=== PATIENT | female | born 1950 | race Caucasian/White ===

== ENCOUNTER 2016-08-19 09:39 | Inpatient (IN) | payer MEDICARE, MEDICAID ==
[2016-08-19] MEDS ORDERED: Ciprofloxacin 400MG IVPREMIX(* 400 MG/200 ML BAG IVPB ONE (09:55)
[2016-08-19] MEDS ORDERED: NS 0.9% 1000 ML* 1,000 ML IV ONE ×2 (09:55→16:58)
[2016-08-19] MEDS ORDERED: NS 0.9% 1000 ML* 3,000 ML IV ONE (10:00)
--- NOTE | 2016-08-19 10:50 | RAD ---
Indication: Fever. Single frontal view of the chest performed at 1000 hours was reviewed. Comparison is made with previous exam dated January 29, 2016. No mediastinal shift is noted. Heart is of normal size and configuration. Lung de la torre appear clear. IMPRESSION: NO ACTIVE CARDIOPULMONARY DISEASE IS NOTED.
--- NOTE | 2016-08-19 11:00 | RAD ---
INDICATION: Fever. Altered mental status. COMPARISON: CT brain June 20, 2007 TECHNIQUE: Noncontrast axial source images were acquired from the skull base to the vertex. FINDINGS: Ventricles/sulci: There is diffuse cortical volume loss with compensatory dilatation of the ventricles. The ventricles appear slightly out of proportion to the CSF spaces but appear unchanged. There is a cavum septum pellucidum/vergae representing a normal variant. Brain parenchyma: There is moderate periventricular and subcortical white matter change compatible with chronic ischemia. Intracranial hemorrhage:None. Extra-axial spaces: There are no abnormal extra axial fluid collections or evidence of extra-axial mass. Calvarium: There is no calvarial fracture or other calvarial abnormality. Scalp: There is no evidence of scalp or extracalvarial soft tissue abnormality. Paranasal sinuses/mastoid: The paranasal sinuses and mastoid air cells are clear. Other: None. IMPRESSION: No acute findings. Cortical involutional changes. Chronic microvascular ischemic change
[2016-08-19 12:16] LABS: Hematocrit 31 % (35-47); Mean Corpuscular HGB Conc 32 g/dl (31-36); Mean Corpuscular Hemoglobin 33 pg (27-31); Mean Corpuscular Volume 101 fL (80-97); Mean Platelet Volume 11 um3 (7.4-10.4); Red Blood Count 3.07 10^6/ul (4.0-5.4); Red Cell Distribution Width 13 % (10.5-15); White Blood Count 13.1 10^3/ul (3.5-10.8)
[2016-08-19 12:19] LABS: Add Diff/Slide Review? Slide Review Added; Comments Flag Yes
[2016-08-19 12:30] LABS: Albumin 2.8 g/dL (3.2-5.2); BUN/Creatinine Ratio 23.7 (8-20); Calcium 8.7 mg/dL (8.6-10.3); EGFR African American 38.9 (>60); EGFR Non-African American 30.3 (>60); Globulin 3.4 g/dL (2-4); Potassium 4.6 mmol/L (3.5-5.0); Total Bilirubin 0.9 mg/dL (0.2-1.0); Total Protein 6.2 g/dL (6.4-8.9)
[2016-08-19 12:33] LABS: Troponin I 0.13 ng/mL (<0.04)
[2016-08-19] MEDS ORDERED: Aspirin TAB* 325 MG PO ONE (13:27)
[2016-08-19] MEDS ORDERED: Enoxaparin(*) 150 MG/ML 1 ML SYRINGE SUBCUT ONE (14:00)
[2016-08-19] MEDS ORDERED: Acetaminophen TAB* 325 MG PO ONE (14:15)
[2016-08-19 14:36] LABS: Urine Bacteria 1+ (Absent); Urine Bilirubin Negative (Negative); Urine Glucose 3+(>=500 mg/dL) (Negative); Urine Nitrite Positive (Negative)
[2016-08-19] MEDS ORDERED: Dextrose 50% Syringe 50 ML* 25 GM/50 ML SYRINGE IV PUSH PRN (16:28)
[2016-08-19] MEDS ORDERED: Albuterol 2.5 MG/3 ML NEB.SOL* (0.083%) INH PRN (16:31)
[2016-08-19] MEDS ORDERED: Nystatin CREAM* 15 GM TUBE TOPICAL PRN (16:31)
[2016-08-19] MEDS ORDERED: Albuterol HFA INHALER* 8 gm MDI INH PRN (16:31)
[2016-08-19] MEDS ORDERED: Senna TAB PO PRN (16:31)
[2016-08-19] MEDS ORDERED: Docusate CAP* 100 MG PO PRN (16:47)
--- NOTE | 2016-08-19 16:48 | RAD ---
Indication: LEFT flank pain. Urinary tract infection. Comparison: September 07, 2015 CT. Technique: Renal ultrasound. Report: 10.6 x 6.4 x 5.4 cm RIGHT kidney. Moderate renal cortical atrophy. No focal renal lesions, conspicuous stones, or hydronephrosis. 12.2 x 4.9 x 4.5 cm LEFT kidney is remarkable for moderately severe cortical atrophy. 0.5 x 1.2 cm upper pole and 0.9 x 1.0 cm lower pole stones visualized. Negative for hydronephrosis. Focal renal lesions evident. Negative for perinephric fluid. IMPRESSION: 1. Nonobstructing LEFT renal stones. 2. Bilateral renal cortical atrophy.
[2016-08-19] MEDS ORDERED: HYDROcodone/ACETAMIN 5-325 MG* 1 TAB PO PRN (16:57)
[2016-08-19] MEDS ORDERED: NS 0.9% 1000 ML* 1,000 ML IV SCH (17:00)
[2016-08-19] MEDS: cefTRIAXone VIAL(*) 1,000 MG in NS 0.9% 50 ML* 50 ML IVPB SCH (17:46)
[2016-08-19 20:12] LABS: Troponin I 0.11 ng/mL (<0.04)
[2016-08-19] MEDS ORDERED: Insulin GLARGINE(*) 1 UNITS UNIT SUBCUT SCH (21:00)
[2016-08-19] MEDS: Insulin LISPRO* 1 UNITS UNIT SUBCUT SCH ×2 (21:53→23:37)
[2016-08-19] MEDS: Topiramate TAB(*) 100 MG PO SCH (21:53)
[2016-08-19] MEDS: Montelukast Sodium TAB* 10 MG PO SCH (21:53)
[2016-08-19] MEDS: Atorvastatin* 10 MG TAB PO SCH (21:53)
[2016-08-19] MEDS: Heparin VIAL(*) 5000 UNITS/ML VIAL (FIVE THOUSAND) SUBCUT SCH (21:54)
[2016-08-19] MEDS ORDERED: Ciprofloxacin 400MG IVPREMIX(* 400 MG/200 ML BAG IVPB SCH (22:00)
--- NOTE | 2016-08-19 23:21 | HP ---
ATTENDING PHYSICIAN ADDENDUM NOW INCLUDED ON THIS REPORT HOSPITAL MEDICINE HISTORY AND PHYSICAL: DATE OF ADMISSION: 08/19/16 PRIMARY CARE PROVIDER: Og Arce NP ATTENDING PHYSICIAN: Dr. Roopa Garsia* (dictation provided by Izabella Neal NP) . CHIEF COMPLAINT: Fever and disorientation. HISTORY OF PRESENT ILLNESS: Ms. Frankel is a 65-year-old female with a past medical history of morbid obesity, diabetes, CHF, hyperlipidemia, COPD, who presents today to the hospital with concern for multiple complaints. Ms. Frankel is somewhat confused today and information is also corroborated by her who is at the bedside. Per the report, Ms. Frankel first began to feel unwell on Friday. She has been disoriented, shaky, dizzy, and when asked if she has pain , she states she has pain from her feet all the way up to her chest. She said she had a headache, but it has now resolved. She had low-grade fever at home no higher than 100. Today, the patient finally requested to come to the hospital where she had been found to have a temperature as high as 103.3. Ms. Frankel states that she has been having a poor appetite but drinking well. She has had no nausea, vomiting, abdominal pain. She denies dysuria but does endorse frequency, although her reliability is suspected. In the emergency room, Ms. Frankel had a urinalysis that was positive for infection. Troponin was 0.13. She has a mild leukocytosis of 13.1 and a fever to 103.3 as stated above. PAST MEDICAL HISTORY: 1. Type 2 diabetes, insulin dependent. 2. Anemia. 3. Obesity, morbid. 4. History of acute renal failure, on hemodialysis, now resolved from December 2015. 5. Congestive heart failure, unknown type. 6. Hyperlipidemia. 7. Asthma/COPD. 8. Fibromyalgia. 9. 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 10. History of cholecystectomy. 11. History of appendectomy. 12. History of colostomy, reversed. 13. History of drop foot status critical illness. 14. History of chronic ventral wound after a mesh infection from previous surgery. MEDICATIONS: 1. Voltaren 1% gel one application topically four times a day. 2. Furosemide 40 mg p.o. daily. 3. Hydrocodone/acetaminophen 1 tab p.o. q.4 hours p.r.n. 4. Insulin Lantus 37 units subcutaneously daily. 5. Albuterol via nebulizer p.r.n. 6. Albuterol metered dose inhaler p.r.n. 7. Aspirin 81 mg p.o. daily. 8. Cholecalciferol 2000 units p.o. daily. 9. Cyanocobalamin 1000 mcg p.o. daily. 10. Duloxetine 30 mg p.o. daily. 11. Famotidine 40 mg p.o. daily. 12. Lispro insulin 4 units subcutaneously t.i.d. with meals. 13. Montelukast 10 mg p.o. at bedtime. 14. Nystatin cream one application topically t.i.d. 15. Potassium chloride 20 mEq p.o. daily. 16. Sennoside/docusate 1 tab p.o. at bedtime. 17. Simvastatin 20 mg p.o. at bedtime. 18. Topamax 100 mg p.o. b.i.d. ALLERGIES: To CEFOXITIN with unknown reaction type. FAMILY HISTORY: Mother had heart disease and diabetes but of bowel cancer. Father had heart disease and diabetes. The healthcare proxy is her , David Frankel Junior. SOCIAL HISTORY: The patient is a former smoker but quit in 1995. She drinks alcohol very occasionally. There is no report of drug use. Again, the healthcare proxy is David Junior Jostin. PHYSICAL EXAMINATION GENERAL: Ms. Frankel is sitting in the bed, she is in no acute distress. VITAL SIGNS: Temperature 101.4, pulse rate 93, respiratory rate 17, O2 saturation 95% on room air, blood pressure 142/66. HEENT: Mucous membranes are dry. LUNGS: Clear to auscultation bilaterally with no accessory muscle use and good aeration. HEART: S1, S2. No murmur, rub, or gallop, and regular. ABDOMEN: Soft, nontender. EXTREMITIES: No cyanosis or edema. NEURO: She is alert. She appears somewhat confused when asked questions but she generally participates coherently in conversation, she is forgetful. She moves all extremities equally. There is no facial asymmetry or focal weakness. Extraocular movements are intact. SKIN: The patient does have a chronic ventral wound to the lower mid abdomen with a dressing and no evidence of erythema or drainage. DIAGNOSTIC STUDIES/LAB DATA: WBC 13.1, hemoglobin 10.0, hematocrit 31, platelet count 102. INR 1.01. Sodium 134, potassium 4.6, chloride 104, serum bicarbonate 22, BUN 40, creatinine 1.69, glucose 306. Troponin 0.13. Urine shows 3+ leuk esterase and positive nitrites. Renal ultrasound shows nonobstructing left renal stones and bilateral renal cortical atrophy only. Chest x-ray shows "no active cardiopulmonary disease noted." ASSESSMENT AND PLAN: Ms. Frankel is a 65-year-old female with past medical history of morbid obesity; congestive heart failure; type 2 diabetes, insulin dependent; asthma; chronic obstructive pulmonary disease, who presents today to the hospital with concern for feeling disoriented, fever, and urinary frequency. In the emergency room, she has been found to have a positive urinalysis with no evidence for nephrolithiasis or hydronephrosis. Our plan is as follows: 1. Urinary tract infection without evidence of sepsis. I reviewed previous microbiology and the patient has had multiple urinary tract infections with proteus all resistant to ciprofloxacin. She was given one time dose of Cipro in the emergency room but I have now planned to switch to ceftriaxone. I note that she has allergy to CEFOXITIN but note she has received ceftriaxone in the past with no problem. The patient does seem mildly disoriented today, but she is overall coherent and participates well in conversation. I think, she likely has a mild degree of metabolic encephalopathy with infection. 2. Dehydration. The patient has dry mucous membranes. Her BUN and creatinine are at baseline now. Plan for normal saline x2 L. She has received 1 L thus far in the emergency room and she will normal saline at a rate of 100 an hour. Plan to hold furosemide. 3. Diabetes. Plan for slight decrease in her Lantus dose of 30 units subcutaneously at bedtime. She will continue on 4 units t.i.d. with Lispro with meals as well as a sliding scale. We are going to adjust that as needed based on clinical course. 4. History of congestive heart failure. The patient appears dry at this point. We will proceed with IV fluids as per above. We will monitor closely for signs of pulmonary edema. 5. Asthma and chronic obstructive pulmonary disease. The patient is breathing easily with no evidence of exacerbation. Plan to continue her home medications. 6. Chronic pain. Continue hydrocodone. 7. DVT prophylaxis with heparin subcu. 8. Troponin elevation. The patient's troponin is mildly elevated to 0.13. This is in the setting of ongoing diabetes. At this point, she has no chest pain or concern for acute coronary syndrome and I plan to cycle troponins x3 total. The patient will be monitored on telemetry unit. 9. Code status is full code. This was reviewed with the patient and the at the bedtime. TIME SPENT: Approximately 70 minutes was spent in the admission of this patient , more than half the time spent with her at the bedside reviewing the events leading up to this hospitalization, performing the physical examination, and reviewing the plan of care. IZABELLA NEAL NP ADDENDUM: Mrs. Frankel is a 65-year-old female with history of chronic medical conditions including chronic kidney disease, diabetes, who presents with fever and confusion and was noted to have UTI. She is going to be admitted with a diagnosis of sepsis due to UTI. For further details of the patient's presentation and plan, please see history and physical dictated by Izabella Neal NP on 08/19/16 with which I agree[place] [id number]/[facility] #: [id number] Payal-[id number]/[facility]PS #: [id number] ALFIE
--- NOTE | 2016-08-19 23:47 | HP ---
HISTORY AND PHYSICAL:* ADDENDUM: Mrs. Frankel is a 65-year-old female with history of chronic medical conditions including chronic kidney disease, diabetes, who presents with fever and confusion and was noted to have UTI. She is going to be admitted with a diagnosis of sepsis due to UTI. For further details of the patient's presentation and plan, please see history and physical dictated by Izabella Neal NP on 08/19/16 with which I agree. [id number]/[facility] #: [id number] [facility] CENTERKyree
[2016-08-20] MEDS: Heparin VIAL(*) 5000 UNITS/ML VIAL (FIVE THOUSAND) SUBCUT SCH ×3 (05:19→21:23)
--- NOTE | 2016-08-20 07:58 | ED ---
Maxx Conn Adam, scribed for Sea Riggs MD on 08/19/16 at 0946 . Complex/Multi-Sys Presentation - HPI Summary HPI Summary: Pt is a 65 year old female BIBA with fever, lethargy, and abdominal pain. According to EMS the pt has been in bed complaining of dizziness for the past 3 days and they report a fever with Tmax of 101.4. The pt states that her chief complaint is the abdominal pain. She also c/o PATIÑO and generalized myalgia and she reports having foul-smelling urine which is a dark rita color. The pt presents with slurred speech and decreased responsiveness. EMS reports glucose of 289 and HR of 104 BPM en route to the ED. Pt reportedly had a similar episode of increased lethargy 4-5 months ago. She uses a wheelchair at her residence. - History Of Current Complaint Hx Obtained From: Patient Onset/Duration: Gradual Onset, Lasting Days, Still Present Timing: Constant Severity Currently: Moderate Severity Initially: Moderate Location: Pain At: - Abdomen, head, generalized Associated Signs And Symptoms: Positive: Dizziness, Headache, Abdominal Pain, Fever - Allergies/Home Medications Allergies/Adverse Reactions: Allergies Allergy/AdvReac Type Severity Reaction Status Date / Time Cefoxitin Allergy Unknown Verified 01/29/16 09:10 Reaction Details Home Medications: Home Medications Aspirin EC Low Dose* [Ecotrin EC Low Dose*] 81 mg PO DAILY 08/19/16 [History Confirmed 08/19/16] Furosemide TAB* [Lasix TAB*] 40 mg PO DAILY 08/19/16 [History Confirmed 08/19/16 ] Insulin GLARGINE(*) [Lantus(*)] 37 units SUBCUT DAILY 08/19/16 [History Confirmed 08/19/16] Insulin LISPRO* [HumaLOG*] 4 units SUBCUT TID WITH MEALS 08/19/16 [History Confirmed 08/19/16] Potassium Chlor TAB* [Klor Con ER TAB*] 20 meq PO DAILY 08/19/16 [History Confirmed 08/19/16] Sennosides-Docusate Sodium [Senna-S 8.6-50 mg] 1 tab PO BEDTIME PRN 08/19/16 [ History Confirmed 08/19/16] PMH/Surg Hx/FS Hx/Imm Hx Endocrine/Hematology History: Reports: Hx Bone Marrow Disease - Type 2, Hx Diabetes, Hx Anemia, Other Endocrine/Hematological Disorders - "bone marrow disorder" Cardiovascular History: Reports: Hx Congestive Heart Failure, Hx Hypercholesterolemia Respiratory History: Reports: Hx Asthma, Hx Chronic Obstructive Pulmonary Disease (COPD) GI History: Reports: Hx Gall Bladder Disease - cholecystectomy, Other GI Disorders - appendectomy/Mesentary Musculoskeletal History: Reports: Hx Fibromyalgia Sensory History: Reports: Hx Contacts or Glasses Opthamlomology History: Reports: Hx Contacts or Glasses - Surgical History Surgery Procedure, Year, and Place: Appendectomy, cholecystectomy, ventral hernia repair Infectious Disease History: Reports: Hx of Known/Suspected MRSA - confirmation unknown at this time - Family History Known Family History: Positive: Cardiac Disease - Unknown heart disease (both parents), Diabetes - Both parents, Other - Mother of bowel cancer at age 52 - Social History Occupation: Disabled Lives: Alone Alcohol Use: None Hx Substance Use: No Substance Use Type: Reports: None Hx Tobacco Use: No - Former Smoking Status (MU): Former Smoker Review of Systems Positive: Fever, Fatigue. Negative: Chills Negative: Erythema Negative: Sore Throat Negative: Chest Pain Negative: Shortness Of Breath, Cough Positive: Abdominal Pain. Negative: Vomiting, Nausea Negative: dysuria, hematuria Positive: Myalgia. Negative: Edema Negative: Rash Neurological: Other - Dizziness Positive: Headache, Slurred Speech All Other Systems Reviewed And Are Negative: Yes Physical Exam - Summary Physical Exam Summary: Constitutional: Well-developed, Well-nourished, Alert. (-) Distressed Skin: Warm, Dry HENT: Normocephalic; Atraumatic Eyes: Conjunctiva normal Neck: Musculoskeletal ROM normal neck. (-) JVD, (-) Stridor, (-) Tracheal deviation Cardio: Rhythm regular, rate normal, Heart sounds normal; Intact distal pulses; The pedal pulses are 2+ and symmetric. Radial pulses are 2+ and symmetric. (-) Murmur Pulmonary/Chest wall: Effort normal. (-) Respiratory distress, (-) Wheezes, (-) Rales Abd: Soft, (-) Tenderness, (-) Distension, (-) Guarding, (-) Rebound Musculoskeletal: (-) Edema Lymph: (-) Cervical adenopathy Neuro: Alert, Oriented x3 Psych: Mood and affect Normal Triage Information Reviewed: Yes Vital Signs Reviewed: Yes Diagnostics - Laboratory Result Diagrams: 08/19/16 11:59 08/19/16 11:59 Lab Statement: Any lab studies that have been ordered have been reviewed, and results considered in the medical decision making process. - Radiology CXR Radiology Interpretation Completed By: Radiologist - IMPRESSION: NO ACTIVE CARDIOPULMONARY DISEASE IS NOTED. - CT BRAIN CT Interpretation Completed By: Radiologist - IMPRESSION: No acute findings. Cortical involutional changes. Chronic microvascular ischemic change - Additional Comments Diagnostic Additional Comments: Troponin I - 0.13 Complex Multi-Symp Course/Dx - Diagnoses Provider Diagnoses: UTI (urinary tract infection), Delirium, Elevated troponin Discharge - Discharge Plan Condition: Stable Disposition: ADMITTED TO [facility] The documentation as recorded by the Maxx poole Adam accurately reflects the service I personally performed and the decisions made by , Sea Riggs MD.
[2016-08-20] MEDS ORDERED: Albuterol 2.5 MG/3 ML NEB.SOL* (0.083%) INH PRN (08:15)
--- NOTE | 2016-08-20 08:43 | PN ---
Subjective Date of Service: 08/20/16 Interval History: Pt's ability to communicate accurate information at this time is limited. She is able to say "ow" when I palpate her abdomen, she can tell me her birthday and that she is in the hospital and other than that she does not answer my questions. Objective Active Medications: Albuterol (Ventolin Hfa Inhaler*) 2 puff INH Q4H PRN PRN Reason: WHEEZING Albuterol (Ventolin 2.5 Mg/3 Ml Neb.Shanta*) 2.5 mg INH Q4H PRN PRN Reason: WHEEZING Aspirin (Aspirin Ec Low Dose*) 81 mg PO DAILY [facility] Atorvastatin Calcium (Lipitor*) 10 mg PO BEDTIME [facility] Last Admin: 08/19/16 21:53 Dose: 10 mg Cholecalciferol (Vitamin D Tab*) 2,000 units PO DAILY [facility] Cyanocobalamin (Vitamin B12 Tab*) 1,000 mcg PO DAILY [facility] Dextrose (D50w Syringe 50 Ml*) 12.5 gm IV PUSH .FOR FS < 60 - SS PRN PRN Reason: FS < 60 Docusate Sodium (Colace Cap*) 100 mg PO BEDTIME PRN PRN Reason: CONSTIPATION Duloxetine HCl (Cymbalta Cap*) 30 mg PO DAILY [facility] Famotidine (Pepcid Tab*) 40 mg PO DAILY [facility] Heparin Sodium (Porcine) (Heparin Vial(*)) 5,000 units SUBCUT Q8HR [facility] Last Admin: 08/20/16 05:19 Dose: 5,000 units Ceftriaxone Sodium 1,000 mg/ (Sodium Chloride) 50 mls @ 200 mls/hr IVPB Q24H [facility] Last Admin: 08/19/16 17:46 Dose: 200 mls/hr Sodium Chloride (Ns 0.9% 1000 Ml*) 1,000 mls @ 100 mls/hr IV PER RATE [facility] Last Admin: 08/20/16 00:40 Dose: 100 mls/hr Insulin Glargine (Lantus(*)) 35 units SUBCUT BEDTIME JOSE Insulin Human Lispro (Humalog*) 0 units SUBCUT AC JOSE PRN Reason: Protocol Last Admin: 08/19/16 23:37 Dose: Not Given Insulin Human Lispro (Humalog*) 4 units SUBCUT TID WITH MEALS [facility] Last Admin: 08/19/16 21:53 Dose: 4 units Montelukast Sodium (Singulair Tab*) 10 mg PO BEDTIME [facility] Last Admin: 08/19/16 21:53 Dose: 10 mg Nystatin (Nystatin Cream*) 1 applic TOPICAL TID PRN PRN Reason: RASH Potassium Chloride (Klor Con Er Tab*) 20 meq PO DAILY [facility] Senna (Senokot Tab*) 1 tab PO BEDTIME PRN PRN Reason: CONSTIPATION Topiramate (Topamax(*)) 100 mg PO BID [facility] Last Admin: 08/19/16 21:53 Dose: 100 mg Vital Signs 08/19/16 08/19/16 08/19/16 19:08 19:43 19:59 Temperature 99.8 F 98.5 F Pulse Rate 91 80 Respiratory 20 18 Rate Blood Pressure 95/45 127/55 (mmHg) O2 Sat by Pulse 96 97 Oximetry 08/19/16 08/19/16 08/19/16 20:14 20:38 23:30 Temperature 98.5 F 98.1 F Pulse Rate 80 85 Respiratory 18 20 16 Rate Blood Pressure 127/55 130/51 (mmHg) O2 Sat by Pulse 97 97 Oximetry 08/20/16 08/20/16 08/20/16 00:15 03:15 07:27 Temperature 98.5 F 99.2 F Pulse Rate 85 131 Respiratory 18 16 28 Rate Blood Pressure 135/61 142/95 (mmHg) O2 Sat by Pulse 93 87 Oximetry 08/20/16 07:55 Temperature Pulse Rate Respiratory 24 Rate Blood Pressure (mmHg) O2 Sat by Pulse Oximetry Oxygen Devices in Use Now: None Appearance: Super morbidly obese female sitting up in bed, poorly communicative but in NAD Eyes: No Scleral Icterus Ears/Nose/Mouth/Throat: Mucous Membranes Moist Respiratory: Symmetrical Chest Expansion and Respiratory Effort, Clear to Auscultation Cardiovascular: - - regular but tachycardic, L LE> in diameter than R LE, trace LE edema bilaterally Abdominal: - - BS+ soft, morbidly obese, ND, tender to palpation in both lower quadrants, midline abdominal wound noted-see below for description Extremities: No Clubbing, Cyanosis Skin: No Nodules or Sclerosis, - - Prior ventral hernia scar noted, the dressing that was on had not been changed since the patient presented to the hospital-dried serous fluid on gauze, no foul smell, no erythema, small slit like defect (wound) at the inferior portion of the scar with possible tract Neurological: - - pt appears encephalopathic Result Diagrams: 08/19/16 11:59 08/19/16 11:59 Assess/Plan/Problems-Billing Ms Frankel is a 65 yo F with super morbid obesity, type II DM, asthma/COPD, diastolic CHF, HLD and depression who presented to the ER with c/o fever and altered mental status and was admitted for sepsis secondary to probable UTI. - Patient Problems (1) Sepsis Current Visit: Yes Status: Acute Comment: On admission the patient was septic likely secondary to UTI. Her SOFA score was elevated at 3 with a point each for thrombocytopenia, low MAP and reduced GCS. Her sepsis appears to have resolved though she still remains encephalopathic. (2) UTI (urinary tract infection) Current Visit: Yes Status: Acute Comment: The patient's admission urinalysis appears infected. Continue ceftriaxone for now (pt has listed allergy to cefoxitin though the allergy reaction has not been established). Monitor for signs of allergic rxn. Await urine culture results. (3) Elevated troponin Current Visit: Yes Status: Acute Code(s): R79.89 - OTHER SPECIFIED ABNORMAL FINDINGS OF BLOOD CHEMISTRY SNOMED Code(s): 133901908 Comment: On admission the patient had an elevated troponin of 0.13 then up to 0.14, now down to 0.11. I suspect the elevated troponin was secondary to demand ischemia in the setting of sepsis. Will get echocardiogram to eval LVEF and wall motion though this will likely be a difficult exam given her morbid obesity. (4) Thrombocytopenia Current Visit: Yes Status: Acute Code(s): D69.6 - THROMBOCYTOPENIA, UNSPECIFIED SNOMED Code(s): 991616119 Comment: I am most suspicous her thrombocytopenia is secondary to sepsis. Will get follow up CBC today. Monitor for now. (5) Gram-positive cocci bacteremia Current Visit: Yes Status: Acute Code(s): R78.81 - BACTEREMIA SNOMED Code( s): 565728185472 Comment: Today the patient so far has 1 of 2 bottles positive for gram positive cocci- MRSA neg, S aureus negative. Likely a contaminant. If concerns tomorrow after further culture data is concerning will get ID consult. (6) Stage III chronic kidney disease Current Visit: Yes Status: Acute Code(s): N18.3 - CHRONIC KIDNEY DISEASE, STAGE 3 (MODERATE) SNOMED Code(s): 752717395 Comment: Creatinine is at baseline. Continue to follow. (7) Wound, surgical, nonhealing Current Visit: Yes Status: Acute Code(s): T81.89XA - OTH COMPLICATIONS OF PROCEDURES, NEC, INIT SNOMED Code(s): 240795981 Comment: No clear signs of infection surrounding the slit like wound at the inferior portion of the previous ventral hernia repair scar. Wound consult has been ordered. (8) Diastolic CHF, chronic Current Visit: Yes Status: Acute Code(s): I50.32 - CHRONIC DIASTOLIC ( CONGESTIVE) HEART FAILURE SNOMED Code(s): 047986806 Comment: No signs of significant fluid overload at this time. Lasix is currently on hold. Monitor fluid status. (9) Type II diabetes mellitus Current Visit: Yes Status: Acute Comment: Sugars are currently uncontrolled. Increase lantus to 35 units daily. Continue lispro sliding scale. (10) COPD (chronic obstructive pulmonary disease) Current Visit: Yes Status: Acute Code(s): J44.9 - CHRONIC OBSTRUCTIVE PULMONARY DISEASE, UNSPECIFIED SNOMED Code(s): 10792334 Comment: No signs of exacerbation at this time. Continue prn nebs and singulair. (11) Depression Current Visit: Yes Status: Acute Code(s): F32.9 - MAJOR DEPRESSIVE DISORDER , SINGLE EPISODE, UNSPECIFIED SNOMED Code(s): 23331126 Comment: Continue cymbalta and topamax. (12) Morbid obesity Current Visit: Yes Status: Acute Code(s): E66.01 - MORBID (SEVERE) OBESITY DUE TO EXCESS CALORIES SNOMED Code(s): 907229511 Comment: Diagnosis noted. Once more appropriate for education will discuss diet/exercise. (13) DVT prophylaxis Current Visit: Yes Status: Acute Code(s): XYR8881 - SNOMED Code(s): 314126306 Comment: SQ heparin (14) Full code status Current Visit: Yes Status: Acute Code(s): Z78.9 - OTHER SPECIFIED HEALTH STATUS SNOMED Code(s): 469060011
--- NOTE | 2016-08-20 09:15 | RAD ---
Indication: Left leg edema. Duplex Doppler sonography of the deep venous system of the left lower extremity deep venous system was performed. Bilaterally the common femoral veins appear patent and compressible. Left proximal greater saphenous vein, proximal deep femoral vein, femoral vein, popliteal vein, posterior tibial veins and peroneal veins appear patent and compressible. IMPRESSION: NO EVIDENCE OF DEEP VENOUS THROMBOSIS IS IDENTIFIED.
[2016-08-20 10:05] LABS: Hematocrit 32 % (35-47); Hemoglobin 10.2 g/dl (12.0-16.0); Mean Corpuscular HGB Conc 32 g/dl (31-36); Mean Corpuscular Hemoglobin 32 pg (27-31); Mean Corpuscular Volume 101 fL (80-97); Red Blood Count 3.18 10^6/ul (4.0-5.4); Red Cell Distribution Width 14 % (10.5-15); White Blood Count 12.8 10^3/ul (3.5-10.8)
[2016-08-20 10:14] LABS: Add Diff/Slide Review? Slide Review Added; Comments Flag Yes
[2016-08-20] MEDS: Insulin LISPRO* 1 UNITS UNIT SUBCUT SCH ×6 (10:15→17:47)
[2016-08-20] MEDS: Topiramate TAB(*) 100 MG PO SCH ×2 (10:18→21:23)
[2016-08-20] MEDS: Famotidine TAB* 20 MG PO SCH (10:19)
[2016-08-20] MEDS: Cholecalciferol TAB* 1000 UNITS PO SCH (10:20)
[2016-08-20] MEDS: Aspirin EC Low Dose* 81 MG TAB.EC PO SCH (10:20)
[2016-08-20] MEDS: DULoxetine DR CAP* 30 MG CAP.DR PO SCH (10:20)
[2016-08-20] MEDS: Cyanocobalamin TAB* 500 MCG PO SCH (10:21)
[2016-08-20] MEDS: Potassium Chlor TAB* 20 MEQ TAB.ER PO SCH (10:21)
[2016-08-20 10:22] LABS: BUN/Creatinine Ratio 24.1 (8-20); Calcium 8.6 mg/dL (8.6-10.3); EGFR Non-African American 37.3 (>60); Potassium 3.7 mmol/L (3.5-5.0)
[2016-08-20] MEDS: NS 0.9% 1000 ML* 1,000 ML IV SCH (11:42)
[2016-08-20] MEDS ORDERED: Perflutren Lipid Microsphere* 1.1 MG/ML VIAL IV ONE (12:30)
--- NOTE | 2016-08-20 13:29 | ECHO ---
Patient: CATARINA LAWSON Rec#: [id number] : 1950 Date: 08/20/2016 Age: 65y Height: 152.4 cm / 60.0 in Weight: 134.26 kg / 295.9 lbs Sex: F BSA: 2.2 Room#: 433 Admit Date#: 08/19/2016 Type: Inpatient Referring: Lesli Gimenez DO Reading: Fernando Dacosta MD Coil Maker: Kala Burrows RDCS CC: Og Arce NP Transthoracic Echocardiogram Indication: ACS BP: 142/95 HR: 117 Rhythm: NSR Findings History: Morbid obesity,DM,CHF,HLD,COPD,anemia,acute renal failure,fibromyalgia. Technical Comments: The study is technically difficult. Completed at 1245. The study is technically limited due to patient body habitus. The study was technically limited due to the patient's inability to lay in the left lateral decubitus position. Left Ventricle: The left ventricular chamber size is normal. The left ventricle appears hyperdynamic. The estimated ejection fraction is greater than 65%. The patient was unable to perform a Valsalva maneuver. Left Atrium: The left atrial chamber size is normal. Right Ventricle: The right ventricular cavity size is normal. The right ventricular global systolic function is normal. Right Atrium: The right atrium is not well visualized. Aortic Valve: The aortic valve is trileaflet. There is no evidence of aortic regurgitation. There is no evidence of aortic stenosis. Mitral Valve: The mitral valve leaflets are mildly thickened. There is a trace of mitral regurgitation. There is no evidence of mitral stenosis. Tricuspid Valve: The tricuspid valve leaflets are normal. There is a physiologic tricuspid regurgitation. There is evidence that pulmonary hypertension may be underestimated. There is no tricuspid stenosis. Pulmonic Valve: The pulmonic valve appears normal. There is no evidence of pulmonic regurgitation. There is no pulmonic stenosis. Pericardium: A pericardial fat pad is visualized. Aorta: There is no dilatation of the ascending aorta. There is no dilatation of the aortic arch. There is no dilation of the aortic root. Pulmonary Artery: The main pulmonary artery appears normal. Venous: The inferior vena cava appears normal in size. There is an approximate 50% respiratory change in the inferior vena cava dimension. Conclusions The study was technically limited due to the patient's inability to lay in the left lateral decubitus position. The left ventricle appears hyperdynamic. The estimated ejection fraction is greater than 65%. No significant valvular disease: There is a trace of mitral regurgitation. There is a physiologic tricuspid regurgitation. Comparted to report of study from 12/27/2015 the overall LV systolic function is better (was reported as 55-60 % LVEF). Measurements Name Value Normal Range RVIDd (AP) 2D 2.6 cm (0.9 - 2.6) RVDdMajor (2D) 4.3 cm (2.2 - 4.4) IVSd (2D) 0.7 cm (0.6 - 1) LVPWd (2D) 1 cm (0.6 - 1) LVIDd (2D) 4.7 cm (3.6 - 5.4) LVIDs (2D) 3.4 cm - LV FS (2D) 28 % (25 - 45) Aortic Annulus 2.1 cm (1.4 - 2.6) Ao root diameter (2D) 2.9 cm (2.1 - 3.5) Ascending Ao 3 cm (2.1 - 3.4) Aortic arch 2.4 cm (1.8 - 3.4) Descending Ao 0.8 cm - LA dimension (AP) 2D 3.4 cm (2.3 - 3.8) Name Value Normal Range LA ESV SP 4CH (A/L) 29 ml - LA ESV SP 2CH (A/L) 34 ml - LA ESV BP (A/L) 32 ml - LA ESV BP (A/L) index 14.38 ml/m2 - LA ESV SP 4CH (MOD) 27 ml - LA ESV SP 2CH (MOD) 3 ml - Name Value Normal Range MV E-wave Vmax 0.9 m/sec - MV deceleration time 115 msec - MV A-wave Vmax 1.1 m/sec - MV E:A ratio 0.83 ratio - LV septal e' Vmax 0.08 m/sec - LV lateral e' Vmax 0.09 m/sec - LV E:e' septal ratio 11.25 ratio - LV E:e' lateral ratio 10 ratio - Name Value Normal Range AV Vmax 1.9 m/sec - AV VTI 30.9 cm - AV peak gradient 13.87 mmHg - AV mean gradient 7.89 mmHg - LVOT Vmax 1 m/sec - LVOT VTI 21 cm - LVOT peak gradient 6.62 mmHg - LVOT mean gradient 3.33 mmHg - Name Value Normal Range IVC diameter 2 cm - Name Value Normal Range PV Vmax 1.5 m/sec - PV peak gradient 8.51 mmHg -
[2016-08-20] MEDS: cefTRIAXone VIAL(*) 1,000 MG in NS 0.9% 50 ML* 50 ML IVPB SCH (16:45)
[2016-08-20] MEDS: Acetaminophen TAB* 325 MG PO PRN ×2 (16:48→22:46)
[2016-08-20] MEDS ORDERED: Insulin GLARGINE(*) 1 UNITS UNIT SUBCUT SCH (21:00)
[2016-08-20] MEDS: Atorvastatin* 10 MG TAB PO SCH (21:23)
[2016-08-20] MEDS: Montelukast Sodium TAB* 10 MG PO SCH (21:23)
[2016-08-21] MEDS: NS 0.9% 1000 ML* 1,000 ML IV SCH (04:31)
[2016-08-21] MEDS: Heparin VIAL(*) 5000 UNITS/ML VIAL (FIVE THOUSAND) SUBCUT SCH ×3 (04:32→21:08)
--- NOTE | 2016-08-21 08:06 | PN ---
Subjective Date of Service: 08/21/16 Interval History: Pt is feeling much better today than yesterday. She denies any pain. No SOB. She states she feels puffy. Objective Active Medications: Acetaminophen (Tylenol Tab*) 650 mg PO Q4H PRN PRN Reason: PAIN Last Admin: 08/20/16 22:46 Dose: 650 mg Albuterol (Ventolin Hfa Inhaler*) 2 puff INH Q4H PRN PRN Reason: WHEEZING Albuterol (Ventolin 2.5 Mg/3 Ml Neb.Shanta*) 2.5 mg INH Q4H PRN PRN Reason: WHEEZING Aspirin (Aspirin Ec Low Dose*) 81 mg PO DAILY [facility] Last Admin: 08/20/16 10:20 Dose: 81 mg Atorvastatin Calcium (Lipitor*) 10 mg PO BEDTIME [facility] Last Admin: 08/20/16 21:23 Dose: 10 mg Cholecalciferol (Vitamin D Tab*) 2,000 units PO DAILY [facility] Last Admin: 08/20/16 10:20 Dose: 2,000 units Cyanocobalamin (Vitamin B12 Tab*) 1,000 mcg PO DAILY [facility] Last Admin: 08/20/16 10:21 Dose: 1,000 mcg Dextrose (D50w Syringe 50 Ml*) 12.5 gm IV PUSH .FOR FS < 60 - SS PRN PRN Reason: FS < 60 Docusate Sodium (Colace Cap*) 100 mg PO BEDTIME PRN PRN Reason: CONSTIPATION Duloxetine HCl (Cymbalta Cap*) 30 mg PO DAILY [facility] Last Admin: 08/20/16 10:20 Dose: 30 mg Famotidine (Pepcid Tab*) 40 mg PO DAILY [facility] Last Admin: 08/20/16 10:19 Dose: 40 mg Heparin Sodium (Porcine) (Heparin Vial(*)) 5,000 units SUBCUT Q8HR [facility] Last Admin: 08/21/16 04:32 Dose: 5,000 units Ceftriaxone Sodium 1,000 mg/ (Sodium Chloride) 50 mls @ 200 mls/hr IVPB Q24H [facility] Last Admin: 08/20/16 16:45 Dose: 200 mls/hr Sodium Chloride (Ns 0.9% 1000 Ml*) 1,000 mls @ 75 mls/hr IV PER RATE [facility] Last Admin: 08/21/16 04:31 Dose: 75 mls/hr Insulin Glargine (Lantus(*)) 40 units SUBCUT BEDTIME [facility] Insulin Human Lispro (Humalog*) 0 units SUBCUT AC [facility] PRN Reason: Protocol Last Admin: 08/20/16 17:46 Dose: 6 units Insulin Human Lispro (Humalog*) 4 units SUBCUT TID WITH MEALS [facility] Last Admin: 08/20/16 17:47 Dose: 4 units Montelukast Sodium (Singulair Tab*) 10 mg PO BEDTIME [facility] Last Admin: 08/20/16 21:23 Dose: 10 mg Nystatin (Nystatin Cream*) 1 applic TOPICAL TID PRN PRN Reason: RASH Potassium Chloride (Klor Con Er Tab*) 20 meq PO DAILY [facility] Last Admin: 08/20/16 10:21 Dose: 20 meq Senna (Senokot Tab*) 1 tab PO BEDTIME PRN PRN Reason: CONSTIPATION Topiramate (Topamax(*)) 100 mg PO BID [facility] Last Admin: 08/20/16 21:23 Dose: 100 mg Vital Signs 08/20/16 08/20/16 08/20/16 11:06 15:24 20:00 Temperature 97.3 F 98.6 F Pulse Rate 129 100 Respiratory 20 16 16 Rate Blood Pressure 122/58 110/35 (mmHg) O2 Sat by Pulse 94 98 Oximetry 08/20/16 08/21/16 08/21/16 20:08 00:12 03:39 Temperature 97.8 F 98.6 F 98.4 F Pulse Rate 87 89 96 Respiratory 16 16 16 Rate Blood Pressure 127/44 125/61 138/64 (mmHg) O2 Sat by Pulse 98 95 95 Oximetry 08/21/16 08/21/16 07:22 07:34 Temperature Pulse Rate 85 Respiratory 18 Rate Blood Pressure (mmHg) O2 Sat by Pulse 96 Oximetry Oxygen Devices in Use Now: None Appearance: Middle aged morbidly obese female sitting up in bed, NAD Eyes: No Scleral Icterus Ears/Nose/Mouth/Throat: Mucous Membranes Moist Respiratory: Symmetrical Chest Expansion and Respiratory Effort, Clear to Auscultation - diminished breath sounds throughout but clear Cardiovascular: NL Sounds; No Murmurs; No JVD, RRR, No Edema Abdominal: NL Sounds; No Tenderness; No Distention Extremities: No Clubbing, Cyanosis Skin: No Rash or Ulcers, No Nodules or Sclerosis Neurological: Alert and Oriented x 3 Result Diagrams: 08/20/16 09:55 08/20/16 09:55 Assess/Plan/Problems-Billing Ms Frankel is a 65 yo F with super morbid obesity, type II DM, asthma/COPD, diastolic CHF, HLD and depression who presented to the ER with c/o fever and altered mental status and was admitted for sepsis secondary to probable UTI. - Patient Problems (1) Sepsis Current Visit: Yes Status: Acute Comment: On admission the patient was septic likely secondary to UTI. Her SOFA score was elevated at 3 with a point each for thrombocytopenia, low MAP and reduced GCS. Sepsis has resolved and her encephalopathy has resolved. (2) UTI (urinary tract infection) Current Visit: Yes Status: Acute Comment: The urine culture results have not been reported yet but by verbal report from the micro lab she is growing proteus mirabilis. She grew this in the past and it was sensitive to ceftriaxone. Will continue ceftriaxone for now and await the sensitivities though I suspect based on her clinical improvement she is sensitive. Likely ready for home tomorrow AM. (3) Elevated troponin Current Visit: Yes Status: Acute Code(s): R79.89 - OTHER SPECIFIED ABNORMAL FINDINGS OF BLOOD CHEMISTRY SNOMED Code(s): 155934939 Comment: The patient's echo was limited and there was no comment on any wall motion abnormalities. She denies any chest pain. No further work up this hospitalization though she would likely benefit from a stress test as an outpatient. (4) Thrombocytopenia Current Visit: Yes Status: Acute Code(s): D69.6 - THROMBOCYTOPENIA, UNSPECIFIED SNOMED Code(s): 357007836 Comment: Improving. Follow up level tomorrow. (5) Gram-positive cocci bacteremia Current Visit: Yes Status: Acute Code(s): R78.81 - BACTEREMIA SNOMED Code( s): 994707701969 Comment: 2 of 4 bottles (both bottles of 1 set) with gram positive cocci- likely contaminant. Follow up culture results. (6) Stage III chronic kidney disease Current Visit: Yes Status: Acute Code(s): N18.3 - CHRONIC KIDNEY DISEASE, STAGE 3 (MODERATE) SNOMED Code(s): 937455503 Comment: Creatinine is at baseline. Continue to follow. (7) Wound, surgical, nonhealing Current Visit: Yes Status: Acute Code(s): T81.89XA - OTH COMPLICATIONS OF PROCEDURES, NEC, INIT SNOMED Code(s): 912424837 Comment: No clear signs of infection surrounding the slit like wound at the inferior portion of the previous ventral hernia repair scar. (8) Diastolic CHF, chronic Current Visit: Yes Status: Acute Code(s): I50.32 - CHRONIC DIASTOLIC ( CONGESTIVE) HEART FAILURE SNOMED Code(s): 747540477 Comment: The patient is feeling puffy. Stop IVF-she is eating/drinking. Resume usual diuretic dosing. (9) Type II diabetes mellitus Current Visit: Yes Status: Acute Comment: Sugars remain elevated. Increase lantus to 40 units SQ at bedtime. (10) COPD (chronic obstructive pulmonary disease) Current Visit: Yes Status: Acute Code(s): J44.9 - CHRONIC OBSTRUCTIVE PULMONARY DISEASE, UNSPECIFIED SNOMED Code(s): 45757777 Comment: No signs of exacerbation at this time. Continue prn nebs and singulair. (11) Depression Current Visit: Yes Status: Acute Code(s): F32.9 - MAJOR DEPRESSIVE DISORDER , SINGLE EPISODE, UNSPECIFIED SNOMED Code(s): 20293903 Comment: Continue cymbalta and topamax. (12) Morbid obesity Current Visit: Yes Status: Acute Code(s): E66.01 - MORBID (SEVERE) OBESITY DUE TO EXCESS CALORIES SNOMED Code(s): 932747195 Comment: Diagnosis noted-encourage diet/exercise. (13) DVT prophylaxis Current Visit: Yes Status: Acute Code(s): TRF0729 - SNOMED Code(s): 454517073 Comment: SQ heparin (14) Full code status Current Visit: Yes Status: Acute Code(s): Z78.9 - OTHER SPECIFIED HEALTH STATUS SNOMED Code(s): 667466815
[2016-08-21] MEDS: Insulin LISPRO* 1 UNITS UNIT SUBCUT SCH ×6 (08:43→18:15)
[2016-08-21] MEDS: Potassium Chlor TAB* 20 MEQ TAB.ER PO SCH (08:47)
[2016-08-21] MEDS: Cyanocobalamin TAB* 500 MCG PO SCH (08:49)
[2016-08-21] MEDS: DULoxetine DR CAP* 30 MG CAP.DR PO SCH (08:49)
[2016-08-21] MEDS: Topiramate TAB(*) 100 MG PO SCH ×2 (08:50→21:08)
[2016-08-21] MEDS: Aspirin EC Low Dose* 81 MG TAB.EC PO SCH (08:50)
[2016-08-21] MEDS: Furosemide TAB* 40 MG PO SCH (08:50)
[2016-08-21] MEDS: Famotidine TAB* 20 MG PO SCH (08:51)
[2016-08-21] MEDS: Cholecalciferol TAB* 1000 UNITS PO SCH (08:51)
[2016-08-21] MEDS: Acetaminophen TAB* 325 MG PO PRN ×2 (09:13→21:08)
[2016-08-21] MEDS: HYDROcodone/ACETAMIN 5-325 MG* 1 TAB PO PRN ×2 (14:45→19:16)
[2016-08-21] MEDS: cefTRIAXone VIAL(*) 1,000 MG VIAL IM SCH (17:04)
[2016-08-21] MEDS: Insulin GLARGINE(*) 1 UNITS UNIT SUBCUT SCH (21:07)
[2016-08-21] MEDS: Montelukast Sodium TAB* 10 MG PO SCH (21:08)
[2016-08-21] MEDS: Atorvastatin* 10 MG TAB PO SCH (21:08)
[2016-08-22] MEDS: HYDROcodone/ACETAMIN 5-325 MG* 1 TAB PO PRN ×5 (03:14→21:02)
[2016-08-22] MEDS: Heparin VIAL(*) 5000 UNITS/ML VIAL (FIVE THOUSAND) SUBCUT SCH ×3 (05:45→23:35)
[2016-08-22 06:53] LABS: Hematocrit 33 % (35-47); Hemoglobin 10.5 g/dl (12.0-16.0); Mean Corpuscular HGB Conc 32 g/dl (31-36); Mean Corpuscular Hemoglobin 31 pg (27-31); Mean Corpuscular Volume 99 fL (80-97); Mean Platelet Volume 11 um3 (7.4-10.4); Red Blood Count 3.34 10^6/ul (4.0-5.4); Red Cell Distribution Width 14 % (10.5-15); White Blood Count 11.3 10^3/ul (3.5-10.8)
[2016-08-22 07:13] LABS: BUN/Creatinine Ratio 23.2 (8-20); Calcium 8.6 mg/dL (8.6-10.3); EGFR African American 49.2 (>60); EGFR Non-African American 38.3 (>60); Potassium 3.8 mmol/L (3.5-5.0)
[2016-08-22] MEDS: Cholecalciferol TAB* 1000 UNITS PO SCH (08:29)
[2016-08-22] MEDS: DULoxetine DR CAP* 30 MG CAP.DR PO SCH (08:30)
[2016-08-22] MEDS: Potassium Chlor TAB* 20 MEQ TAB.ER PO SCH (08:30)
[2016-08-22] MEDS: Topiramate TAB(*) 100 MG PO SCH ×2 (08:30→21:02)
[2016-08-22] MEDS: Furosemide TAB* 40 MG PO SCH (08:30)
[2016-08-22] MEDS: Famotidine TAB* 20 MG PO SCH (08:30)
[2016-08-22] MEDS: Cyanocobalamin TAB* 500 MCG PO SCH (08:30)
[2016-08-22] MEDS: Aspirin EC Low Dose* 81 MG TAB.EC PO SCH (08:30)
[2016-08-22] MEDS: Insulin LISPRO* 1 UNITS UNIT SUBCUT SCH ×6 (08:31→17:45)
--- NOTE | 2016-08-22 13:10 | PN ---
Subjective Date of Service: 08/22/16 Interval History: Pt is feeling well. She has not done any walking yet. She is anxious to go home. No SOB. No abdominal pain. Objective Active Medications: Acetaminophen (Tylenol Tab*) 650 mg PO Q4H PRN PRN Reason: PAIN Last Admin: 08/21/16 21:08 Dose: 650 mg Hydrocodone Bitart/Acetaminophen ([place] 5-325 Tab*) 1 tab PO Q4H PRN PRN Reason: PAIN Last Admin: 08/22/16 12:09 Dose: 1 tab Albuterol (Ventolin Hfa Inhaler*) 2 puff INH Q4H PRN PRN Reason: WHEEZING Albuterol (Ventolin 2.5 Mg/3 Ml Neb.Shanta*) 2.5 mg INH Q4H PRN PRN Reason: WHEEZING Aspirin (Aspirin Ec Low Dose*) 81 mg PO DAILY [facility] Last Admin: 08/22/16 08:30 Dose: 81 mg Atorvastatin Calcium (Lipitor*) 10 mg PO BEDTIME [facility] Last Admin: 08/21/16 21:08 Dose: 10 mg Ceftriaxone Sodium (Rocephin Vial(*)) 1,000 mg IM Q24H [facility] Last Admin: 08/21/16 17:04 Dose: 1,000 mg Cholecalciferol (Vitamin D Tab*) 2,000 units PO DAILY [facility] Last Admin: 08/22/16 08:29 Dose: 2,000 units Cyanocobalamin (Vitamin B12 Tab*) 1,000 mcg PO DAILY [facility] Last Admin: 08/22/16 08:30 Dose: 1,000 mcg Dextrose (D50w Syringe 50 Ml*) 12.5 gm IV PUSH .FOR FS < 60 - SS PRN PRN Reason: FS < 60 Docusate Sodium (Colace Cap*) 100 mg PO BEDTIME PRN PRN Reason: CONSTIPATION Last Admin: 08/21/16 08:46 Dose: 100 mg Duloxetine HCl (Cymbalta Cap*) 30 mg PO DAILY [facility] Last Admin: 08/22/16 08:30 Dose: 30 mg Famotidine (Pepcid Tab*) 40 mg PO DAILY [facility] Last Admin: 08/22/16 08:30 Dose: 40 mg Furosemide (Lasix Tab*) 80 mg PO DAILY [facility] Last Admin: 08/22/16 08:30 Dose: 80 mg Heparin Sodium (Porcine) (Heparin Vial(*)) 5,000 units SUBCUT Q8HR [facility] Last Admin: 08/22/16 12:31 Dose: 5,000 units Insulin Glargine (Lantus(*)) 40 units SUBCUT BEDTIME [facility] Last Admin: 08/21/16 21:07 Dose: 40 unit Insulin Human Lispro (Humalog*) 0 units SUBCUT AC [facility] PRN Reason: Protocol Last Admin: 08/22/16 12:30 Dose: 3 units Insulin Human Lispro (Humalog*) 4 units SUBCUT TID WITH MEALS [facility] Last Admin: 08/22/16 12:30 Dose: 4 units Montelukast Sodium (Singulair Tab*) 10 mg PO BEDTIME [facility] Last Admin: 08/21/16 21:08 Dose: 10 mg Nystatin (Nystatin Cream*) 1 applic TOPICAL TID PRN PRN Reason: RASH Potassium Chloride (Klor Con Er Tab*) 20 meq PO DAILY [facility] Last Admin: 08/22/16 08:30 Dose: 20 meq Senna (Senokot Tab*) 1 tab PO BEDTIME PRN PRN Reason: CONSTIPATION Topiramate (Topamax(*)) 100 mg PO BID [facility] Last Admin: 08/22/16 08:30 Dose: 100 mg Vital Signs 08/21/16 08/21/16 08/21/16 14:45 15:44 16:45 Temperature 97.6 F Pulse Rate 66 Respiratory 14 18 16 Rate Blood Pressure 140/64 (mmHg) O2 Sat by Pulse 97 Oximetry 08/21/16 08/21/16 08/21/16 19:16 19:22 19:39 Temperature 98.5 F Pulse Rate 88 Respiratory 16 20 20 Rate Blood Pressure 131/49 (mmHg) O2 Sat by Pulse 97 Oximetry 08/21/16 08/21/16 08/22/16 21:09 23:51 03:14 Temperature 97.3 F Pulse Rate 78 Respiratory 18 16 18 Rate Blood Pressure 143/55 (mmHg) O2 Sat by Pulse 96 Oximetry 08/22/16 08/22/16 08/22/16 03:33 04:52 07:29 Temperature 97.8 F 97.9 F Pulse Rate 89 87 Respiratory 16 18 22 Rate Blood Pressure 125/83 106/51 (mmHg) O2 Sat by Pulse 98 98 Oximetry 08/22/16 08/22/1617 07:30 08:00 09:30 Temperature Pulse Rate Respiratory 18 18 18 Rate Blood Pressure (mmHg) O2 Sat by Pulse Oximetry 08/22/16 08/22/16 11:19 12:09 Temperature 98.0 F Pulse Rate 93 Respiratory 20 18 Rate Blood Pressure 122/55 (mmHg) O2 Sat by Pulse 96 Oximetry Oxygen Devices in Use Now: None Appearance: Morbidly obese female sitting up in bed eating, NAD Eyes: No Scleral Icterus Ears/Nose/Mouth/Throat: Mucous Membranes Moist Respiratory: Symmetrical Chest Expansion and Respiratory Effort, Clear to Auscultation Cardiovascular: NL Sounds; No Murmurs; No JVD, RRR, No Edema Abdominal: NL Sounds; No Tenderness; No Distention Extremities: No Clubbing, Cyanosis Skin: No Nodules or Sclerosis, - - wound not inspected today Neurological: Alert and Oriented x 3 Result Diagrams: 08/22/16 06:09 08/22/16 06:09 Assess/Plan/Problems-Billing Ms Frankel is a 65 yo F with super morbid obesity, type II DM, asthma/COPD, diastolic CHF, HLD and depression who presented to the ER with c/o fever and altered mental status and was admitted for sepsis secondary to probable UTI. - Patient Problems (1) Sepsis Current Visit: Yes Status: Acute Comment: On admission the patient was septic secondary to UTI. Her SOFA score was elevated at 3 with a point each for thrombocytopenia, low MAP and reduced GCS. Sepsis has resolved and her encephalopathy has resolved. (2) UTI (urinary tract infection) Current Visit: Yes Status: Acute Comment: Urine grew proteus mirabilis. Will change from ceftriaxone to vantin to complete a total of 7 days of therapy. Much improved from admission. (3) Elevated troponin Current Visit: Yes Status: Acute Code(s): R79.89 - OTHER SPECIFIED ABNORMAL FINDINGS OF BLOOD CHEMISTRY SNOMED Code(s): 882513075 Comment: The patient's echo was limited and there was no comment on any wall motion abnormalities. She denies any chest pain. No further work up this hospitalization though she would likely benefit from a stress test as an outpatient. (4) Thrombocytopenia Current Visit: Yes Status: Acute Code(s): D69.6 - THROMBOCYTOPENIA, UNSPECIFIED SNOMED Code(s): 044277971 Comment: Resolved-likely thrombocytopenic secondary to sepsis. (5) Gram-positive cocci bacteremia Current Visit: Yes Status: Acute Code(s): R78.81 - BACTEREMIA SNOMED Code( s): 826741427658 Comment: Staph epi-contaminant. (6) Stage III chronic kidney disease Current Visit: Yes Status: Acute Code(s): N18.3 - CHRONIC KIDNEY DISEASE, STAGE 3 (MODERATE) SNOMED Code(s): 035001517 Comment: Creatinine is at baseline. Continue to follow. (7) Wound, surgical, nonhealing Current Visit: Yes Status: Acute Code(s): T81.89XA - OTH COMPLICATIONS OF PROCEDURES, NEC, INIT SNOMED Code(s): 570944812 Comment: No clear signs of infection surrounding the slit like wound at the inferior portion of the previous ventral hernia repair scar. (8) Diastolic CHF, chronic Current Visit: Yes Status: Acute Code(s): I50.32 - CHRONIC DIASTOLIC ( CONGESTIVE) HEART FAILURE SNOMED Code(s): 108481504 Comment: Continue usual home medication regimen. (9) Type II diabetes mellitus Current Visit: Yes Status: Acute Comment: Sugars are better but still slightly elevated. Continue current dose of lantus 40units daily. (10) COPD (chronic obstructive pulmonary disease) Current Visit: Yes Status: Acute Code(s): J44.9 - CHRONIC OBSTRUCTIVE PULMONARY DISEASE, UNSPECIFIED SNOMED Code(s): 64002470 Comment: No signs of exacerbation at this time. Continue prn nebs and singulair. (11) Depression Current Visit: Yes Status: Acute Code(s): F32.9 - MAJOR DEPRESSIVE DISORDER , SINGLE EPISODE, UNSPECIFIED SNOMED Code(s): 31070682 Comment: Continue cymbalta and topamax. (12) Morbid obesity Current Visit: Yes Status: Acute Code(s): E66.01 - MORBID (SEVERE) OBESITY DUE TO EXCESS CALORIES SNOMED Code(s): 255098631 Comment: Diagnosis noted-encourage diet/exercise. (13) DVT prophylaxis Current Visit: Yes Status: Acute Code(s): OOO6952 - SNOMED Code(s): 410311378 Comment: SQ heparin (14) Full code status Current Visit: Yes Status: Acute Code(s): Z78.9 - OTHER SPECIFIED HEALTH STATUS SNOMED Code(s): 545096935 Status and Disposition: d/c home
[2016-08-22] MEDS: Acetaminophen TAB* 325 MG PO PRN (16:50)
[2016-08-22] MEDS: cefTRIAXone VIAL(*) 1,000 MG VIAL IM SCH (18:28)
[2016-08-22] MEDS: Montelukast Sodium TAB* 10 MG PO SCH (21:02)
[2016-08-22] MEDS: Atorvastatin* 10 MG TAB PO SCH (21:02)
[2016-08-22] MEDS: Insulin GLARGINE(*) 1 UNITS UNIT SUBCUT SCH (21:03)
--- NOTE | 2016-08-23 01:29 | DS ---
CC: Og Arce SPORT PSYCHOLOGIST DISCHARGE SUMMARY: DATE OF ADMISSION: 08/19/16 DATE OF DISCHARGE: 08/23/16 PRIMARY CARE PROVIDER: Og Arce NP. PRINCIPAL DIAGNOSIS: Sepsis with encephalopathy secondary to Proteus mirabilis urinary tract infection. SECONDARY DIAGNOSES: 1. Type 2 diabetes. 2. Morbid obesity. 3. Chronic anemia. 4. Diastolic congestive heart failure. 5. Asthma/chronic obstructive pulmonary disease. 6. Chronic pain. 7. Chronic nonhealing abdominal wound. DISCHARGE MEDICATIONS: 1. Lasix 80 mg p.o. daily. 2. Lantus 40 units subcutaneous daily (increased dose). 3. Nystatin apply topically t.i.d. p.r.n. candidal intertrigo. 4. Albuterol 2 puffs inhaled q.4 hours p.r.n. shortness of breath. 5. [place] 7.5/325 one tab p.o. q.4 hours p.r.n. pain. 6. Albuterol neb, 1 neb inhaled q.4-6 hours p.r.n. shortness of breath. 7. Lispro 4 units subcutaneous t.i.d. with meals. 8. Topamax 100 mg p.o. b.i.d. 9. Zocor 20 mg p.o. q.h.s. 10. Vitamin B12 at 1000 mcg p.o. daily. 11. Vitamin D 2000 units p.o. daily. 12. Senna-S 1 tab p.o. q.h.s. p.r.n. constipation. 13. Potassium chloride 20 mEq p.o. daily. 14. Singulair 10 mg p.o. q.h.s. 15. Famotidine 40 mg p.o. daily. 16. Duloxetine DR 30 mg p.o. daily. 17. Diclofenac gel apply topically 4 times a day. 18. Aspirin 81 mg p.o. daily. 19. Vantin 200 mg p.o. q.12 hours x8 doses. HOSPITAL COURSE: Ms. Frankel is a 65-year-old female who presented to the emergency room on 08/19/16 with complaints of fever and disorientation. The patient was also noted to have low-grade fevers at home. In the emergency room , she was found to have fever as high as 103.3. She was noted to be confused. The patient was found to have urinalysis that was markedly abnormal and consistent with urinary tract infection. The patient was admitted for management of sepsis with associated encephalopathy and urinary tract infection. The patient was started on ceftriaxone. Ultimately, her urine grew proteus mirabilis that was sensitive to ceftriaxone. The patient's mental status was quite poor the day after admission; however, by later on the day after admission, her mental status was back to normal. The patient has been mentating quite well over the last 2 days. I believe that her encephalopathy was secondary to her sepsis. The patient on admission was also found to have an elevated troponin of 0.13. It peaked at 0.14 and down to 0.11 on last check. The elevated troponin is likely secondary to sepsis. The patient should be considered for an outpatient stress test once she is fully recovered from her acute illness. The patient was also noted to be thrombocytopenic on admission. This has resolved. I suspect the thrombocytopenia was secondary to sepsis. The patient's stage 3 chronic kidney disease has been at baseline. She will be maintained on her usual medication regimen and follow up with Dr. Davidson as needed. The patient does have a nonhealing surgical wound that has been present for approximately 8 years. There were no signs of infection surrounding this. The patient also carries a history of diastolic CHF. She has had no signs of fluid overload during the course of this hospitalization. She has been maintained on her usual dose of Lasix. The patient's diabetes has now been optimally controlled; however, with increasing her Lantus dosing, her sugars have improved some. I have increased her Lantus to 40 units subcutaneous daily ; however, she will need further adjustments in her Lantus regimen. Additionally, she will be maintained on Humalog 4 units subcutaneous with meals. FOLLOWUP CONCERNS: The patient is being discharge to [facility] [place] today, . She is to follow up with Og Arce NP, in the next 4 to 7 days. ACTIVITY LEVEL: As tolerated. DIET: Low-fat diabetic. CONDITION ON DISCHARGE: Stable. TIME SPENT: 35 minutes were spent discharging this patient. [id number]/[facility] #: [id number] [facility]PITALKyree
[2016-08-23] MEDS: HYDROcodone/ACETAMIN 5-325 MG* 1 TAB PO PRN ×2 (03:48→08:42)
[2016-08-23] MEDS: Heparin VIAL(*) 5000 UNITS/ML VIAL (FIVE THOUSAND) SUBCUT SCH (05:13)
[2016-08-23] MEDS: Cholecalciferol TAB* 1000 UNITS PO SCH (08:40)
[2016-08-23] MEDS: DULoxetine DR CAP* 30 MG CAP.DR PO SCH (08:40)
[2016-08-23] MEDS: Aspirin EC Low Dose* 81 MG TAB.EC PO SCH (08:40)
[2016-08-23] MEDS: Famotidine TAB* 20 MG PO SCH (08:41)
[2016-08-23] MEDS: Furosemide TAB* 40 MG PO SCH (08:41)
[2016-08-23] MEDS: Potassium Chlor TAB* 20 MEQ TAB.ER PO SCH (08:41)
[2016-08-23] MEDS: Cyanocobalamin TAB* 500 MCG PO SCH (08:41)
[2016-08-23] MEDS: Topiramate TAB(*) 100 MG PO SCH (08:42)
[2016-08-23] MEDS: Insulin LISPRO* 1 UNITS UNIT SUBCUT SCH ×4 (08:43→12:29)
[2016-08-23 08:50] VITALS: BP 95/59
--- NOTE | 2016-08-23 09:51 | PN ---
Subjective Date of Service: 08/23/16 Interval History: Pt is feeling well. She has some pain in her back and legs though this is chronic. No SOB. Objective Active Medications: Acetaminophen (Tylenol Tab*) 650 mg PO Q4H PRN PRN Reason: PAIN Last Admin: 08/22/16 16:50 Dose: 650 mg Hydrocodone Bitart/Acetaminophen ([place] 5-325 Tab*) 1 tab PO Q4H PRN PRN Reason: PAIN Last Admin: 08/23/16 08:42 Dose: 1 tab Albuterol (Ventolin Hfa Inhaler*) 2 puff INH Q4H PRN PRN Reason: WHEEZING Albuterol (Ventolin 2.5 Mg/3 Ml Neb.Shanta*) 2.5 mg INH Q4H PRN PRN Reason: WHEEZING Aspirin (Aspirin Ec Low Dose*) 81 mg PO DAILY [facility] Last Admin: 08/23/16 08:40 Dose: 81 mg Atorvastatin Calcium (Lipitor*) 10 mg PO BEDTIME [facility] Last Admin: 08/22/16 21:02 Dose: 10 mg Ceftriaxone Sodium (Rocephin Vial(*)) 1,000 mg IM Q24H [facility] Last Admin: 08/22/16 18:28 Dose: 1,000 mg Cholecalciferol (Vitamin D Tab*) 2,000 units PO DAILY [facility] Last Admin: 08/23/16 08:40 Dose: 2,000 units Cyanocobalamin (Vitamin B12 Tab*) 1,000 mcg PO DAILY [facility] Last Admin: 08/23/16 08:41 Dose: 1,000 mcg Dextrose (D50w Syringe 50 Ml*) 12.5 gm IV PUSH .FOR FS < 60 - SS PRN PRN Reason: FS < 60 Docusate Sodium (Colace Cap*) 100 mg PO BEDTIME PRN PRN Reason: CONSTIPATION Last Admin: 08/21/16 08:46 Dose: 100 mg Duloxetine HCl (Cymbalta Cap*) 30 mg PO DAILY [facility] Last Admin: 08/23/16 08:40 Dose: 30 mg Famotidine (Pepcid Tab*) 40 mg PO DAILY [facility] Last Admin: 08/23/16 08:41 Dose: 40 mg Furosemide (Lasix Tab*) 80 mg PO DAILY [facility] Last Admin: 08/23/16 08:41 Dose: 80 mg Heparin Sodium (Porcine) (Heparin Vial(*)) 5,000 units SUBCUT Q8HR [facility] Last Admin: 08/23/16 05:13 Dose: 5,000 units Insulin Glargine (Lantus(*)) 40 units SUBCUT BEDTIME [facility] Last Admin: 08/22/16 21:03 Dose: 40 unit Insulin Human Lispro (Humalog*) 0 units SUBCUT AC [facility] PRN Reason: Protocol Last Admin: 08/23/16 08:43 Dose: 3 units Insulin Human Lispro (Humalog*) 4 units SUBCUT TID WITH MEALS [facility] Last Admin: 08/23/16 08:44 Dose: 4 units Montelukast Sodium (Singulair Tab*) 10 mg PO BEDTIME [facility] Last Admin: 08/22/16 21:02 Dose: 10 mg Nystatin (Nystatin Cream*) 1 applic TOPICAL TID PRN PRN Reason: RASH Potassium Chloride (Klor Con Er Tab*) 20 meq PO DAILY [facility] Last Admin: 08/23/16 08:41 Dose: 20 meq Senna (Senokot Tab*) 1 tab PO BEDTIME PRN PRN Reason: CONSTIPATION Topiramate (Topamax(*)) 100 mg PO BID [facility] Last Admin: 08/23/16 08:42 Dose: 100 mg Vital Signs 08/22/16 08/22/16 08/22/16 11:19 12:09 14:09 Temperature 98.0 F Pulse Rate 93 Respiratory 20 18 18 Rate Blood Pressure 122/55 (mmHg) O2 Sat by Pulse 96 Oximetry 08/22/16 08/22/16 08/22/16 15:39 16:50 18:50 Temperature 97.8 F Pulse Rate 96 Respiratory 18 18 20 Rate Blood Pressure 106/59 (mmHg) O2 Sat by Pulse 96 Oximetry 08/22/16 08/22/16 08/22/16 20:00 21:02 23:02 Temperature Pulse Rate Respiratory 16 20 18 Rate Blood Pressure (mmHg) O2 Sat by Pulse Oximetry 08/22/16 08/23/16 08/23/16 23:44 03:48 05:48 Temperature 97.6 F Pulse Rate 86 Respiratory 16 18 18 Rate Blood Pressure 115/60 (mmHg) O2 Sat by Pulse 97 Oximetry 08/23/16 08/23/16 08/23/16 07:04 08:00 08:42 Temperature 98.5 F Pulse Rate 96 Respiratory 14 16 18 Rate Blood Pressure 95/59 (mmHg) O2 Sat by Pulse 98 Oximetry Oxygen Devices in Use Now: None Appearance: Morbidly obese female sitting in a chair, NAD Eyes: No Scleral Icterus Ears/Nose/Mouth/Throat: Mucous Membranes Moist Respiratory: Symmetrical Chest Expansion and Respiratory Effort, Clear to Auscultation Cardiovascular: NL Sounds; No Murmurs; No JVD, RRR, No Edema Abdominal: NL Sounds; No Tenderness; No Distention Extremities: No Clubbing, Cyanosis Skin: No Nodules or Sclerosis Neurological: Alert and Oriented x 3 Result Diagrams: 08/22/16 06:09 08/22/16 06:09 Assess/Plan/Problems-Billing Ms Frankel is a 65 yo F with super morbid obesity, type II DM, asthma/COPD, diastolic CHF, HLD and depression who presented to the ER with c/o fever and altered mental status and was admitted for sepsis secondary to probable UTI. - Patient Problems (1) Sepsis Current Visit: Yes Status: Acute Comment: On admission the patient was septic secondary to UTI. Her SOFA score was elevated at 3 with a point each for thrombocytopenia, low MAP and reduced GCS. Sepsis has resolved and her encephalopathy has resolved. (2) UTI (urinary tract infection) Current Visit: Yes Status: Acute Comment: Urine grew proteus mirabilis. Continue course of vantin on discharge. Pt is deconditioned and it was recommended that she go to [facility]. She has a bed offer for [place]. (3) Elevated troponin Current Visit: Yes Status: Acute Code(s): R79.89 - OTHER SPECIFIED ABNORMAL FINDINGS OF BLOOD CHEMISTRY SNOMED Code(s): 004516331 Comment: The patient's echo was limited and there was no comment on any wall motion abnormalities. She denies any chest pain. No further work up this hospitalization though she would likely benefit from a stress test as an outpatient. (4) Thrombocytopenia Current Visit: Yes Status: Acute Code(s): D69.6 - THROMBOCYTOPENIA, UNSPECIFIED SNOMED Code(s): 704991705 Comment: Resolved-likely thrombocytopenic secondary to sepsis. (5) Stage III chronic kidney disease Current Visit: Yes Status: Acute Code(s): N18.3 - CHRONIC KIDNEY DISEASE, STAGE 3 (MODERATE) SNOMED Code(s): 678125915 Comment: Creatinine is at baseline. Continue to follow. (6) Wound, surgical, nonhealing Current Visit: Yes Status: Acute Code(s): T81.89XA - OTH COMPLICATIONS OF PROCEDURES, NEC, INIT SNOMED Code(s): 154534980 Comment: No clear signs of infection surrounding the slit like wound at the inferior portion of the previous ventral hernia repair scar. (7) Diastolic CHF, chronic Current Visit: Yes Status: Acute Code(s): I50.32 - CHRONIC DIASTOLIC ( CONGESTIVE) HEART FAILURE SNOMED Code(s): 625789827 Comment: Continue usual home medication regimen. (8) Type II diabetes mellitus Current Visit: Yes Status: Acute Comment: Sugars are better but still slightly elevated. Continue current dose of lantus 40units daily-she will need further adjustments in her diabetes regimen. (9) COPD (chronic obstructive pulmonary disease) Current Visit: Yes Status: Acute Code(s): J44.9 - CHRONIC OBSTRUCTIVE PULMONARY DISEASE, UNSPECIFIED SNOMED Code(s): 23922099 Comment: No signs of exacerbation at this time. Continue prn nebs and singulair. (10) Depression Current Visit: Yes Status: Acute Code(s): F32.9 - MAJOR DEPRESSIVE DISORDER , SINGLE EPISODE, UNSPECIFIED SNOMED Code(s): 85577039 Comment: Continue cymbalta and topamax. (11) Morbid obesity Current Visit: Yes Status: Acute Code(s): E66.01 - MORBID (SEVERE) OBESITY DUE TO EXCESS CALORIES SNOMED Code(s): 367818354 Comment: Diagnosis noted-encourage diet/exercise. (12) DVT prophylaxis Current Visit: Yes Status: Acute Code(s): ULC5139 - SNOMED Code(s): 825701453 Comment: SQ heparin (13) Full code status Current Visit: Yes Status: Acute Code(s): Z78.9 - OTHER SPECIFIED HEALTH STATUS SNOMED Code(s): 251860020 Status and Disposition: d/c to [facility] for STR
--- NOTE | 2016-08-23 11:11 | PN ---
Progress Note - Progress Note Note: Pt has decided she wants to go home and not to [facility]. She will be discharged home this afternoon.
== END 2016-08-23 13:35 | disposition home or self-care (01) | DRG 871 ==
LOC: ED 09:39 → MEDTELE 16:03
PROVIDERS: ADMIT Internal Medicine; ATTEND Hospitalist
DX: A41.9 Sepsis, unspecified organism (principal); G93.41 Metabolic encephalopathy; I50.32 Chronic diastolic (congestive) heart failure; D69.59 Other secondary thrombocytopenia; E11.22 Type 2 diabetes mellitus with diabetic chronic kidney disease; T81.89XA Other complications of procedures, not elsewhere classified, initial encounter; N18.3 Chronic kidney disease, stage 3 (moderate); Z68.43 Body mass index [BMI] 50.0-59.9, adult; N39.0 Urinary tract infection, site not specified; E66.01 Morbid (severe) obesity due to excess calories; D53.9 Nutritional anemia, unspecified; J44.9 Chronic obstructive pulmonary disease, unspecified; J45.909 Unspecified asthma, uncomplicated; G89.29 Other chronic pain; R65.20 Severe sepsis without septic shock; B96.4 Proteus (mirabilis) (morganii) as the cause of diseases classified elsewhere; E78.5 Hyperlipidemia, unspecified; M79.7 Fibromyalgia; E86.0 Dehydration; F32.9 Major depressive disorder, single episode, unspecified; Y83.8 Other surgical procedures as the cause of abnormal reaction of the patient, or of later complication, without mention of misadventure at the time of the procedure; Z88.1 Allergy status to other antibiotic agents; Z82.49 Family history of ischemic heart disease and other diseases of the circulatory system; Z83.3 Family history of diabetes mellitus; Z80.0 Family history of malignant neoplasm of digestive organs; Z87.891 Personal history of nicotine dependence; Z79.4 Long term (current) use of insulin; Z79.82 Long term (current) use of aspirin
CPT/HCPCS: 36415; 70450; 71010; 76775; 80048; 80053; 81003; 81015; 82947; 83605; 84484; 85025; 85027; 85610; 85730; 87040; 87077; 87086; 87150; 87184; 87186; 87205; 93306; 99285; A9270-GY; J0696; J0744; J1644; J1650

== ENCOUNTER 2018-07-02 23:23 | Inpatient (IN) | payer MEDICARE ==
[2018-07-02] MEDS ORDERED: Acetaminophen TAB* 325 MG PO ONE (23:31)
[2018-07-02] MEDS ORDERED: NS 0.9% 1000 ML*IV.FLUID IV ONE (23:31)
[2018-07-02] MEDS ORDERED: Vancomycin(*) 1,000 MG in NS 0.9% 250 ML* 250 ML IVPB ONE (23:34)
[2018-07-02] MEDS ORDERED: Piperacillin/Tazobac ADVAN(*) 3.375 GM in NS 0.9% 100 ML* 100 ML IVPB ONE (23:34)
[2018-07-02] MEDS ORDERED: Insulin REGULAR(*) 1 UNITS UNIT IV PUSH ONE (23:35)
--- NOTE | 2018-07-02 23:49 | ED ---
Altered Mental Status - HPI Summary HPI Summary: This pt is a 67 y/o female, with hx of DM, presenting to [facility] via EMS for decreased responsiveness at home today. EMS reports the original call was for help getting up after a fall. Upon arrival to scene, EMS stood the pt up and pt was in and out of consciousness for 2 minutes. EMS got the pt to the stretcher and pt couldn't answer questions and she also became cyanotic. Per EMS, blood pressure is 110/68, blood glucose of 443, temperature of 99.9F. EMS administered Narcan as pt takes hydrocodone. reports the pt had no complaints all day today. Per , pt has tremors and upon helping the pt to the bathroom "her legs buckled up" and she fell. Pt uses a walker to ambulate at baseline. A few days ago pt hit her right hand on a door at a restaurant, per . states pt takes her own insulin. Pt lives at home with her . Pt denies alcohol or drug use. - History Of Current Complaint Chief Complaint: EDAltMentalStatus Stated Complaint: FALL/LEG PAIN Hx Obtained From: Patient, Family/Human Resources Benefits Coordinator - , EMS Onset/Duration: Still Present Timing: Lasting Hours Severity Currently: Moderate Character: Responsiveness Aggravating Factor(s): Unknown Alleviating Factor(s): Unknown Associated Signs And Symptoms: Positive: Fever - Allergies/Home Medications Allergies/Adverse Reactions: Allergies Allergy/AdvReac Type Severity Reaction Status Date / Time cefoxitin Allergy Unknown Verified 06/30/18 09:39 Reaction Details PMH/Surg Hx/FS Hx/Imm Hx Endocrine/Hematology History: Reports: Hx Bone Marrow Disease - Type 2, Hx Diabetes, Hx Anemia, Other Endocrine/Hematological Disorders - "bone marrow disorder" Cardiovascular History: Reports: Hx Congestive Heart Failure, Hx Hypercholesterolemia Denies: Hx Hypertension Respiratory History: Reports: Hx Asthma Denies: Hx Chronic Obstructive Pulmonary Disease (COPD) GI History: Reports: Hx Gall Bladder Disease - cholecystectomy, Hx Gastroesophageal Reflux Disease, Other GI Disorders - appendectomy/Mesentary History: Reports: Hx Chronic Renal Failure Denies: Hx Dialysis Musculoskeletal History: Reports: Hx Arthritis, Hx Fibromyalgia, Other Musculoskeletal History - Right Shoulder Pain Denies: Hx Back Problems Sensory History: Reports: Hx Contacts or Glasses Opthamlomology History: Reports: Hx Contacts or Glasses Neurological History: Denies: Hx Dementia, Hx Seizures - Surgical History Surgery Procedure, Year, and Place: Appendectomy, cholecystectomy, ventral hernia repair Infectious Disease History: No Infectious Disease History: Reports: Hx of Known/Suspected MRSA - confirmation unknown at this time Denies: Traveled Outside the [place] in Last 30 Days - Family History Known Family History: Positive: Cardiac Disease - Unknown heart disease (both parents), Diabetes - Both parents, Other - Mother of bowel cancer at age 52 - Social History Alcohol Use: None Hx Substance Use: No Substance Use Type: Reports: None Hx Tobacco Use: No - Former Smoking Status (MU): Former Smoker Review of Systems - ROS Summary Review of Systems Summary: ROS IS LIMITED DUE TO LEVEL 5 CAVEAT - pt with AMS Positive: Fever Skin: Other - POS: cyanotic, per EMS Neurological: Other - POS: altered mental status, tremors All Other Systems Reviewed And Are Negative: No Physical Exam - Summary Physical Exam Summary: VITAL SIGNS: Reviewed. GENERAL: Patient is a well-developed and morbidly obese female. Patient is ill- looking and pale. HEAD AND FACE: No signs of trauma. No ecchymosis, hematomas or skull depressions. No sinus tenderness. EYES: PERRLA, EOMI x 2, No injected conjunctiva, no nystagmus. EARS: Hearing grossly intact. Ear canals and tympanic membranes are within normal limits. MOUTH: Oropharynx within normal limits. NECK: Supple, trachea is midline, no adenopathy, no JVD, no carotid bruit, no c- spine tenderness, neck with full ROM. CHEST: Symmetric, no tenderness at palpation LUNGS: Decreased breath sounds bilaterally. CVS: Tachycardic rate and regular rhythm, S1 and S2 present, no murmurs or gallops appreciated. ABDOMEN: Soft, nontender. Abdomen is obese. No signs of distention. No rebound no guarding, and no masses palpated. Bowel sounds are normal. Chronic wound over the left mid abdomen. EXTREMITIES: FROM in all major joints. Right hand with ecchymosis and old laceration. NEURO: Alert and oriented x 3. No acute neurological deficits. Speech is normal and follows commands. SKIN: Dry and warm. Patient is pale. Triage Information Reviewed: Yes Vital Signs On Initial Exam: Initial Vitals Temp Pulse Resp BP Pulse Ox 99.5 F 112 25 116/64 93 07/02/18 23:29 07/02/18 23:29 07/02/18 23:29 07/02/18 23:29 07/02/18 23:29 Vital Signs Reviewed: Yes Completion Of Physical Exam Limited Due To: Level 5 - AMS Procedures - Procedure Summary Procedure Summary: Central Line Procedure Note: Consent was obtained from the patient. Using ultrasound guidance I tried to place a central line. Central line was unsuccessful. A left EJ line was placed. Diagnostics - Vital Signs Vital Signs Temp Pulse Resp BP Pulse Ox 07/02/18 23:29 99.5 F 112 25 116/64 93 - Laboratory Result Diagrams: 07/03/18 01:30 07/03/18 01:30 Lab Statement: Any lab studies that have been ordered have been reviewed, and results considered in the medical decision making process. - Radiology Chest XR Radiology Interpretation Completed By: ED Physician Summary of Radiographic Findings: No acute process. Pending official radiology report. - EKG 02:06 Cardiac Rate: Tachycardia - at 104 bpm EKG Rhythm: Sinus Tachycardia Summary of EKG Findings: Low voltage. Re-Evaluation - Re-Evaluation First Eval Re-Evaluation Time: 00:30 Comment: Tried to place a central line but was unsuccessful. A left EJ line was placed. Altered Mental Statu Course/Dx - Course Assessment/Plan: Pt is a 67 y/o female, with hx of DM, who presents via EMS for decreased responsiveness at home today. EMS reports the original call was for help getting up after a fall. Upon arrival to scene, EMS stood the pt up and pt was in and out of consciousness for 2 minutes. EMS got the pt to the stretcher and pt couldn't answer questions and she also became cyanotic. Per EMS, blood pressure is 110/68, blood glucose of 443, temperature of 99.9F. Consent was obtained from the patient. Using ultrasound guidance I tried to place a central line. Central line was unsuccessful. A left EJ line was placed. Blood work and UA obtained. WBC of 15.4, H&H of 10.8/34, potassium of 3.4, creatinine of 2.88, glucose of 446, CRP of 18.1. UA consistent with UTI. Sepsis protocol was initiated. In the ED course the pt was given Tylenol, Vancomycin, Zosyn, Insulin, duoneb, albuterol, potassium chloride. Discussed the case with Dr. Higgins, hospitalist, who accepted the pt for admission. Dx: urosepsis, hyperglycemia, restrictive lung disease. - Diagnoses Provider Diagnoses: Sepsis due to urinary tract infection, Hyperglycemia, Restrictive lung disease - Provider Notifications Discussed Care Of Patient With: Sebastian Higgins - hospitalist Time Discussed With Above Provider: 03:25 Instructed by Provider To: Admit As Inpatient Discharge - Sign-Out/Discharge Documenting (check all that apply): Patient Departure - Admit to [facility] - Discharge Plan Condition: Stable Disposition: ADMITTED TO [facility] Referrals: Og Arce, [employer] [Primary Care Provider] - - Attestation Statements Document Initiated by Scribe: Yes Documenting Scribe: Lisette Hu Provider For Whom Scribe is Documenting (Include Credential): Jayde Wynne MD Scribe Attestation: Lisette Conn, scribed for Jayde Wynne MD on 07/03/18 at 0324. Status of Scribe Document: Ready
[2018-07-03] MEDS ORDERED: Lidocaine 2% EPI 1:200000 MPF*10-20 ML VIAL ONE (00:16)
[2018-07-03 01:51] LABS: ABS Basophils 0 10^3/ul (0-0.2); ABS Eosinophils 0 10^3/ul (0-0.6); ABS Lymphocytes 0.6 10^3/ul (1.0-4.8); ABS Monocytes 1.1 10^3/ul (0-0.8); ABS Neutrophils 13.7 10^3/ul (1.5-7.7); ABS Nucleated RBC 0 10^3/ul; Eosinophil % 0 %; Hematocrit 34 % (35-47); Hemoglobin 10.8 g/dl (12.0-16.0); Lymphocyte % 3.8 %; Mean Corpuscular HGB Conc 32 g/dl (31-36); Mean Corpuscular Hemoglobin 34 pg (27-31); Mean Corpuscular Volume 104 fL (80-97); Mean Platelet Volume 9.6 fL (7.4-10.4); Nucleated Red Blood Cells % 0; Platelet Count 146 10^3/ul (150-450); Red Blood Count 3.23 10^6/ul (4.00-5.40); Red Cell Distribution Width 14 % (10.5-15); White Blood Count 15.4 10^3/ul (3.5-10.8)
[2018-07-03 01:58] LABS: Activated Partial Thrombo Time 26.9 seconds (26.0-36.3); INR 0.98 (0.77-1.02)
[2018-07-03 02:07] LABS: Albumin 3.4 g/dL (3.2-5.2); Albumin/Globulin Ratio 1.1 (1-3); BUN/Creatinine Ratio 18.1 (8-20); C Reactive Protein 18.13 mg/L (<8.01); Calcium 8.6 mg/dL (8.6-10.3); EGFR Non-African American 16.3 (>60); Globulin 3.2 g/dL (2-4); Potassium 3.4 mmol/L (3.5-5.0); Total Bilirubin 1.1 mg/dL (0.2-1.0); Total Protein 6.6 g/dL (6.4-8.9)
[2018-07-03] MEDS ORDERED: NS 0.9% 1000 ML* 1,000 ML IV ONE (02:09)
[2018-07-03] MEDS ORDERED: Potassium Chlor TAB* 20 MEQ TAB.ER PO ONE (02:31)
[2018-07-03] MEDS ORDERED: Albuterol 2.5 MG/3 ML NEB.SOL* (0.083%) INH ONE (02:50)
[2018-07-03] MEDS ORDERED: Albuterol/Ipratropium NEB.SOL* Albuterol 2.5 MG/Ipratropium 0.5 MG 3 ML INH ONE (02:50)
[2018-07-03 03:05] LABS: Urine Appearance Turbid; Urine Bacteria Absent (Absent); Urine Bilirubin Negative (Negative); Urine Blood 3+ (Negative); Urine Color Yellow; Urine Glucose 3+(>=500 mg/dL) (Negative); Urine Ketones Negative (Negative); Urine Nitrite Negative (Negative); Urine Protein 2+(100 mg/dL) (Negative); Urine Red Blood Cell 3+(>10/hpf) (Absent); Urine Specific Gravity 1.007 (1.010-1.030); Urine Urobilinogen Negative (Negative); Urine White Blood Cell 3+(>20/hpf) (Absent)
[2018-07-03] MEDS ORDERED: Albuterol HFA INHALER* 8 gm MDI INH PRN (04:45)
[2018-07-03] MEDS ORDERED: HYDROcodone/ACETAMIN 5-325 MG* 1 TAB PO PRN (04:45)
[2018-07-03] MEDS ORDERED: Dextrose 50% Syringe 50 ML* 25 GM/50 ML SYRINGE IV PUSH PRN ×2 (07:52→12:39)
[2018-07-03] MEDS ORDERED: Insulin GLARGINE(*) 1 UNITS UNIT SUBCUT SCH (09:00)
[2018-07-03] MEDS ORDERED: Insulin LISPRO* 1 UNITS UNIT SUBCUT ONE ×2 (09:19→12:39)
[2018-07-03] MEDS: Insulin LISPRO* 1 UNITS UNIT SUBCUT SCH ×4 (09:26→20:04)
[2018-07-03] MEDS: Heparin VIAL(*) 5000 UNITS/ML VIAL (FIVE THOUSAND) SUBCUT SCH ×3 (09:27→20:17)
[2018-07-03] MEDS: DULoxetine DR CAP* 30 MG CAP.DR PO SCH (09:27)
[2018-07-03] MEDS: Potassium Chlor TAB* 10 MEQ TAB.ER PO SCH (09:27)
[2018-07-03] MEDS: Montelukast Sodium TAB* 10 MG PO SCH (09:27)
[2018-07-03] MEDS: Aspirin EC TAB* 81 MG TAB.EC PO SCH (09:27)
[2018-07-03] MEDS: Topiramate TAB(*) 100 MG PO SCH ×2 (09:27→20:23)
[2018-07-03] MEDS: Famotidine TAB* 20 MG PO SCH (09:27)
[2018-07-03] MEDS: Morphine TAB Extended Release (*) 15 MG TAB.ER PO SCH ×2 (09:28→20:14)
[2018-07-03] MEDS: cefTRIAXone(*) 1 GM in NS 0.9% 50 ML* 50 ML IVPB SCH (09:32)
--- NOTE | 2018-07-03 10:00 | HP ---
HISTORY AND PHYSICAL: DATE OF ADMISSION: 07/03/18 ADMITTING PROVIDER: Sebastian Higgins MD PRIMARY CARE PROVIDER: Og Arce NP CHIEF COMPLAINT: Generalized weakness, chills. 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 She was in her normal state of health until 07/02/18 when she was feeling chills and weakness and shaking tremors more than her baseline. She usually uses a walker because of her weakness. Her who was at bedside, David brought her wheelchair and wheeled her near to bed, but she still was too weak to stand up. She slid out of the wheelchair to the ground and EMS was needed to be called to help return her to the wheelchair and then transported her via stretcher to [facility] Emergency Room. She, here, is noted to have concern for sepsis of urinary tract source with leukocytosis of 15.4, tachycardia initially 130, low- grade fever, near fever of 99.5. The urinalysis is significant for 2+ leukocyte esterase and 3+ WBC's. She was given 2 L of IV fluid along with started on vancomycin and Zosyn and referred to the hospitalist service for admission. She denies any headaches. Actually about 2 weeks ago she hit her left la getting out of the car and developed some tenderness and erythema at the area and has had a patchy erythema along with warmth worse today in the left lower anterior la suspicious for a possible cellulitis. attests sugars have been usually 150s in the a.m. and 200s in the p.m. She takes 15 of extended release morphine at 1 p.m., takes a nap and then gets ready to sleep around 11 p.m. He gives her the next morphine around 1 a.m., it helps her sleep again. She reportedly got Narcan in the field. She was noted to be satting 85% on room air in the field and blood sugars have been 446 here. 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 PAST SURGICAL HISTORY: Cholecystectomy, appendectomy, reverse colostomy, mesh infection surgery. MEDICATIONS: Include: 1. Topamax 100 mg p.o. b.i.d. 2. Simvastatin 20 mg p.o. q.h.s. 3. Potassium chloride 10 mEq p.o. daily. 4. Morphine extended release 15 mg p.o. b.i.d. 5. Singulair 10 mg p.o. daily. 6. Aspart usually between 10 and 12 units subcutaneous with meals. 7. Lantus 20 units b.i.d. at 8 a.m., 8 p.m. 8. Cyril 7.5/325 p.o. t.i.d. p.r.n. 9. Lasix 40 mg p.o. at bedtime. 10. Pepcid 40 mg p.o. daily. 11. Cymbalta 30 mg p.o. daily. 12. Cholecalciferol 5000 units p.o. q. week. 13. Aspirin 81 mg daily. 14. Albuterol 2 puffs inhaled q.4 hours p.r.n. ALLERGIES: CEFOXITIN. FAMILY HISTORY: Mother of bowel cancer, had heart disease and diabetes. Father had heart disease and diabetes. SOCIAL HISTORY: The patient is a former smoker, quit in 1995, total 10 to 12 years less than 1 pack per year and a pack per day. Denies drug use or alcohol use. Healthcare proxy is her , David Frankel. She desires to be full code. REVIEW OF SYSTEMS: Complete 14-point review of systems negative except as per HPI. PHYSICAL EXAMINATION GENERAL APPEARANCE: Clinically ill appearing, but no acute distress. VITAL SIGNS: Temperature 99.5; heart rate initially 130, currently 98; respiratory rate initially 25, currently 19 on 2 L nasal cannula; blood pressure initially 116/64, latest 93/67. HEENT: Normocephalic, atraumatic. Pupils equal, round and reactive to light. Extraocular motions intact. No scleral icterus. NECK: Mobile with left EJ, some ecchymosis on the right neck. LUNGS: Anteriorly clear to auscultation, but very limited exam given super morbid obesity. HEART: Regular rate and rhythm. No murmurs, rubs, or gallops. ABDOMEN: Soft, slightly tender, super morbid obese. There is a chronic ventral sinus drainage track that is packed. some ABD with some scant drainage. No surrounding erythema. EXTREMITIES: Warm, well perfused. Trace pitting edema bilaterally. The left anterior lower la has a 4 to 5 cm patch of warmth and erythema. NEUROLOGIC: She is able to wiggle her toes. Electric Motor Fitter strength is 5/5. Cranial nerves II through XII intact. SKIN: As above. DIAGNOSTIC STUDIES/LAB DATA: White count 15.4, hemoglobin 10.8, hematocrit 34 , MCV 104, platelets 146,000. INR 0.98. ABG; pH 7.33, pCO2 of 50, pO2 of 52, bicarb 24.4. Sodium 139, potassium 3.4, chloride 102, carbon dioxide 28, BUN 52 , creatinine 2.88, glucose 446, lactic acid 1.1, total bili is 1.10, calcium 8.6 , AST 6, ALT 10, alk phos 114, troponin 0.01, CRP 18.1, BNP 113, albumin 3.4. Urinalysis: Protein 2+, blood 3+, negative nitrites, 3+ leukocyte esterase, 3+ WBCs, 3+ glucose. IMAGING: Chest x-ray official read pending, but no acute cardiopulmonary process evident per my wet read other than cardiomegaly. EKG: Sinus tachycardia, heart rate 104, Q-waves in lead 3, poor R-wave progression. No ST elevations or depressions. Q-wave in V1 as well. ASSESSMENT AND PLAN: Perla Frankel is a 67-year-old female with chronic comorbidities including super morbid obesity, diastolic heart failure, chronic obstructive pulmonary disease, insulin dependent diabetes mellitus and history of urinary tract infections of Proteus mirabilis and most recently in July 2016 which was sensitive to Zosyn and ceftriaxone, resistant to Bactrim and nitrofurantoin. She has evidence of urosepsis with tachycardia, leukocytosis, tachypnea, and is status post 2 L bolus in the ED 30 cc/kg, but given her weight of 150 kg and history, I think it is reasonable to, given her history of diastolic congestive heart failure, avoid a 30 cc bolus unless necessary, especially given her elevated BNP and some trace lower extremity edema. I do not think she needs quite such strong empiric antibiotic coverage. I am going to continue antibiotics with ceftriaxone, which should also hopefully treat the small patch of cellulitis in her left lower extremity. For her insulin-dependent diabetes mellitus, put her on sliding scale insulin, continue her 20 of Lantus twice a day. She is status post 10 of regular insulin here on the ED for sugars of above 400, but without anion gap. Hold her for diastolic congestive heart failure, hold her Lasix for now in the setting of her sepsis and fluid resuscitation, daily weight, strict I's and O' s. For her super morbid obesity and likely chronic debilitated state, get Physical Therapy to see her. She very well may need a rehabilitative stay at a fdc facility. For her chronic pain, I am going to continue her morphine tab 15 p.o. b.i.d. For her hyperlipidemia, continue her simvastatin. For anxiety and depression, continue duloxetine 20 mg p.o. daily. Continue aspirin, Topamax and albuterol inhalers. She can eat a heart healthy carbohydrate consistent diet. She is a full code. Medical surrogate is her , David Frankel. For DVT prophylaxis, heparin 5000 units t.i.d. She has likely some acute kidney injury with creatinine of 2.88, former baseline 2.0. In the setting of sepsis, we are going to get urine BUN and urine creatinine to calculate FEurea. Although she has had a Gonzalez placed here in the emergency room, notably IV access has been a large challenge to ED providers and attempts were made to place a central line, finally a left EJ was established. [id number]/[facility] #: [id number] ALFIE
--- NOTE | 2018-07-03 12:51 | PN ---
Subjective Date of Service: 07/03/18 Interval History: Pt was confused at admission, now lethargic, but oriented x3. Feels tired, denies dysuria prior to admission Objective Active Medications: Hydrocodone Bitart/Acetaminophen ([place] 5-325 Tab*) 1 tab PO TID PRN PRN Reason: PAIN Albuterol (Ventolin Hfa Inhaler*) 2 puff INH Q4H PRN PRN Reason: SHORTNESS OF BREATH Aspirin (Aspirin Ec Tab*) 81 mg PO DAILY [facility] Last Admin: 07/03/18 09:27 Dose: 81 mg Atorvastatin Calcium (Lipitor*) 10 mg PO BEDTIME [facility] Cholecalciferol (Vitamin D Tab*) 5,000 units PO Tu [facility] Dextrose (D50w Syringe 50 Ml*) 12.5 gm IV PUSH .FOR FS < 60 - SS PRN PRN Reason: FS < 60 Duloxetine HCl (Cymbalta Cap*) 30 mg PO DAILY [facility] Last Admin: 07/03/18 09:27 Dose: 30 mg Famotidine (Pepcid Tab*) 20 mg PO DAILY [facility] Last Admin: 07/03/18 09:27 Dose: 20 mg Heparin Sodium (Porcine) (Heparin Vial(*)) 5,000 units SUBCUT Q8HR [facility] Last Admin: 07/03/18 09:27 Dose: 5,000 units Ceftriaxone Sodium 1 gm/ (Sodium Chloride) 50 mls @ 200 mls/hr IVPB Q24H [facility] Last Admin: 07/03/18 09:32 Dose: 200 mls/hr Sodium Chloride (Ns 0.9% 1000 Ml*) 1,000 mls @ 100 mls/hr IV PER RATE [facility] Insulin Glargine (Lantus(*)) 20 units SUBCUT BID [facility] Insulin Human Lispro (Humalog*) 0 units SUBCUT ACHS [facility]; Protocol Last Admin: 07/03/18 09:26 Dose: 10 units Montelukast Sodium (Singulair Tab*) 10 mg PO DAILY [facility] Last Admin: 07/03/18 09:27 Dose: 10 mg Morphine Sulfate (Ms Contin(*)) 15 mg PO BID [facility] Last Admin: 07/03/18 09:28 Dose: 15 mg Nystatin (Nystatin Top Powder*) 1 applic TOPICAL TID [facility] Potassium Chloride (Klor Con Er Tab*) 10 meq PO DAILY [facility] Last Admin: 07/03/18 09:27 Dose: 10 meq Topiramate (Topamax(*)) 100 mg PO BID [facility] Last Admin: 07/03/18 09:27 Dose: 100 mg Vital Signs - 8 hr 07/03/18 07/03/18 07/03/18 05:00 05:01 05:28 Temperature Pulse Rate 92 92 93 Respiratory 20 14 11 Rate Blood Pressure 86/52 99/57 (mmHg) O2 Sat by Pulse 96 96 97 Oximetry 07/03/18 07/03/18 07/03/18 06:16 06:50 09:28 Temperature 98.7 F 98 F Pulse Rate 90 94 Respiratory 14 22 20 Rate Blood Pressure 99/57 103/42 (mmHg) O2 Sat by Pulse 97 100 Oximetry 07/03/18 07/03/18 07/03/18 10:26 11:35 12:15 Temperature 97.8 F Pulse Rate 78 Respiratory 20 16 16 Rate Blood Pressure 106/51 (mmHg) O2 Sat by Pulse 100 Oximetry Oxygen Devices in Use Now: Nasal Cannula Appearance: 67 yo F in nAD, AAOx3, mild lethargy noted Eyes: No Scleral Icterus, PERRLA Ears/Nose/Mouth/Throat: NL Teeth, Lips, Gums, Mucous Membranes Moist Neck: NL Appearance and Movements; NL JVP, Trachea Midline Respiratory: Symmetrical Chest Expansion and Respiratory Effort, - - fine crackles b/l Cardiovascular: NL Sounds; No Murmurs; No JVD, RRR Abdominal: NL Sounds; No Tenderness; No Distention, - - large mid abdomen scar s /p ventral hernia repari with slit like [id number] not appear infeected Lymphatic: No Cervical Adenopathy Extremities: No Clubbing, Cyanosis, - - trace pedal edema b/l Skin: No Nodules or Sclerosis, - - mid abd -as above Neurological: Alert and Oriented x 3, NL Muscle Strength and Tone Result Diagrams: 07/03/18 01:30 07/03/18 01:30 Microbiology and Other Data: Microbiology 07/03/18 07:30 Influenza Types A,B Antigen - Final Nasal Specimen received for Influenza A/B Molecular testing Assess/Plan/Problems-Billing Assessment: Ms Frankel is a 67 yo F with super morbid obesity, type II DM, asthma/ COPD, diastolic CHF, HLD and depression who presented to the ER with c/o fever and altered mental status and was admitted for sepsis secondary to probable UTI. - Patient Problems (1) UTI (urinary tract infection) Comment: Renal USshows no hydronephrosis Urine grew proteus mirabilis in the past. Continue Ceftriaxone (2) Sepsis Comment: On admission the patient was septic secondary to UTI. Her SOFA score was elevated at 3 with a point each for thrombocytopenia, low MAP and reduced GCS. She is till mildly lethargic and encephalopathic (3) CLOVER (acute kidney injury) Comment: ON CKD stage 3, likley due to sepsis (4) COPD (chronic obstructive pulmonary disease) Comment: No signs of exacerbation at this time. Continue prn nebs (5) Diastolic CHF, chronic Comment: Continue usual home medication regimen. Daily weights (6) Type II diabetes mellitus Comment: cont Lantus and ISS uncontrolled. (7) Wound, surgical, nonhealing Comment: No clear signs of infection surrounding the slit like wound at the inferior portion of the previous ventral hernia repair scar. (8) DVT prophylaxis Comment: SQ heparin Status and Disposition: Inpatient
[2018-07-03 13:57] LABS: CO2 Carbon Dioxide 22 mmol/L (22-32); Calcium 7.7 mg/dL (8.6-10.3); Chloride 106 mmol/L (101-111); Sodium 137 mmol/L (135-145)
[2018-07-03 14:03] LABS: BUN/Creatinine Ratio 17.9 (8-20); Blood Urea Nitrogen 49 mg/dL (6-24); EGFR Non-African American 17.2 (>60); Glucose 285 mg/dL (70-100)
[2018-07-03] MEDS: NS 0.9% 1000 ML* 1,000 ML IV SCH (14:11)
[2018-07-03] MEDS: Nystatin TOP POWDER* 15 GM BTL TOPICAL SCH ×2 (14:22→20:17)
[2018-07-03 14:57] LABS: Anion Gap 9 mmol/L (2-11)
[2018-07-03] MEDS: Atorvastatin* 10 MG TAB PO SCH (20:14)
[2018-07-03] MEDS: Insulin GLARGINE(*) 1 UNITS UNIT SUBCUT SCH (20:15)
[2018-07-04] MEDS: NS 0.9% 1000 ML* 1,000 ML IV SCH ×2 (01:47→12:03)
[2018-07-04] MEDS: Heparin VIAL(*) 5000 UNITS/ML VIAL (FIVE THOUSAND) SUBCUT SCH ×3 (05:15→20:52)
[2018-07-04 08:33] LABS: ABS Basophils 0.1 10^3/ul (0-0.2); ABS Eosinophils 0.3 10^3/ul (0-0.6); ABS Lymphocytes 1.8 10^3/ul (1.0-4.8); ABS Monocytes 1.1 10^3/ul (0-0.8); ABS Neutrophils 6.7 10^3/ul (1.5-7.7); ABS Nucleated RBC 0 10^3/ul; Eosinophil % 2.6 %; Hematocrit 28 % (35-47); Hemoglobin 8.9 g/dl (12.0-16.0); Lymphocyte % 18.3 %; Mean Corpuscular HGB Conc 32 g/dl (31-36); Mean Corpuscular Hemoglobin 34 pg (27-31); Mean Corpuscular Volume 105 fL (80-97); Mean Platelet Volume 10.3 fL (7.4-10.4); Nucleated Red Blood Cells % 0; Platelet Count 105 10^3/ul (150-450); Red Blood Count 2.64 10^6/ul (4.00-5.40); Red Cell Distribution Width 15 % (10.5-15)
[2018-07-04 09:01] LABS: Calcium 7.7 mg/dL (8.6-10.3); Potassium 4.4 mmol/L (3.5-5.0)
[2018-07-04] MEDS: Aspirin EC TAB* 81 MG TAB.EC PO SCH (09:03)
[2018-07-04] MEDS: Potassium Chlor TAB* 10 MEQ TAB.ER PO SCH (09:03)
[2018-07-04] MEDS: Famotidine TAB* 20 MG PO SCH (09:03)
[2018-07-04] MEDS: Topiramate TAB(*) 100 MG PO SCH ×2 (09:03→20:52)
[2018-07-04] MEDS: Morphine TAB Extended Release (*) 15 MG TAB.ER PO SCH ×2 (09:03→20:51)
[2018-07-04] MEDS: Montelukast Sodium TAB* 10 MG PO SCH (09:04)
[2018-07-04] MEDS: Insulin GLARGINE(*) 1 UNITS UNIT SUBCUT SCH ×2 (09:04→20:52)
[2018-07-04] MEDS: Insulin LISPRO* 1 UNITS UNIT SUBCUT SCH ×4 (09:04→20:52)
[2018-07-04] MEDS: DULoxetine DR CAP* 30 MG CAP.DR PO SCH (09:04)
[2018-07-04 09:07] LABS: EGFR Non-African American 16.2 (>60)
[2018-07-04] MEDS: Nystatin TOP POWDER* 15 GM BTL TOPICAL SCH ×3 (09:10→20:55)
[2018-07-04] MEDS: cefTRIAXone(*) 1 GM in NS 0.9% 50 ML* 50 ML IVPB SCH (09:10)
--- NOTE | 2018-07-04 13:28 | PN ---
Subjective Date of Service: 07/04/18 Interval History: Pt feels much better. Lethargy resolved. Gonzalez draining dark urine. Pt denies CP /SOB Objective Active Medications: Hydrocodone Bitart/Acetaminophen ([place] 5-325 Tab*) 1 tab PO TID PRN PRN Reason: PAIN Last Admin: 07/04/18 03:41 Dose: 1 tab Albuterol (Ventolin Hfa Inhaler*) 2 puff INH Q4H PRN PRN Reason: SHORTNESS OF BREATH Aspirin (Aspirin Ec Tab*) 81 mg PO DAILY [facility] Last Admin: 07/04/18 09:03 Dose: 81 mg Atorvastatin Calcium (Lipitor*) 10 mg PO BEDTIME [facility] Last Admin: 07/03/18 20:14 Dose: 10 mg Cholecalciferol (Vitamin D Tab*) 5,000 units PO Tu [facility] Dextrose (D50w Syringe 50 Ml*) 12.5 gm IV PUSH .FOR FS < 60 - SS PRN PRN Reason: FS < 60 Duloxetine HCl (Cymbalta Cap*) 30 mg PO DAILY [facility] Last Admin: 07/04/18 09:04 Dose: 30 mg Famotidine (Pepcid Tab*) 20 mg PO DAILY [facility] Last Admin: 07/04/18 09:03 Dose: 20 mg Heparin Sodium (Porcine) (Heparin Vial(*)) 5,000 units SUBCUT Q8HR [facility] Last Admin: 07/04/18 05:15 Dose: 5,000 units Ceftriaxone Sodium 1 gm/ (Sodium Chloride) 50 mls @ 200 mls/hr IVPB Q24H [facility] Last Admin: 07/04/18 09:10 Dose: 200 mls/hr Sodium Chloride (Ns 0.9% 1000 Ml*) 1,000 mls @ 100 mls/hr IV PER RATE [facility] Last Admin: 07/04/18 12:03 Dose: 100 mls/hr Insulin Glargine (Lantus(*)) 20 units SUBCUT BID [facility] Last Admin: 07/04/18 09:04 Dose: 20 units Insulin Human Lispro (Humalog*) 0 units SUBCUT ACHS [facility]; Protocol Last Admin: 07/04/18 12:04 Dose: 4 units Montelukast Sodium (Singulair Tab*) 10 mg PO DAILY [facility] Last Admin: 07/04/18 09:04 Dose: 10 mg Morphine Sulfate (Ms Contin(*)) 15 mg PO BID [facility] Last Admin: 07/04/18 09:03 Dose: 15 mg Nystatin (Nystatin Top Powder*) 1 applic TOPICAL TID [facility] Last Admin: 07/04/18 09:10 Dose: 1 applic Potassium Chloride (Klor Con Er Tab*) 10 meq PO DAILY [facility] Last Admin: 07/04/18 09:03 Dose: 10 meq Topiramate (Topamax(*)) 100 mg PO BID [facility] Last Admin: 07/04/18 09:03 Dose: 100 mg Vital Signs - 8 hr 07/04/18 07/04/18 07/04/18 05:45 06:04 07:36 Temperature 96.7 F Pulse Rate 68 77 Respiratory 17 16 Rate Blood Pressure 122/41 127/53 (mmHg) O2 Sat by Pulse 99 Oximetry 07/04/18 07/04/18 07/04/18 08:00 09:03 11:55 Temperature Pulse Rate Respiratory 18 18 18 Rate Blood Pressure (mmHg) O2 Sat by Pulse 99 Oximetry Oxygen Devices in Use Now: Nasal Cannula Appearance: 67 yo obese F in nAD, aAOx3 Eyes: No Scleral Icterus, PERRLA Ears/Nose/Mouth/Throat: NL Teeth, Lips, Gums, Mucous Membranes Moist Neck: NL Appearance and Movements; NL JVP, Trachea Midline Respiratory: Symmetrical Chest Expansion and Respiratory Effort, - - faint bibasiliar crackles Cardiovascular: NL Sounds; No Murmurs; No JVD, RRR Abdominal: NL Sounds; No Tenderness; No Distention, - - mid abdomen scar at 10 cm in diam with central slit like chronic appearing wound at 2 cm no infection noted Lymphatic: No Cervical Adenopathy Extremities: No Clubbing, Cyanosis, - - trace pedal edema b/l Skin: No Nodules or Sclerosis Neurological: Alert and Oriented x 3, NL Muscle Strength and Tone Result Diagrams: 07/04/18 08:05 07/04/18 08:05 Microbiology and Other Data: Microbiology 07/03/18 07:30 Influenza Types A,B Antigen - Final Nasal Specimen received for Influenza A/B Molecular testing Assess/Plan/Problems-Billing Assessment: Ms Frankel is a 67 yo F with super morbid obesity, type II DM, asthma/ COPD, diastolic CHF, HLD and depression who presented to the ER with c/o fever and altered mental status and was admitted for sepsis secondary to probable UTI. - Patient Problems (1) UTI (urinary tract infection) Comment: Renal US shows no hydronephrosis Urine grew proteus mirabilis in the past. Continue Ceftriaxone. U cx pending (2) Sepsis Comment: On admission the patient was septic secondary to UTI. Her SOFA score was elevated at 3 with a point each for thrombocytopenia, low MAP and reduced GCS. Encephalopathy resolved (3) CLOVER (acute kidney injury) Comment: On CKD stage 3, likley due to sepsis. Creat still elevated, cont current IVF and monitor. Renal US shows no hydronephrosis (4) COPD (chronic obstructive pulmonary disease) Comment: No signs of exacerbation at this time. Continue prn nebs (5) Diastolic CHF, chronic Comment: Continue usual home medication regimen. Daily weights. Holding home Lasix due to CLOVER (6) Type II diabetes mellitus Comment: cont Lantus and ISS fair control (7) Wound, surgical, nonhealing Comment: No clear signs of infection surrounding the slit like wound at the inferior portion of the previous ventral hernia repair scar. (8) DVT prophylaxis Comment: SQ heparin Status and Disposition: Inpatient
--- NOTE | 2018-07-04 16:18 | PN ---
Progress Note - Progress Note Date of Service: 07/04/18 Note: Pt was noted to be lethargic during routine care by RN. When arrived to eval pt she was sleeping, is easily arousable, but quickly falls asleep. When is awake pt is AAOx3. O2 sats 97% on 2L 02. suspect mild CO2 retention. Plan: spoke with RN to try to keep pt stimulated and awake for the next couple of hours. D/c 02. Place hold parameters for scheduled morphine
[2018-07-04] MEDS: Atorvastatin* 10 MG TAB PO SCH (20:51)
[2018-07-05] MEDS: Heparin VIAL(*) 5000 UNITS/ML VIAL (FIVE THOUSAND) SUBCUT SCH ×3 (06:03→21:43)
[2018-07-05 06:50] LABS: ABS Basophils 0.1 10^3/ul (0-0.2); ABS Eosinophils 0.3 10^3/ul (0-0.6); ABS Lymphocytes 1.9 10^3/ul (1.0-4.8); ABS Neutrophils 4.2 10^3/ul (1.5-7.7); ABS Nucleated RBC 0 10^3/ul; Eosinophil % 3.8 %; Hematocrit 28 % (35-47); Lymphocyte % 25.1 %; Mean Corpuscular HGB Conc 33 g/dl (31-36); Mean Corpuscular Hemoglobin 34 pg (27-31); Mean Corpuscular Volume 104 fL (80-97); Mean Platelet Volume 10.1 fL (7.4-10.4); Nucleated Red Blood Cells % 0; Platelet Count 112 10^3/ul (150-450); Red Blood Count 2.66 10^6/ul (4.00-5.40); Red Cell Distribution Width 14 % (10.5-15); White Blood Count 7.4 10^3/ul (3.5-10.8)
[2018-07-05 08:19] LABS: Calcium 7.9 mg/dL (8.6-10.3); Potassium 4.2 mmol/L (3.5-5.0)
[2018-07-05 08:24] LABS: BUN/Creatinine Ratio 16.1 (8-20); EGFR Non-African American 14.3 (>60)
[2018-07-05] MEDS: Aspirin EC TAB* 81 MG TAB.EC PO SCH (08:27)
[2018-07-05] MEDS: Famotidine TAB* 20 MG PO SCH (08:27)
[2018-07-05] MEDS: Montelukast Sodium TAB* 10 MG PO SCH (08:27)
[2018-07-05] MEDS: Insulin LISPRO* 1 UNITS UNIT SUBCUT SCH ×4 (08:27→21:43)
[2018-07-05] MEDS: DULoxetine DR CAP* 30 MG CAP.DR PO SCH (08:28)
[2018-07-05] MEDS: Morphine TAB Extended Release (*) 15 MG TAB.ER PO SCH (08:28)
[2018-07-05] MEDS: Topiramate TAB(*) 100 MG PO SCH ×2 (08:29→21:42)
[2018-07-05] MEDS: Insulin GLARGINE(*) 1 UNITS UNIT SUBCUT SCH ×2 (08:29→21:43)
[2018-07-05] MEDS: Nystatin TOP POWDER* 15 GM BTL TOPICAL SCH ×3 (08:31→21:43)
[2018-07-05 09:13] LABS: Folate 5.8 ng/mL (>3.99)
[2018-07-05] MEDS: cefTRIAXone(*) 1 GM in NS 0.9% 50 ML* 50 ML IVPB SCH (10:01)
[2018-07-05] MEDS ORDERED: Piperacillin/Tazobac ADVAN(*) 3.375 GM in NS 0.9% 100 ML* 100 ML IVPB ONE (13:30)
[2018-07-05] MEDS ORDERED: Zosyn per Pharmacy* NOTE FOLLOW UP SCH (14:00)
--- NOTE | 2018-07-05 14:06 | PN ---
Subjective Date of Service: 07/05/18 Interval History: Pt is awake and eating, but repeats herself when talking and still appears lethargic. by the bedside thinks that pt is close to her baseline. Also pt and noted new reddened area on left abdomen. Objective Active Medications: Hydrocodone Bitart/Acetaminophen ([place] 5-325 Tab*) 1 tab PO TID PRN PRN Reason: PAIN Last Admin: 07/04/18 03:41 Dose: 1 tab Albuterol (Ventolin Hfa Inhaler*) 2 puff INH Q4H PRN PRN Reason: SHORTNESS OF BREATH Aspirin (Aspirin Ec Tab*) 81 mg PO DAILY [facility] Last Admin: 07/05/18 08:27 Dose: 81 mg Atorvastatin Calcium (Lipitor*) 10 mg PO BEDTIME [facility] Last Admin: 07/04/18 20:51 Dose: 10 mg Cholecalciferol (Vitamin D Tab*) 5,000 units PO Tu [facility] Dextrose (D50w Syringe 50 Ml*) 12.5 gm IV PUSH .FOR FS < 60 - SS PRN PRN Reason: FS < 60 Duloxetine HCl (Cymbalta Cap*) 30 mg PO DAILY [facility] Last Admin: 07/05/18 08:28 Dose: 30 mg Famotidine (Pepcid Tab*) 20 mg PO DAILY [facility] Last Admin: 07/05/18 08:27 Dose: 20 mg Heparin Sodium (Porcine) (Heparin Vial(*)) 5,000 units SUBCUT Q8HR [facility] Last Admin: 07/05/18 13:19 Dose: 5,000 units Insulin Glargine (Lantus(*)) 20 units SUBCUT BID [facility] Last Admin: 07/05/18 08:29 Dose: 20 units Insulin Human Lispro (Humalog*) 0 units SUBCUT ACHS [facility]; Protocol Last Admin: 07/05/18 13:18 Dose: 2 units Montelukast Sodium (Singulair Tab*) 10 mg PO DAILY [facility] Last Admin: 07/05/18 08:27 Dose: 10 mg Nystatin (Nystatin Top Powder*) 1 applic TOPICAL TID [facility] Last Admin: 07/05/18 08:31 Dose: 1 applic Pharmacy Consult (Zosyn Per Pharmacy*) 1 note FOLLOW UP .ZOSYN PER PHARMACY [facility] Topiramate (Topamax(*)) 100 mg PO BID [facility] Last Admin: 07/05/18 08:29 Dose: 100 mg Vital Signs - 8 hr 07/05/18 07/05/18 07/05/18 07:55 08:00 08:28 Temperature 98.5 F Pulse Rate 71 Respiratory 16 16 16 Rate Blood Pressure 121/53 (mmHg) O2 Sat by Pulse 94 94 Oximetry 07/05/18 07/05/18 10:30 11:50 Temperature 98.3 F Pulse Rate 86 Respiratory 16 16 Rate Blood Pressure 107/48 (mmHg) O2 Sat by Pulse 96 Oximetry Oxygen Devices in Use Now: None Appearance: 67 yo F in nAD, apears lethargic, but awake and eating. speech tangential Eyes: No Scleral Icterus, PERRLA Ears/Nose/Mouth/Throat: NL Teeth, Lips, Gums, Mucous Membranes Moist Neck: NL Appearance and Movements; NL JVP, Trachea Midline Respiratory: Symmetrical Chest Expansion and Respiratory Effort, Clear to Auscultation Cardiovascular: NL Sounds; No Murmurs; No JVD, RRR Abdominal: - - large abdomen aith mid abd scar post hernia repair with a slit like opening/chronic wound localized centrally in the scar with scant serous drainage. Left side of abd/flan an area orf erythema and mildly increased warmth -possible cellulitis Lymphatic: No Cervical Adenopathy Extremities: No Clubbing, Cyanosis, - - trace pedal edema b/l Skin: No Nodules or Sclerosis Neurological: NL Muscle Strength and Tone Result Diagrams: 07/05/18 06:16 07/05/18 06:16 Microbiology and Other Data: Microbiology 07/03/18 07:30 Influenza Types A,B Antigen - Final Nasal Specimen received for Influenza A/B Molecular testing Assess/Plan/Problems-Billing Assessment: Ms Frankel is a 67 yo F with super morbid obesity, type II DM, asthma/ COPD, diastolic CHF, HLD and depression who presented to the ER with c/o fever and altered mental status and was admitted for sepsis secondary to probable UTI. - Patient Problems (1) UTI (urinary tract infection) Comment: Renal US shows no hydronephrosis Urine grew proteus mirabilis again. due to possible cellulitis on left pannus will switch Ceftriaxone to Zosyn. (2) Sepsis Comment: On admission the patient was septic secondary to UTI. Her SOFA score was elevated at 3 with a point each for thrombocytopenia, low MAP and reduced GCS. (3) CLOVER (acute kidney injury) Comment: On CKD stage 3, likely due to sepsis. Creat still elevated and was increasing with iVF that was stopped on 07/04/18. will obtain FeNa. Cont to hold home Lasix. Renal US shows no hydronephrosis (4) COPD (chronic obstructive pulmonary disease) Comment: No signs of exacerbation at this time. Continue prn nebs (5) Diastolic CHF, chronic Comment: Continue usual home medication regimen. Daily weights. Holding home Lasix due to CLOVER (6) Type II diabetes mellitus Comment: cont Lantus and ISS fair control (7) Wound, surgical, nonhealing Comment: No clear signs of infection surrounding the slit like wound at the inferior portion of the previous ventral hernia repair scar. (8) Panniculitis Comment: noted on 07/05/18. Started Zosyn. (9) Macrocytic anemia Comment: - Vitamin B12 is borderline low - will replete. trending down over course of stay. Likely volume mediated and in setting of sepsis (10) Thrombocytopenia Comment: chronic at baseline (11) Encephalopathy acute Comment: Encephalopathy appeared to be improving on second day of [facility] stay, but last night pt started to be more lethargic again. I suspect it's related to ongoing infection, but will check ammonia. Pt refused ABG hold chronic MSContin [facility] and place on short acting oxycodone prn (12) DVT prophylaxis Comment: SQ heparin Status and Disposition: Inpatient
[2018-07-05] MEDS ORDERED: oxyCODONE TAB* 5 MG TAB PO PRN (14:14)
[2018-07-05] MEDS: Cyanocobalamin TAB* 500 MCG PO SCH (14:25)
[2018-07-05 15:02] LABS: Urine Creatinine Concentration 58.45 mg/dL
[2018-07-05] MEDS: ZOSYN 3.375 GM Q12H per EXTENDED INFUSION IVPB SCH ×2 (18:12)
[2018-07-05] MEDS ORDERED: Morphine TAB Extended Release (*) 15 MG TAB.ER PO SCH (21:00)
[2018-07-05] MEDS: Atorvastatin* 10 MG TAB PO SCH (21:42)
[2018-07-06] MEDS: Heparin VIAL(*) 5000 UNITS/ML VIAL (FIVE THOUSAND) SUBCUT SCH ×3 (05:25→21:35)
[2018-07-06] MEDS: ZOSYN 3.375 GM Q12H per EXTENDED INFUSION IVPB SCH ×4 (05:27→17:43)
[2018-07-06] MEDS: Insulin LISPRO* 1 UNITS UNIT SUBCUT SCH ×4 (07:55→21:30)
[2018-07-06] MEDS: Montelukast Sodium TAB* 10 MG PO SCH (09:42)
[2018-07-06] MEDS: Cyanocobalamin TAB* 500 MCG PO SCH (09:42)
[2018-07-06] MEDS: Insulin GLARGINE(*) 1 UNITS UNIT SUBCUT SCH ×2 (09:42→21:35)
[2018-07-06] MEDS: DULoxetine DR CAP* 30 MG CAP.DR PO SCH (09:42)
[2018-07-06] MEDS: Topiramate TAB(*) 100 MG PO SCH ×2 (09:42→21:38)
[2018-07-06] MEDS: Aspirin EC TAB* 81 MG TAB.EC PO SCH (09:42)
[2018-07-06] MEDS: Famotidine TAB* 20 MG PO SCH (09:42)
[2018-07-06] MEDS: Nystatin TOP POWDER* 15 GM BTL TOPICAL SCH ×3 (10:30→21:40)
--- NOTE | 2018-07-06 16:18 | PN ---
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 Course c/b CLOVER on CKD. VSS overnight and no acute events, Tmax 99.2, normotensive, sinus in regular rate, satting well on RA. Seen in bed this morning after breakfast with at bedside. Pt reports feeling better and much more like herself and feels quite a bit better. Area of pannus redness resolved wholly per pt though reports it is baseline. Reports making urine and BM. Objective Active Medications: Hydrocodone Bitart/Acetaminophen ([place] 5-325 Tab*) 1 tab PO TID PRN PRN Reason: PAIN Last Admin: 07/04/18 03:41 Dose: 1 tab Albuterol (Ventolin Hfa Inhaler*) 2 puff INH Q4H PRN PRN Reason: SHORTNESS OF BREATH Aspirin (Aspirin Ec Tab*) 81 mg PO DAILY [facility] Last Admin: 07/06/18 09:42 Dose: 81 mg Atorvastatin Calcium (Lipitor*) 10 mg PO BEDTIME [facility] Last Admin: 07/05/18 21:42 Dose: 10 mg Cholecalciferol (Vitamin D Tab*) 5,000 units PO Tu [facility] Cyanocobalamin (Vitamin B12 Tab*) 1,000 mcg PO DAILY [facility] Last Admin: 07/06/18 09:42 Dose: 1,000 mcg Dextrose (D50w Syringe 50 Ml*) 12.5 gm IV PUSH .FOR FS < 60 - SS PRN PRN Reason: FS < 60 Duloxetine HCl (Cymbalta Cap*) 30 mg PO DAILY [facility] Last Admin: 07/06/18 09:42 Dose: 30 mg Famotidine (Pepcid Tab*) 20 mg PO DAILY [facility] Last Admin: 07/06/18 09:42 Dose: 20 mg Heparin Sodium (Porcine) (Heparin Vial(*)) 5,000 units SUBCUT Q8HR [facility] Last Admin: 07/06/18 12:40 Dose: 5,000 units Piperacillin Sod/Tazobactam (Sod 3.375 gm/ Sodium Chloride) 100 mls @ 25 mls/ hr IVPB Q12H [facility] Last Admin: 07/06/18 05:27 Dose: 25 mls/hr Insulin Glargine (Lantus(*)) 20 units SUBCUT BID [facility] Last Admin: 07/06/18 09:42 Dose: 20 units Insulin Human Lispro (Humalog*) 0 units SUBCUT ACHS [facility]; Protocol Last Admin: 07/06/18 12:40 Dose: 2 units Montelukast Sodium (Singulair Tab*) 10 mg PO DAILY [facility] Last Admin: 07/06/18 09:42 Dose: 10 mg Nystatin (Nystatin Top Powder*) 1 applic TOPICAL TID [facility] Last Admin: 07/06/18 12:47 Dose: 1 applic Oxycodone HCl (Roxycodone Tab*) 10 mg PO Q4H PRN PRN Reason: PAIN Pharmacy Consult (Zosyn Per Pharmacy*) 1 note FOLLOW UP .ZOSYN PER PHARMACY [facility] Topiramate (Topamax(*)) 100 mg PO BID [facility] Last Admin: 07/06/18 09:42 Dose: 100 mg Vital Signs - 8 hr 07/06/18 11:14 Temperature 99.2 F Pulse Rate 86 Respiratory 16 Rate Blood Pressure 112/46 (mmHg) O2 Sat by Pulse 93 Oximetry Oxygen Devices in Use Now: None Appearance: Pt well appearing in bed Eyes: No Scleral Icterus, PERRLA Ears/Nose/Mouth/Throat: NL Teeth, Lips, Gums Neck: NL Appearance and Movements; NL JVP Respiratory: Symmetrical Chest Expansion and Respiratory Effort, Clear to Auscultation, - - Distant lung sounds Cardiovascular: NL Sounds; No Murmurs; No JVD, RRR Abdominal: NL Sounds; No Tenderness; No Distention, - - Chronic appearing ventral sinus drainage tract that is packed and covered. 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 Course c/b CLOVER on CKD. - Patient Problems (1) Altered mental status Current Visit: Yes Status: Acute Code(s): R41.82 - ALTERED MENTAL STATUS, UNSPECIFIED SNOMED Code(s): 210947374 Comment: Resolving, likely multifactorial from UTI and pain medication and hypercarbia on admission. (2) UTI (urinary tract infection) Current Visit: No Status: Acute Comment: -Renal US shows no hydronephrosis - Urine grew proteus mirabilis again. due to possible cellulitis on left pannus will switched CTX to Zosyn on 07/05 - Likely will downgrade back to CTX tomorrow if clinical sx continue to improve - Abx Day 09/27 on 07/06 (3) CLOVER (acute kidney injury) Current Visit: No Status: Acute Priority: High Code(s): N17.9 - ACUTE KIDNEY FAILURE, UNSPECIFIED SNOMED Code(s): 47581211 Comment: Basline CKD stage 3, likely due to sepsis. Creat still elevated and was increasing with IVF that was stopped on 07/04/18. will obtain FeNa, urine sodium still pending? Cont to hold home Lasix. Renal US shows no hydronephrosis (4) Type II diabetes mellitus Current Visit: No Status: Acute Comment: -cont Lantus 20 U BID and ISS for meal time coverage fair control (5) Diastolic CHF, chronic Current Visit: No Status: Acute Code(s): I50.32 - CHRONIC DIASTOLIC ( CONGESTIVE) HEART FAILURE SNOMED Code(s): 708982859 Comment: Continue usual home medication regimen. Daily weights. Holding home Lasix due to CLOVER (6) Depression Current Visit: No Status: Acute Code(s): F32.9 - MAJOR DEPRESSIVE DISORDER, SINGLE EPISODE, UNSPECIFIED SNOMED Code(s): 53752879 Comment: Continue cymbalta and topamax. (7) Macrocytic anemia Current Visit: No Status: Acute Code(s): D53.9 - NUTRITIONAL ANEMIA, UNSPECIFIED SNOMED Code(s): 87821715 Comment: - Vitamin B12 is borderline low - will replete. trending down over course of stay. Likely volume mediated and in setting of sepsis (8) Thrombocytopenia Current Visit: No Status: Acute Code(s): D69.6 - THROMBOCYTOPENIA, UNSPECIFIED SNOMED Code(s): 238973686 Comment: chronic at baseline (9) COPD (chronic obstructive pulmonary disease) Current Visit: No Status: Acute Code(s): J44.9 - CHRONIC OBSTRUCTIVE PULMONARY DISEASE, UNSPECIFIED SNOMED Code(s): 68018505 Comment: No signs of exacerbation at this time. Continue prn nebs (10) Chronic pain Current Visit: No Status: Chronic Priority: Medium Code(s): G89.29 - OTHER CHRONIC PAIN SNOMED Code(s): 75822188 Comment: c/w oxycodone (50% increased levels with GFR <60) (11) Wound, surgical, nonhealing Current Visit: No Status: Acute Code(s): T81.89XA - OTH COMPLICATIONS OF PROCEDURES, NEC, INIT SNOMED Code(s): 280886265 Comment: No clear signs of infection surrounding the slit like wound at the inferior portion of the previous ventral hernia repair scar. (12) DVT prophylaxis Current Visit: No Status: Acute Code(s): YYU1387 - SNOMED Code(s): 477632012 Comment: SQ heparin Status and Disposition: Inpatient
[2018-07-06] MEDS: Atorvastatin* 10 MG TAB PO SCH (21:29)
[2018-07-07] MEDS ORDERED: Acetaminophen TAB* 325 MG PO ONE (01:45)
[2018-07-07] MEDS ORDERED: Acetaminophen TAB* 325 MG ONE (01:52)
[2018-07-07] MEDS: Heparin VIAL(*) 5000 UNITS/ML VIAL (FIVE THOUSAND) SUBCUT SCH ×3 (05:46→23:08)
[2018-07-07] MEDS: ZOSYN 3.375 GM Q12H per EXTENDED INFUSION IVPB SCH ×2 (05:46)
[2018-07-07 05:54] LABS: ABS Basophils 0 10^3/ul (0-0.2); ABS Eosinophils 0.3 10^3/ul (0-0.6); ABS Lymphocytes 1.7 10^3/ul (1.0-4.8); ABS Neutrophils 3.7 10^3/ul (1.5-7.7); ABS Nucleated RBC 0 10^3/ul; Hematocrit 28 % (35-47); Hemoglobin 9.3 g/dl (12.0-16.0); Lymphocyte % 24.9 %; Mean Corpuscular HGB Conc 33 g/dl (31-36); Mean Corpuscular Hemoglobin 34 pg (27-31); Mean Corpuscular Volume 102 fL (80-97); Mean Platelet Volume 8.8 fL (7.4-10.4); Nucleated Red Blood Cells % 0; Platelet Count 122 10^3/ul (150-450); Red Blood Count 2.78 10^6/ul (4.00-5.40); Red Cell Distribution Width 13 % (10.5-15); White Blood Count 6.7 10^3/ul (3.5-10.8)
[2018-07-07 06:11] LABS: BUN/Creatinine Ratio 14.3 (8-20); Calcium 8.2 mg/dL (8.6-10.3); EGFR Non-African American 11.9 (>60); Potassium 4.2 mmol/L (3.5-5.0)
[2018-07-07] MEDS: Insulin LISPRO* 1 UNITS UNIT SUBCUT SCH ×4 (07:52→23:05)
[2018-07-07] MEDS: Famotidine TAB* 20 MG PO SCH (08:33)
[2018-07-07] MEDS: Nystatin TOP POWDER* 15 GM BTL TOPICAL SCH ×3 (08:33→23:12)
[2018-07-07] MEDS: Topiramate TAB(*) 100 MG PO SCH ×2 (08:33→23:04)
[2018-07-07] MEDS: Aspirin EC TAB* 81 MG TAB.EC PO SCH (08:33)
[2018-07-07] MEDS: DULoxetine DR CAP* 30 MG CAP.DR PO SCH (08:33)
[2018-07-07] MEDS: Montelukast Sodium TAB* 10 MG PO SCH (08:33)
[2018-07-07] MEDS: Insulin GLARGINE(*) 1 UNITS UNIT SUBCUT SCH ×2 (08:33→23:07)
[2018-07-07] MEDS: Cyanocobalamin TAB* 500 MCG PO SCH (08:33)
[2018-07-07] MEDS ORDERED: Cholecalciferol TAB* 1000 UNITS PO SCH (09:00)
--- NOTE | 2018-07-07 11:15 | PN ---
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 Course c/b CLOVER on CKD. No acute overnight events, pt did seem confused per RN notes overnight, got Tylenol. Did walk with PT this morning. VS; Tmax 98, HR 68-71 RR 18, 97%on RA BP 109-121/50. Is voiding urine x 2, Cr slight bump today, last BM 07/06. This morning seen at bedside with after working with PT, she is feeling "like herself" but as we are talking frequently falling asleep, her reports this is about baseline. She was acutely tired after walking with PT. She otherwise complains she feels she is "blowing up" and does have a bit more edema today. Did tolerate a large breakfast this morning. She is willing to trial PO medications and work to be d/c to home, hopefully tomorrow. Objective Active Medications: Hydrocodone Bitart/Acetaminophen ([place] 5-325 Tab*) 1 tab PO TID PRN PRN Reason: PAIN Last Admin: 07/04/18 03:41 Dose: 1 tab Albuterol (Ventolin Hfa Inhaler*) 2 puff INH Q4H PRN PRN Reason: SHORTNESS OF BREATH Aspirin (Aspirin Ec Tab*) 81 mg PO DAILY [facility] Last Admin: 07/07/18 08:33 Dose: 81 mg Atorvastatin Calcium (Lipitor*) 10 mg PO BEDTIME [facility] Last Admin: 07/06/18 21:29 Dose: 10 mg Cholecalciferol (Vitamin D Tab*) 5,000 units PO Tu [facility] Last Admin: 07/07/18 08:32 Dose: 5,000 units Cyanocobalamin (Vitamin B12 Tab*) 1,000 mcg PO DAILY [facility] Last Admin: 07/07/18 08:33 Dose: 1,000 mcg Dextrose (D50w Syringe 50 Ml*) 12.5 gm IV PUSH .FOR FS < 60 - SS PRN PRN Reason: FS < 60 Duloxetine HCl (Cymbalta Cap*) 30 mg PO DAILY [facility] Last Admin: 07/07/18 08:33 Dose: 30 mg Famotidine (Pepcid Tab*) 20 mg PO DAILY [facility] Last Admin: 07/07/18 08:33 Dose: 20 mg Heparin Sodium (Porcine) (Heparin Vial(*)) 5,000 units SUBCUT Q8HR [facility] Last Admin: 07/07/18 05:46 Dose: 5,000 units Piperacillin Sod/Tazobactam (Sod 3.375 gm/ Sodium Chloride) 100 mls @ 25 mls/ hr IVPB Q12H [facility] Last Admin: 07/07/18 05:46 Dose: 25 mls/hr Insulin Glargine (Lantus(*)) 20 units SUBCUT BID [facility] Last Admin: 07/07/18 08:33 Dose: 20 units Insulin Human Lispro (Humalog*) 0 units SUBCUT ACHS [facility]; Protocol Last Admin: 07/07/18 07:52 Dose: Not Given Montelukast Sodium (Singulair Tab*) 10 mg PO DAILY [facility] Last Admin: 07/07/18 08:33 Dose: 10 mg Nystatin (Nystatin Top Powder*) 1 applic TOPICAL TID [facility] Last Admin: 07/07/18 08:33 Dose: 1 applic Oxycodone HCl (Roxycodone Tab*) 10 mg PO Q4H PRN PRN Reason: PAIN Pharmacy Consult (Zosyn Per Pharmacy*) 1 note FOLLOW UP .ZOSYN PER PHARMACY [facility] Topiramate (Topamax(*)) 100 mg PO BID [facility] Last Admin: 07/07/18 08:33 Dose: 100 mg Vital Signs - 8 hr 07/07/18 07:14 Temperature 98.0 F Pulse Rate 71 Respiratory 18 Rate Blood Pressure 121/50 (mmHg) O2 Sat by Pulse 97 Oximetry Oxygen Devices in Use Now: None, Nasal Cannula - Placd just after walking Appearance: Obese woman in NAD in bed Eyes: No Scleral Icterus, PERRLA Ears/Nose/Mouth/Throat: NL Teeth, Lips, Gums Neck: NL Appearance and Movements; NL JVP Respiratory: Symmetrical Chest Expansion and Respiratory Effort, Clear to Auscultation, - - Distant lung sounds 2/2 to habitus Cardiovascular: NL Sounds; No Murmurs; No JVD, RRR Abdominal: NL Sounds; No Tenderness; No Distention, - - Overlying bandage to chronic ventral fistula with scant drainage Extremities: - - 2+ pitting edema to leg Skin: - - Mild erythema to pannus no e/o exudate or warmth Neurological: Alert and Oriented x 3 Result Diagrams: 07/07/18 05:48 07/07/18 05:48 Microbiology and Other Data: Microbiology 07/03/18 07:30 Influenza Types A,B Antigen - Final Nasal Specimen received for Influenza A/B Molecular testing Assess/Plan/Problems-Billing Assessment: 67 yo F with PMH obesity, HFpEF, COPD, OSH (likely), IDDM, 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 Course c/b CLOVER on CKD. - Patient Problems (1) Altered mental status Current Visit: Yes Status: Acute Code(s): R41.82 - ALTERED MENTAL STATUS, UNSPECIFIED SNOMED Code(s): 653819822 Comment: Resolving, likely multifactorial from UTI and pain medication and hypercarbia on admission. She waxes and wanes, her says she is at baseline. (2) UTI (urinary tract infection) Current Visit: No Status: Acute Comment: -Renal US shows no hydronephrosis - Urine grew proteus mirabilis again. due to possible cellulitis on left pannus will switched CTX to Zosyn on 07/05, though quite unremarkable on subsequent exam - Downgrade to Amox/Clauv today for plan to d/c - Abx Day 5/7 on 07/07 (3) CLOVER (acute kidney injury) Current Visit: No Status: Acute Priority: High Code(s): N17.9 - ACUTE KIDNEY FAILURE, UNSPECIFIED SNOMED Code(s): 26574981 Comment: Basline CKD stage 3, likely due to sepsis. Creat still elevated and was increasing with IVF that was stopped on 07/04/18. -will obtain FeNa, urine sodium still pending? -Edematous today and will restart home lasix, possibly Cr rising 2/2 to cardiorenal -Renal US shows no hydronephrosis (4) Type II diabetes mellitus Current Visit: No Status: Acute Comment: -cont Lantus 20 U BID and ISS for meal time coverage fair control (5) Diastolic CHF, chronic Current Visit: No Status: Acute Code(s): I50.32 - CHRONIC DIASTOLIC ( CONGESTIVE) HEART FAILURE SNOMED Code(s): 462853452 Comment: Continue usual home medication regimen. Daily weights. Resume home Lasix, edematous today (6) Depression Current Visit: No Status: Acute Code(s): F32.9 - MAJOR DEPRESSIVE DISORDER, SINGLE EPISODE, UNSPECIFIED SNOMED Code(s): 26491203 Comment: Continue cymbalta and topamax. (7) Macrocytic anemia Current Visit: No Status: Acute Code(s): D53.9 - NUTRITIONAL ANEMIA, UNSPECIFIED SNOMED Code(s): 19668042 Comment: - Vitamin B12 is borderline low - s/p repletion trending down over course of stay. Likely volume mediated (8) Thrombocytopenia Current Visit: No Status: Acute Code(s): D69.6 - THROMBOCYTOPENIA, UNSPECIFIED SNOMED Code(s): 952426745 Comment: chronic at baseline (9) COPD (chronic obstructive pulmonary disease) Current Visit: No Status: Acute Code(s): J44.9 - CHRONIC OBSTRUCTIVE PULMONARY DISEASE, UNSPECIFIED SNOMED Code(s): 92241236 Comment: No signs of exacerbation at this time. Continue prn nebs (10) Chronic pain Current Visit: No Status: Chronic Priority: Medium Code(s): G89.29 - OTHER CHRONIC PAIN SNOMED Code(s): 42511541 Comment: c/w oxycodone (50% increased levels with GFR <60) -Holding home Morphine ER (11) Wound, surgical, nonhealing Current Visit: No Status: Acute Code(s): T81.89XA - OTH COMPLICATIONS OF PROCEDURES, NEC, INIT SNOMED Code(s): 127064280 Comment: No clear signs of infection surrounding the slit like wound at the inferior portion of the previous ventral hernia repair scar. (12) DVT prophylaxis Current Visit: No Status: Acute Code(s): EEF5144 - SNOMED Code(s): 925863738 Comment: SQ heparin Status and Disposition: Inpatient
[2018-07-07] MEDS ORDERED: Acetaminophen TAB* 325 MG PO PRN (11:19)
[2018-07-07] MEDS: Furosemide TAB* 40 MG PO SCH (17:40)
[2018-07-07] MEDS ORDERED: cefTRIAXone(*) 1 GM in NS 0.9% 50 ML* 50 ML IVPB SCH (18:00)
[2018-07-07] MEDS: Amoxicillin/Clavulanate TAB* 875 MG PO SCH (23:01)
[2018-07-07] MEDS: Atorvastatin* 10 MG TAB PO SCH (23:04)
[2018-07-08] MEDS: Heparin VIAL(*) 5000 UNITS/ML VIAL (FIVE THOUSAND) SUBCUT SCH (06:28)
[2018-07-08 07:41] LABS: ABS Basophils 0.1 10^3/ul (0-0.2); ABS Eosinophils 0.5 10^3/ul (0-0.6); ABS Lymphocytes 2.4 10^3/ul (1.0-4.8); ABS Monocytes 1.4 10^3/ul (0-0.8); ABS Neutrophils 3.9 10^3/ul (1.5-7.7); ABS Nucleated RBC 0 10^3/ul; Eosinophil % 5.5 %; Hematocrit 29 % (35-47); Hemoglobin 9.3 g/dl (12.0-16.0); Mean Corpuscular HGB Conc 32 g/dl (31-36); Mean Corpuscular Hemoglobin 33 pg (27-31); Mean Corpuscular Volume 103 fL (80-97); Nucleated Red Blood Cells % 0.1; Red Blood Count 2.82 10^6/ul (4.00-5.40); Red Cell Distribution Width 14 % (10.5-15); White Blood Count 8.2 10^3/ul (3.5-10.8)
[2018-07-08 08:05] LABS: Platelet Count Platelets clumped. 10^3/ul (150-450)
[2018-07-08 08:16] LABS: CO2 Carbon Dioxide 23 mmol/L (22-32); Calcium 8.1 mg/dL (8.6-10.3); Chloride 108 mmol/L (101-111); Sodium 139 mmol/L (135-145)
[2018-07-08 08:21] LABS: Anion Gap 8 mmol/L (2-11)
[2018-07-08 08:22] LABS: BUN/Creatinine Ratio 13.3 (8-20); Blood Urea Nitrogen 57 mg/dL (6-24); EGFR Non-African American 10.3 (>60); Glucose 85 mg/dL (70-100)
--- NOTE | 2018-07-08 08:24 | PN ---
Subjective Date of Service: 07/08/18 Interval History: HD #6 ON 07/08/18 Overnight no acute events, pt did well. T max 98.1 112/46, HR 68-69, satting 97 % on RA. Did have 1 large BM, restarted lasix for increasing edema to both hands and feet, got PO Lasix 40mg, which is her home dose, reports increased UOP. Tolerating Augmentin. This morning states she wants to go home. Tolerating breakfast, able to ambulate at baseline with PT. Labs showing Cr increasing to 4, BUN 57 and she is AOx4, she has had adequate PO and urine output per nursing. As requested, no urine sodium has been collected, though ordered x 2, seems it is hard to catch her when she is voiding. Looking back through her chart she had a similar event in 2016 where Cr continued to rise without any electrolyte disturbances aside from uremia. We discuss that we would like to work on getting her home but want to discuss case with her outpatient nephrology team. Objective Active Medications: Acetaminophen (Tylenol Tab*) 650 mg PO Q6H PRN PRN Reason: FEVER/PAIN Hydrocodone Bitart/Acetaminophen ([place] 5-325 Tab*) 1 tab PO TID PRN PRN Reason: PAIN Last Admin: 07/04/18 03:41 Dose: 1 tab Albuterol (Ventolin Hfa Inhaler*) 2 puff INH Q4H PRN PRN Reason: SHORTNESS OF BREATH Amoxicillin/Clavulanate Potassium (Augmentin Tab*) 875 mg PO BID [facility] Last Admin: 07/07/18 23:01 Dose: 875 mg Aspirin (Aspirin Ec Tab*) 81 mg PO DAILY [facility] Last Admin: 07/07/18 08:33 Dose: 81 mg Atorvastatin Calcium (Lipitor*) 10 mg PO BEDTIME [facility] Last Admin: 07/07/18 23:04 Dose: 10 mg Cholecalciferol (Vitamin D Tab*) 5,000 units PO Tu [facility] Last Admin: 07/07/18 08:32 Dose: 5,000 units Cyanocobalamin (Vitamin B12 Tab*) 1,000 mcg PO DAILY [facility] Last Admin: 07/07/18 08:33 Dose: 1,000 mcg Dextrose (D50w Syringe 50 Ml*) 12.5 gm IV PUSH .FOR FS < 60 - SS PRN PRN Reason: FS < 60 Duloxetine HCl (Cymbalta Cap*) 30 mg PO DAILY [facility] Last Admin: 07/07/18 08:33 Dose: 30 mg Famotidine (Pepcid Tab*) 20 mg PO DAILY [facility] Last Admin: 07/07/18 08:33 Dose: 20 mg Furosemide (Lasix Tab*) 40 mg PO DAILY [facility] Last Admin: 07/07/18 17:40 Dose: 40 mg Heparin Sodium (Porcine) (Heparin Vial(*)) 5,000 units SUBCUT Q8HR [facility] Last Admin: 07/08/18 06:28 Dose: 5,000 units Insulin Glargine (Lantus(*)) 20 units SUBCUT BID [facility] Last Admin: 07/07/18 23:07 Dose: 20 units Insulin Human Lispro (Humalog*) 0 units SUBCUT ACHS [facility]; Protocol Last Admin: 07/07/18 23:05 Dose: 2 units Montelukast Sodium (Singulair Tab*) 10 mg PO DAILY [facility] Last Admin: 07/07/18 08:33 Dose: 10 mg Nystatin (Nystatin Top Powder*) 1 applic TOPICAL TID [facility] Last Admin: 07/07/18 23:12 Dose: Not Given Topiramate (Topamax(*)) 100 mg PO BID [facility] Last Admin: 07/07/18 23:04 Dose: 100 mg Vital Signs - 8 hr 07/08/18 02:15 Temperature 97.9 F Pulse Rate 69 Respiratory 18 Rate Blood Pressure 129/49 (mmHg) O2 Sat by Pulse 95 Oximetry Oxygen Devices in Use Now: None Appearance: Obese woman in NAD Eyes: No Scleral Icterus, PERRLA Ears/Nose/Mouth/Throat: NL Teeth, Lips, Gums Neck: NL Appearance and Movements; NL JVP Respiratory: Symmetrical Chest Expansion and Respiratory Effort, Clear to Auscultation, - - Limited by habitus Cardiovascular: RRR, - - Distant no rub noted Abdominal: NL Sounds; No Tenderness; No Distention, - - Chronic wound that is dressed with evidence of fistula with scant drainage Lymphatic: No Cervical Adenopathy Extremities: No Edema, - - 1+ pitting edema to blt shins, CVS changes to blt legs Skin: - - Pannus blt reddened in creases without any camryn exudate or warmth, striae noted in abdomen Neurological: Alert and Oriented x 3 Result Diagrams: 07/08/18 06:47 07/08/18 06:47 Microbiology and Other Data: Microbiology 07/03/18 07:30 Influenza Types A,B Antigen - Final Nasal Specimen received for Influenza A/B Molecular testing Urine Bryanna Moorebryant Assess/Plan/Problems-Billing Assessment: 67 yo F with PMH obesity, HFpEF, COPD, OSH (likely), IDDM, 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 Course c/b CLOVER on CKD with rising Cr, not responsive to fluids. - Patient Problems (1) Altered mental status Current Visit: Yes Status: Acute Code(s): R41.82 - ALTERED MENTAL STATUS, UNSPECIFIED SNOMED Code(s): 760675918 Comment: Resolved - multifactorial from UTI and pain medication and hypercarbia on admission. She waxes and wanes, her says she is at baseline. (2) UTI (urinary tract infection) Current Visit: No Status: Acute Comment: - Renal US shows no hydronephrosis , does show nephrolithiasis non obstructing and cortical atrophy - Urine grew proteus mirabilis, early in hospitals course due to possible cellulitis on left pannus switched CTX to Zosyn on 07/05, though quite unremarkable on subsequent exam and thus downgrade to Amox/Clauv 07/07 - Abx Day 6/7 on 07/08 (3) CLOVER (acute kidney injury) Current Visit: No Status: Acute Priority: High Code(s): N17.9 - ACUTE KIDNEY FAILURE, UNSPECIFIED SNOMED Code(s): 03304218 Comment: Basline CKD stage 3. Creat has trended up 2.88 (07/03) to 4.29 (07/08 ) still elevated and was increasing with IVF that was stopped on 07/04/18. No electrolyte emergency, acid base appears stable, she is voiding and is approaching her normal volume status, Ca low at 8.1, Phos added on, CBC showing chronic anemia - Lasix resumed on 07/07 - Renal US shows no hydronephrosis on 07/03 - I will discuss the case with her outpt nephorology team to see if she can be arranged for close follow up or if they think workup is needed in house. We could ensure FeUREA to be collected PTD. (4) Type II diabetes mellitus Current Visit: No Status: Acute Comment: -cont Lantus 20 U BID and ISS for meal time coverage fair control (5) Diastolic CHF, chronic Current Visit: No Status: Acute Code(s): I50.32 - CHRONIC DIASTOLIC ( CONGESTIVE) HEART FAILURE SNOMED Code(s): 982947036 Comment: Continue usual home medication regimen. Daily weights. Home PM Lasix (6) Depression Current Visit: No Status: Acute Code(s): F32.9 - MAJOR DEPRESSIVE DISORDER, SINGLE EPISODE, UNSPECIFIED SNOMED Code(s): 67662592 Comment: Continue cymbalta and topamax. (7) Macrocytic anemia Current Visit: No Status: Acute Code(s): D53.9 - NUTRITIONAL ANEMIA, UNSPECIFIED SNOMED Code(s): 36433738 Comment: - Vitamin B12 is borderline low - s/p repletion trending down over course of stay. Likely volume mediated (8) Thrombocytopenia Current Visit: No Status: Acute Code(s): D69.6 - THROMBOCYTOPENIA, UNSPECIFIED SNOMED Code(s): 819919463 Comment: chronic at baseline (9) COPD (chronic obstructive pulmonary disease) Current Visit: No Status: Acute Code(s): J44.9 - CHRONIC OBSTRUCTIVE PULMONARY DISEASE, UNSPECIFIED SNOMED Code(s): 91587904 Comment: No signs of exacerbation at this time. Continue prn nebs (10) Chronic pain Current Visit: No Status: Chronic Priority: Medium Code(s): G89.29 - OTHER CHRONIC PAIN SNOMED Code(s): 38178170 Comment: c/w oxycodone (50% increased levels with GFR <60) -Holding home Morphine ER, would recommend holding on d/c given decreased CrCl (11) Wound, surgical, nonhealing Current Visit: No Status: Acute Code(s): T81.89XA - OTH COMPLICATIONS OF PROCEDURES, NEC, INIT SNOMED Code(s): 777748972 Comment: No clear signs of infection surrounding the slit like wound at the inferior portion of the previous ventral hernia repair scar. (12) DVT prophylaxis Current Visit: No Status: Acute Code(s): EYZ9772 - SNOMED Code(s): 404722479 Comment: SQ heparin Status and Disposition: Possible d/c but pending renal discussion
[2018-07-08] MEDS: Insulin LISPRO* 1 UNITS UNIT SUBCUT SCH ×4 (08:35→21:37)
[2018-07-08 09:40] LABS: Phosphorus 4.8 mg/dL (2.5-5.0)
[2018-07-08] MEDS: Insulin GLARGINE(*) 1 UNITS UNIT SUBCUT SCH ×2 (09:52→21:37)
[2018-07-08] MEDS: Amoxicillin/Clavulanate TAB* 875 MG PO SCH ×2 (09:52→21:36)
[2018-07-08] MEDS: DULoxetine DR CAP* 30 MG CAP.DR PO SCH (09:52)
[2018-07-08] MEDS: Montelukast Sodium TAB* 10 MG PO SCH (09:53)
[2018-07-08] MEDS: Cyanocobalamin TAB* 500 MCG PO SCH (09:53)
[2018-07-08] MEDS: Aspirin EC TAB* 81 MG TAB.EC PO SCH (09:53)
[2018-07-08] MEDS: Furosemide TAB* 40 MG PO SCH (09:53)
[2018-07-08] MEDS: Famotidine TAB* 20 MG PO SCH (09:53)
[2018-07-08] MEDS: Nystatin TOP POWDER* 15 GM BTL TOPICAL SCH ×3 (09:55→21:43)
[2018-07-08] MEDS: Topiramate TAB(*) 100 MG PO SCH ×2 (09:56→21:40)
[2018-07-08 17:50] LABS: Urine Creatinine Concentration 30.4 mg/dL
[2018-07-08 17:53] LABS: Urine Appearance Cloudy; Urine Bacteria Absent (Absent); Urine Bilirubin Negative (Negative); Urine Blood 3+ (Negative); Urine Color Yellow; Urine Glucose 1+(50 mg/dL) (Negative); Urine Ketones Negative (Negative); Urine Nitrite Negative (Negative); Urine Protein 1+(30 mg/dL) (Negative); Urine Red Blood Cell 3+(>10/hpf) (Absent); Urine Specific Gravity 1.008 (1.010-1.030); Urine Urobilinogen Negative (Negative); Urine White Blood Cell 3+(>20/hpf) (Absent)
[2018-07-08] MEDS: Atorvastatin* 10 MG TAB PO SCH (21:39)
[2018-07-09 06:58] LABS: BUN/Creatinine Ratio 12.6 (8-20); Calcium 8.4 mg/dL (8.6-10.3); EGFR Non-African American 9.9 (>60); Phosphorus 4.7 mg/dL (2.5-5.0)
[2018-07-09] MEDS: Insulin LISPRO* 1 UNITS UNIT SUBCUT SCH ×4 (08:34→21:32)
[2018-07-09] MEDS: Insulin GLARGINE(*) 1 UNITS UNIT SUBCUT SCH ×2 (09:49→21:33)
[2018-07-09] MEDS: Montelukast Sodium TAB* 10 MG PO SCH (09:50)
[2018-07-09] MEDS: Amoxicillin/Clavulanate TAB* 875 MG PO SCH (09:50)
[2018-07-09] MEDS: DULoxetine DR CAP* 30 MG CAP.DR PO SCH (09:50)
[2018-07-09] MEDS: Famotidine TAB* 20 MG PO SCH (09:50)
[2018-07-09] MEDS: Furosemide TAB* 40 MG PO SCH (09:51)
[2018-07-09] MEDS: Topiramate TAB(*) 100 MG PO SCH ×2 (09:51→21:31)
[2018-07-09] MEDS: Cyanocobalamin TAB* 500 MCG PO SCH (09:51)
[2018-07-09] MEDS: Nystatin TOP POWDER* 15 GM BTL TOPICAL SCH ×3 (09:51→21:38)
[2018-07-09] MEDS: Aspirin EC TAB* 81 MG TAB.EC PO SCH (09:51)
--- NOTE | 2018-07-09 16:12 | PN ---
Subjective Date of Service: 07/09/18 Interval History: Patient seen today. doing well. Anxious to go home, However her Creatinine continue to rise at 4.44 up from 4.29. discussed with renal and agreed to observe patient one more day and will give Lasix 40 mg IV bid to assess if it improves which correlate with ATN. No fever or Chills Family History: Unchanged from Admission Social History: Unchanged from Admission Past Medical History: Unchanged from Admission Objective Active Medications: Acetaminophen (Tylenol Tab*) 650 mg PO Q6H PRN PRN Reason: FEVER/PAIN Hydrocodone Bitart/Acetaminophen ([place] 5-325 Tab*) 1 tab PO TID PRN PRN Reason: PAIN Last Admin: 07/04/18 03:41 Dose: 1 tab Albuterol (Ventolin Hfa Inhaler*) 2 puff INH Q4H PRN PRN Reason: SHORTNESS OF BREATH Aspirin (Aspirin Ec Tab*) 81 mg PO DAILY [facility] Last Admin: 07/09/18 09:51 Dose: 81 mg Atorvastatin Calcium (Lipitor*) 10 mg PO BEDTIME [facility] Last Admin: 07/08/18 21:39 Dose: 10 mg Cholecalciferol (Vitamin D Tab*) 5,000 units PO Tu [facility] Last Admin: 07/07/18 08:32 Dose: 5,000 units Cyanocobalamin (Vitamin B12 Tab*) 1,000 mcg PO DAILY [facility] Last Admin: 07/09/18 09:51 Dose: 1,000 mcg Dextrose (D50w Syringe 50 Ml*) 12.5 gm IV PUSH .FOR FS < 60 - SS PRN PRN Reason: FS < 60 Duloxetine HCl (Cymbalta Cap*) 30 mg PO DAILY [facility] Last Admin: 07/09/18 09:50 Dose: 30 mg Famotidine (Pepcid Tab*) 20 mg PO DAILY [facility] Last Admin: 07/09/18 09:50 Dose: 20 mg Furosemide (Lasix Iv*) 40 mg IV BID [facility] Insulin Glargine (Lantus(*)) 20 units SUBCUT BID [facility] Last Admin: 07/09/18 09:49 Dose: 20 units Insulin Human Lispro (Humalog*) 0 units SUBCUT ACHS [facility]; Protocol Last Admin: 07/09/18 14:05 Dose: 2 units Montelukast Sodium (Singulair Tab*) 10 mg PO DAILY [facility] Last Admin: 07/09/18 09:50 Dose: 10 mg Nystatin (Nystatin Top Powder*) 1 applic TOPICAL TID [facility] Last Admin: 07/09/18 14:07 Dose: 1 applic Topiramate (Topamax(*)) 100 mg PO BID [facility] Last Admin: 07/09/18 09:51 Dose: 100 mg Vital Signs - 8 hr 07/09/18 08:09 Temperature 97.6 F Pulse Rate 74 Respiratory 14 Rate Blood Pressure 117/43 (mmHg) O2 Sat by Pulse 94 Oximetry Oxygen Devices in Use Now: None Appearance: Awake, Alert. no distress Eyes: No Scleral Icterus, - Ears/Nose/Mouth/Throat: NL Teeth, Lips, Gums, Mucous Membranes Moist Neck: NL Appearance and Movements; NL JVP, Trachea Midline Respiratory: Symmetrical Chest Expansion and Respiratory Effort, Clear to Auscultation Cardiovascular: NL Sounds; No Murmurs; No JVD, RRR Abdominal: NL Sounds; No Tenderness; No Distention Lymphatic: No Cervical Adenopathy Extremities: No Edema Skin: No Rash or Ulcers Neurological: Alert and Oriented x 3 Result Diagrams: 07/08/18 06:47 07/09/18 06:07 Microbiology and Other Data: Microbiology 07/03/18 07:30 Influenza Types A,B Antigen - Final Nasal Specimen received for Influenza A/B Molecular testing Urine Proteus Mirabalis Assess/Plan/Problems-Billing Assessment: 67 yo F with PMH obesity, HFpEF, COPD, OSH (likely), IDDM, 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 Course c/b CLOVER on CKD with rising Cr, not responsive to fluids. - Patient Problems (1) CLOVER (acute kidney injury) Current Visit: No Status: Acute Priority: High Code(s): N17.9 - ACUTE KIDNEY FAILURE, UNSPECIFIED SNOMED Code(s): 32297308 Comment: Basline CKD stage 3. Creat has trended up 2.88 (07/03) to 4.44 (07/09 ) still elevated and was increasing with IVF that was stopped on 07/04/18. No electrolyte emergency, acid base appears stable, she is voiding and is approaching her normal volume status, Ca low at 8.1, Phos added on, CBC showing chronic anemia - Lasix resumed on 07/07 - Discussed with renal today and recommended to give lasix 40 mg IV bid and repeat chemistry in am - Renal US shows no hydronephrosis on 07/03 - I will discuss the case with her outpt nephorology team to see if she can be arranged for close follow up or if they think workup is needed in house. We could ensure FeUREA to be collected PTD. (2) Altered mental status Current Visit: Yes Status: Resolved Code(s): R41.82 - ALTERED MENTAL STATUS , UNSPECIFIED SNOMED Code(s): 889191741 Comment: Resolved - multifactorial from UTI and pain medication and hypercarbia on admission. She waxes and wanes, her says she is at baseline. (3) Depression Current Visit: No Status: Acute Code(s): F32.9 - MAJOR DEPRESSIVE DISORDER, SINGLE EPISODE, UNSPECIFIED SNOMED Code(s): 03995942 Comment: Continue cymbalta and topamax. (4) Diabetic neuropathy associated with type 2 diabetes mellitus Current Visit: No Status: Acute Priority: Medium Code(s): E11.40 - TYPE 2 DIABETES MELLITUS WITH DIABETIC NEUROPATHY, UNSP SNOMED Code(s): 536951134037303 Comment: - continue Topamax (5) Macrocytic anemia Current Visit: No Status: Acute Code(s): D53.9 - NUTRITIONAL ANEMIA, UNSPECIFIED SNOMED Code(s): 10509556 Comment: - Vitamin B12 is borderline low - s/p repletion trending down over course of stay. Likely volume mediated (6) Thrombocytopenia Current Visit: No Status: Acute Code(s): D69.6 - THROMBOCYTOPENIA, UNSPECIFIED SNOMED Code(s): 694935470 Comment: chronic at baseline (7) Type II diabetes mellitus Current Visit: No Status: Acute Comment: -cont Lantus 20 U BID and ISS for meal time coverage fair control (8) UTI (urinary tract infection) Current Visit: No Status: Acute Comment: - Renal US shows no hydronephrosis , does show nephrolithiasis non obstructing and cortical atrophy - Urine grew proteus mirabilis, early in hospitals course due to possible cellulitis on left pannus switched CTX to Zosyn on 07/05, though quite unremarkable on subsequent exam and thus downgrade to Amox/Clauv 07/07 - Abx Day 12/27 on 07/09. I will d/c augmentin today as she was on BID and it should have left in her system to cover for tomorrow (9) Wound, surgical, nonhealing Current Visit: No Status: Acute Code(s): T81.89XA - OTH COMPLICATIONS OF PROCEDURES, NEC, INIT SNOMED Code(s): 279286391 Comment: No clear signs of infection surrounding the slit like wound at the inferior portion of the previous ventral hernia repair scar. Status and Disposition: Possible d/c but pending renal discussion
[2018-07-09] MEDS: Atorvastatin* 10 MG TAB PO SCH (21:31)
[2018-07-09] MEDS: Furosemide IV* 10 MG/ML VIAL (40 MG) IV SCH (21:32)
--- NOTE | 2018-07-09 22:08 | CONS ---
NEPHROLOGY CONSULTATION: DATE OF CONSULT: 07/09/18 REQUESTING PROVIDER: Dr. Martinez. CHIEF COMPLAINT AND REASON FOR CONSULTATION: Acute kidney [id number] kidney disease. 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 amoxicillin. With respect to her kidney dysfunction, the patient's baseline creatinine earlier this year appears to be 1.8 to 2.0 baseline. Also, noted to be in CKD stage 4 at baseline. At time of admission, creatinine was noted to be 2.8. Creatinine has been steadily rising through hospital course and currently it is 4.4. The patient also was on dialysis for about 2 months in 2014 per discussion with the patient. Per the , it appears that she had rhabdomyolysis at that time and had acute kidney injury secondary to rhabdomyolysis. The patient was only on dialysis for a brief period of time then and was getting dialyzed through catheter. PAST MEDICAL HISTORY: 1. Morbid obesity. 2. Diastolic congestive heart failure. 3. COPD. 4. Obesity hypoventilation syndrome. 5. Hyperlipidemia. 6. Fibromyalgia. 7. CKD stage IV. 8. Anemia. 9. Insulin dependent diabetes type 2. 10. Ventral sinus drainage from infected hernia mesh. 11. Drop foot. PAST SURGICAL HISTORY: 1. Cholecystectomy. 2. Appendectomy. 3. Reverse colostomy. 4. Mesh infection surgery. MEDICATIONS: Medication list prior to admission: 1. Topamax 100 p.o. b.i.d. 2. Simvastatin 20 mg p.o. q.h.s. 3. Potassium chloride 10 mEq p.o. daily. 4. Morphine 15 mg p.o. b.i.d. 5. Singulair 10 mg p.o. daily. 6. Aspart between 10 and 12 subcu with meals. 7. Lantus 20 units b.i.d. 8. [place] 7.5/3.5 p.o. t.i.d. p.r.n. 9. Lasix 40 mg p.o. at bedtime. 10. Pepcid 40 mg p.o. daily. 11. Cymbalta 30 mg p.o. daily. 12. Cholecalciferol 5000 units p.o. q. week. 13. Aspirin 81 mg daily. 14. Albuterol 2 puffs inhalation q.4 hours p.r.n. ALLERGIES: To CEFOXITIN. FAMILY HISTORY: Mother of a bowel cancer, had heart disease and diabetes. Father had heart disease and diabetes. SOCIAL HISTORY: Former smoker, quit in 1995. Total 10 to 12 years, less than 1 pack per day. Denies any alcohol use. REVIEW OF SYSTEMS: Currently denies any nausea, vomiting. Does not have any tremors. Other 14-point review of systems other than noted in the HPI noted to be negative. PHYSICAL EXAM: Vitals: Vitals have have reviewed. Temperature 98.2, pulse 74 , respirations 14, O2 sat 94%, blood pressure 117/73. HEENT: NC/AT. Heart: S1, S2 present. Regular at time of exam. Lungs: Decreased breath sounds bilaterally. No crackles or wheezes. Abdomen: Distended, obese. No rebound, no guarding. Extremities: Noted to have 1+ edema bilaterally. Neuro: Alert, oriented. Gait not tested. No focal deficits. No tremors. LAB DATA: UA noted to have some leukocyte esterase, 3+ WBCs, some RBCs, squamous epithelial cells. Sodium 139, potassium 3.4, chloride 102, CO2 of 28, BUN 52, creatinine 2.8 at time of admission. Labs today: Sodium 141, potassium 4, chloride 108, CO2 of 24, BUN 56, creatinine 4.4. ASSESSMENT AND PLAN: A 67-year-old female with history of longstanding diabetes , obesity hypoventilation syndrome, chronic kidney disease stage IV and multiple other commonalities, here with urinary tract infection, altered mental status, and being evaluated for acute kidney injury on chronic kidney disease. 1. Acute kidney injury on CKD stage IV. The patient's most likely etiology appears to be ATN, which could be ischemic or toxic in the setting of low blood pressure when she initially came, appears to be in the injury phase of ATN with worsening creatinine. The patient had urine tests and blood tests done yesterday as discussed with the hospitalist, and per calculation, the patient's FEUrea, as she was on diuretics, is noted to be 54.4%. The patient's fractional excretion of sodium also noted to be 8.74%. Prerenal etiology appears less likely. The patient only appears to have made 200 cc of urine today per her ins and outs documented. However, the patient reports that she has urinated much more than this and the urine output would be carrington in determining and making further decisions with respect to renal replacement therapy and I recommend strict ins and outs currently. Also AIN from Zosyn that she was on, especially in the combination of Zosyn and vancomycin, is also possible. The patient continues to wbc's in her urine. Interestingly, the patient also noted to have allergy to CEFOXITIN. We will need to discuss with the patient how severe this allergy was, recommending exploring this further. As there is a small percent of cross reactivity with cephalosporins and penicillin, it can also be considered to take the patient off penicillin or cephalosporin-based antibiotics and switch her over to another sensitive antibiotic for her infection. At this time, I recommend the patient to be on Lasix 40 mg IV b.i.d. as it seems less likely that the patient's renal dysfunction is secondary to pre-renal etiology. Based on how her numbers look with this and with changing her antibiotic, can decide on further management tomorrow. 2. Diabetes. Continue the patient's current insulin regimen. 3. If the patient's creatinine does not improve, we will assess everyday if the patient requires renal replacement therapy. Currently, there is no indication for renal replacement therapy, and as long as the patient makes urine , we would be able to avoid renal replacement therapy. If the patient's kidney function does not improve after changing her antibiotic, can possibly consider an empiric trial of steroids for possible AIN if needed. 4. Hypertension. Recommend continuing the patient's current medications. Case discussed with the patient's hospitalist. TIME SPENT: Total time spent on consult is equal to 60 minutes. [id number]/[facility] #: [id number] MTDD
[2018-07-10] MEDS: Insulin LISPRO* 1 UNITS UNIT SUBCUT SCH ×2 (08:16→13:04)
[2018-07-10] MEDS ORDERED: Insulin GLARGINE(*) 1 UNITS UNIT SUBCUT SCH (09:00)
[2018-07-10 09:15] LABS: ABS Basophils 0.1 10^3/ul (0-0.2); ABS Eosinophils 0.4 10^3/ul (0-0.6); ABS Lymphocytes 2.6 10^3/ul (1.0-4.8); ABS Neutrophils 4.7 10^3/ul (1.5-7.7); ABS Nucleated RBC 0 10^3/ul; Eosinophil % 4.5 %; Hematocrit 30 % (35-47); Hemoglobin 9.9 g/dl (12.0-16.0); Lymphocyte % 29.7 %; Mean Corpuscular HGB Conc 33 g/dl (31-36); Mean Corpuscular Hemoglobin 33 pg (27-31); Mean Corpuscular Volume 102 fL (80-97); Mean Platelet Volume 9.4 fL (7.4-10.4); Nucleated Red Blood Cells % 0; Platelet Count 147 10^3/ul (150-450); Red Blood Count 2.99 10^6/ul (4.00-5.40); Red Cell Distribution Width 14 % (10.5-15); White Blood Count 8.9 10^3/ul (3.5-10.8)
[2018-07-10 09:17] LABS: BUN/Creatinine Ratio 12.4 (8-20); EGFR Non-African American 9.7 (>60); Phosphorus 5.1 mg/dL (2.5-5.0)
[2018-07-10 09:33] LABS: Potassium 3.8 mmol/L (3.5-5.0)
[2018-07-10] MEDS: Aspirin EC TAB* 81 MG TAB.EC PO SCH (10:29)
[2018-07-10] MEDS: Famotidine TAB* 20 MG PO SCH (10:29)
[2018-07-10] MEDS: Montelukast Sodium TAB* 10 MG PO SCH (10:29)
[2018-07-10] MEDS: Topiramate TAB(*) 100 MG PO SCH (10:29)
[2018-07-10] MEDS: Furosemide IV* 10 MG/ML VIAL (40 MG) IV SCH (10:29)
[2018-07-10] MEDS: DULoxetine DR CAP* 30 MG CAP.DR PO SCH (10:29)
[2018-07-10] MEDS: Cyanocobalamin TAB* 500 MCG PO SCH (10:29)
[2018-07-10] MEDS: Nystatin TOP POWDER* 15 GM BTL TOPICAL SCH ×2 (10:30→13:47)
[2018-07-10 11:44] VITALS: BP 135/58
--- NOTE | 2018-07-11 01:06 | DS ---
CC: Og Arce NP; Dr. Davidson DISCHARGE SUMMARY: DATE OF ADMISSION: 07/02/18 DATE OF DISCHARGE: 07/09/18 PRIMARY CARE PROVIDER: Og Arce NP FINAL DISCHARGE DIAGNOSES: 1. Urinary tract infection. 2. Acute kidney injury of [id number] kidney disease. 3. Altered mental status, multifactorial from urinary tract infection and pain medication with hyper carbia. 4. Depression. 5. Anemia. 6. History of thrombocytopenia. 7. Diabetes mellitus type 2. HOSPITAL COURSE: The patient presented to [facility] on 07/03/18 to the medicine service for generalized weakness and chills, was found to have white count of 15,000, low-grade fever 99.5, p ositive fluid analysis. She was admitted to the medicine service. She was started on Zosyn and vanc omycin antibiotic empirically, pending cultures. She remained in the hospitalist service. Nephrolog y consult was obtained and it was noted during the hospitalization that she did have an acute kidney injury with a rise of creatinine over the following few days. Nephrology did recommend to discontinu e her antibiotic or avoid any penicillin given her allergy. However, on yesterday, 07/09/18 that we will have completed at least 6 to 7 days of course of antibiotic and given her microbiology were only positive for urinalysis, Proteus mirabilis which was sensitive to Augmentin 875 b.i.d., I did discon tinue it after completion of at least 6 days of total antibiotic. She was kept in the hospital and t kianna her creatinine did level off at 4.5, yesterday was 4.44 which I believe has plateaued. I did di scuss the case with Nephrology, Dr. Barry, and she recommended to avoid antibiotic penicillin giv en her allergy to CEPHALOSPORIN. Resume her home medication Lasix 40 mg daily and follow up with Dr. Davidson in 1 week. Therefore, the patient was deemed stable for discharge today. PHYSICAL EXAMINATION: Her vital signs is 98.9, pulse 83, respiratory rate 16, satting 94%, blood pre ssure 135/58. Generally is awake, alert, oriented. Head and Neck: Normocephalic, atraumatic, obese , no apparent distress. Lungs: Clear to auscultation. Cardiovascular: S1, S2. Regular rate and r hythm. Abdomen: Positive bowel sounds, soft, nontender, nondistended, obese. Extremities: Positive to edema. DISCHARGE MEDICATIONS: Resume all home medications as outlined below: 1. Albuterol q.4 hours 2 puffs as needed. 2. Vitamin D 5000 every 7 days. 3. Vitamin B12 1000 mcg daily. 4. Cymbalta 30 mg p.o. daily. 5. Famotidine 40 mg daily. 6. Lasix 40 mg at bedtime. 7. Hydrocodone 1 tablet p.o. t.i.d. 8. Insulin 20 units b.i.d. 9. Lantus decreased from 20 units to 15 units b.i.d. given her renal insufficiency. 10. Singulair 10 mg daily. 11. Morphine ER 15 mg b.i.d. 12. Potassium 10 mEq daily. 13. Simvastatin 20 at bedtime. 14. Topamax 100 mg b.i.d. DISCHARGE RECOMMENDATION: Follow up with Dr. Davidson in about 1 week. BMP to be evaluated with Dr. Tila aj. The patient to return to emergency room immediately if she developed any shortness of breath, weaknes s, dizziness. [id number]/[facility] #: [id number]
== END 2018-07-10 15:00 | disposition home or self-care (01) | DRG 871 ==
LOC: ED 23:23 → MED 07-03 04:05 → OBSVTOIN 07-03 04:05
PROVIDERS: ADMIT Internal Medicine; ATTEND Internal Medicine
DX: A41.9 Sepsis, unspecified organism (principal); N17.0 Acute kidney failure with tubular necrosis; G93.41 Metabolic encephalopathy; Z68.44 Body mass index [BMI] 60.0-69.9, adult; N39.0 Urinary tract infection, site not specified; I50.32 Chronic diastolic (congestive) heart failure; E66.2 Morbid (severe) obesity with alveolar hypoventilation; T81.83XA Persistent postprocedural fistula, initial encounter; L03.116 Cellulitis of left lower limb; E87.2 Acidosis; N18.4 Chronic kidney disease, stage 4 (severe); E11.22 Type 2 diabetes mellitus with diabetic chronic kidney disease; J44.9 Chronic obstructive pulmonary disease, unspecified; F32.9 Major depressive disorder, single episode, unspecified; E78.5 Hyperlipidemia, unspecified; T81.89XA Other complications of procedures, not elsewhere classified, initial encounter; D53.9 Nutritional anemia, unspecified; D69.6 Thrombocytopenia, unspecified; E11.40 Type 2 diabetes mellitus with diabetic neuropathy, unspecified; M79.7 Fibromyalgia; G89.29 Other chronic pain; F41.8 Other specified anxiety disorders; B96.4 Proteus (mirabilis) (morganii) as the cause of diseases classified elsewhere; M21.379 Foot drop, unspecified foot; Z79.82 Long term (current) use of aspirin; Z79.4 Long term (current) use of insulin; Z79.891 Long term (current) use of opiate analgesic; Z79.51 Long term (current) use of inhaled steroids; Z79.899 Other long term (current) drug therapy; Z88.8 Allergy status to other drugs, medicaments and biological substances; Z80.0 Family history of malignant neoplasm of digestive organs; Z83.3 Family history of diabetes mellitus; Z82.49 Family history of ischemic heart disease and other diseases of the circulatory system; Z87.891 Personal history of nicotine dependence; X58.XXXA Exposure to other specified factors, initial encounter; Y92.9 Unspecified place or not applicable
CPT/HCPCS: 36415; 71045; 76775; 80048; 80053; 81003; 81015; 82550; 82570; 82607; 82746; 82803; 82947; 83605; 83735; 83880; 84100; 84300; 84484; 84540; 85025; 85610; 85730; 86140; 86850; 86870; 86880; 86900; 86901; 87040; 87077; 87086; 87184; 87186; 93005; 96365; 96366; 99285; A9270-GY; G8978-GP-CN; G8979-GP-CI; G8987-GO-CK; G8988-GO-CK; G8989-GO-CK; J0696; J1644; J1940; J2543; J3370

== ENCOUNTER 2019-08-27 11:34 | Emergency (ER) | payer MEDICARE ==
--- OUTSIDE RECORDS SUMMARY | 2019-08-27 11:45 | XMS REPORT | Continuity of Care Document ---
:1950 External Reference #:[id number] Author Name Cedric Burch MD Address [address] [place] [address] Care Team Providers Name Role Phone Bethany Walker MD Care Team Information Index Clerk Unavailable Iseal Nesbitt MD Care Team Information Index Clerk Unavailable Aurora Solano M.D. - Family Care Team Information Index Clerk Medicine [facility] Care Team Information Index Clerk [phone] Gokul Lira MD - Neurology Care Team Information Index Clerk Trista Champagne - Orthopaedic Surgery Care Team Information Index Clerk Problems Active Problems Provider Date Osteoarthritis of knee BETTY Mattson Onset: 01/13/2015 Social History Type Date Description Comments Sex Unknown Tobacco Use Start: Unknown End: Unknown Former Cigarette Smoker ETOH Use Denies alcohol use Tobacco Use Start: Unknown End: Unknown Patient is a former smoker Recreational Drug Use Denies Drug Use Exercise Limitations Muscle Pain Exercise Limitations Shortness Of Breath Allergies, Adverse Reactions, Alerts Active Allergies Reaction Severity Comments Date Mefoxin rash 04/12/2014 Inactive Allergies NKDA 05/23/2004 NKDA 04/12/2014 Medications Active Medications SIG Qnty Indications Ordering Date Provider Triamterene Take 1 capsule by 30caps I50.20 Cedric 08/17/2019 100mg mouth 2 times per MD Marcin Capsules day for edema Clotrimazole apply under toe 56gm B35.1 Og Eric 10/27/2018 Anti-Fungal nails nightly Storm, [facility] 1% Cream Blood Glucose use as directed to 1units E11.65 Isaiaswnti R. 10/01/2018 Monitoring System test blood sugar 3 Storm, [facility] times daily or as W/Device Kit needed dx code e11.65 Onetouch Ultra Blue use for testing 270units Shawnti R. 10/01/2018 blood sugar 3 times Storm, [facility] Strips daily or as needed Dx code E11.65 Onetouch Ultrasoft use for testing 100units Isaiaswnti R. 10/01/2018 Lancets blood sugar 3 times Storm, [facility] Misc daily or as needed Dx code E11.65 Furosemide 1 by mouth every 90tabs Shawnti R. 04/09/2018 40mg morning Storm, [facility] Tablets Potassium Chloride 1 by mouth every 90tabs Isaiaswnti R. 04/09/2018 ER day Storm, [facility] 10Meq Tablets ER Bariatric Pull-Ups use as directed 100units R53.1 Isaiaswnti R. 03/18/2018 measurements hips- Storm, [facility] 59" waist-62" 310lb R53.83 Novolog Flexpen inject three times 15ml E11.65 Og Arce, 2017 daily before meals, [facility] 100Unit/ML Solution dose per sliding Pen-Inject scale, mdd 50 units Basaglar Kwikpen inject 50 units 45ml E11.65 Og Arce, 07/24/2017 daily [facility] 100Unit/ML Solution Pen-Inject Valtrex take one pill by 14tabs Og Arce, 05/19/2017 1gm Tablets mouth two times [facility] daily for 7 days Nystatin-Triamcinolo apply sparingly to 30gm L20.9 Og Arce, 01/17 ne affected area twice [facility] a day until resolved 420711-4.1Unit/GM-% Cream Ankle Lace-Up Brace Right ankle- drop 1units Og Arce, 12/19/2016 foot dx code m21.371 [facility] Misc Nystatin apply a thin layer 60gm Og Arce, 07/18/2016 topically to [facility] [id number]/GM Cream affected area three times daily Adult Diapers size 3x adult 50units Og Arce, 03/29/2016 diapers -change as [facility] needed or 8 times daily dx: r32 Vitamin B-12 1 by mouth every day 90tabs Og Arce, 03/28/2016 2500mcg for deficiency [facility] Tablets Sub Montelukast Sodium take one tablet by 90tabs Og Arce, 07/17/2015 mouth at bedtime [facility] 10mg Tablets Simvastatin take one tablet by 90tabs Og Arce, 02/14/2015 20mg mouth everyday at [facility] Tablets bedtime for cholesterol Novofine use daily with 1month E11.65 Og Arce, 07/08/2014 30G X 8 mm lantus [facility] Misc Famotidine Take 1 Tablet By 90tabs Og Arce, 06/11/2013 40mg Mouth Once Daily For [facility] Tablets Stomach Acid Ventolin HFA inhale two puffs by 18units J45.998 Og Arce, 2012 mouth every 4 hours [facility] 108(90Base) mcg/Act as needed for Aerosol wheezing or before exercise Insulin use twice daily to 100units Og Arce, 06/06/2011 Syringe/0.5ML/30G X administer insulin [facility] 1/2" 30G X 1/2" 0.5 ML Misc Duloxetine HCL take one capsule by 90caps Og Arce, 10/04/2010 30mg mouth once daily as [facility] Caps DR Swenson directed Vitamin D 2 po daily for 180caps Og Arce, 04/09/2010 1000Unit suppliment/deficienc [facility] Capsules y Aspirin 1 PO qd Aurora Deluca 05/23/2004 81mg Ec Dayron Solano M.D. Lancets use as directed- 100units Og Arce, 10/28/2002 give same lancets as [facility] usual Morphine Sulfate ER once daily Unknown 15mg Tablets ER Ferrous Sulfate 1 by mouth every day Unknown 325mg Tablets Medications Administered in Office Medication SIG Qnty Indications Ordering Provider Date Vitamin B-12 Injection-To Shawnti R. Storm, [facility] 03/30/2019 1000mcg Injection Vitamin B-12 Injection-To [facility] 04/09/2018 1000mcg Injection Vitamin B-12 Injection-To Shawnti R. Storm, [facility] 02/17/2018 1000mcg Injection Vitamin B-12 Injection-To Shawnti R. Storm, [facility] 12/29/2017 1000mcg Injection Vitamin B-12 Injection-To Shawnti R. Storm, [facility] 11/06/2017 1000mcg Injection Vitamin B-12 Injection-To Shawnti R. Storm, [facility] 09/11/2017 1000mcg Injection Vitamin B-12 Injection-To Shawnti R. Storm, [facility] 05/22/2017 1000mcg Injection Vitamin B-12 Injection-To Shawnti R. Storm, [facility] 01/17/2017 1000mcg Injection Vitamin B-12 Injection-To Shawnti R. Storm, [facility] 07/05/2016 1000mcg Injection Vitamin B-12 Injection-To Shawnti R. Storm, [facility] 03/28/2016 1000mcg Injection Vitamin B-12 Injection-To Shawnti R. Storm, [facility] 09/19/2015 1000mcg Injection Vitamin B-12 Injection-To Shawnti R. Storm, [facility] 08/22/2015 1000mcg Injection Vitamin B-12 Injection-To Shawnti R. Storm, [facility] 03/06/2015 1000mcg Injection Vitamin B-12 Injection-To Shawnti R. Storm, [facility] 04/12/2014 1000mcg Injection Vitamin B-12 Injection-To Shawnti R. Storm, [facility] 03/11/2014 1000mcg Injection Vitamin B-12 Injection-To Shawnti R. Storm, [facility] 10/14/2013 1000mcg Injection Vitamin B-12 Injection-To [facility] 03/10/2013 1000mcg Injection Vitamin B-12 Injection-To Shawnti R. Storm, [facility] 12/29/2012 1000mcg Injection Vitamin B-12 Injection-To [facility] 12/02/2012 1000mcg Injection Vitamin B-12 Injection-To [facility] 09/21/2012 1000mcg Injection Vitamin B-12 Injection-To [facility] 08/14/2012 1000mcg Injection Vitamin B-12 Injection-To Og Arce, [facility] 01/24/2012 1000mcg Injection Vitamin B-12 Injection-To Og Arce, [facility] 12/10/2011 1000mcg Injection Vitamin B-12 Injection-To Og Arce, [facility] 11/04/2011 1000mcg Injection Vitamin B-12 Injection-To Og Arce, [facility] 06/06/2011 1000mcg Injection Vitamin B-12 Injection-To Og Arce, [facility] 04/26/2011 1000mcg Injection Vitamin B-12 Injection-To [facility] 03/05/2011 1000mcg Injection Vitamin B-12 Injection-To Og Eric Claude, [facility] 01/24/2011 1000mcg Injection Vitamin B-12 Injection-To Og Arce, [facility] 09/27/2010 1000mcg Injection Vitamin B-12 Injection-To Og Arce, [facility] 07/17/2010 1000mcg Injection Vitamin B-12 Injection-To Og Arce, [facility] 06/08/2010 1000mcg Injection Vitamin B-12 Injection-To Og Arce, [facility] 04/09/2010 1000mcg Injection Vitamin B-12 Injection-To [facility] 03/20/2010 1000mcg Injection Vitamin B-12 Injection-To [facility] 02/28/2010 1000mcg Injection Vitamin B-12 Injection-To [facility] 02/05/2010 1000mcg Injection Vitamin B-12 Injection-To Aurora Solano M.D. 01/11/2010 1000mcg Injection Vitamin B-12 Injection-To [facility] 01/11/2010 1000mcg Injection Vitamin B-12 Injection-To Aurora Solano M.D. 12/06/2009 1000mcg Injection Vitamin B-12 Injection-To [facility] 11/01/2009 1000mcg Injection Vitamin B-12 Injection-To Og Arce [facility] 10/02/2009 1000mcg Injection Vitamin B-12 Injection-To Aurora Solano M.D. 09/06/2009 1000mcg Injection Vitamin B-12 Injection-To Og Arce [facility] 07/26/2009 1000mcg Injection Vitamin B-12 Injection-To Og Arce [facility] 06/09/2009 1000mcg Injection Vitamin B-12 Injection-To [facility] 04/25/2009 1000mcg Injection Vitamin B-12 Injection-To Og Arce [facility] 03/13/2009 1000mcg Injection Vitamin B-12 Injection-To Aurora Solano M.D. 01/26/2009 1000mcg Injection Vitamin B-12 Injection-To Og Arce [facility] 01/03/2009 1000mcg Injection Vitamin B-12 Injection-To Aurora Solano M.D. 11/02/2008 1000mcg Injection Vitamin B-12 Injection-To Aurora Solano M.D. 07/28/2008 1000mcg Injection Vitamin B-12 Injection-To Aurora Solano M.D. 05/26/2008 1000mcg Injection Vitamin B-12 Injection-To Aurora Solano M.D. 02/26/2008 1000mcg Injection Vitamin B-12 Injection-To Aurora Solano M.D. 01/07/2008 1000mcg Injection Vitamin B-12 Injection-To Aurora Solano M.D. 12/09/2007 1000mcg Injection Vitamin B-12 Injection-To Aurora Solano M.D. 11/10/2007 1000mcg Injection Vitamin B-12 Injection-To Aurora Solano M.D. 04/16/2007 1000mcg Injection Vitamin B-12 Injection-To Aurora Solano M.D. 11/27/2006 1000mcg Injection Vitamin B-12 Injection-To Aurora Solano M.D. 08/27/2006 1000mcg Injection Vitamin B-12 Injection-To Aurora Solano M.D. 08/04/2006 1000mcg Injection Vitamin B-12 Injection-To Aurora Solano M.D. 05/26/2006 1000mcg Injection Vitamin B-12 Injection-To Aurora Solano M.D. 04/23/2006 1000mcg Injection Vitamin B-12 Injection-To Aurora Solano M.D. 03/03/2006 1000mcg Injection Vitamin B-12 Injection-To Aurora Solano M.D. 12/27/2005 1000mcg Injection Vitamin B-12 Injection-To Auroar Solano M.D. 10/22/2005 1000mcg Injection Vitamin B-12 Injection-To Ashanti Gutierrez, 10/11/2005 1000mcg [facility] Injection Vitamin B-12 Injection-To Aurora Solano M.D. 08/29/2005 1000mcg Injection Vitamin B-12 Injection-To Aurora Solano M.D. 07/19/2005 1000mcg Injection Vitamin B-12 Injection-To Aurora Solano M.D. 07/05/2005 1000mcg Injection Vitamin B-12 Injection-To Aurora Solano M.D. 06/05/2005 1000mcg Injection Vitamin B-12 Injection-To Aurora Solano M.D. 05/01/2005 1000mcg Injection Vitamin B-12 Injection-To Aurora Solano M.D. 02/20/2005 1000mcg Injection Therapeutic Injection Aurora Solano M.D. 02/20/2005 (Specify Material Injected) Injection Vitamin B-12 Injection-To Aurora Solano M.D. 02/05/2005 1000mcg Injection Therapeutic Injection Aurora Solano M.D. 02/05/2005 (Specify Material Injected) Injection Vitamin B-12 Injection-To Aurora Solano M.D. 12/25/2004 1000mcg Injection Therapeutic Injection Aurora Solano M.D. 12/25/2004 (Specify Material Injected) Injection Vitamin B-12 Injection-To Aurora Solano M.D. 12/11/2004 1000mcg Injection Therapeutic Injection Aurora Solano M.D. 12/11/2004 (Specify Material Injected) Injection Vitamin B-12 Injection-To Aurora Solano M.D. 10/15/2004 1000mcg Injection Therapeutic Injection Aurora Solaon M.D. 10/15/2004 (Specify Material Injected) Injection Vitamin B-12 Injection-To Aurora Solano M.D. 09/17/2004 1000mcg Injection Vitamin B-12 Injection-To Carter Medina M.D. 08/16/2004 1000mcg Injection Vitamin B-12 Injection-To Aurora Solano M.D. 07/27/2004 1000mcg Injection Therapeutic Injection Aurora Solano M.D. 07/27/2004 (Specify Material Injected) Injection Vitamin B-12 Injection-To Aurora Solano M.D. 05/09/2004 1000mcg Injection Vitamin B-12 Injection-To Carter Medina M.D. 04/04/2004 1000mcg Injection Vitamin B-12 Injection-To Aurora Solano M.D. 03/07/2004 1000mcg Injection Vitamin B-12 Injection-To Aurora Solano M.D. 12/29/2003 1000mcg Injection Vitamin B-12 Injection-To Carter Medina M.D. 11/03/2003 1000mcg Injection Vitamin B-12 Injection-To Caretr Medina M.D. 10/05/2003 1000mcg Injection Vitamin B-12 Injection-To Aurora Solano M.D. 10/05/2003 1000mcg Injection Vitamin B-12 Injection-To Amalia Zacarias, 09/03/2003 1000mcg Iris Injection Vitamin B-12 Injection-To Aurora Solano M.D. 09/03/2003 1000mcg Injection Vitamin B-12 Injection-To Kala Johnson M.D. 08/06/2003 1000mcg Injection Vitamin B-12 Injection-To Carter Medina M.D. 05/31/2003 1000mcg Injection Vitamin B-12 Injection-To Aurora Solano M.D. 05/31/2003 1000mcg Injection Therapeutic Injection Carter Medina M.D. 05/31/2003 (Specify Material Injected) Injection Vitamin B-12 Injection-To Carter Medina M.D. 04/26/2003 1000mcg Injection Vitamin B-12 Injection-To Aurora Solano M.D. 04/26/2003 1000mcg Injection Therapeutic Injection Carter Medina M.D. 04/26/2003 (Specify Material Injected) Injection Vitamin B-12 Injection-To Carter Medina M.D. 03/31/2003 1000mcg Injection Vitamin B-12 Injection-To Aurora Solano M.D. 03/31/2003 1000mcg Injection Vitamin B-12 Injection-To Aurora Solano M.D. 02/15/2003 1000mcg Injection Vitamin B-12 In[facility]-To [facility] 12/31/2002 1000mcg Injection Therapeutic Injection [facility] 12/31/2002 (Specify Material Injected) Injection Vitamin B-12 Injection-To Aurora Solano M.D. 12/01/2002 1000mcg Injection Vitamin B-12 Injection-To [facility] 2002 1000mcg Injection Vitamin B-12 Injection-To Aurora Solano M.D. 08/30/2002 1000mcg Injection Vitamin B-12 Injection-To [facility] 08/02/2002 1000mcg Injection Vitamin B-12 Injection-To [facility] 07/22/2002 1000mcg Injection Vitamin B-12 Injection-To [facility] 07/15/2002 1000mcg Injection Vitamin B-12 Injection-To [facility] 07/08/2002 1000mcg Injection Vitamin B-12 Injection-To Aurora Solano M.D. 06/30/2002 1000mcg Injection Immunizations CPT Code Status Date Vaccine Lot # [id number] Given 07/27/2019 Influenza Vaccine High Dose PF [id number] 18210 Given 02/17/2018 Pneumovax 23 (PPSV23) 65+ years or high risk 2 to [id number] 63 year old 97427 Given 02/17/2018 Influenza Vaccine High Dose PF [id number] 85413 Given 05/22/2017 Influenza Vaccine High Dose PF [id number] 30918 Given 07/05/2016 Prevnar-13 Pneumococcal Conjugate Vaccine [id number] 22358 Given 03/28/2016 Influenza Vaccine High Dose PF [id number] 59169 Given 03/06/2015 Influenza Virus Vaccine, Quadrivalent, 3 Yr > [id number] Quad, Preserv Free 40688 Given 04/12/2014 Influenza Virus Vaccine, Quadrivalent, 3 Yr > [id number] Quad, Preserv Free 88014 Given 03/10/2013 Influenza Vaccine-Preservative Free 3 Yrs And [id number] Above 13272 Given 03/23/2012 Influenza Vaccine-Preservative Free 3 Yrs And Above 82452 Given 01/24/2012 Pneumovax 23 (PPSV23) 65+ years or high risk 2 to [id number] 63 year old 38774 Given 03/05/2011 Influenza Vaccine-Preservative Free 3 Yrs And [id number] Above 09408 Given 04/02/2010 Influenza Vaccine-Preservative Free 3 Yrs And Above 84180 Given 04/02/2010 Influenza Vaccine-Preservative Free 3 Yrs And Above 57650 Given 06/09/2009 H1N1 Influenza Vaccine [id number] 23152 Given 06/09/2009 H1N1 Immunization Administration, Including Counseling 81202 Given 05/10/2009 Influenza Virus Vaccine, 3 Yrs And Above 21117 Given 05/26/2008 Influenza Virus Vaccine, 3 Yrs And Above [id number] 88137 Given 04/16/2007 Tdap (Adacel) [id number] 77298 Given 04/16/2007 Influenza Virus Vaccine, 3 Yrs And Above [id number] 14972 Given 04/23/2006 Influenza Virus Vaccine, 3 Yrs And Above [id number] 75184 Given 05/10/2005 Influenza Virus Vaccine, 3 Yrs And Above [id number] 31098 Given 05/30/2004 Influenza Virus Vaccine, 3 Yrs And Above 68558 Given 03/31/2003 Influenza Virus Vaccine, 3 Yrs And Above 03622 Given 03/31/2003 Influenza Virus Vaccine, 3 Yrs And Above 45332 Given 03/24/2001 Influenza Virus Vaccine, 3 Yrs And Above 27466 Given 02/20/1999 Pneumovax 23 (PPSV23) 65+ years or high risk 2 to 64 year old Vital Signs Date Vital Result Comment 08/17/2019 9:10am Weight 370.00 lb Weight 167.832 kg BP Systolic 148 mmHg BP Diastolic 86 mmHg Heart Rate 120 /min Body Temperature 98.5 F Respiratory Rate 24 /min O2 % BldC Oximetry 95 % 03/30/2019 10:32am Weight 318.00 lb Weight 144.245 kg BP Systolic 140 mmHg BP Diastolic 80 mmHg Body Temperature 97.9 F Results Test Acquired Date Facility Test Result H/L Range Note Urinalysis Profile 04/12/2019 [facility] Urine Color Monica [phone] Urine Appearance Turbid Urine Specific [place] 1.012 Normal 1.010-1.030 Urine pH 6.0 Normal 5-9 Urine Urobilinogen Negative Negative Urine Ketones Negative Negative Urine Protein 2+(100 mg/dL) Abnormal Negative Urine Leukocytes 3+ Abnormal Negative Urine Blood 3+ Abnormal Negative Urine Nitrite Negative Negative Urine Bilirubin Negative Negative Urine Glucose Negative Negative Urine White Blood Cell 3+(>20/hpf) Abnormal Absent Urine Red Blood Cell 3+(>10/hpf) Abnormal Absent Urine Bacteria Absent Absent Urine Squamous Epithelial Cell Present Abnormal Absent Urine Microalbumin 04/12/2019 [facility] Ur Microalbumin 327.5 mg/L Random [phone] (mg/L) Urine Creatinine 108.49 mg/dL Urine Microalbumin/Creatinine 301.8 High <31 Laboratory test 04/12/2019 [facility] Creatinine Random 108.49 mg/dL finding [phone] Urine Total Protein Random Urine 112 mg/dL Basic Metabolic 04/12/2019 [facility] Sodium 139 mmol /L Normal 135-145 Panel [phone] Potassium 3.9 mmol/L Normal 3.5-5.0 Chloride 99 mmol/L Low 101-111 Co2 Carbon Dioxide 33 mmol/L High 22-32 Anion Gap 7 mmol/L Normal 2-11 Glucose 134 mg/dL High 70-100 Blood Urea Nitrogen 40 mg/dL High 6-24 Creatinine 2.58 mg/dL High 0.51-0.95 BUN/Creatinine Ratio 15.5 Normal 8-20 Calcium 8.8 mg/dL Normal 8.6-10.3 Egfr Non- 18.4 >60 Egfr 22.3 >60 1 Laboratory test 04/12/2019 [facility] Phosphorus 4.2 mg/dL Normal 2.5-5.0 finding [phone] Pthi 04/12/2019 [facility] Calcium (PTH 8.8 mg/dL Normal 8.6-10.3 [phone] Intact) PTH Intact 136.6 pg/mL High 12-88 CBC Auto 04/12/2019 [facility] Red Blood 3.40 10^6/ uL Low 3.70-4.87 Diff [phone] Count Hemoglobin 11.5 g/dL Low 12.0-16.0 Hematocrit 35 % Normal 35-47 Mean Corpuscular Volume 103 fL High 80-97 Mean Corpuscular Hemoglobin 34 pg High 27-31 Mean Corpuscular HGB Conc 33 g/dL Normal 31-36 Red Cell Distribution Width 14 % Normal 10-15 White Blood Count 8.1 10^3/uL Normal 3.5-10.8 2 Platelet Count 162 10^3/uL Normal 150-450 3 Manual Differential 04/12/2019 [facility] Neutrophil % 70.0 % [phone] Lymphocytes % 20.0 % Monocytes % 8.0 % Eosinophils % 2.0 % RBC Morphology Normal Normal Abs Neutrophils 5.7 10^3/uL Normal 1.5-7.7 Abs Lymphocytes 1.6 10^3/uL Normal 1.0-4.8 Abs Monocytes 0.6 10^3/uL Normal 0-0.8 Abs Eosinophils 0.2 10^3/uL Normal 0-0.6 Urine Culture And 04/12/2019 [facility] Urine Culture SEE RESULT 4 Sensitivities [phone] BELOW 1 Because ethnic data is not always readily available, this report includes an eGFR for both -Americans and non- Americans. The National Kidney Disease Education Program (NKDEP) does not endorse the use of the MDRD equation for patients that are not between the ages of 18 and 70, are , have extremes of body size, muscle mass, or nutritional status, or are non- or non-. According to the National Kidney Foundation, irrespective of diagnosis, the stage of the disease is based on the level of kidney function: Stage Description GFR(mL/min/1.73 m(2)) 1 Kidney damage with normal or decreased GFR 90 2 Kidney damage with mild decrease in GFR 60-89 3 Moderate decrease in GFR 30-59 4 Severe decrease in GFR 15-29 5 Kidney failure <15 (or dialysis) 2 White count confirmed by estimate 3 Platelet count confirmed by estimate 4 SEE RESULT BELOW Name: PERLA FRANKEL : [address]: Margaret Barry MD Acct: [id number] Unit: [id number] AGE: 68 Location: LAB Re04/12/19 SEX: F Status: REG REF SPEC: [id number] RAN: 04/12/[address] [facility] [address]: Margaret Barry MD REQ: [id number] RECD: 04/12/19 STATUS: RES [facility] DR: Og Arce PRESSURE WELDER _ SOURCE: URINE SPDESC: ORDERED: Urine Culture Procedure Result Reported Site Urine Culture Preliminary 04/14/19- 08 ML Organism 1 PROTEUS MIRABILIS [place] Count >100,000 (Many) CFU/ML * - Main Lab . END OF REPORT DEPARTMENT OF PATHOLOGY, [address] [place] [address] Gregg Harmon M.D. Director [facility] # [id number] Procedures Date Code Description Status 03/30/2019 60276 Therapeutic,Prophylactic,Or Diagnostic Inj,SC/Im Specify Completed Drug Medical Devices Description No Information Available Encounters Type Date Location Provider Dx Diagnosis Office Visit 03/30/2019 Main Office Og Arce E11.65 Type 2 diabetes 10:30a [facility] mellitus with hyperglycemia E53.8 Deficiency of other specified B group vitamins Assessments Date Code Description Provider 08/17/2019 N18.9 Chronic kidney disease, unspecified Cedric Burch MD 08/17/2019 I50.20 Unspecified systolic (congestive) heart Cedric Burch MD failure 07/27/2019 Z23 Encounter for immunization BETTY Mattson 03/30/2019 E11.65 Type 2 diabetes mellitus with hyperglycemia BETTY Mattson 03/30/2019 E53.8 Deficiency of other specified B group FRANCISCO Mattson vitamins Plan of Treatment Future Appointment(s):2019 8:45 am - BETTY Mattson at Main [facility]0008/17/2019 - Cedric Burch MDN18.9 Chronic kidney disease, cdujkmgqrzuZ22.20 Unspecified systolic (congestive) heart failureNew Medication: Triamterene 100 mg - Take 1 capsule by mouth 2 times per day for edemaComments: She has put on approximately 50 pounds over the last 4 months, presumably most of which is water weight.It is certainly possible that she has either progressed to end-stage renal disease or developed asignificant rapidly progressive heart failure.We will get some labs today.I added some triamterene to balance out the increasingly high doses of Lasix that we are using.She wonders if she should go straight to the hospital. She does not seem to be in any respiratory distress, and if we use the fingers of the right hand her oxygen level is 96%. We discussed that she could likely be admitted to the hospital at this point, and they would get her fluid status under control quickly with close monitoring. On the other hand, if we gradually increase her diuretics while monitoring a little bit less closely with blood work, we could manage this at home. I left the decision up to her. Functional Status Description No Information Available Mental Status Description No Information Available Referrals Description No Information Available
[2019-08-27 13:55] LABS: Troponin I 0.01 ng/mL (<0.03)
[2019-08-27 13:59] LABS: ABS Eosinophils 0.2 10^3/ul (0-0.6); ABS Lymphocytes 1.7 10^3/ul (1.0-4.8); ABS Monocytes 0.9 10^3/ul (0-0.8); ABS Neutrophils 4.7 10^3/ul (1.5-7.7); Eosinophil % 2.9 %; Hematocrit 36 % (35-47); Hemoglobin 11.3 g/dL (12.0-16.0); Lymphocyte % 22.3 %; Mean Corpuscular HGB Conc 31 g/dL (31-36); Mean Corpuscular Hemoglobin 30 pg (27-31); Mean Corpuscular Volume 96 fL (80-97); Mean Platelet Volume 9.4 fL (7.4-10.4); Platelet Count 173 10^3/uL (150-450); Red Blood Count 3.77 10^6 /uL (3.70-4.87); Red Cell Distribution Width 17 % (10-15); White Blood Count 7.6 10^3/uL (3.5-10.8)
[2019-08-27 14:04] LABS: Albumin 3.8 g/dL (3.2-5.2)
[2019-08-27 14:07] LABS: Calcium 8.6 mg/dL (8.6-10.3); Potassium 4.2 mmol/L (3.5-5.0); Total Bilirubin 1.8 mg/dL (0.2-1.0)
[2019-08-27 14:10] LABS: Albumin/Globulin Ratio 1.1 (1-3); Globulin 3.6 g/dL (2-4); Total Protein 7.4 g/dL (6.4-8.9)
[2019-08-27 14:14] LABS: BUN/Creatinine Ratio 16.7 (8-20); EGFR African American 21.1 (>60); EGFR Non-African American 17.5 (>60)
--- NOTE | 2019-08-27 14:47 | ED ---
Respiratory - HPI Summary HPI Summary: 68 year old F presenting to [facility] accompanied by male neighborhood aide complains of shortness of breath and sore throat since 3 days ago. Patient denies fever, cough, chest pain, and runny nose. Patient has a history of congestive heart failure and states that she gained 50 lbs of fluid in a month. She is currently taking a diuretic and lasix. The patient rates the pain 0/10 in severity. Symptoms aggravated by nothing. Symptoms alleviated by nothing. Medications reviewed. Allergies noted. Home Medications Medication Instructions Recorded Confirmed Type Albuterol HFA INHALER* [Ventolin 2 puff INH Q4H PRN 01/15/18 07/13/19 History HFA Inhaler*] Aspirin [Adult Aspirin] 81 mg PO DAILY 01/15/18 07/13/19 History Cholecalciferol (Vitamin D3) 5,000 unit PO Q7D 01/15/18 07/13/19 History [Vitamin D3] DULoxetine DR CAP* [Cymbalta CAP*] 30 mg PO DAILY 01/15/18 07/13/19 History Famotidine TAB* [Pepcid 20 MG TAB*] 40 mg PO DAILY 01/15/18 07/13/19 History Furosemide TAB* [Lasix TAB*] 40 mg PO BEDTIME 01/15/18 07/13/19 History Insulin Aspart [Novolog Flexpen] 20 unit SQ BID 01/15/18 07/13/19 History Montelukast Sodium TAB* [Singulair 10 mg PO DAILY 01/15/18 07/13/19 History 10 MG TAB*] Potassium Chlor TAB* [Klor Con ER 10 meq PO DAILY 01/15/18 07/13/19 History TAB 10 MEQ*] Simvastatin TAB(NF) [Zocor 20 MG 20 mg PO BEDTIME 01/15/18 07/13/19 History (NF)] Acetaminophen TAB* [Tylenol TAB*] 650 mg PO Q6H PRN tab 07/10/18 07/13/19 Rx Cyanocobalamin TAB* [Vitamin B12 1,000 mcg PO DAILY tab 07/10/18 07/13/19 Rx TAB*] Insulin Glargine,Hum.rec.anlog 15 units SUBCUT BID #0 07/10/18 07/13/19 Rx [Basaglar Kwikpen 100 inuts/ml 3 ml x 5 Pens] Ferrous Sulfate TAB* 325 mg PO DAILY #30 tab 07/20/18 07/13/19 Rx Morphine TAB Extended Rel(*) [Ms 15 mg PO DAILY tab.er 07/20/18 07/13/19 Rx Contin(*)] Pregabalin 50 mg CAP (*) [Lyrica 50 mg PO BID 07/13/19 07/13/19 History 50 mg CAP (*)] - History of Current Complaint Chief Complaint: EDUpperRespComplaint Stated Complaint: SOB PER PT Time Seen by Provider: 08/27/19 14:39 Hx Obtained From: Patient Onset/Duration: Lasting Days, Still Present Pain Intensity: 8 Aggravating Factor(s): Nothing Alleviating Factor(s): Nothing Associated Signs and Symptoms: Negative - negative - fever, cough, chest pain, runny nose, SOB - Allergy/Home Medications Allergies/Adverse Reactions: Allergies Allergy/AdvReac Type Severity Reaction Status Date / Time cefoxitin Allergy Unknown Verified 08/27/19 11:39 Reaction Details Home Medications: Home Medications Albuterol HFA INHALER* [Ventolin HFA Inhaler*] 2 puff INH Q4H PRN 01/15/18 [ History Confirmed 08/27/19] Aspirin [Adult Aspirin] 81 mg PO DAILY 01/15/18 [History Confirmed 08/27/19] Cholecalciferol (Vitamin D3) [Vitamin D3] 5,000 unit PO Q7D 01/15/18 [History Confirmed 08/27/19] DULoxetine DR CAP* [Cymbalta CAP*] 30 mg PO DAILY 01/15/18 [History Confirmed ] Famotidine TAB* [Pepcid 20 MG TAB*] 40 mg PO DAILY 01/15/18 [History Confirmed 08/27/19] Furosemide TAB* [Lasix TAB*] 40 mg PO BEDTIME 01/15/18 [History Confirmed ] Insulin Aspart [Novolog Flexpen] 20 unit SQ BID 01/15/18 [History Confirmed 12/10] Montelukast Sodium TAB* [Singulair 10 MG TAB*] 10 mg PO DAILY 01/15/18 [History Confirmed 08/27/19] Potassium Chlor TAB* [Klor Con ER TAB 10 MEQ*] 10 meq PO DAILY 01/15/18 [ History Confirmed 08/27/19] Simvastatin TAB(NF) [Zocor 20 MG (NF)] 20 mg PO BEDTIME 01/15/18 [History Confirmed 08/27/19] Acetaminophen TAB* [Tylenol TAB*] 650 mg PO Q6H PRN tab 07/10/18 [Rx Confirmed 08/27/19] Cyanocobalamin TAB* [Vitamin B12 TAB*] 1,000 mcg PO DAILY tab 07/10/18 [Rx Confirmed 08/27/19] Insulin Glargine,Hum.rec.anlog [Basaglar Kwikpen 100 inuts/ml 3 ml x 5 Pens] 15 units SUBCUT BID #0 07/10/18 [Rx Confirmed 08/27/19] Ferrous Sulfate TAB* 325 mg PO DAILY #30 tab 07/20/18 [Rx Confirmed 08/27/19] Pregabalin 50 mg CAP (*) [Lyrica 50 mg CAP (*)] 50 mg PO 1400,2200 07/13/19 [ History Confirmed 08/27/19] Furosemide TAB* [Lasix TAB*] 80 mg PO DAILY 08/27/19 [History Confirmed 08/27/19 ] Morphine TAB Extended Rel(*) [Ms Contin(*)] 15 mg PO BID MDD 30 mg 08/27/19 [ History Confirmed 08/27/19] Spironolactone TAB* [Aldactone TAB*] 25 mg PO DAILY 08/27/19 [History Confirmed 08/27/19] PMH/Surg Hx/FS Hx/Imm Hx Endocrine/Hematology History: Reports: Hx Bone Marrow Disease - Type 2, Hx Diabetes, Hx Anemia, Other Endocrine/Hematological Disorders - "bone marrow disorder" Cardiovascular History: Reports: Hx Congestive Heart Failure, Hx Hypercholesterolemia Denies: Hx Hypertension, Hx Pacemaker/ICD Respiratory History: Reports: Hx Asthma, Hx Chronic Obstructive Pulmonary Disease (COPD) GI History: Reports: Hx Gall Bladder Disease - cholecystectomy, Hx Gastroesophageal Reflux Disease, Other GI Disorders - appendectomy/Mesentary History: Reports: Hx Chronic Renal Failure Denies: Hx Dialysis Musculoskeletal History: Reports: Hx Arthritis, Hx Fibromyalgia, Other Musculoskeletal History - Right Shoulder Pain Denies: Hx Back Problems Sensory History: Reports: Hx Contacts or Glasses Denies: Hx Hearing Aid Opthamlomology History: Reports: Hx Contacts or Glasses Neurological History: Denies: Hx Dementia, Hx Seizures Psychiatric History: Denies: Hx Panic Disorder - Surgical History Surgery Procedure, Year, and Place: Appendectomy, cholecystectomy, ventral hernia repair,RT SHOULDER ARTHROSCOPY,LENS REPLACEMENTS BILATERALLY Infectious Disease History: No Infectious Disease History: Reports: Hx of Known/Suspected MRSA - confirmation unknown at this time Denies: Traveled Outside the [place] in Last 30 Days - Family History Known Family History: Positive: Cardiac Disease - Unknown heart disease (both parents), Diabetes - Both parents, Other - Mother of bowel cancer at age 52 - Social History Alcohol Use: None Hx Substance Use: No Substance Use Type: Reports: None Hx Tobacco Use: No - Former Smoking Status (MU): Former Smoker Review of Systems Negative: Fever Positive: Sore Throat. Negative: Nasal Discharge Negative: Chest Pain Positive: Shortness Of Breath. Negative: Cough All Other Systems Reviewed And Are Negative: Yes Physical Exam - Summary Physical Exam Summary: VITAL SIGNS: Reviewed. GENERAL: Patient is an obese female. Patient is not in any acute respiratory distress. HEAD AND FACE: No signs of trauma. No ecchymosis, hematomas or skull depressions. No sinus tenderness. EYES: PERRLA, EOMI x 2, No injected conjunctiva, no nystagmus. EARS: Hearing grossly intact. Ear canals and tympanic membranes are within normal limits. MOUTH: Oropharynx within normal limits. NECK: Supple, trachea is midline, no adenopathy, no JVD, no carotid bruit, no c- spine tenderness, neck with full ROM. CHEST: Symmetric, no tenderness at palpation. LUNGS: Clear to auscultation bilaterally. No wheezing or crackles. Lungs clear bilaterally. RESPIRATORY: chronic nasal oxygen cannula. CVS: Regular rate and rhythm, S1 and S2 present, no murmurs or gallops appreciated. ABDOMEN: Soft, non-tender. No signs of distention. No rebound, no guarding, and no masses palpated. Bowel sounds are normal. EXTREMITIES: Lower extremity edema. NEURO: Alert and oriented x 3. No acute neurological deficits. Speech is normal and follows commands. SKIN: Dry and warm. Triage Information Reviewed: Yes Vital Signs On Initial Exam: Initial Vitals Temp Pulse Resp BP Pulse Ox 98.4 F 104 18 147/88 91 08/27/19 11:35 08/27/19 11:35 08/27/19 11:35 08/27/19 11:35 08/27/19 11:35 Vital Signs Reviewed: Yes Procedures - Sedation Patient Received Moderate/Deep Sedation with Procedure: No Diagnostics - Vital Signs Vital Signs Temp Pulse Resp BP Pulse Ox 08/27/19 14:13 98.9 F 82 10 130/59 91 08/27/19 11:35 98.4 F 104 18 147/88 91 - Laboratory Lab Results: Lab Results 08/27/19 08/27/19 08/27/19 Range/Units 13:11 13:11 13:11 WBC 7.6 (3.5-10.8) 10^3/uL RBC 3.77 (3.70-4.87) 10^6 /uL Hgb 11.3 L (12.0-16.0) g/dL Hct 36 (35-47) % MCV 96 (80-97) fL MCH 30 (27-31) pg MCHC 31 (31-36) g/dL RDW 17 H (10-15) % Plt Count 173 (150-450) 10^3/uL MPV 9.4 (7.4-10.4) fL Neut % (Auto) 62.1 % Lymph % (Auto) 22.3 % Traverse % (Auto) 12.2 % Eos % (Auto) 2.9 % Baso % (Auto) 0.5 % Absolute Neuts (auto) 4.7 (1.5-7.7) 10^3/ul Absolute Lymphs (auto) 1.7 (1.0-4.8) 10^3/ul Absolute Monos (auto) 0.9 H (0-0.8) 10^3/ul Absolute Eos (auto) 0.2 (0-0.6) 10^3/ul Absolute Basos (auto) 0.0 (0-0.2) 10^3/ul Absolute Nucleated RBC 0.0 10^3/ul Nucleated RBC % 0.0 Sodium 137 (135-145) mmol/L Potassium 4.2 (3.5-5.0) mmol/L Chloride 97 L (101-111) mmol/L Carbon Dioxide 26 (22-32) mmol/L Anion Gap 14 H (2-11) mmol/L BUN 45 H (6-24) mg/dL Creatinine 2.70 H (0.51-0.95) mg/dL Est GFR ( Amer) 21.1 (>60) Est GFR (Non-Af Amer) 17.5 (>60) BUN/Creatinine Ratio 16.7 (8-20) Glucose 139 H (70-100) mg/dL Lactic Acid 0.8 (0.5-2.0) mmol/L Calcium 8.6 (8.6-10.3) mg/dL Total Bilirubin 1.80 H (0.2-1.0) mg/dL AST 10 L (13-39) U/L ALT 6 L (7-52) U/L Alkaline Phosphatase 109 H (34-104) U/L Troponin I 0.01 (<0.03) ng/mL B-Natriuretic Peptide (<=100) pg/mL Total Protein 7.4 (6.4-8.9) g/dL Albumin 3.8 (3.2-5.2) g/dL Globulin 3.6 (2-4) g/dL Albumin/Globulin Ratio 1.1 (1-3) /12/10 Range/Units 13:11 WBC (3.5-10.8) 10^3/uL RBC (3.70-4.87) 10^6 /uL Hgb (12.0-16.0) g/dL Hct (35-47) % MCV (80-97) fL MCH (27-31) pg MCHC (31-36) g/dL RDW (10-15) % Plt Count (150-450) 10^3/uL MPV (7.4-10.4) fL Neut % (Auto) % Lymph % (Auto) % Traverse % (Auto) % Eos % (Auto) % Baso % (Auto) % Absolute Neuts (auto) (1.5-7.7) 10^3/ul Absolute Lymphs (auto) (1.0-4.8) 10^3/ul Absolute Monos (auto) (0-0.8) 10^3/ul Absolute Eos (auto) (0-0.6) 10^3/ul Absolute Basos (auto) (0-0.2) 10^3/ul Absolute Nucleated RBC 10^3/ul Nucleated RBC % Sodium (135-145) mmol/L Potassium (3.5-5.0) mmol/L Chloride (101-111) mmol/L Carbon Dioxide (22-32) mmol/L Anion Gap (2-11) mmol/L BUN (6-24) mg/dL Creatinine (0.51-0.95) mg/dL Est GFR ( Amer) (>60) Est GFR (Non-Af Amer) (>60) BUN/Creatinine Ratio (8-20) Glucose (70-100) mg/dL Lactic Acid (0.5-2.0) mmol/L Calcium (8.6-10.3) mg/dL Total Bilirubin (0.2-1.0) mg/dL AST (13-39) U/L ALT (7-52) U/L Alkaline Phosphatase (34-104) U/L Troponin I (<0.03) ng/mL B-Natriuretic Peptide 186 H (<=100) pg/mL Total Protein (6.4-8.9) g/dL Albumin (3.2-5.2) g/dL Globulin (2-4) g/dL Albumin/Globulin Ratio (1-3) Result Diagrams: 08/27/19 13:11 08/27/19 13:11 Lab Statement: Any lab studies that have been ordered have been reviewed, and results considered in the medical decision making process. - Radiology CXR Radiology Interpretation Completed By: Radiologist Summary of Radiographic Findings: IMPRESSION: NO ACTIVE CARDIOPULMONARY DISEASE. has reviewed this report. - EKG 1245 Cardiac Rate: NL EKG Rhythm: Sinus Tachycardia Summary of EKG Findings: An EKG at 1245 reveals sinus tachycardia at a rate of [address] elevation and a low voltage EKG. This EKG was reviewed and interpreted by . Disposition - Course Assessment/Plan: 68 year old F presenting to [facility] accompanied by male neighborhood aide complains of shortness of breath and sore throat since 3 days ago. Patient denies fever, cough, chest pain, and runny nose. Patient has a history of congestive heart failure and states that she gained 50 lbs of fluid in a month. She is currently taking a diuretic and lasix. The patient rates the pain 0/10 in severity. Symptoms aggravated by nothing. Symptoms alleviated by nothing. Medications reviewed. Allergies noted. In the ED course the patient was placed in a cardiac tech, IV access was obtained. Past medical records reviewed. Blood test w/o a significant abnormality except for hemoglobin of 11.3, chloride 97, anion gap is 14, BUN is 45, creatinine 2.7, glucose 139, alkaline phosphatase 108, BNP 186, RDW 17, absolute monos 0.9,, total bilirubin 1.8, AST 10, ALT 6. Urinalysis is contaminated. We will send urine for cultures. Influenza A and B is negative. EKG at 1245 reveals sinus tachycardia at a rate of [address] elevation and a low voltage EKG. Chest x-ray impression: No active cardiopulmonary disease. ABG: The patient declined. At this point the patient is feeling better she has no other complaints. I compare her weight on January 15, 2019 which was 215 pounds and today is 320 pounds. Therefore, it is very different. I discussed all the findings and test results with the patient. Patient was instructed to return to the emergency room immediately if any of the symptoms return or worsen . Plan of care was discussed with the patient and understands and agrees. All questions were answered at patient satisfaction. There were no further complaints or concerns. Lung exam before discharge: CTA B/L. Good air exchange. No wheezing or crackles heard. CVS: S1 and S2 present. No murmurs appreciated. Patient is alert and oriented x 3. Patient is hemodynamically stable. Patient will be discharged home with follow up PCP in the next 2-3 days. - Diagnoses Provider Diagnoses: Shortness of breath on exertion, Dehydration, Chronic renal failure Discharge ED - Sign-Out/Discharge Documenting (check all that apply): Patient Departure - discharge - Discharge Plan Condition: Stable Disposition: HOME Patient Education Materials: Chronic Kidney Disease (ED), Shortness of Breath ( ED) Referrals: Og Arce, [employer] [Primary Care Provider] - 3 Days Additional Instructions: Please return to emergency department for any new or worsening symptoms. Please follow up with your primary care physician within 1-3 days. - Billing Disposition and Condition Condition: STABLE Disposition: Home - Attestation Statements Document Initiated by Scribe: Yes Documenting Scribe: Camilo Malave Provider For Whom Bibibe is Documenting (Include Credential): Dr.Walter Peña MD Scribe Attestation: I, Camilo Malave, scribed for Dr.Walter Peña MD on 08/28/19 at 0726. Scribe Documentation Reviewed: Yes Provider Attestation: The documentation as recorded by the scribe, Camilo Malave accurately reflects the service I personally performed and the decisions made by me, Dr.Walter Peña MD Status of [place] Document: Viewed
[2019-08-27 17:31] LABS: Urine Appearance Cloudy; Urine Bilirubin Negative (Negative); Urine Blood 3+ (Negative); Urine Color Yellow; Urine Glucose Negative (Negative); Urine Ketones Negative (Negative); Urine Nitrite Negative (Negative); Urine Protein 1+(30 mg/dL) (Negative); Urine Urobilinogen Positive (Negative)
[2019-08-27 17:41] LABS: Influenza A Molecular Negative (Negative); Influenza B Molecular Negative (Negative)
[2019-08-27 17:42] LABS: Urine Bacteria 2+ (Absent); Urine Red Blood Cell 3+(>10/hpf) (Absent); Urine Squamous Epithelial Cell Present (Absent); Urine White Blood Cell 3+(>20/hpf) (Absent)
[2019-08-27 18:32] VITALS: BP 142/60
--- NOTE | 2019-08-31 11:02 | ED ---
Imaging and Labs Follow Up Follow Up Type: Labs/Cultures Labs/Culture Result: Urine culture clinical Bryanna Guzman's Patient was asymptomatic in the ED, however UA shows 3+ leuks 3+ WBC's and 2+ bacteria Patient Communication/Plan: Called patient at 11am - no answer Sent keflex to pharmacy will also send letter Patient Communication/Plan: Will treat based on severity of UA Provider Diagnoses: Shortness of breath on exertion, Dehydration, Chronic renal failure
== END 2019-08-27 18:33 | disposition home or self-care (01) ==
LOC: ED 11:34
DX: R06.02 Shortness of breath (principal); E86.0 Dehydration; E11.22 Type 2 diabetes mellitus with diabetic chronic kidney disease; N18.9 Chronic kidney disease, unspecified; Z79.4 Long term (current) use of insulin; R00.0 Tachycardia, unspecified; I50.9 Heart failure, unspecified; E78.00 Pure hypercholesterolemia, unspecified; J44.9 Chronic obstructive pulmonary disease, unspecified; K21.9 Gastro-esophageal reflux disease without esophagitis; Z79.51 Long term (current) use of inhaled steroids; Z79.82 Long term (current) use of aspirin; Z88.1 Allergy status to other antibiotic agents; Z87.891 Personal history of nicotine dependence
CPT/HCPCS: 36415; 71046; 80053; 81003; 81015; 83605; 83880; 84484; 85025; 87077; 87086; 87186; 93005; 99283

== ENCOUNTER 2019-09-29 15:01 | Inpatient (IN) | payer MEDICARE ==
--- NOTE | 2019-09-29 15:24 | ED ---
Complex/Multi-Sys Presentation - HPI Summary HPI Summary: Patient is a 68 y/o F presenting [place] [facility] [place] for complaints of generalized weakness, difficulty with ambulation. Patient states that she ambulates with a walker at baseline but today has been having increased difficulty ambulating, stating that she will "fall to my knees" when attempting to take a step. Patient states that she was supposed to come [place] [facility] [place] evaluation of similar Sx. No recent falls noted. She denies fever, abdominal pain, vomiting, decreased PO intake. Home medications and allergies are reviewed. - History Of Current Complaint Time Seen by Provider: 09/29/19 15:05 Hx Obtained From: Patient Onset/Duration: Still Present Timing: Constant Severity Currently: None - no pain reported Associated Signs And Symptoms: Positive: Other - positive - difficulty ambulating, generalized weakness. Negative: Vomiting, Abdominal Pain, Decreased Oral Intake, Fever - Allergies/Home Medications Allergies/Adverse Reactions: Allergies Allergy/AdvReac Type Severity Reaction Status Date / Time cefoxitin Allergy Unknown Verified 08/27/19 11:39 Reaction Details Home Medications: Home Medications Albuterol HFA INHALER* [Ventolin HFA Inhaler*] 2 puff INH Q4H PRN 01/15/18 [ History Confirmed 09/29/19] Aspirin [Adult Aspirin] 81 mg PO DAILY 01/15/18 [History Confirmed 09/29/19] Cholecalciferol (Vitamin D3) [Vitamin D3] 5,000 unit PO Q7D 01/15/18 [History Confirmed 09/29/19] DULoxetine DR CAP* [Cymbalta CAP*] 30 mg PO DAILY 01/15/18 [History Confirmed ] Famotidine TAB* [Pepcid 20 MG TAB*] 40 mg PO DAILY 01/15/18 [History Confirmed 09/29/19] Furosemide TAB* [Lasix TAB*] 40 mg PO BEDTIME 01/15/18 [History Confirmed ] Insulin Aspart [Novolog Flexpen] 0 - 50 unit SUBCUT TID AC MDD 50 units [History Confirmed 09/29/19] Montelukast Sodium TAB* [Singulair 10 MG TAB*] 10 mg PO DAILY 01/15/18 [History Confirmed 09/29/19] Potassium Chlor TAB* [Klor Con ER TAB 10 MEQ*] 10 meq PO DAILY 01/15/18 [ History Confirmed 09/29/19] Simvastatin TAB(NF) [Zocor 20 MG (NF)] 20 mg PO BEDTIME 01/15/18 [History Confirmed 09/29/19] Acetaminophen TAB* [Tylenol TAB*] 650 mg PO Q6H PRN tab 07/10/18 [Rx Confirmed 09/29/19] Cyanocobalamin TAB* [Vitamin B12 TAB*] 1,000 mcg PO DAILY tab 07/10/18 [Rx Confirmed 09/29/19] Insulin Glargine,Hum.rec.anlog [Basaglar Kwikpen 100 inuts/ml 3 ml x 5 Pens] 15 units SUBCUT BID #0 07/10/18 [Rx Confirmed 09/29/19] Ferrous Sulfate TAB* 325 mg PO DAILY #30 tab 07/20/18 [Rx Confirmed 09/29/19] Pregabalin 50 mg CAP (*) [Lyrica 50 mg CAP (*)] 50 mg PO 1400,2200 07/13/19 [ History Confirmed 09/29/19] Furosemide TAB* [Lasix TAB*] 80 mg PO DAILY 08/27/19 [History Confirmed 09/29/19 ] Morphine TAB Extended Rel(*) [Ms Contin(*)] 15 mg PO BID MDD 30 mg 08/27/19 [ History Confirmed 09/29/19] Spironolactone TAB* [Aldactone TAB*] 25 mg PO DAILY 08/27/19 [History Confirmed 09/29/19] PMH/Surg Hx/FS Hx/Imm Hx Endocrine/Hematology History: Reports: Hx Bone Marrow Disease - Type 2, Hx Diabetes, Hx Anemia, Other Endocrine/Hematological Disorders - "bone marrow disorder" Cardiovascular History: Reports: Hx Congestive Heart Failure, Hx Hypercholesterolemia Denies: Hx Hypertension, Hx Pacemaker/ICD Respiratory History: Reports: Hx Asthma, Hx Chronic Obstructive Pulmonary Disease (COPD) GI History: Reports: Hx Gall Bladder Disease - cholecystectomy, Hx Gastroesophageal Reflux Disease, Other GI Disorders - appendectomy/Mesentary History: Reports: Hx Chronic Renal Failure Denies: Hx Dialysis Musculoskeletal History: Reports: Hx Arthritis, Hx Fibromyalgia, Other Musculoskeletal History - Right Shoulder Pain Denies: Hx Back Problems Sensory History: Reports: Hx Contacts or Glasses Denies: Hx Hearing Aid Opthamlomology History: Reports: Hx Contacts or Glasses Neurological History: Denies: Hx Dementia, Hx Seizures Psychiatric History: Denies: Hx Panic Disorder - Surgical History Surgery Procedure, Year, and Place: Appendectomy, cholecystectomy, ventral hernia repair,RT SHOULDER ARTHROSCOPY,LENS REPLACEMENTS BILATERALLY Infectious Disease History: Reports: Hx of Known/Suspected MRSA - confirmation unknown at this time - Family History Known Family History: Positive: Cardiac Disease - Unknown heart disease (both parents), Diabetes - Both parents, Other - Mother of bowel cancer at age 52 - Social History Alcohol Use: None Hx Substance Use: No Substance Use Type: Reports: None Hx Tobacco Use: No - Former Smoking Status (MU): Former Smoker Review of Systems Positive: Other - positive - generalized weakness, difficulty with ambulation . Negative: Fever Gastrointestinal: Other - negative - decreased PO intake Negative: Abdominal Pain, Vomiting All Other Systems Reviewed And Are Negative: Yes Physical Exam - Summary Physical Exam Summary: Constitutional: Well-developed, Morbidly Obese, Alert. (-) Distressed Skin: Warm, Dry; Chronic venous stasis changes of the legs bilaterally. HENT: Normocephalic; Atraumatic Eyes: Conjunctiva normal Neck: Musculoskeletal ROM normal neck. (-) JVD, (-) Stridor, (-) Nuchal rigidity Cardio: Rhythm regular, rate normal, Heart sounds normal; Intact distal pulses; Radial pulses are 2+ and symmetric. (-) Murmur Pulmonary/Chest wall: Effort normal. (-) Respiratory distress, (-) Wheezes, (-) Rales Abd: Soft, (-) tenderness, (-) Distension, (-) Guarding, (-) Rebound Musculoskeletal: (-) Edema Lymph: (-) Cervical adenopathy Neuro: Alert, Oriented x3; 4/5 strength of left leg, 3/5 strength of right leg, both of which are characterized as chronic. Psych: Mood and affect Normal Triage Information Reviewed: Yes Vital Signs Reviewed: Yes Procedures - Sedation Patient Received Moderate/Deep Sedation with Procedure: No Diagnostics - Laboratory Result Diagrams: 09/29/19 17:00 09/29/19 17:00 Lab Statement: Any lab studies that have been ordered have been reviewed, and results considered in the medical decision making process. - Radiology CXR Radiology Interpretation Completed By: Radiologist Summary of Radiographic Findings: IMPRESSION: #. The constellation of findings favors mild pulmonary vascular congestion and. interstitial edema. THIS REPORT WAS REVIEWED BY ED PHYSICIAN. Re-Evaluation - Re-Evaluation First Eval Re-Evaluation Time: 15:28 Comment: PT was contacted about the patient, states that they are unable to assess the patient. Complex Multi-Symp Course/Dx Course Of Treatment: 68 y/o F w hx morbid obesity, CKD p/w fatigue. - VS: hypoxic to 78% on RA, placed on 2L. CXR w pulm edema, BNP ordered. Unable to get CTA 2/2 CKD. D dimer elevated. - regarding weakness, no recent trauma, strength in LE at baseline per patient just too fatigued to walk. Uses walker at baseline. Suspect deconditioning and obesity contributing. - admit to medicine for hypoxia, failure to thrive. - Diagnoses Provider Diagnoses: Weakness, CKD (chronic kidney disease), Hypoxia - Physician Notifications Discussed Care Of Patient With: Roopa Garsia Time Discussed With Above Provider: 17:51 Instructed by Provider To: Other - Patient's case was discussed with Dr. Garsia, Dr. Garsia accepts for admission. Discharge ED - Sign-Out/Discharge Documenting (check all that apply): Patient Departure - admit - Discharge Plan Condition: Stable Disposition: ADMITTED TO [facility] Referrals: Og Arce, [employer] [Primary Care Provider] - - Billing Disposition and Condition Condition: STABLE Disposition: Admitted to [facility] - Attestation Statements Document Initiated by Albert: Yes Documenting Scribe: SEAN PHILLIPS Provider For Whom Albert is Documenting (Include Credential): HEVER GONZALES MD Scribe Attestation: I, SEAN PHILLIPS, scribed for HEVER GONZALES MD on 09/29/19 at 1848. Scribe Documentation Reviewed: Yes Provider Attestation: The documentation as recorded by the SEAN poole accurately reflects the service I personally performed and the decisions made by me, HEVER GONZALES MD Status of Scribe Document: Viewed
--- OUTSIDE RECORDS SUMMARY | 2019-09-29 16:31 | XMS REPORT | Continuity of Care Document ---
:1950 External Reference #:[id number] Author Name BETTY Mattson Address [address] [place] [address] Care Team Providers Name Role Phone Bethany Walker MD Care Team Information Repairer Controller Tester Unavailable Isael Nesbitt MD Care Team Information Repairer Controller Tester Unavailable Aurora Solano M.D. - Family Care Team Information Repairer Controller Tester Medicine [facility] Care Team Information Repairer Controller Tester [phone] Gokul Lira MD - Neurology Care Team Information Repairer Controller Tester Trista Champagne - Orthopaedic Surgery Care Team Information Repairer Controller Tester [phone] Problems Active Problems Provider Date Osteoarthritis of [...] Medications SIG Qnty Indications Ordering Date Provider Aspercreme apply thin layer to 1units gO Eric 09/23/2019 W/Lidocaine both feet three BETTY Arce 4% Cream times daily if needed Furosemide take one tablet by 90tabs Cedric 08/20/2019 80mg Tablets mouth daily. MD Marcin Spironolactone Take 1 tablet by 90tabs I50.20 Cedric 08/17/2019 25mg mouth daily for MD Marcin Tablets heart failure Clotrimazole apply under toe 56gm B35.1 Og R. 10/27/2018 Anti-Fungal nails nightly Storm, [employer] 1% Cream Blood Glucose use as directed to 1units E11.65 Richnti R. 10/01/2018 Monitoring System test blood sugar 3 Storm, [employer]EC[employer] DRIVER-C times daily or as W/Device Kit needed dx code e11.65 Onetouch Ultra Blue use for testing 270units Shawnti R. 10/01/2018 blood sugar 3 times Storm, [employer] DRIVER-C Strips daily or as needed Dx code E11.65 Onetouch Ultrasoft use for testing 100units Shawnti R. 10/01/2018 Lancets blood sugar 3 times Storm, [employer] DRIVER-C Misc daily or as needed Dx code E11.65 Potassium Chloride ER 1 by mouth every 90tabs Og ROsiel 04/09/2018 day Storm, [employer]IVER[employer]C 10Meq Tablets ER Bariatric Pull-Ups use as directed 100units R53.1 Isaiaswnti R. 03/18/2018 measurements hips- Storm, [employer]IVER-C 59" waist-62" 310lb R53.83 Novolog Flexpen inject three times 15ml E11.65 Og Arce, 2017 daily before meals, [employer]IVER-C 100Unit/ML Solution dose per sliding Pen-Inject scale, mdd 50 units Basaglar Kwikpen inject 50 units 45ml E11.65 Og Arce, 07/24/2017 daily [employer]EC[employer]IVER-C 100Unit/ML Solution Pen-Inject Valtrex take one pill by 14tabs Og Arce, 05/19/2017 1gm Tablets mouth two times [employer]EC[employer]C daily for 7 days Nystatin-Triamcinolo apply sparingly to 30gm L20.9 Og Arce, 01/17 ne affected area twice [employer]IVER-C a day until resolved 365919-6.1Unit/GM-% Cream Ankle Lace-Up Brace Right ankle- drop 1units Og Arce, 12/19/2016 foot dx code m21.371 [employer] Misc Nystatin apply a thin layer 60gm Og Arce, 07/18/2016 topically to [employer]EC[employer]IVER-C 969069Eoss/GM Cream affected area three times daily Adult Diapers size 3x adult 50units Og Arce, 03/29/2016 diapers -change as [employer]IVER[employer] needed or 8 times daily dx: r32 Vitamin B-12 1 by mouth every day 90tabs Og Arce, 03/28/2016 2500mcg for deficiency [employer] Tablets Sub Montelukast Sodium take one tablet by 90tabs Og Arce, 07/17/2015 mouth at bedtime [employer] 10mg Tablets Simvastatin take one tablet by 90tabs Og Arce, 02/14/2015 20mg mouth everyday at [employer]IVER[employer] Tablets bedtime for cholesterol Novofine use daily with 1month E11.65 Og Arce, 07/08/2014 30G X 8 mm lantus [employer] Misc Famotidine Take 1 Tablet By 90tabs Og Arce, 06/11/2013 40mg Mouth Once Daily For [employer]IVER-C Tablets Stomach Acid Ventolin HFA inhale two puffs by 18units J45.998 Og Arce, 2012 mouth every 4 hours [employer]EC[employer]IVER-C 108(90Base) mcg/Act as needed for Aerosol wheezing or before exercise Insulin use twice daily to 100units Og Arce, 06/06/2011 Syringe/0.5ML/30G X administer insulin [employer]IVER[employer]C 1/2" 30G X 1/2" 0.5 ML Misc Duloxetine HCL take one capsule by 90caps Og Arce, 10/04/2010 30mg mouth once daily as [employer]EC[employer] Caps DR Swenson directed Vitamin D 2 po daily for 180caps Og Arce, 04/09/2010 1000Unit suppliment/deficienc [employer]IVER-C Capsules y Aspirin 1 PO qd Aurora Deluca 05/23/2004 81mg Ec Dayron Solano M.D. Lancets use as directed- 100units Og Arce, 10/28/2002 give same lancets as [employer]IVER[employer] usual Morphine Sulfate ER once daily Unknown 15mg Tablets ER Ferrous Sulfate 1 by mouth every day Unknown 325mg Tablets History Medications Triamterene Take 1 capsule 30caps I50.20 Cedric Burch, 08/17/2019 - 100mg by mouth 2 08/17/2019 Capsules times per day for edema Medications Administered in Office Medication SIG Qnty Indications Ordering Provider Date Vitamin B-12 Injection-To Shawnti R. Claude, [employer] DRIVER-C 03/30/2019 1000mcg Injection Vitamin B-12 Injection-To [facility] 04/09/2018 1000mcg Injection Vitamin B-12 Injection-To Shawnti R. Claude, [employer]EC[employer] DRIVER-C 02/17/2018 1000mcg Injection Vitamin B-12 Injection-To Shawnti R. Storm, [employer]ACECAR DRIVER-C 12/29/2017 1000mcg Injection Vitamin B-12 Injection-To Shawnti R. Claude, [employer]IVER-C 11/06/2017 1000mcg Injection Vitamin B-12 Injection-To Shawnti R. Storm, [employer] DRIVER-C 09/11/2017 1000mcg Injection Vitamin B-12 Injection-To Shawnti R. Storm, [employer] DRIVER-C 05/22/2017 1000mcg Injection Vitamin B-12 Injection-To Shawnti R. Storm, [employer] DRIVER-C 01/17/2017 1000mcg Injection Vitamin B-12 Injection-To Shawnti R. Storm, [employer]IVER-C 07/05/2016 1000mcg Injection Vitamin B-12 Injection-To Shawnti R. Storm, [employer] DRIVER-C 03/28/2016 1000mcg Injection Vitamin B-12 Injection-To Shawnti R. Storm, [employer] DRIVER-C 09/19/2015 1000mcg Injection Vitamin B-12 Injection-To Shawnti R. Storm, [employer] DRIVER-C 08/22/2015 1000mcg Injection Vitamin B-12 Injection-To Shawnti R. Storm, [employer] DRIVER-C 03/06/2015 1000mcg Injection Vitamin B-12 Injection-To Shawnti R. Storm, [employer] DRIVER-C 04/12/2014 1000mcg Injection Vitamin B-12 Injection-To Shawnti R. Storm, [employer] DRIVER-C 03/11/2014 1000mcg Injection Vitamin B-12 Injection-To Og Arce, [employer]IVER-C 10/14/2013 1000mcg Injection Vitamin B-12 Injection-To [facility] 03/10/2013 1000mcg Injection Vitamin B-12 Injection-To Og Arce, [employer]IVER[employer]C 12/29/2012 1000mcg Injection Vitamin B-12 Injection-To [facility] 12/02/2012 1000mcg Injection Vitamin B-12 Injection-To [facility] 09/21/2012 1000mcg Injection Vitamin B-12 Injection-To [facility] 08/14/2012 1000mcg Injection Vitamin B-12 Injection-To Og Arce, [employer]IVER[employer]C 01/24/2012 1000mcg Injection Vitamin B-12 Injection-To Og Arce, [employer]IVER-C 12/10/2011 1000mcg Injection Vitamin B-12 Injection-To Og Eric Claude, [employer]IVER-C 11/04/2011 1000mcg Injection Vitamin B-12 Injection-To Og Arce, [employer]IVER[employer]C 06/06/2011 1000mcg Injection Vitamin B-12 Injection-To Og Arec, [employer]IVER[employer]C 04/26/2011 1000mcg Injection Vitamin B-12 Injection-To [facility] 03/05/2011 1000mcg Injection Vitamin B-12 Injection-To Og Arce, [employer] DRIVER-C 01/24/2011 1000mcg Injection Vitamin B-12 Injection-To Og Eric Claude, [employer]IVER-C 09/27/2010 1000mcg Injection Vitamin B-12 Injection-To Og Arce, [employer]IVER-C 07/17/2010 1000mcg Injection Vitamin B-12 Injection-To Og Eric Claude, [employer]IVER-C 06/08/2010 1000mcg Injection Vitamin B-12 Injection-To Og Arce, [employer] DRIVER-C 04/09/2010 1000mcg Injection Vitamin B-12 Injection-To Lab [...] Services 11/01/2009 1000mcg Injection Vitamin B-12 Injection-To RICARDO MattsonP-C 10/02/2009 1000mcg Injection Vitamin B-12 Injection-To Aurora Solano M.D. 09/06/2009 1000mcg Injection Vitamin B-12 Injection-To Og Arce [employer] 07/26/2009 1000mcg Injection Vitamin B-12 Injection-To Og Arce [facility] 06/09/2009 1000mcg Injection Vitamin B-12 Injection-To [facility] 04/25/2009 1000mcg Injection Vitamin B-12 Injection-To Og Arce [facility] 03/13/2009 1000mcg Injection Vitamin B-12 Injection-To Aurora Solano M.D. 01/26/2009 1000mcg Injection Vitamin B-12 Injection-To Og Arce [facility] 01/03/2009 1000mcg Injection Vitamin B-12 [...] M.D. 12/27/2005 1000mcg Injection Vitamin B-12 Injection-To Aurora Solano M.D. 10/22/2005 1000mcg Injection Vitamin B-12 [...] M.D. 10/15/2004 1000mcg Injection Therapeutic Injection Aurora Solano M.D. 10/15/2004 (Specify Material Injected) Injection Vitamin [...] M.D. 11/03/2003 1000mcg Injection Vitamin B-12 Injection-To Carter Medina M.D. 10/05/2003 1000mcg Injection Vitamin B-12 Injection-To Aurora Solano M.D. 10/05/2003 1000mcg Injection Vitamin B-12 Injection-To Amalia Zacarias, 09/03/2003 1000mcg MOsielDOsiel Injection Vitamin B-12 Injection-To Aurora Solnao M.D. 09/03/2003 1000mcg Injection Vitamin B-12 Injection-To [...] CPT Code Status Date Vaccine Lot # [id number] Given 07/27/2019 Influenza Vaccine High Dose PF [id number] 94781 Given 02/17/2018 Pneumovax 23 (PPSV23) 65+ years or high risk 2 to [id number] 63 year old 07850 Given 02/17/2018 Influenza Vaccine High Dose PF [id number] 36074 Given 05/22/2017 Influenza Vaccine High Dose PF [id number] 25356 Given 07/05/2016 Prevnar-13 Pneumococcal Conjugate Vaccine [id number] 27834 Given 03/28/2016 Influenza Vaccine High Dose PF [id number] 48980 Given 03/06/2015 Influenza Virus Vaccine, Quadrivalent, 3 Yr > [id number] Quad, Preserv Free 04692 Given 04/12/2014 Influenza Virus Vaccine, Quadrivalent, 3 Yr > [id number] Quad, Preserv Free 18659 Given 03/10/2013 Influenza Vaccine-Preservative Free 3 Yrs And [id number] Above 00146 Given 03/23/2012 Influenza Vaccine-Preservative Free 3 Yrs And Above 15328 Given 01/24/2012 Pneumovax 23 (PPSV23) 65+ years or high risk 2 to [id number] 63 year old 84039 Given 03/05/2011 Influenza Vaccine-Preservative Free 3 Yrs And [id number] Above 02925 Given 04/02/2010 Influenza Vaccine-Preservative Free 3 Yrs And Above 31682 Given 04/02/2010 Influenza Vaccine-Preservative Free 3 Yrs And Above 01243 Given 06/09/2009 H1N1 Influenza Vaccine [id number] 28898 Given 06/09/2009 H1N1 Immunization Administration, Including Counseling 79538 Given 05/10/2009 Influenza Virus Vaccine, 3 Yrs And Above 88716 Given 05/26/2008 Influenza Virus Vaccine, 3 Yrs And Above [id number] 32170 Given 04/16/2007 Tdap (Adacel) [id number] 18540 Given 04/16/2007 Influenza Virus Vaccine, 3 Yrs And Above [id number] 88797 Given 04/23/2006 Influenza Virus Vaccine, 3 Yrs And Above 48065 67098 Given 05/10/2005 Influenza Virus Vaccine, 3 Yrs And Above [id number] 80650 Given 05/30/2004 Influenza Virus Vaccine, 3 Yrs And Above 01794 Given 03/31/2003 Influenza Virus Vaccine, 3 Yrs And Above 15004 Given 03/31/2003 Influenza Virus Vaccine, 3 Yrs And Above 99677 Given 03/24/2001 Influenza Virus Vaccine, 3 Yrs And Above 47890 Given 02/20/1999 Pneumovax 23 (PPSV23) 65+ years [...] Date Facility Test Result H/L Range Note CBC Auto 09/17/2019 [facility] White Blood 7.6 10^3/ uL Normal 3.5-10.8 Diff [phone] Count Red Blood Count 3.60 10^6/uL Low 3.70-4.87 Hemoglobin 10.3 g/dL Low 12.0-16.0 Hematocrit 33 % Low 35-47 Mean Corpuscular Volume 93 fL Normal 80-97 Mean Corpuscular Hemoglobin 29 pg Normal 27-31 Mean Corpuscular HGB Conc 31 g/dL Normal 31-36 Red Cell Distribution Width 19 % High 10-15 Platelet Count 183 10^3/uL Normal 150-450 Mean Platelet Volume 9.4 fL Normal 7.4-10.4 Abs Neutrophils 4.4 10^3/uL Normal 1.5-7.7 Abs Lymphocytes 2.1 10^3/uL Normal 1.0-4.8 Abs Monocytes 0.9 10^3/uL High 0-0.8 Abs Eosinophils 0.1 10^3/uL Normal 0-0.6 Abs Basophils 0.1 10^3/uL Normal 0-0.2 Abs Nucleated RBC 0.0 10^3/uL Granulocyte % 58.1 % Lymphocyte % 27.5 % Monocyte % 12.1 % Eosinophil % 1.6 % Basophil % 0.7 % Nucleated Red Blood Cells % 0.0 Laboratory test 09/17/2019 [facility] B-Type 161 pg/ mL High <=100 finding [phone] Natriuretic Peptide BNP Basic Metabolic 09/17/2019 [facility] Sodium 140 Normal 135-145 Panel [phone] mmol/L Potassium 4.2 mmol/L Normal 3.5-5.0 Chloride 98 mmol/L Low 101-111 Co2 Carbon Dioxide 34 mmol/L High 22-32 Anion Gap 8 mmol/L Normal 2-11 Glucose 99 mg/dL Normal 70-100 Blood Urea Nitrogen 49 mg/dL High 6-24 Creatinine 2.78 mg/dL High 0.51-0.95 BUN/Creatinine Ratio 17.6 Normal 8-20 Calcium 8.6 mg/dL Normal 8.6-10.3 Egfr Non- 16.9 >60 Egfr 20.4 >60 1 Laboratory test 09/17/2019 [facility] Hemoglobin A1c 6.7 % High 4.0-5.6 2 finding [phone] Laboratory test 08/27/2019 [facility] B-Type 186 High <=100 finding [phone] Natriuretic pg/mL Peptide BNP Laboratory test 08/27/2019 [facility] Lactic Acid 0.8 Normal 0.5-2.0 3 finding [phone] mmol/L CBC Auto Diff 08/27/2019 [facility] White Blood 7.6 Normal 3.5-10.8 [phone] Count 10^3/uL Red Blood Count 3.77 10^6/uL Normal 3.70-4.87 Hemoglobin 11.3 g/dL Low 12.0-16.0 Hematocrit 36 % Normal 35-47 Mean Corpuscular Volume 96 fL Normal 80-97 Mean Corpuscular Hemoglobin 30 pg Normal 27-31 Mean Corpuscular HGB Conc 31 g/dL Normal 31-36 Red Cell Distribution Width 17 % High 10-15 Platelet Count 173 10^3/uL Normal 150-450 Mean Platelet Volume 9.4 fL Normal 7.4-10.4 Abs Neutrophils 4.7 10^3/uL Normal 1.5-7.7 Abs Lymphocytes 1.7 10^3/uL Normal 1.0-4.8 Abs Monocytes 0.9 10^3/uL High 0-0.8 Abs Eosinophils 0.2 10^3/uL Normal 0-0.6 Abs Basophils 0.0 10^3/uL Normal 0-0.2 Abs Nucleated RBC 0.0 10^3/uL Granulocyte % 62.1 % Lymphocyte % 22.3 % Monocyte % 12.2 % Eosinophil % 2.9 % Basophil % 0.5 % Nucleated Red Blood Cells % 0.0 Influenza A & B 08/27/2019 [facility] Flu AB Disclaimer (SEE NOTE) 4 Request [phone] Influenza A Molecular Negative Negative Influenza B Molecular Negative Negative 5 Urinalysis Profile 08/27/2019 [facility] Urine Color Yellow [phone] Urine Appearance Cloudy Urine Specific Desmet 1.010 Normal 1.010-1.030 Urine pH 7.0 Normal 5-9 Urine Urobilinogen Positive Abnormal Negative Urine Ketones Negative Negative Urine Protein 1+(30 mg/dL) Abnormal Negative Urine Leukocytes 3+ Abnormal Negative Urine Blood 3+ Abnormal Negative Urine Nitrite Negative Negative Urine Bilirubin Negative Negative Urine Glucose Negative Negative Urine White Blood Cell 3+(>20/hpf) Abnormal Absent Urine Red Blood Cell 3+(>10/hpf) Abnormal Absent Urine Bacteria 2+ Abnormal Absent Urine Squamous Epithelial Cell Present Abnormal Absent Urine Culture And 08/27/2019 [facility] Urine SEE RESULT 6 Sensitivities [phone] Culture BELOW Laboratory test 08/27/2019 [facility] Troponin-I 0.01 ng/mL <0.03 7 finding [phone] (TnI) Comp Metabolic 08/27/2019 [facility] Albumin 3.8 g/ dL Normal 3.2-5 Panel [phone] Sodium 137 mmol/L Normal 135-145 Potassium 4.2 mmol/L Normal 3.5-5.0 Chloride 97 mmol/L Low 101-111 Co2 Carbon Dioxide 26 mmol/L Normal 22-32 Anion Gap 14 mmol/L High 2-11 Calcium 8.6 mg/dL Normal 8.6-10.3 Total Bilirubin 1.80 mg/dL High 0.2-1.0 Total Protein 7.4 g/dL Normal 6.4-8.9 Globulin 3.6 g/dL Normal 2-4 Albumin/Globulin Ratio 1.1 Normal 1-3 Glucose 139 mg/dL High 70-100 Blood Urea Nitrogen 45 mg/dL High 6-24 Creatinine 2.70 mg/dL High 0.51-0.95 BUN/Creatinine Ratio 16.7 Normal 8-20 Alkaline Phosphatase 109 U/L High 34-104 Alt 6 U/L Low 7-52 Ast 10 U/L Low 13-39 Egfr Non- 17.5 >60 Egfr 21.1 >60 8 Basic Metabolic 08/17/2019 [facility] Sodium 140 mmol /L Normal 135-145 Panel [phone] Potassium 4.4 mmol/L Normal 3.5-5.0 Chloride 98 mmol/L Low 101-111 Co2 Carbon Dioxide 31 mmol/L Normal 22-32 Anion Gap 11 mmol/L Normal 2-11 Glucose 132 mg/dL High 70-100 Blood Urea Nitrogen 49 mg/dL High 6-24 Creatinine 2.61 mg/dL High 0.51-0.95 BUN/Creatinine Ratio 18.8 Normal 8-20 Calcium 8.5 mg/dL Low 8.6-10.3 Egfr Non- 18.2 >60 Egfr 22.0 >60 9 Laboratory 08/17/2019 [facility] B-Type 221 pg/mL High <=100 test finding [phone] Natriuretic Peptide BNP CBC Auto Diff 08/17/2019 [facility] White Blood 8.3 Normal 3.5-10.8 [phone] Count 10^3/uL Red Blood Count 3.51 10^6/uL Low 3.70-4.87 Hemoglobin 11.0 g/dL Low 12.0-16.0 Hematocrit 34 % Low 35-47 Mean Corpuscular Volume 97 fL Normal 80-97 Mean Corpuscular Hemoglobin 32 pg High 27-31 Mean Corpuscular HGB Conc 33 g/dL Normal 31-36 Red Cell Distribution Width 17 % High 10-15 Platelet Count 168 10^3/uL Normal 150-450 10 Mean Platelet Volume 10.0 fL Normal 7.4-10.4 Abs Neutrophils 5.6 10^3/uL Normal 1.5-7.7 Abs Lymphocytes 1.5 10^3/uL Normal 1.0-4.8 Abs Monocytes 0.9 10^3/uL High 0-0.8 Abs Eosinophils 0.2 10^3/uL Normal 0-0.6 Abs Basophils 0.1 10^3/uL Normal 0-0.2 Abs Nucleated RBC 0.0 10^3/uL Granulocyte % 67.7 % Lymphocyte % 18.4 % Monocyte % 11.3 % Eosinophil % 1.9 % Basophil % 0.7 % Nucleated Red Blood Cells % 0.0 Liver Function 08/17/2019 [facility] Total Protein 6.9 g/dL Normal 6.4-8.9 Panel [phone] Albumin 3.6 g/dL Normal 3.2-5.2 Globulin 3.3 g/dL Normal 2-4 Albumin/Globulin Ratio 1.1 Normal 1-3 Total Bilirubin 1.60 mg/dL High 0.2-1.0 Direct Bilirubin 0.60 mg/dL High 0.03-0.18 Indirect Bilirubin 1.0 mg/dL Normal 0.3-1.0 Alkaline Phosphatase 112 U/L High 34-104 Alt 9 U/L Normal 7-52 Ast 9 U/L Low 13-39 Urinalysis Profile 04/12/2019 [facility] Urine Color Monica [phone] Urine Appearance Turbid Urine Specific Desmet 1.012 Normal 1.010-1.030 Urine pH 6.0 Normal [...] Cell Present Abnormal Absent Urine Microalbumin 04/12/2019 [facility] Ur Microalbumin 327.5 mg/L Random [phone] (mg/L) Urine Creatinine 108.49 mg/dL Urine Microalbumin/Creatinine 301.8 High <31 Laboratory test 04/12/2019 [facility] Creatinine Random 108.49 mg/dL finding [phone] Urine Total Protein Random Urine 112 mg/dL Basic Metabolic 04/12/2019 [facility] Sodium 139 mmol /L Normal 135-145 Panel [phone] Potassium 3.9 mmol/L Normal 3.5-5.0 Chloride 99 mmol/L Low 101-111 Co2 Carbon Dioxide 33 mmol/L High 22-32 Anion Gap 7 mmol/L Normal 2-11 Glucose 134 mg/dL High 70-100 Blood Urea Nitrogen 40 mg/dL High 6-24 Creatinine 2.58 mg/dL High 0.51-0.95 BUN/Creatinine Ratio 15.5 Normal 8-20 Calcium 8.8 mg/dL Normal 8.6-10.3 Egfr Non- 18.4 >60 Egfr 22.3 >60 11 Laboratory test 04/12/2019 [facility] Phosphorus 4.2 mg/dL Normal 2.5-5.0 finding [phone] Pthi 04/12/2019 [facility] Calcium (PTH 8.8 mg/dL Normal 8.6-10.3 [phone] Intact) PTH Intact 136.6 pg/mL High 12-88 CBC Auto 04/12/2019 [facility] Red Blood 3.40 10^6/ uL Low 3.70-4.87 Diff [phone] Count Hemoglobin 11.5 g/dL Low 12.0-16.0 Hematocrit 35 % Normal 35-47 Mean Corpuscular Volume 103 fL High 80-97 Mean Corpuscular Hemoglobin 34 pg High 27-31 Mean Corpuscular HGB Conc 33 g/dL Normal 31-36 Red Cell Distribution Width 14 % Normal 10-15 White Blood Count 8.1 10^3/uL Normal 3.5-10.8 12 Platelet Count 162 10^3/uL Normal 150-450 13 Manual Differential 04/12/2019 [facility] Neutrophil % 70.0 % [phone] Lymphocytes % 20.0 % Monocytes % 8.0 % Eosinophils % 2.0 % RBC Morphology Normal Normal Abs Neutrophils 5.7 10^3/uL Normal 1.5-7.7 Abs Lymphocytes 1.6 10^3/uL Normal 1.0-4.8 Abs Monocytes 0.6 10^3/uL Normal 0-0.8 Abs Eosinophils 0.2 10^3/uL Normal 0-0.6 Urine Culture And 04/12/2019 [facility] Urine Culture SEE RESULT 14 Sensitivities [phone] BELOW 1 Because ethnic data is not [...] 5 Kidney failure <15 (or dialysis) 2 Therapeutic target for the treatment of diabetes mellitus patients is <7% HBA1C, and in selective patients <6.0%. Please refer to [place] [employer] diabetic care guidelines for further information. 3 [facility] Severe Sepsis and Septic Shock Management Bundle Measure requires all lactic acids initially measuring >2.0 mmol/L be repeated. 4 Suboptimal collection technique may reduce sensitivity of test. Refer to the [facility] Test Catalog for collection information: [email or web address] As with all diagnostic procedures, the laboratory results obtained should be used in conjunction with other clinical information available to the physician, including confirmation by another method, as applicable. 5 [place] Supervisor: [id number] 6 SEE RESULT BELOW Name: PERLA FRANKEL : [address]: Anoop Pompa MD Acct: [id number] Unit: [id number] AGE: 68 Location: ED Re08/27/19 SEX: F Status: DEP ER SPEC: [id number] RAN: 08/27/[address]: Anoop Pompa MD REQ: [id number] RECD: 08/27/19 STATUS: COMP [facility] : Og Arce THERMAL CUTTING MACHINE OPERATOR _ SOURCE: URINE SPDESC: ORDERED: Urine Culture Procedure Result Reported Site Urine Culture Final 08/30/19- 1012 ML Organism 1 PROTEUS MIRABILIS [place] Count 50-75,000 (Many) CFU/ML Organism 2 NORMAL ANJEL [place] Count 25-50,000 (Moderate) CFU/ML 1. PROTEUS MIRABILIS M.I.C. RX --------- ------ Ampicillin R Cefazolin S Cefepime S Ceftriaxone S Ciprofloxacin 2 I Gentamicin <=1 S Levofloxacin 2 S Meropenem 0.5 S Nitrofurantoin 256 R Tetracycline >=16 R Pipercillin/Tazobactam <=4 S Trimethoprim/Sulfamethoxazole >=320 R Amoxicillin/Clavulanic Acid <=2 S Aztreonam S Contact the Microbiology Department for any additional antibiotic reporting. * [facility] - Main Lab . END OF REPORT DEPARTMENT OF PATHOLOGY, [address] [place] [address] Gregg Harmon M.D. Director [facility] # [id number] 7 Troponin-I testing on Plasma Separator Tubes (PST) has a known false positive rate of 0.20-0.40%. All positive troponins reflex immediately to secondary confirmatory testing. Using the [employer] DxI 800 Access Immunoassay systems, the 99th percentile upper reference limit was demonstrated to be < 0.03 ng/mL. 8 Because ethnic data is not always readily [...] 15-29 5 Kidney failure <15 (or dialysis) 9 Because ethnic data is not always readily [...] 15-29 5 Kidney failure <15 (or dialysis) 10 Platelet count confirmed by estimate 11 Because ethnic data is not always readily [...] 15-29 5 Kidney failure <15 (or dialysis) 12 White count confirmed by estimate 13 Platelet count confirmed by estimate 14 SEE RESULT BELOW Name: PERLA FRANKEL : [address]: Margaret Barry MD Acct: [id number] Unit: [id number] AGE: 68 Location: LAB Re04/12/19 SEX: F Status: REG REF SPEC: [id number] RAN: 04/12/[address] [facility] [address]: Margaret Barry MD REQ: [id number] RECD: 04/12/19 STATUS: RES [facility] DR: Og Arce THERMAL CUTTING MACHINE OPERATOR _ SOURCE: URINE SPDESC: ORDERED: Urine Culture Procedure Result Reported Site Urine Culture Preliminary 04/14/19- 0835 ML Organism 1 PROTEUS MIRABILIS [place] Count >100,000 (Many) CFU/ML * [facility] - Main Lab . END OF REPORT DEPARTMENT OF PATHOLOGY, [address] [place] [address] Gregg Harmon M.D. Director [facility] # [id number] Procedures Description No Information Available Medical Devices Description No Information Available Encounters Type Date Location Provider Dx Diagnosis Office Visit 08/17/2019 Main Office Sona Mcmahan Chronic kidney 9:15a disease, unspecified I50.20 Unspecified systolic (congestive) heart failure Assessments Date Code Description Provider 09/29/2019 I50.20 Unspecified systolic (congestive) heart BETTY Mattson failure 09/16/2019 N18.9 Chronic kidney disease, unspecified BETTY Mattson 09/16/2019 I50.20 Unspecified systolic (congestive) heart BETTY Mattson failure 09/16/2019 E11.65 Type 2 diabetes mellitus with hyperglycemia BETTY Mattson 08/17/2019 N18.9 Chronic kidney disease, unspecified Cedric Burch MD 08/17/2019 I50.20 Unspecified systolic (congestive) heart Cedric Burch MD failure 07/27/2019 Z23 Encounter for immunization BETTY Mattson Plan of Treatment Future Appointment(s):10/21/2019 11:30 am - BETTY Mattson at Main Chvnzg3101/25/2020 1:30 pm - BETTY Mattson at Main Meujdl5409/29/2019 - FRANCISCO Mattson-CI50.20 Unspecified systolic (congestive) heart failureComments:increased weakness, fatigue, SOB, edema, reports falling. Discussed going to the ER for evaluation, she is agreeable to this. Functional Status Description No Information Available Mental Status Description No Information Available Referrals Description No Information Available
--- OUTSIDE RECORDS SUMMARY | 2019-09-29 16:31 | XMS REPORT | Continuity of Care Document ---
:1950 External Reference #:[id number] Author Name BETTY Mattson Address [address] [place] [address] Care Team Providers Name Role Phone Bethany Walker MD Care Team Information Orthodontic Technician Assistant Unavailable Isael Nesbitt MD Care Team Information Orthodontic Technician Assistant Unavailable Aurora Solano M.D. - Family Care Team Information Orthodontic Technician Assistant [phone] Medicine [facility] Care Team Information Orthodontic Technician Assistant [phone] Gokul Lira MD - Neurology Care Team Information Orthodontic Technician Assistant Trista Champagne - Orthopaedic Surgery Care Team Information Orthodontic Technician Assistant Problems Active Problems Provider Date Osteoarthritis of [...] Medications SIG Qnty Indications Ordering Date Provider Furosemide take one tablet by 90tabs Cedric 08/20/2019 80mg Tablets mouth daily. MD Marcin Spironolactone Take 1 tablet by 90tabs I50.20 Cedric 08/17/2019 25mg mouth daily for MD Marcin Tablets heart failure Clotrimazole apply under toe 56gm B35.1 Shawnti R. 10/27/2018 Anti-Fungal nails nightly Storm, [employer]CH[employer]IST-C 1% Cream Blood Glucose use as directed to 1units E11.65 Isaiaswnti R. 10/01/2018 Monitoring System test blood sugar 3 Storm, [employer] PSYCHOLOGIST-C times daily or as W/Device Kit needed dx code e11.65 Onetouch Ultra Blue use for testing 270units Shawnti R. 10/01/2018 blood sugar 3 times Storm, [employer] PSYCHOLOGIST-C Strips daily or as needed Dx code E11.65 Onetouch Ultrasoft use for testing 100units Shawnti R. 10/01/2018 Lancets blood sugar 3 times Storm, [employer] PSYCHOLOGIST-C Misc daily or as needed Dx code E11.65 Potassium Chloride ER 1 by mouth every 90tabs Og R. 04/09/2018 day Storm, [employer] PSYCHOLOGIST-C 10Meq Tablets ER Bariatric Pull-Ups use as directed 100units R53.1 Isaiaswnti R. 03/18/2018 measurements hips- Storm, [employer] PSYCHOLOGIST-C 59" waist-62" 310lb R53.83 Novolog Flexpen inject three times 15ml E11.65 Og Arce, 2017 daily before meals, [employer]CHOLOGIST-C 100Unit/ML Solution dose per sliding Pen-Inject scale, mdd 50 units Basaglar Kwikpen inject 50 units 45ml E11.65 Og Arce, 07/24/2017 daily [employer] PS[employer]CHOLOGIST-C 100Unit/ML Solution Pen-Inject Valtrex take one pill by 14tabs Og Arce, 05/19/2017 1gm Tablets mouth two times [employer]IST-C daily for 7 days Nystatin-Triamcinolo apply sparingly to 30gm L20.9 Og Arce, 01/17 ne affected area twice [employer]CHOLOGIST-C a day until resolved 110406-7.1Unit/GM-% Cream Ankle Lace-Up Brace Right ankle- drop 1units Og Arce, 12/19/2016 foot dx code m21.371 [employer]CH[employer]IST-C Misc Nystatin apply a thin layer 60gm Og Arce, 07/18/2016 topically to [employer]CHOLOGIST-C 787583Tgeg/GM Cream affected area three times daily Adult Diapers size 3x adult 50units Og Arce, 03/29/2016 diapers -change as [employer] PSYCHOLOGIST-C needed or 8 times daily dx: r32 Vitamin B-12 1 by mouth every day 90tabs Og Arce, 03/28/2016 2500mcg for deficiency [employer]CHOLOGIST-C Tablets Sub Montelukast Sodium take one tablet by 90tabs Og Arce, 07/17/2015 mouth at bedtime [employer] PSYCH[employer]IST-C 10mg Tablets Simvastatin take one tablet by 90tabs Og Arce, 02/14/2015 20mg mouth everyday at [employer] PS[employer]CHOLOGIST-C Tablets bedtime for cholesterol Novofine use daily with 1month E11.65 Og Arce, 07/08/2014 30G X 8 mm lantus [employer]CHOLOGIST-C Misc Famotidine Take 1 Tablet By 90tabs Og Arce, 06/11/2013 40mg Mouth Once Daily For [employer] PSYCHOLOGIST-C Tablets Stomach Acid Ventolin HFA inhale two puffs by 18units J45.998 Og Arce, 2012 mouth every 4 hours [employer]YCHOLOGIST-C 108(90Base) mcg/Act as needed for Aerosol wheezing or before exercise Insulin use twice daily to 100units Og Arce, 06/06/2011 Syringe/0.5ML/30G X administer insulin [employer] PSYCHOLOGIST-C 1/2" 30G X 1/2" 0.5 ML Misc Duloxetine HCL take one capsule by 90caps Og Arce, 10/04/2010 30mg mouth once daily as [employer] PS[employer]CHOLOGIST-C Caps DR Swenson directed Vitamin D 2 po daily for 180caps Og Arce, 04/09/2010 1000Unit suppliment/deficienc [employer]CH[employer]IST-C Capsules y Aspirin 1 PO qd Aurora Deluca 05/23/2004 81mg Ec Dayron Solano M.D. Lancets use as directed- 100units Og Arce, 10/28/2002 give same lancets as [employer] PS[employer]CHOLOGIST-C usual Morphine Sulfate ER once daily Unknown 15mg Tablets ER Ferrous Sulfate 1 by mouth every day Unknown 325mg Tablets History Medications Triamterene Take 1 capsule 30caps I50.20 Cedric Burch, 08/17/2019 - 100mg by mouth 2 MD 08/17/2019 Capsules times per day for edema Medications Administered in Office Medication SIG Qnty Indications Ordering Provider Date Vitamin B-12 Injection-To Shawnti R. Claude, [employer] PS[employer]CHOLOGIST-C 03/30/2019 1000mcg Injection Vitamin B-12 Injection-To [facility] 04/09/2018 1000mcg Injection Vitamin B-12 Injection-To Shawnti R. Storm, [employer] PSYCHOLOGIST-C 02/17/2018 1000mcg Injection Vitamin B-12 Injection-To Shawnti R. Storm, [employer] PSYCHOLOGIST-C 12/29/2017 1000mcg Injection Vitamin B-12 Injection-To Shawnti R. Storm, [employer] PSYCHOLOGIST-C 11/06/2017 1000mcg Injection Vitamin B-12 Injection-To Shawnti R. Storm, [employer] PSYCHOLOGIST-C 09/11/2017 1000mcg Injection Vitamin B-12 Injection-To Shawnti R. Storm, [employer] PSYCHOLOGIST-C 05/22/2017 1000mcg Injection Vitamin B-12 Injection-To Shawnti R. Storm, [employer] PSYCHOLOGIST-C 01/17/2017 1000mcg Injection Vitamin B-12 Injection-To Shawnti R. Storm, [employer] PSYCHOLOGIST-C 07/05/2016 1000mcg Injection Vitamin B-12 Injection-To Shawnti R. Storm, [employer] PSYCHOLOGIST-C 03/28/2016 1000mcg Injection Vitamin B-12 Injection-To Shawnti R. Storm, [employer] PSYCHOLOGIST-C 09/19/2015 1000mcg Injection Vitamin B-12 Injection-To Shawnti R. Storm, [employer] PSYCHOLOGIST-C 08/22/2015 1000mcg Injection Vitamin B-12 Injection-To Shawnti R. Storm, [employer] PSYCHOLOGIST-C 03/06/2015 1000mcg Injection Vitamin B-12 Injection-To Shawnti R. Storm, [employer] PSYCHOLOGIST-C 04/12/2014 1000mcg Injection Vitamin B-12 Injection-To Shawnti R. Storm, [employer] PSYCHOLOGIST-C 03/11/2014 1000mcg Injection Vitamin B-12 Injection-To Shawnti R. Storm, [employer] PSYCHOLOGIST-C 10/14/2013 1000mcg Injection Vitamin B-12 Injection-To [facility] 03/10/2013 1000mcg Injection Vitamin B-12 Injection-To Og Arce, [employer] PSYCHOLOGIST-C 12/29/2012 1000mcg Injection Vitamin B-12 Injection-To [facility] 12/02/2012 1000mcg Injection Vitamin B-12 Injection-To [facility] 09/21/2012 1000mcg Injection Vitamin B-12 Injection-To [facility] 08/14/2012 1000mcg Injection Vitamin B-12 Injection-To Og Eric Claude, [employer] PSYCHOLOGIST-C 01/24/2012 1000mcg Injection Vitamin B-12 Injection-To Og Eric Claude, [employer] PSYCHOLOGIST-C 12/10/2011 1000mcg Injection Vitamin B-12 Injection-To Og Eric Claude, [employer] PSYCHOLOGIST-C 11/04/2011 1000mcg Injection Vitamin B-12 Injection-To Og Eric Claude, [employer] PSYCHOLOGIST-C 06/06/2011 1000mcg Injection Vitamin B-12 Injection-To Og Eric Claude, [employer] PSYCHOLOGIST-C 04/26/2011 1000mcg Injection Vitamin B-12 Injection-To [facility] 03/05/2011 1000mcg Injection Vitamin B-12 Injection-To Og Eric Claude, [employer] PSYCHOLOGIST-C 01/24/2011 1000mcg Injection Vitamin B-12 Injection-To Og Eric Claude, [employer] PSYCHOLOGIST-C 09/27/2010 1000mcg Injection Vitamin B-12 Injection-To Og Eric Claude, [employer] PSYCHOLOGIST-C 07/17/2010 1000mcg Injection Vitamin B-12 Injection-To Og Eric Claude, [employer] PSYCHOLOGIST-C 06/08/2010 1000mcg Injection Vitamin B-12 Injection-To Og Eric Claude, [employer] PSYCHOLOGIST-C 04/09/2010 1000mcg Injection Vitamin B-12 Injection-To Lab [...] 1000mcg Injection Vitamin B-12 Injection-To Og Arce [employer] PSYCHOLOGIST-C 10/02/2009 1000mcg Injection Vitamin B-12 Injection-To Aurora Solano M.D. 09/06/2009 1000mcg Injection Vitamin B-12 Injection-To Og Arce [employer] PSYCHOLOGIST-C 07/26/2009 1000mcg Injection Vitamin B-12 Injection-To Og Arce [employer] PSYCHOLOGIST-C 06/09/2009 1000mcg Injection Vitamin B-12 Injection-To [facility] 04/25/2009 1000mcg Injection Vitamin B-12 Injection-To Og Arce, [employer] PSYCHOLOGIST-C 03/13/2009 1000mcg Injection Vitamin B-12 Injection-To Aurora Solano M.D. 01/26/2009 1000mcg Injection Vitamin B-12 Injection-To Og Arce, [employer] PSYCHOLOGIST-C 01/03/2009 1000mcg Injection Vitamin B-12 Injection-To Aurora [...] 1000mcg MOsielDOsiel Injection Vitamin B-12 Injection-To Aurora Solano M.D. 09/03/2003 1000mcg Injection Vitamin B-12 Injection-To Kala Johnson M.D. 08/06/2003 1000mcg Injection Vitamin B-12 Injection-To Carter Medina M.D. 05/31/2003 1000mcg Injection Vitamin B-12 Injection-To Aurora Solano M.D. 05/31/2003 1000mcg Injection Therapeutic Injection Carter Medina M.D. 05/31/2003 (Specify Material Injected) Injection Vitamin B-12 Injection-To Carter eMdina M.D. 04/26/2003 1000mcg Injection Vitamin B-12 Injection-To [...] CPT Code Status Date Vaccine Lot # [id number] Given 07/27/2019 Influenza Vaccine High Dose PF [id number] 59640 Given 02/17/2018 Pneumovax 23 (PPSV23) 65+ years or high risk 2 to [id number] 63 year old 59848 Given 02/17/2018 Influenza Vaccine High Dose PF [id number] 00251 Given 05/22/2017 Influenza Vaccine High Dose PF [id number] 05556 Given 07/05/2016 Prevnar-13 Pneumococcal Conjugate Vaccine [id number] 24567 Given 03/28/2016 Influenza Vaccine High Dose PF [id number] 51397 Given 03/06/2015 Influenza Virus Vaccine, Quadrivalent, 3 Yr > [id number] Quad, Preserv Free 72413 Given 04/12/2014 Influenza Virus Vaccine, Quadrivalent, 3 Yr > [id number] Quad, Preserv Free 47602 Given 03/10/2013 Influenza Vaccine-Preservative Free 3 Yrs And [id number] Above 41309 Given 03/23/2012 Influenza Vaccine-Preservative Free 3 Yrs And Above 22580 Given 01/24/2012 Pneumovax 23 (PPSV23) 65+ years or high risk 2 to [id number] 63 year old 14015 Given 03/05/2011 Influenza Vaccine-Preservative Free 3 Yrs And [id number] Above 37994 Given 04/02/2010 Influenza Vaccine-Preservative Free 3 Yrs And Above 88265 Given 04/02/2010 Influenza Vaccine-Preservative Free 3 Yrs And Above 69245 Given 06/09/2009 H1N1 Influenza Vaccine [id number] 00502 Given 06/09/2009 H1N1 Immunization Administration, Including Counseling 94490 Given 05/10/2009 Influenza Virus Vaccine, 3 Yrs And Above 57289 Given 05/26/2008 Influenza Virus Vaccine, 3 Yrs And Above [id number] 05060 Given 04/16/2007 Tdap (Adacel) [id number] 46351 Given 04/16/2007 Influenza Virus Vaccine, 3 Yrs And Above [id number] 41196 Given 04/23/2006 Influenza Virus Vaccine, 3 Yrs And Above [id number] 78249 Given 05/10/2005 Influenza Virus Vaccine, 3 Yrs And Above [id number] 21702 Given 05/30/2004 Influenza Virus Vaccine, 3 Yrs And Above 46168 Given 03/31/2003 Influenza Virus Vaccine, 3 Yrs And Above 74222 Given 03/31/2003 Influenza Virus Vaccine, 3 Yrs And Above 76734 Given 03/24/2001 Influenza Virus Vaccine, 3 Yrs And Above 88857 Given 02/20/1999 Pneumovax 23 (PPSV23) 65+ years [...] Body Temperature 97.9 F Results Test Acquired Facility Test Result H/L Range Note Date Laboratory 08/27/2019 [facility] B-Type 186 pg/mL High <=100 test finding [phone] Natriuretic Peptide BNP Laboratory 08/27/2019 [facility] Lactic Acid 0.8 mmol /L Normal 0.5-2.0 1 test finding [phone] CBC Auto Diff 08/27/2019 [facility] White Blood 7.6 Normal 3.5-10.8 [phone] Count 10^3/uL Red Blood Count 3.77 10^6/uL [...] % 0.0 Influenza A & B 08/27/2019 [facility] Flu AB Disclaimer (SEE NOTE) 2 Request [phone] Influenza A Molecular Negative Negative Influenza B Molecular Negative Negative 3 Urinalysis Profile 08/27/2019 [facility] Urine Color Yellow [phone] Urine Appearance Cloudy Urine Specific [place] 1.010 Normal 1.010-1.030 Urine pH 7.0 Normal [...] Present Abnormal Absent Urine Culture And 08/27/2019 [facility] Urine SEE RESULT 4 Sensitivities [phone] Culture BELOW Laboratory test 08/27/2019 [facility] Troponin-I 0.01 ng/mL <0.03 5 finding [phone] (TnI) Comp Metabolic 08/27/2019 [facility] Albumin 3.8 g/ dL Normal 3.2-5 Panel [phone] Sodium 137 mmol/L Normal 135-145 Potassium [...] Egfr Non- 17.5 >60 Egfr 21.1 >60 6 Basic Metabolic 08/17/2019 [facility] Sodium 140 mmol /L Normal 135-145 Panel [phone] Potassium 4.4 mmol/L Normal 3.5-5.0 Chloride 98 mmol/L Low 101-111 Co2 Carbon Dioxide 31 mmol/L Normal 22-32 Anion Gap 11 mmol/L Normal 2-11 Glucose 132 mg/dL High 70-100 Blood Urea Nitrogen 49 mg/dL High 6-24 Creatinine 2.61 mg/dL High 0.51-0.95 BUN/Creatinine Ratio 18.8 Normal 8-20 Calcium 8.5 mg/dL Low 8.6-10.3 Egfr Non- 18.2 >60 Egfr 22.0 >60 7 Laboratory 08/17/2019 [facility] B-Type 221 pg/mL High <=100 test finding [phone] Natriuretic Peptide BNP CBC Auto Diff 08/17/2019 [facility] White Blood 8.3 Normal 3.5-10.8 [phone] Count 10^3/uL Red Blood Count 3.51 10^6/uL Low 3.70-4.87 Hemoglobin 11.0 g/dL Low 12.0-16.0 Hematocrit 34 % Low 35-47 Mean Corpuscular Volume 97 fL Normal 80-97 Mean Corpuscular Hemoglobin 32 pg High 27-31 Mean Corpuscular HGB Conc 33 g/dL Normal 31-36 Red Cell Distribution Width 17 % High 10-15 Platelet Count 168 10^3/uL Normal 150-450 8 Mean Platelet Volume 10.0 fL Normal 7.4-10.4 [...] Blood Cells % 0.0 Liver Function 08/17/2019 [facility] Total Protein 6.9 g/dL Normal 6.4-8.9 Panel [phone] Albumin 3.6 g/dL Normal 3.2-5.2 Globulin 3.3 g/dL Normal 2-4 Albumin/Globulin Ratio 1.1 Normal 1-3 Total Bilirubin 1.60 mg/dL High 0.2-1.0 Direct Bilirubin 0.60 mg/dL High 0.03-0.18 Indirect Bilirubin 1.0 mg/dL Normal 0.3-1.0 Alkaline Phosphatase 112 U/L High 34-104 Alt 9 U/L Normal 7-52 Ast 9 U/L Low 13-39 Urinalysis Profile 04/12/2019 [facility] Urine Color Monica [phone] Urine Appearance Turbid Urine Specific [place] 1.012 Normal 1.010-1.030 Urine pH 6.0 Normal [...] Cell Present Abnormal Absent Urine Microalbumin 04/12/2019 [facility] Ur Microalbumin 327.5 mg/L Random [phone] (mg/L) Urine Creatinine 108.49 mg/dL Urine Microalbumin/Creatinine 301.8 High <31 Laboratory test 04/12/2019 [facility] Creatinine Random 108.49 mg/dL finding [phone] Urine Total Protein Random Urine 112 mg/dL Basic Metabolic 04/12/2019 [facility] Sodium 139 mmol /L Normal 135-145 Panel [phone] Potassium 3.9 mmol/L Normal 3.5-5.0 Chloride 99 mmol/L Low 101-111 Co2 Carbon Dioxide 33 mmol/L High 22-32 Anion Gap 7 mmol/L Normal 2-11 Glucose 134 mg/dL High 70-100 Blood Urea Nitrogen 40 mg/dL High 6-24 Creatinine 2.58 mg/dL High 0.51-0.95 BUN/Creatinine Ratio 15.5 Normal 8-20 Calcium 8.8 mg/dL Normal 8.6-10.3 Egfr Non- 18.4 >60 Egfr 22.3 >60 9 Laboratory test 04/12/2019 [facility] Phosphorus 4.2 mg/dL Normal 2.5-5.0 finding [phone] Pthi 04/12/2019 [facility] Calcium (PTH 8.8 mg/dL Normal 8.6-10.3 [phone] Intact) PTH Intact 136.6 pg/mL High 12-88 CBC Auto 04/12/2019 [facility] Red Blood 3.40 10^6/ uL Low 3.70-4.87 Diff [phone] Count Hemoglobin 11.5 g/dL Low 12.0-16.0 Hematocrit 35 % Normal 35-47 Mean Corpuscular Volume 103 fL High 80-97 Mean Corpuscular Hemoglobin 34 pg High 27-31 Mean Corpuscular HGB Conc 33 g/dL Normal 31-36 Red Cell Distribution Width 14 % Normal 10-15 White Blood Count 8.1 10^3/uL Normal 3.5-10.8 10 Platelet Count 162 10^3/uL Normal 150-450 11 Manual Differential 04/12/2019 [facility] Neutrophil % 70.0 % [phone] Lymphocytes % 20.0 % Monocytes % 8.0 % Eosinophils % 2.0 % RBC Morphology Normal Normal Abs Neutrophils 5.7 10^3/uL Normal 1.5-7.7 Abs Lymphocytes 1.6 10^3/uL Normal 1.0-4.8 Abs Monocytes 0.6 10^3/uL Normal 0-0.8 Abs Eosinophils 0.2 10^3/uL Normal 0-0.6 Urine Culture And 04/12/2019 [facility] Urine Culture SEE RESULT 12 Sensitivities [phone] BELOW 1 [facility] Severe Sepsis and Septic Shock Management Bundle Measure requires all lactic acids initially measuring >2.0 mmol/L be repeated. 2 Suboptimal collection technique may reduce sensitivity of test. Refer to the [facility] Test Catalog for collection information: [email or web address] As with all diagnostic procedures, the laboratory results obtained should be used in conjunction with other clinical information available to the physician, including confirmation by another method, as applicable. 3 Spectrographic Analyst: [id number] 4 SEE RESULT BELOW Name: PERLA FRANKEL : [address]: Anoop Pompa MD Acct: [id number] Unit: [id number] AGE: 68 Location: ED Re08/27/19 SEX: F Status: DEP ER SPEC: [id number] RAN: 08/27/[address]: Anoop Pompa MD REQ: [id number] RECD: 08/27/19 STATUS: ROMEO JENNINGS DR: Og Arce [employer]PLE P[employer]ING SUPERVISOR _ SOURCE: URINE SPDESC: ORDERED: Urine Culture Procedure Result Reported Site Urine Culture Final 08/30/19- 1012 ML Organism 1 PROTEUS MIRABILIS Eure Count 50-75,000 (Many) CFU/ML Organism 2 NORMAL ANJEL Eure Count 25-50,000 (Moderate) CFU/ML 1. PROTEUS MIRABILIS [...] . END OF REPORT DEPARTMENT OF PATHOLOGY, [address] [place] [address] Gregg Harmon M.D. Director [facility] # [id number] 5 Troponin-I testing on Plasma Separator Tubes (PST) has a known false positive rate of 0.20-0.40%. All positive troponins reflex immediately to secondary confirmatory testing. Using the [employer] DxI 800 Access Immunoassay systems, the 99th percentile upper reference limit was demonstrated to be < 0.03 ng/mL. 6 Because ethnic data is not always readily [...] 15-29 5 Kidney failure <15 (or dialysis) 7 Because ethnic data is not always readily [...] 15-29 5 Kidney failure <15 (or dialysis) 8 Platelet count confirmed by estimate 9 Because ethnic data is not always [...] 5 Kidney failure <15 (or dialysis) 10 White count confirmed by estimate 11 Platelet count confirmed by estimate 12 SEE RESULT BELOW Name: PERLA FRANKEL : [address]: Margaret Barry MD Acct: [id number] Unit: [id number] AGE: 68 Location: LAB Re04/12/19 SEX: F Status: REG REF SPEC: [id number] RAN: 04/12/[address] [facility] [address]: Margaret Barry MD REQ: [id number] RECD: 04/12/19 STATUS: RES [facility] DR: Og Arce APPLE PICKING SUPERVISOR _ SOURCE: URINE SPDESC: ORDERED: Urine Culture Procedure Result Reported Site Urine Culture Preliminary 04/14/19834 ML Organism 1 PROTEUS MIRABILIS Eure Count >100,000 (Many) CFU/ML * ML - Main Lab . END OF REPORT DEPARTMENT OF PATHOLOGY, [address] [place] [address] Gregg Harmon M.D. Director [facility] # [id number] Procedures Date Code Description Status 03/30/2019 51052 Therapeutic,Prophylactic,Or Diagnostic Inj,SC/Im Specify Completed Drug Medical Devices Description No Information Available Encounters Type Date Location Provider Dx Diagnosis Office Visit 08/17/2019 Main Office Cedric Burch, N18.9 Chronic kidney 9:15a MD disease, unspecified I50.20 Unspecified systolic (congestive) heart failure Office Visit 03/30/2019 10:30a Main Office Og Eric E11.65 Type 2 diabetes FRANCISCO Arce-Jessica mellitus with hyperglycemia E53.8 Deficiency of other specified B group vitamins Assessments Date Code Description Provider 09/16/2019 N18.9 Chronic kidney disease, unspecified Og Arce [employer]CH[employer]IST-C 09/16/2019 I50.20 Unspecified systolic (congestive) heart RICARDO MattsonP-C failure 09/16/2019 E11.65 Type 2 diabetes mellitus with hyperglycemia RICARDO MattsonP-C 08/17/2019 N18.9 Chronic kidney disease, unspecified Cedric Burch MD 08/17/2019 I50.20 Unspecified systolic (congestive) heart Cedric Burch MD failure 07/27/2019 Z23 Encounter for immunization RICARDO MattsonP-C 03/30/2019 E11.65 Type 2 diabetes mellitus with hyperglycemia RICARDO MattsonP-C 03/30/2019 E53.8 Deficiency of other specified B group Og Arce [employer] PSYCHOLOGIST -C vitamins Plan of Treatment Future Appointment(s):01/25/2020 1:30 pm - FRANCISCO Mattson-C at Main Pqxqna0909/16/2019 - FRANCISCO Mattson-CN18.9 Chronic kidney disease, unspecifiedNew Labs:CBC Auto Diff, Ordered: 09/16/19Basic Metabolic Panel, Ordered: 09/16/19Comments:discussed getting a scale to weigh herself daily, let me know if SOB develops or if she feels like her fluid retention has become worseFollow up:1 ujjytV39.20 Unspecified systolic (congestive) heart failureNew Labs:B-Type Natriuretic Peptide BNP, Ordered: 09/16/19Comments:continue current medications ... BMP and BNP via home draw, will adjust medications pending these odjvqrtS50.65 Type 2 diabetes mellitus with hyperglycemiaNew Labs: Hemoglobin A1c (Glyco HGB), Ordered: 09/16/19Comments:will have home lab draw for HgbA1c. continue current dose medications .... HgbA1c with home blood draw Functional Status Description No Information Available Mental Status Description No Information Available Referrals Description No Information Available
--- OUTSIDE RECORDS SUMMARY | 2019-09-29 16:31 | XMS REPORT | Continuity of Care Document ---
:1950 External Reference #:[id number] Author Name BETTY Mattson (transmitted by agent of provider Shawnee Akhtar) Address [address] [place] [address] Care Team Providers Name Role Phone Bethany Walker MD Care Team Information Airline Pilot Flight Instructor Unavailable Isael Nesbitt MD Care Team Information Airline Pilot Flight Instructor Unavailable Aurora Solano M.D. 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 10/27/2018 Anti-Fungal nails nightly Storm, INTERNAL CONTROLS ANALYST-C 1% Cream Blood Glucose use as directed to 1units E11.65 Richnti R. 10/01/2018 Monitoring System test blood sugar 3 Storm, INTERNAL CONTROLS ANALYST-C times daily or as W/Device Kit needed dx code e11.65 Onetouch Ultra Blue use for testing 270units Shawnti R. 10/01/2018 blood sugar 3 times Storm, INTERNAL CONTROLS ANALYST-C Strips daily or as needed Dx code E11.65 Onetouch Ultrasoft use for testing 100units Shawnti R. 10/01/2018 Lancets blood sugar 3 times Storm, INTERNAL CONTROLS ANALYST-C Misc daily or as needed Dx code E11.65 Potassium Chloride ER 1 by mouth every 90tabs Og ROsiel 04/09/2018 day Storm, INTERNAL CONTROLS ANALYST-C 10Meq Tablets ER Bariatric Pull-Ups use as directed 100units R53.1 Isaiaswnti R. 03/18/2018 measurements hips- Storm, INTERNAL CONTROLS ANALYST-C 59" waist-62" 310lb R53.83 Novolog Flexpen inject three times 15ml E11.65 Og Arce, 2017 daily before meals, INTERNAL CONTROLS ANALYST-C 100Unit/ML Solution dose per sliding Pen-Inject scale, mdd 50 units Basaglar Kwikpen inject 50 units 45ml E11.65 Og Arce, 07/24/2017 daily INTERNAL CONTROLS ANALYST-C 100Unit/ML Solution Pen-Inject Valtrex take one pill by 14tabs Og Arce, 05/19/2017 1gm Tablets mouth two times INTERNAL CONTROLS ANALYST-C daily for 7 days Nystatin-Triamcinolo apply sparingly to 30gm L20.9 Og Arce, 01/17 ne affected area twice INTERNAL CONTROLS ANALYST-C a day until resolved 360458-0.1Unit/GM-% Cream Ankle Lace-Up Brace Right ankle- drop 1units Og Arce, 12/19/2016 foot dx code m21.371 INTERNAL CONTROLS ANALYST-C Misc Nystatin apply a thin layer 60gm Og Arce, 07/18/2016 topically to INTERNAL CONTROLS ANALYST-C 807715Rlkj/GM Cream affected area three times daily Adult Diapers size 3x adult 50units Og Arce, 03/29/2016 diapers -change as INTERNAL CONTROLS ANALYST-C needed or 8 times daily dx: r32 Vitamin B-12 1 by mouth every day 90tabs Og Arce, 03/28/2016 2500mcg for deficiency INTERNAL CONTROLS ANALYST-C Tablets Sub Montelukast Sodium take one tablet by 90tabs Og Arce, 07/17/2015 mouth at bedtime INTERNAL CONTROLS ANALYST-C 10mg Tablets Simvastatin take one tablet by 90tabs Og Arce, 02/14/2015 20mg mouth everyday at INTERNAL CONTROLS ANALYST-C Tablets bedtime for cholesterol Novofine use daily with 1month E11.65 Og Arce, 07/08/2014 30G X 8 mm lantus INTERNAL CONTROLS ANALYST-C Misc Famotidine Take 1 Tablet By 90tabs Og Arce, 06/11/2013 40mg Mouth Once Daily For INTERNAL CONTROLS ANALYST-C Tablets Stomach Acid Ventolin HFA inhale two puffs by 18units J45.998 Og Arce, 2012 mouth every 4 hours INTERNAL CONTROLS ANALYST-C 108(90Base) mcg/Act as needed for Aerosol wheezing or before exercise Insulin use twice daily to 100units Og Arce, 06/06/2011 Syringe/0.5ML/30G X administer insulin INTERNAL CONTROLS ANALYST-C 1/2" 30G X 1/2" 0.5 ML Misc Duloxetine HCL take one capsule by 90caps Og Arce, 10/04/2010 30mg mouth once daily as INTERNAL CONTROLS ANALYST-C Caps DR Swenson directed Vitamin D 2 po daily for 180caps Og Arce, 04/09/2010 1000Unit suppliment/deficienc INTERNAL CONTROLS ANALYST-C Capsules y Aspirin 1 PO qd Aurora Deluca 05/23/2004 81mg Ec Dayron Solano M.D. Lancets use as directed- 100units Og Arce, 10/28/2002 give same lancets as INTERNAL CONTROLS ANALYST-C usual Morphine Sulfate ER once daily Unknown 15mg Tablets ER Ferrous Sulfate 1 by mouth every day Unknown 325mg Tablets History Medications Triamterene Take 1 capsule 30caps I50.20 Cedric Burch, 08/17/2019 - 100mg by mouth 2 08/17/2019 Capsules times per day for edema Medications Administered in Office Medication SIG Qnty Indications Ordering Provider Date Vitamin B-12 Injection-To Shawnti R. Claude, INTERNAL CONTROLS ANALYST-C 03/30/2019 1000mcg Injection Vitamin B-12 Injection-To [facility] 04/09/2018 1000mcg Injection Vitamin B-12 Injection-To Shawnti R. Storm, INTERNAL CONTROLS ANALYST-C 02/17/2018 1000mcg Injection Vitamin B-12 Injection-To Shawnti R. Storm, INTERNAL CONTROLS ANALYST-C 12/29/2017 1000mcg Injection Vitamin B-12 Injection-To Shawnti R. Storm, INTERNAL CONTROLS ANALYST-C 11/06/2017 1000mcg Injection Vitamin B-12 Injection-To Shawnti R. Storm, INTERNAL CONTROLS ANALYST-C 09/11/2017 1000mcg Injection Vitamin B-12 Injection-To Shawnti R. Storm, INTERNAL CONTROLS ANALYST-C 05/22/2017 1000mcg Injection Vitamin B-12 Injection-To Shawnti R. Storm, INTERNAL CONTROLS ANALYST-C 01/17/2017 1000mcg Injection Vitamin B-12 Injection-To Shawnti R. Storm, INTERNAL CONTROLS ANALYST-C 07/05/2016 1000mcg Injection Vitamin B-12 Injection-To Shawnti R. Storm, INTERNAL CONTROLS ANALYST-C 03/28/2016 1000mcg Injection Vitamin B-12 Injection-To Shawnti R. Storm, INTERNAL CONTROLS ANALYST-C 09/19/2015 1000mcg Injection Vitamin B-12 Injection-To Shawnti R. Storm, INTERNAL CONTROLS ANALYST-C 08/22/2015 1000mcg Injection Vitamin B-12 Injection-To Shawnti R. Storm, INTERNAL CONTROLS ANALYST-C 03/06/2015 1000mcg Injection Vitamin B-12 Injection-To Shawnti R. Storm, INTERNAL CONTROLS ANALYST-C 04/12/2014 1000mcg Injection Vitamin B-12 Injection-To Shawnti R. Storm, INTERNAL CONTROLS ANALYST-C 03/11/2014 1000mcg Injection Vitamin B-12 Injection-To Shawnti R. Storm, INTERNAL CONTROLS ANALYST-C 10/14/2013 1000mcg Injection Vitamin B-12 Injection-To [facility] 03/10/2013 1000mcg Injection Vitamin B-12 Injection-To Og Arce, INTERNAL CONTROLS ANALYST-C 12/29/2012 1000mcg Injection Vitamin B-12 Injection-To [facility] 12/02/2012 1000mcg Injection Vitamin B-12 Injection-To [facility] 09/21/2012 1000mcg Injection Vitamin B-12 Injection-To [facility] 08/14/2012 1000mcg Injection Vitamin B-12 Injection-To Og Arce, INTERNAL CONTROLS ANALYST-C 01/24/2012 1000mcg Injection Vitamin B-12 Injection-To Og Eric Claude, INTERNAL CONTROLS ANALYST-C 12/10/2011 1000mcg Injection Vitamin B-12 Injection-To Og Arce, INTERNAL CONTROLS ANALYST-C 11/04/2011 1000mcg Injection Vitamin B-12 Injection-To Og Eric Claude, INTERNAL CONTROLS ANALYST-C 06/06/2011 1000mcg Injection Vitamin B-12 Injection-To Og Arce, INTERNAL CONTROLS ANALYST-C 04/26/2011 1000mcg Injection Vitamin B-12 Injection-To [facility] 03/05/2011 1000mcg Injection Vitamin B-12 Injection-To Og Eric Claude, INTERNAL CONTROLS ANALYST-C 01/24/2011 1000mcg Injection Vitamin B-12 Injection-To Og Eric Claude, INTERNAL CONTROLS ANALYST-C 09/27/2010 1000mcg Injection Vitamin B-12 Injection-To Og Eric Claude, INTERNAL CONTROLS ANALYST-C 07/17/2010 1000mcg Injection Vitamin B-12 Injection-To Og Eric Claude, INTERNAL CONTROLS ANALYST-C 06/08/2010 1000mcg Injection Vitamin B-12 Injection-To Og Arce, INTERNAL CONTROLS ANALYST-C 04/09/2010 1000mcg Injection Vitamin B-12 Injection-To Lab [...] 1000mcg Injection Vitamin B-12 Injection-To Og Arce INTERNAL CONTROLS ANALYST-C 07/26/2009 1000mcg Injection Vitamin B-12 Injection-To Og Arce [facility] 06/09/2009 1000mcg Injection Vitamin B-12 Injection-To [facility] 04/25/2009 1000mcg Injection Vitamin B-12 Injection-To Og Arce INTERNAL CONTROLS ANALYST-C 03/13/2009 1000mcg Injection Vitamin B-12 Injection-To Aurora Solano M.D. 01/26/2009 1000mcg Injection Vitamin B-12 Injection-To Og Arce [facility] 01/03/2009 1000mcg Injection Vitamin B-12 Injection-To [...] Vitamin B-12 Injection-To Amalia Zacarias, 09/03/2003 1000mcg MNathanael Injection Vitamin B-12 Injection-To Aurora Solano M.D. [...] CPT Code Status Date Vaccine Lot # 38825 Given 07/27/2019 Influenza Vaccine High Dose PF [id number] 51406 Given 02/17/2018 Pneumovax 23 (PPSV23) 65+ years or high risk 2 to [id number] 63 year old 89031 Given 02/17/2018 Influenza Vaccine High Dose PF [id number] 15166 Given 05/22/2017 Influenza Vaccine High Dose PF [id number] 34531 Given 07/05/2016 Prevnar-13 Pneumococcal Conjugate Vaccine [id number] 67622 Given 03/28/2016 Influenza Vaccine High Dose PF [id number] 05628 Given 03/06/2015 Influenza Virus Vaccine, Quadrivalent, 3 Yr > [id number] Quad, Preserv Free 96342 Given 04/12/2014 Influenza Virus Vaccine, Quadrivalent, 3 Yr > [id number] Quad, Preserv Free 37766 Given 03/10/2013 Influenza Vaccine-Preservative Free 3 Yrs And [id number] Above 74402 Given 03/23/2012 Influenza Vaccine-Preservative Free 3 Yrs And Above 41347 Given 01/24/2012 Pneumovax 23 (PPSV23) 65+ years or high risk 2 to [id number] 63 year old 77293 Given 03/05/2011 Influenza Vaccine-Preservative Free 3 Yrs And [id number] Above 37484 Given 04/02/2010 Influenza Vaccine-Preservative Free 3 Yrs And Above 84837 Given 04/02/2010 Influenza Vaccine-Preservative Free 3 Yrs And Above 22613 Given 06/09/2009 H1N1 Influenza Vaccine [id number] 49038 Given 06/09/2009 H1N1 Immunization Administration, Including Counseling 43842 Given 05/10/2009 Influenza Virus Vaccine, 3 Yrs And Above 67867 Given 05/26/2008 Influenza Virus Vaccine, 3 Yrs And Above [id number] 43064 Given 04/16/2007 Tdap (Adacel) [id number] 32109 Given 04/16/2007 Influenza Virus Vaccine, 3 Yrs And Above [id number] 59907 Given 04/23/2006 Influenza Virus Vaccine, 3 Yrs And Above [id number] 76864 Given 05/10/2005 Influenza Virus Vaccine, 3 Yrs And Above [id number] 99369 Given 05/30/2004 Influenza Virus Vaccine, 3 Yrs And Above 89857 Given 03/31/2003 Influenza Virus Vaccine, 3 Yrs And Above 30627 Given 03/31/2003 Influenza Virus Vaccine, 3 Yrs And Above 78395 Given 03/24/2001 Influenza Virus Vaccine, 3 Yrs And Above 60125 Given 02/20/1999 Pneumovax 23 (PPSV23) 65+ years [...] Result H/L Range Note Date Laboratory 08/27/2019 [facility] B-Type 186 pg/mL High <=100 test finding [phone] Natriuretic Peptide BNP Laboratory 08/27/2019 [facility] Lactic Acid 0.8 mmol /L Normal 0.5-2.0 1 test finding [phone] CBC Auto Diff 08/27/2019 [facility] White Blood 7.6 Normal 3.5-10.8 [phone] Count 10^3/uL Red Blood Count 3.77 10^6/uL [...] % 0.0 Influenza A & B 08/27/2019 [facility] Flu AB Disclaimer (SEE NOTE) 2 Request [phone] Influenza A Molecular Negative Negative Influenza B Molecular Negative Negative 3 Urinalysis Profile 08/27/2019 [facility] Urine Color [phone] Urine Appearance Cloudy Urine Specific [place] 1.010 Normal 1.010-1.030 Urine pH 7.0 Normal [...] Present Abnormal Absent Urine Culture And 08/27/2019 [facility] Urine SEE RESULT 4 Sensitivities [phone] Culture BELOW Laboratory test 08/27/2019 [facility] Troponin-I 0.01 ng/mL <0.03 5 finding [phone] (TnI) Comp Metabolic 08/27/2019 [facility] Albumin 3.8 g/ dL Normal 3.2-5 Panel [phone] .2 Sodium 137 mmol/L Normal 135-145 Potassium [...] Egfr 21.1 >60 6 Basic Metabolic 08/17/2019 [facility] Sodium 140 mmol /L Normal 135-145 Panel [phone] Potassium 4.4 mmol/L Normal 3.5-5.0 Chloride 98 mmol/L Low 101-111 Co2 Carbon Dioxide 31 mmol/L Normal 22-32 Anion Gap 11 mmol/L Normal 2-11 Glucose 132 mg/dL High 70-100 Blood Urea Nitrogen 49 mg/dL High 6-24 Creatinine 2.61 mg/dL High 0.51-0.95 BUN/Creatinine Ratio 18.8 Normal 8-20 Calcium 8.5 mg/dL Low 8.6-10.3 Egfr Non- 18.2 >60 Egfr 22.0 >60 7 Laboratory 08/17/2019 [facility] B-Type 221 pg/mL High <=100 test finding [phone] Natriuretic Peptide BNP CBC Auto Diff 08/17/2019 [facility] White Blood 8.3 Normal 3.5-10.8 [phone] Count 10^3/uL Red Blood Count 3.51 10^6/uL [...] Blood Cells % 0.0 Liver Function 08/17/2019 [facility] Total Protein 6.9 g/dL Normal 6.4-8.9 Panel [phone] Albumin 3.6 g/dL Normal 3.2-5.2 Globulin 3.3 g/dL Normal 2-4 Albumin/Globulin Ratio 1.1 Normal 1-3 Total Bilirubin 1.60 mg/dL High 0.2-1.0 Direct Bilirubin 0.60 mg/dL High 0.03-0.18 Indirect Bilirubin 1.0 mg/dL Normal 0.3-1.0 Alkaline Phosphatase 112 U/L High 34-104 Alt 9 U/L Normal 7-52 Ast 9 U/L Low 13-39 Urinalysis Profile 04/12/2019 [facility] Urine Color Monica [phone] Urine Appearance Turbid Urine Specific [place] 1.012 Normal 1.010-1.030 Urine pH 6.0 Normal [...] Cell Present Abnormal Absent Urine Microalbumin 04/12/2019 [facility] Ur Microalbumin 327.5 mg/L Random [phone] (mg/L) Urine Creatinine 108.49 mg/dL Urine Microalbumin/Creatinine 301.8 High <31 Laboratory test 04/12/2019 [facility] Creatinine Random 108.49 mg/dL finding [phone] Urine Total Protein Random Urine 112 mg/dL Basic Metabolic 04/12/2019 [facility] Sodium 139 mmol /L Normal 135-145 Panel [phone] Potassium 3.9 mmol/L Normal 3.5-5.0 Chloride 99 mmol/L Low 101-111 Co2 Carbon Dioxide 33 mmol/L High 22-32 Anion Gap 7 mmol/L Normal 2-11 Glucose 134 mg/dL High 70-100 Blood Urea Nitrogen 40 mg/dL High 6-24 Creatinine 2.58 mg/dL High 0.51-0.95 BUN/Creatinine Ratio 15.5 Normal 8-20 Calcium 8.8 mg/dL Normal 8.6-10.3 Egfr Non- 18.4 >60 Egfr 22.3 >60 9 Laboratory test 04/12/2019 [facility] Phosphorus 4.2 mg/dL Normal 2.5-5.0 finding [phone] Pthi 04/12/2019 [facility] Calcium (PTH 8.8 mg/dL Normal 8.6-10.3 [phone] Intact) PTH Intact 136.6 pg/mL High 12-88 CBC Auto 04/12/2019 [facility] Red Blood 3.40 10^6/ uL Low 3.70-4.87 Diff [phone] Count Hemoglobin 11.5 g/dL Low 12.0-16.0 Hematocrit 35 % Normal 35-47 Mean Corpuscular Volume 103 fL High 80-97 Mean Corpuscular Hemoglobin 34 pg High 27-31 Mean Corpuscular HGB Conc 33 g/dL Normal 31-36 Red Cell Distribution Width 14 % Normal 10-15 White Blood Count 8.1 10^3/uL Normal 3.5-10.8 10 Platelet Count 162 10^3/uL Normal 150-450 11 Manual Differential 04/12/2019 [facility] Neutrophil % 70.0 % [phone] Lymphocytes % 20.0 % Monocytes % 8.0 % Eosinophils % 2.0 % RBC Morphology Normal Normal Abs Neutrophils 5.7 10^3/uL Normal 1.5-7.7 Abs Lymphocytes 1.6 10^3/uL Normal 1.0-4.8 Abs Monocytes 0.6 10^3/uL Normal 0-0.8 Abs Eosinophils 0.2 10^3/uL Normal 0-0.6 Urine Culture And 04/12/2019 [facility] Urine Culture SEE RESULT 12 Sensitivities [phone] BELOW 1 [place] Severe Sepsis and Septic Shock Management Bundle Measure requires all lactic acids initially measuring >2.0 mmol/L be repeated. 2 Suboptimal collection technique may reduce sensitivity of test. Refer to the [facility] Test Catalog for collection information: [email or web address] As with all diagnostic procedures, the laboratory results obtained should be used in conjunction with other clinical information available to the physician, including confirmation by another method, as applicable. 3 Respiratory Care Faculty: [id number] 4 SEE RESULT BELOW Name: PERLA FRANKEL : [address]: Anoop Pompa MD Acct: [id number] Unit: [id number] AGE: 68 Location: ED Re08/27/19 SEX: F Status: DEP ER SPEC: [id number] RAN: 08/27/[address]: Anoop Pompa MD REQ: [id number] RECD: 08/27/19 STATUS: ROMEO JENNINGS DR: Og Arce FUNCTIONAL CONSULTANT _ SOURCE: URINE SPDESC: ORDERED: Urine Culture Procedure Result Reported Site Urine Culture Final 08/30/19- 1012 ML Organism 1 PROTEUS MIRABILIS [place] Count 50-75,000 (Many) CFU/ML Organism 2 NORMAL ANJEL [place] Count 25-50,000 (Moderate) CFU/ML 1. PROTEUS MIRABILIS [...] . END OF REPORT DEPARTMENT OF PATHOLOGY, [address] [place] [address] Gregg Harmon M.D. Director [facility] # [id number] 5 Troponin-I testing on Plasma Separator Tubes (PST) has a known false positive rate of 0.20-0.40%. All positive troponins reflex immediately to secondary confirmatory testing. Using the [employer] DxI 800 Access Immunoassay systems, the 99th [...] [address]: Margaret Barry MD Acct: [id number] Unit: [id number] AGE: 68 Location: LAB Re04/12/19 SEX: F Status: REG REF SPEC: [id number] RAN: 04/12/[address] [facility] [address]: Margaret Barry MD REQ: [id number] RECD: 04/12/19 STATUS: RES OTHR DR: Og Arce FUNCTIONAL CONSULTANT _ SOURCE: URINE SPDESC: ORDERED: Urine Culture Procedure Result Reported Site Urine Culture Preliminary 04/14/19834 ML Organism 1 PROTEUS MIRABILIS [place] Count >100,000 (Many) CFU/ML * ML - Main Lab . END OF REPORT DEPARTMENT OF PATHOLOGY, [address] [place] [address] Gregg Harmon M.D. Director [facility] # [id number] Procedures Date Code Description Status 03/30/2019 38936 Therapeutic,Prophylactic,Or Diagnostic Inj,SC/Im Specify Completed Drug Medical Devices Description No Information Available Encounters Type Date Location Provider Dx Diagnosis Office Visit 08/17/2019 Main Office Cedric Burch, N18.9 Chronic kidney 9:15a MD disease, unspecified I50.20 Unspecified systolic (congestive) heart failure Office Visit 03/30/2019 10:30a Main Office Og Eric E11.65 Type 2 diabetes BETTY Arce mellitus with hyperglycemia E53.8 Deficiency of other specified B group vitamins Assessments Date Code Description Provider 09/16/2019 N18.9 Chronic kidney disease, unspecified RICARDO MattsonP-C 09/16/2019 I50.20 Unspecified systolic (congestive) heart FRANCISCO Mattson-Jessica failure 09/16/2019 E11.65 Type 2 diabetes mellitus with hyperglycemia FRANCISCO Mattson-C 08/17/2019 N18.9 Chronic kidney disease, unspecified Cedric Burch MD 08/17/2019 I50.20 Unspecified systolic (congestive) heart Cedric Burch MD failure 07/27/2019 Z23 Encounter for immunization FRANCISCO Mattson-C 03/30/2019 E11.65 Type 2 diabetes mellitus with hyperglycemia FRANCISCO Mattson-C 03/30/2019 E53.8 Deficiency of other specified B group RICARDO MattsonP -C vitamins Plan of Treatment Future Appointment(s):01/25/2020 1:30 pm - FRANCISCO Mattson-C at Main Xqngae5809/16/2019 - FRANCISCO Mattson-CN18.9 Chronic kidney disease, unspecifiedNew Labs:CBC Auto Diff, Scheduled: 09/22/19Basic Metabolic Panel, Scheduled: 09/22/19Comments:discussed getting a scale to weigh herself daily, let me know if SOB develops or if she feels like her fluid retention has become worseFollow up:1 izoapU41.20 Unspecified systolic (congestive) heart failureNew Labs:B-Type Natriuretic Peptide BNP, Scheduled: 09/22/19Comments:continue current medications ... BMP and BNP via home draw, will adjust medications pending these xwkrdipQ94.65 Type 2 diabetes mellitus with hyperglycemiaNew Labs: Hemoglobin A1c (Glyco HGB), Scheduled: 09/22/19Comments:will have home lab draw for HgbA1c. continue current dose medications .... HgbA1c with home blood draw Functional Status Description No Information Available Mental Status Description No Information Available Referrals Description No Information Available
[2019-09-29 17:26] LABS: ABS Eosinophils 0.1 10^3/ul (0-0.6); ABS Lymphocytes 1.2 10^3/ul (1.0-4.8); ABS Monocytes 0.9 10^3/ul (0-0.8); ABS Neutrophils 4.1 10^3/ul (1.5-7.7); Eosinophil % 1.3 %; Hematocrit 31 % (35-47); Hemoglobin 9.9 g/dL (12.0-16.0); Lymphocyte % 18.8 %; Mean Corpuscular HGB Conc 32 g/dL (31-36); Mean Corpuscular Hemoglobin 29 pg (27-31); Mean Corpuscular Volume 91 fL (80-97); Mean Platelet Volume 9.3 fL (7.4-10.4); Platelet Count 161 10^3/uL (150-450); Red Blood Count 3.42 10^6 /uL (3.70-4.87); Red Cell Distribution Width 20 % (10-15); White Blood Count 6.3 10^3/uL (3.5-10.8)
[2019-09-29 17:36] LABS: INR 1.1 (0.82-1.09)
[2019-09-29 17:43] LABS: ALT 8 U/L (7-52); AST 7 U/L (13-39); Albumin 3.3 g/dL (3.2-5.2); Albumin/Globulin Ratio 0.9 (1-3); Alkaline Phosphatase 106 U/L (34-104); Anion Gap 6 mmol/L (2-11); BUN/Creatinine Ratio 15.4 (8-20); Blood Urea Nitrogen 38 mg/dL (6-24); CO2 Carbon Dioxide 36 mmol/L (22-32); Calcium 8.8 mg/dL (8.6-10.3); Chloride 98 mmol/L (101-111); EGFR African American 23.5 (>60); EGFR Non-African American 19.5 (>60); Globulin 3.5 g/dL (2-4); Glucose 173 mg/dL (70-100); Sodium 140 mmol/L (135-145); Total Protein 6.8 g/dL (6.4-8.9)
[2019-09-29 17:45] LABS: Troponin I 0.04 ng/mL (<0.03)
[2019-09-29] MEDS ORDERED: Ondansetron INJ* 2 MG/ML VIAL IV PRN (18:24)
[2019-09-29] MEDS ORDERED: Albuterol HFA INHALER* 8 gm MDI INH PRN (18:27)
[2019-09-29] MEDS ORDERED: Dextrose 50% Syringe 50 ML* 25 GM/50 ML SYRINGE IV PUSH PRN (18:30)
[2019-09-29] MEDS ORDERED: Albuterol/Ipratropium NEB.SOL* Albuterol 2.5 MG/Ipratropium 0.5 MG 3 ML INH PRN (18:44)
[2019-09-29 19:14] LABS: % Iron Saturation 7 % (15-55); Iron 28 ug/dL (50-212); Total Iron Binding Capacity 402 mcg/dL (250-450); Transferrin 287 mg/dL (203-362)
[2019-09-29 19:36] LABS: Ferritin 21.8 ng/mL (11-307)
[2019-09-29 19:40] LABS: Folate 18.39 ng/mL (>3.99)
[2019-09-29] MEDS ORDERED: Enoxaparin(*) 40 MG/0.4 ML SYR SUBCUT SCH (20:00)
--- NOTE | 2019-09-29 20:49 | HP ---
CC: Og Arce NP; Dr. Roopa Garsia* ADMISSION HISTORY AND PHYSICAL: DATE OF ADMISSION: 09/29/19 PRIMARY CARE PROVIDER: Og Arce NP MY ATTENDING WHILE IN THE HOSPITAL: Dr. Roopa Garsia* (dictated by JASON Gomez). CHIEF COMPLAINT: Shortness of breath x1 week. HISTORY OF PRESENT ILLNESS: Ms. Frankel is a 68-year-old female with past medical history significant for severe morbid obesity with concern for obesity hypoventilation syndrome, heart failure with preserved ejection fraction, COPD, diabetes, and chronic kidney disease, stage 4, who presents to the emergency department after a series of events that started approximately 2 months ago with her being prescribed Lyrica through the pain clinic. She feels like her edema significantly worsened abruptly. After that, she only took 1 day's worth of doses of that, called the pain clinic, they told her to continue the medication, but she did not continue the medication. However, she did not feel like her swelling improved greatly despite an increase in her Lasix dose. The patient for approximately 1 month before her admission noticed increased pain in her legs, particularly her right leg, with redness and pain and worsening in numbness, burning, and tingling that she has not had before. The patient felt for approximately 2 weeks that she has been unable to walk due to the swelling and pain in her legs. The patient is concerned because she says that approximately 1 month ago at her primary care doctor's office, she had a weight which was 370 pounds, which was up from 310 pounds soon before that. The patient has not had any other recent changes in her medications except for the increase in her Lasix and the start of her Lyrica. The patient has not had any fevers or chills. The patient has had no dietary indiscretions that she can think of. The patient has not missed any doses of her medication. The patient came into the hospital today due to weakness and no longer being able to ambulate at home. The patient was found to be hypoxic by the EMS and started on oxygen which quickly resolved her hypoxia. The patient in the emergency department was found to have an elevated troponin, an elevated D-dimer, creatinine at her baseline, and anemia worse than her baseline. Due to concern for hypoxia and inability to ambulate and concern for CHF exacerbation, we were asked to evaluate the patient for admission to the hospital. 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 PAST SURGICAL HISTORY: Cholecystectomy, appendectomy, colectomy, mesh surgery. MEDICATIONS: The patient did not have list of her medications. Medications per med rec: 1. Insulin sliding scale subcutaneous with meals. 2. Montelukast 10 mg p.o. daily. 3. Famotidine 40 mg p.o. daily. 4. Simvastatin 20 mg p.o. at bedtime. 5. Vitamin D3 5000 units p.o. q.7 days. 6. Aspirin 81 mg p.o. daily. 7. Duloxetine 30 mg p.o. daily. 8. Furosemide 40 mg p.o. at bedtime. 9. Furosemide 80 mg p.o. daily. 10. Potassium chloride 10 mEq p.o. daily. 11. Ventolin 2 puffs inhalation q.4 hours as needed. 12. Tylenol 650 mg p.o. q.6 hours as needed. 13. Cyanocobalamin 1000 mcg p.o. daily. 14. Insulin glargine 15 units subcutaneous b.i.d. 15. Ferrous sulfate 325 mg p.o. daily. 16. Pregabalin 50 mg p.o. b.i.d. The patient states she does not take this anymore. 17. Spironolactone 25 mg p.o. daily. 18. Morphine sulfate extended release 15 mg p.o. b.i.d. ALLERGIES: CEFOXITIN, LYRICA. FAMILY HISTORY: The patient's father of coronary artery disease and diabetes complications. The patient's mother of bowel cancer and had diabetes and coronary artery disease. The patient has 3 sisters, one of whom suffers from schizophrenia and the other 2 who suffer from COPD. SOCIAL HISTORY: The patient smoked for 8 to 9 years and quit in 1995. The patient does not drink alcohol or use illicit drugs. The patient is disabled, but used to work in secretarial duties at [employer]. The patient is and has 1 daughter and 3 grandchildren. REVIEW OF SYSTEMS: A 12-point review of systems was reviewed and is negative except as above in the HPI. PHYSICAL EXAMINATION GENERAL: The patient is a 68-year-old female, who appears stated age and sitting in bed, in no acute distress. VITAL SIGNS: At the time of evaluation, temperature 97.7, pulse rate 84, respiratory rate 19, oxygen saturation 100% on 2 L, blood pressure 126/64. HEENT: Head: Normocephalic, atraumatic. Sclerae anicteric. No conjunctival injection. Nasal mucosa moist. Oral mucosa moist. No pharyngeal erythema, discharge, or exudate. NECK: Supple, nontender. No lymphadenopathy. No carotid bruit auscultated. No JVD. RESPIRATORY: Limited due to the patient's body habitus. No adventitious lung sounds heard. CARDIAC: Regular rate and rhythm. No clicks, murmurs, gallops, or rubs. Pulses 2+ in the dorsalis pedis, posterior tibialis, and radial areas. 3+ bilateral lower extremity edema noted. Slight worse swelling in the right lower extremity with associated erythema and tenderness. ABDOMEN: Soft, nontender, nondistended. Bowel sounds present. Normoactive in all 4 quadrants. No hepatosplenomegaly. No abdominal bruits auscultated. No hepatojugular reflux. Chronic mesh wound around the umbilicus. GENITOURINARY: No suprapubic or CVA tenderness. NEUROLOGIC: Cranial nerves II through XII intact. Distal neuropathy noted. PSYCHIATRIC: Pleasant and cooperative. SKIN: Clean, dry, and intact. No rash except for above mentioned wound. DIAGNOSTIC STUDIES/LAB DATA: Laboratory data: White blood cell count 6.3, hemoglobin 9.9, platelet count 161. INR 1.0. D-dimer 371. Sodium 140, potassium 4.0, chloride 98, carbon dioxide 36, anion gap 6, BUN 38, creatinine 2.46, glucose 173, calcium 8.8. Bilirubin 2.1, AST 7, ALT 8, alkaline phosphatase 106. Troponin I 0.04. Protein 6.8, albumin 3.3, globulin 3.5. Studies: Chest x-ray read as mild interstitial pulmonary edema, limited by body habitus. ASSESSMENT AND PLAN: Impression: Ms. Frankel is a 68-year-old female with past medical history significant for morbid obesity, obesity hypoventilation syndrome , heart failure with preserved ejection fraction, chronic obstructive pulmonary disease, diabetes and chronic kidney disease, who presents to the emergency department with shortness of breath for a week and hypoxia, found to be consistent with heart failure exacerbation, admitted to the hospital for aggressive diuresis and further diagnostic workup. 1. Acute hypoxic respiratory failure likely related to heart failure, previously known preserved ejection fraction, concern for pulmonary embolism. The patient has gained significant amount of weight over the last several months. This all started after the patient took Lyrica which is a known possible precipitant of congestive heart failure. The patient states that she has gained 60 pounds in the last month, the veracity of this is not clear. The patient, however, is up at least 20 pounds per her report from last year in June. The patient will have strict I's and O's and daily weights. The patient will have Lasix b.i.d. IV 60 mg in addition to her spironolactone. Given the patient's asymmetric leg swelling, there is some concern for pulmonary embolism. Given the patient cannot have a CTA based on her GFR, the patient will have lower extremity Doppler and a transthoracic echocardiogram to help assess for secondary signs of pulmonary embolism. A V/Q scan will be considered if indicated as additional workup. The patient does have an elevated troponin, though she does not have tachycardia nor hypertension. The patient has an elevated D-dimer even through age-adjusted cutoff, though given her comorbidities, the clinical significance is not clear. 2. Chronic obstructive pulmonary disease, obesity hypoventilation syndrome. These are likely contributing to the patient's presentation. The patient should aim for an oxygen saturation in the high 80s to low 90s to help avoid CO2 narcosis. The patient's carbon dioxide on her BMP is already significantly elevated over all of her previous measurements. Monitor daily. The patient does not appear to be in chronic obstructive pulmonary disease exacerbation. The patient will have DuoNebs while in the hospital. 3. Chronic kidney disease. The patient's kidney disease is advanced. Her creatinine is at baseline. 4. Diabetes mellitus, type 2. The patient's blood glucose is only 170 at this time. The patient will be continued on her home dose of glargine with a sliding scale insulin lispro. 5. Chronic pain. Continue the patient's duloxetine and morphine. 6. Anemia. The patient's anemia is of unclear cause. We will check vitamin B12 level and iron panel. The patient does have an elevated RDW. The patient is on iron supplementation at home, but if the patient is found to be iron deficient, IV iron should be considered. 7. FEN: The patient will have heart-healthy diet without caffeine. Fluids restricted if needed. No fluids are indicated at this time. 8. DVT prophylaxis: The patient will be on Lovenox, renally dosed. No indication for full anticoagulation at this time. 9. Disposition: The patient will be admitted to the hospital inpatient with expected length of stay greater than 2 midnights. TIME SPENT: Approximately 60 minutes was spent on this admission of this patient, 30 of which was spent [id number] with the patient obtaining history and physical and discussing treatment plan. This plan was discussed with my attending, Dr. Roopa Garsia, and she is in agreement. JASON GOMEZ [id number]/CPS #: [id number] ALFIE
[2019-09-29 21:36] LABS: Troponin I 0.03 ng/mL (<0.03)
[2019-09-29] MEDS: Insulin LISPRO* 1 UNITS UNIT SUBCUT SCH (22:22)
[2019-09-29] MEDS: Atorvastatin* 10 MG TAB PO SCH (23:28)
[2019-09-29] MEDS: Morphine TAB Extended Release (*) 15 MG TAB.ER PO SCH (23:28)
[2019-09-30] MEDS ORDERED: Perflutren Lipid Microsphere* 3 ML VIAL ONE ×2 (08:14→10:28)
[2019-09-30] MEDS ORDERED: Ferrous Sulfate TAB* 325 MG PO SCH (09:00)
[2019-09-30] MEDS: Montelukast Sodium TAB* 10 MG PO SCH (09:27)
[2019-09-30] MEDS: DULoxetine DR CAP* 30 MG CAP.DR PO SCH (09:27)
[2019-09-30] MEDS: Potassium Chlor TAB* 10 MEQ TAB.ER PO SCH (09:27)
[2019-09-30] MEDS: Aspirin EC TAB* 81 MG TAB.EC PO SCH (09:27)
[2019-09-30] MEDS: Spironolactone TAB* 25 MG PO SCH (09:27)
[2019-09-30] MEDS: Famotidine TAB* 20 MG PO SCH (09:27)
[2019-09-30] MEDS: Cyanocobalamin TAB* 500 MCG PO SCH (09:27)
[2019-09-30] MEDS: Insulin LISPRO* 1 UNITS UNIT SUBCUT SCH ×4 (09:28→21:04)
[2019-09-30] MEDS: Insulin GLARGINE(*) 1 UNITS UNIT SUBCUT SCH (09:28)
[2019-09-30] MEDS: Furosemide IV* 10 MG/ML VIAL (40 MG) IV SLOW PU SCH ×2 (09:32→17:47)
[2019-09-30] MEDS: Morphine TAB Extended Release (*) 15 MG TAB.ER PO SCH ×3 (12:30→23:14)
[2019-09-30] MEDS: Iron Sucrose* 200 MG in NS 0.9% 100 ML* 100 ML IVPB SCH (12:33)
--- NOTE | 2019-09-30 12:45 | ECHO ---
*[facility]* [place] [address] Fax #: [phone] Transthoracic Echocardiogram Patient: Perla Frankel : 1950 Study Date: 09/30/2019 Age: 68 Gender: F HR: 81 bpm Height: 62 in /157.5 cm BSA: 2.42 m^2 Weight: 349.3 lb /158.8 kg BMI: 64 kg/m^2 *Appliance Assembler: * Nadege Orourke [facility] *Referring Physician: * Mc Gutierrez *Reading Physician: * Eric Bailey MD Indications: Congestive Heart Failure. History: Chronic obstructive pulmonary disease. Functional status: Renal failure. Risk factors: Hypertension. Diabetes mellitus. Morbidly obese. Dyslipidemia. Conclusions Summary: - Left ventricle: The cavity size is normal. Wall thickness is mildly increased. Systolic function is normal. The estimated ejection fraction is 60-65%. Although no diagnostic regional wall motion abnormality is identified, this possibility cannot be completely excluded on the basis of this study. - Right ventricle: The cavity size is mildly dilated. Systolic function is mildly reduced. Systolic pressure is within the normal range. - Left atrium: The atrium is mildly dilated. - No functionally significant valvular abnormalities noted. Recommendations: Compared to 07/2016, LVEF was previously hyperdynamic. Study data: Transthoracic echocardiogram. Procedure: Transthoracic echocardiography was performed. Image quality was suboptimal. Intravenous Definity , 4 mlswas administered. 2 mL Definity was attempted. No Definity was detected in 2D imaging. An IV was replaced by Vascular access steamfitter Joshua CORCORAN. 2 mL Definity was attempted. Again, no Definity was detected in 2D imaging. Complete 2D, spectral Doppler, and color flow Doppler. Location: Bedside. Patient status: Inpatient. Patient room number: 443-01. Findings Left ventricle: The cavity size is normal. Wall thickness is mildly increased. Systolic function is normal. The estimated ejection fraction is 60-65%. Although no diagnostic regional wall motion abnormality is identified, this possibility cannot be completely excluded on the basis of this study. Left ventricular diastolic function parameters are indeterminate. Right ventricle: The cavity size is mildly dilated. Systolic function is mildly reduced. Systolic pressure is within the normal range. Left atrium: The atrium is mildly dilated. Right atrium: The atrium is normal in size. Mitral valve: The leaflets are mildly thickened. There is no evidence of stenosis. There is trace to mild regurgitation. Aortic valve: The annulus is mildly calcified. The valve is trileaflet. The leaflets are mildly thickened. There is no evidence of stenosis. There is no significant regurgitation. Tricuspid valve: The leaflets are normal thickness. There is no evidence of stenosis. There is trace to mild regurgitation. Pulmonic valve: Not well visualized. There is no evidence of stenosis. There is trace regurgitation. Aorta: Aortic root: The aortic root is appears normal. Ascending aorta: The ascending aorta is appears normal. Aortic arch: The aortic arch is appears normal. Pericardium: A prominent pericardial fat pad is present. There is no significant pericardial effusion. Pulmonary arteries: Not well visualized. Systemic veins: Inferior vena cava: The vessel is dilated. There is (>= 50%) respiratory change in the IVC dimension. Measurements Left ventricle Value Ref Aortic valve Value Ref VEENA, LAX 4.3 cm 3.8 - 5.2 Nevin diam, ED 2.1 cm ----- ESD, LAX 2.9 cm 2.2 - 3.5 Peak v, S 1.55 m/sec ----- FS, LAX 33 % 27 - 45 VTI, S 31.8 cm ----- PW, ED, LAX (H) 1.2 cm 0.6 - 0.9 Mean grad, S 4.0 mm Hg ----- FS 32 % 27 - 45 Peak grad, S 10.0 mm Hg ----- Mid-wall FS 12 % LVOT/AV, VTI ratio 0.65 ----- PW, ED (H) 1.2 cm 0.6 - 0.9 LOBO, VTI 2.04 cm^2 ----- E', lat nevin, TDI (L) 8.5 cm/sec >=10.0 LOBO, Vmax 1.98 cm^2 --- -- E/e', lat nevin, 15 TDI Mitral valve Value Ref E', med nevin, TDI 7.4 cm/sec >=7.0 Peak E 1.26 m/sec --- -- E/e', med nevin, 17 Peak A 0.93 m/sec ----- TDI Decel time 190 ms ----- E', avg, TDI 8.0 cm/sec Peak grad, D 6.4 mm Hg ----- E/e', avg, TDI (H) 16 <=14 Peak E/A ratio 1.4 --- -- LVOT Value Ref Pulmonic valve Value Ref Diam, S 2.00 cm Peak v, S 1.14 m/sec ----- Area 3.1 cm^2 Peak grad, S 5.0 mm Hg ----- Peak leni, S 0.98 m/sec VTI, S 20.7 cm Tricuspid valve Value Ref Mean grad, S 2 mm Hg TR peak v 2.59 m/sec <=2.8 SV 65 ml Peak RV-RA grad, S 27 mm Hg ----- SV/bsa 27 ml/m^2 Aortic root Value Ref Ventricular septum Value Ref Root diam 2.7 cm <4.5 IVS, ED (H) 1.3 cm 0.6 - 0.9 Ascending aorta Value Ref Right ventricle Value Ref AAo AP diam, S 3.1 cm ----- VEENA, LAX 3.0 cm VEENA minor ax, A4C (H) 4.6 cm 1.9 - 3.5 Aortic arch Value Ref mid Arch diam 2.6 cm ----- Pressure, S 35 mm Hg Decending aorta Value Ref Left atrium Value Ref Kaylee peak leni 0.96 m/sec ----- AP dim, ES 3.80 cm 2.70 - 3.80 Pulmonary artery Value Ref ML dim, A4C 4.9 cm Pressure, S 30.0 mm Hg ----- SI dim, A4C 5.3 cm Vol/bsa, ES, 1-p 33 ml/m^2 11 - 40 Inferior vena cava Value Ref A4C Diam 2.3 cm ----- Vol/bsa, ES, A/L 34 ml/m^2 16 - 34 Right atrium Value Ref SI dim, ES 4.6 cm 3.4 - 5.3 ML dim, ES, A4C 4.0 cm 2.6 - 4.4 Estimated RAP 8 mm Hg Legend: (L) and (H) mary values outside specified reference range. Prepared and electronically signed by Eric Bailey MD 09/30/2019 12:44
--- NOTE | 2019-09-30 13:11 | PN ---
Subjective Date of Service: 09/30/19 Interval History: Patient is feeling better today. Patient denies SOB. Patient has been urinating a lot. Patient denies F/C, N/V, abdominal pain, diarrhea, CP, Palpitations, dizziness, or other pain. Family History: Unchanged from Admission Social History: Unchanged from Admission Past Medical History: Unchanged from Admission Objective Active Medications: Acetaminophen (Tylenol Tab*) 650 mg PO Q6H PRN PRN Reason: MILD PAIN or TEMP > 100.4 Albuterol/Ipratropium (Duoneb (Albuterol 2.5 Mg/Ipratropium 0.5 Mg)) 1 neb INH Q6H PRN PRN Reason: SOB/WHEEZING Aspirin (Aspirin Ec Tab*) 81 mg PO DAILY [facility] Last Admin: 09/30/19 09:27 Dose: 81 mg Atorvastatin Calcium (Lipitor*) 10 mg PO BEDTIME [facility] Last Admin: 09/29/19 23:28 Dose: 10 mg Cyanocobalamin (Vitamin B12 Tab*) 1,000 mcg PO DAILY [facility] Last Admin: 09/30/19 09:27 Dose: 1,000 mcg Dextrose (D50w Syringe 50 Ml*) 12.5 gm IV PUSH .FOR FS < 60 - SS PRN PRN Reason: FS < 60 Duloxetine HCl (Cymbalta Cap*) 30 mg PO DAILY [facility] Last Admin: 09/30/19 09:27 Dose: 30 mg Enoxaparin Sodium (Lovenox(*)) 40 mg SUBCUT Q24H [facility] Last Admin: 09/29/19 23:30 Dose: 40 mg Famotidine (Pepcid Tab*) 40 mg PO DAILY [facility] Last Admin: 09/30/19 09:27 Dose: 40 mg Furosemide (Lasix Iv*) 60 mg IV SLOW PU 0800,1700 [facility] Last Admin: 09/30/19 09:32 Dose: 60 mg Iron Sucrose 200 mg/ Sodium (Chloride) 110 mls @ 440 mls/hr IVPB DAILY [facility] Stop: 10/04/19 09:14 Last Admin: 09/30/19 12:33 Dose: 440 mls/hr Insulin Glargine (Lantus(*)) 24 units SUBCUT DAILY [facility] Last Admin: 09/30/19 09:28 Dose: 24 units Insulin Human Lispro (Humalog*) 0 units SUBCUT ACHS [facility]; Protocol Last Admin: 09/30/19 12:31 Dose: 3 units Montelukast Sodium (Singulair Tab*) 10 mg PO DAILY [facility] Last Admin: 09/30/19 09:27 Dose: 10 mg Morphine Sulfate (Ms Contin(*)) 15 mg PO 1100,2300 [facility] Last Admin: 09/30/19 12:30 Dose: 15 mg Ondansetron HCl (Zofran Inj*) 4 mg IV Q6H PRN PRN Reason: NAUSEA Potassium Chloride (Klor Con Er Tab*) 10 meq PO DAILY [facility] Last Admin: 09/30/19 09:27 Dose: 10 meq Spironolactone (Aldactone Tab*) 25 mg PO DAILY [facility] Last Admin: 09/30/19 09:27 Dose: 25 mg Vital Signs - 8 hr 09/30/19 09/30/19 09/30/19 07:15 08:00 11:15 Temperature 97.8 F 97 F Pulse Rate 84 83 Respiratory 20 18 16 Rate Blood Pressure 126/63 125/53 (mmHg) O2 Sat by Pulse 98 96 Oximetry 09/30/19 12:30 Temperature Pulse Rate Respiratory 18 Rate Blood Pressure (mmHg) O2 Sat by Pulse Oximetry Oxygen Devices in Use Now: Nasal Cannula Appearance: Patient is a 68yo female who appears stated age and is sitting in the bed in [facility]. Eyes: No Scleral Icterus, PERRLA Ears/Nose/Mouth/Throat: NL Teeth, Lips, Gums, Clear Oropharnyx, Mucous Membranes Moist Neck: NL Appearance and Movements; NL JVP, Trachea Midline Respiratory: Symmetrical Chest Expansion and Respiratory Effort, Clear to Auscultation Cardiovascular: NL Sounds; No Murmurs; No JVD, RRR, - - 3+ B/L LE edema, Right greater than left with erythma on the right and chronic venous statis changes. Abdominal: NL Sounds; No Tenderness; No Distention, No Hepatosplenomegaly, - - Rotund, ventral hernia. Lymphatic: No Cervical Adenopathy Extremities: No Clubbing, Cyanosis Skin: No Nodules or Sclerosis Neurological: Alert and Oriented x 3, NL Sensation, NL Muscle Strength and Tone , - - CN II-XII intact. Result Diagrams: 09/29/19 17:00 09/29/19 17:00 Assess/Plan/Problems-Billing Assessment: Patient is a 68yo female with super morbid obesity, HFpEF, COPD, OHS, here with shortness of breath, weight gain, and difficulty ambulating, found of be in CHF exacerbation and improving on diuretics. - Patient Problems (1) Acute hypoxemic respiratory failure Current Visit: Yes Status: Acute Code(s): J96.01 - ACUTE RESPIRATORY FAILURE WITH HYPOXIA SNOMED Code(s): 647065800 Comment: - Sat 75% when yacht builder got patient per report - Due to CHF, though there is some residual concern for PE - If increased Right sided strain on Echo, consider V/Q scan - Wean O2 as tolerated and aim for O2 st in low 90s due to risk for CO2 Retention. (2) Diastolic CHF, chronic Current Visit: No Status: Acute Code(s): I50.32 - CHRONIC DIASTOLIC ( CONGESTIVE) HEART FAILURE SNOMED Code(s): 592006250 Comment: - Acute on Chronic, possibly precipitated by Lyrica use - Lasix IV BID, feels better with diuresis - Daily weight and strict I/O, patient refuses fay cath - Continue Spironolactone - IV Iron to correct deficiency and help with HF outcomes. - Elevate LE - Repeat echo to assess EF and right side fo heart. (3) CKD (chronic kidney disease) Current Visit: No Status: Acute Code(s): N18.9 - CHRONIC KIDNEY DISEASE, UNSPECIFIED SNOMED Code(s): 316664188 Comment: - At baseline, monitor with diuresis (4) COPD (chronic obstructive pulmonary disease) Current Visit: No Status: Acute Code(s): J44.9 - CHRONIC OBSTRUCTIVE PULMONARY DISEASE, UNSPECIFIED SNOMED Code(s): 26368815 Comment: - No signs of exacerbation, no indication for steroids - PRN nebulizers. (5) Diabetic neuropathy associated with type 2 diabetes mellitus Current Visit: No Status: Acute Priority: Medium Code(s): E11.40 - TYPE 2 DIABETES MELLITUS WITH DIABETIC NEUROPATHY, UNSP SNOMED Code(s): 814398339776570 Comment: - Continue Duloxetine and morphine (6) Morbid obesity Current Visit: No Status: Acute Code(s): E66.01 - MORBID (SEVERE) OBESITY DUE TO EXCESS CALORIES SNOMED Code(s): 261724528 Comment: - Recommend weight loss, may benefit from different diabetic treatments to help with this (7) Physical deconditioning Current Visit: No Status: Acute Code(s): R53.81 - OTHER MALAISE SNOMED Code(s): 95424522918185 Comment: - Continue PT/OT as tolerated. - Family currently resistant to JOVANY. (8) Type II diabetes mellitus Current Visit: No Status: Acute Comment: - 24u Glargine and SSI - Very good control with A1c of 6.7% earlier this year, may be a candidate for Oral medications like SGLT-2 inhibitors and GLP-1 agonists given super morbid obesity, heart disease and chronic kidney disease. (9) Wound, surgical, nonhealing Current Visit: No Status: Acute Code(s): T81.89XA - OTH COMPLICATIONS OF PROCEDURES, NEC, INIT SNOMED Code(s): 717635172 Comment: - Stable, chronic wound around ventral hernia repair (10) Chronic pain Current Visit: No Status: Chronic Priority: Medium Code(s): G89.29 - OTHER CHRONIC PAIN SNOMED Code(s): 88003952 Comment: - Continue Morphine ER, was intolerant to Lyrica (11) DVT prophylaxis Current Visit: No Status: Acute Code(s): DZE8236 - SNOMED Code(s): 390032895 Comment: - Lovenox (12) Full code status Current Visit: No Status: Acute Code(s): Z78.9 - OTHER SPECIFIED HEALTH STATUS SNOMED Code(s): 768140882
[2019-09-30 16:46] LABS: ABS Eosinophils 0.1 10^3/ul (0-0.6); ABS Monocytes 0.8 10^3/ul (0-0.8); ABS Neutrophils 3.2 10^3/ul (1.5-7.7); Eosinophil % 1.6 %; Hematocrit 27 % (35-47); Hemoglobin 8.4 g/dL (12.0-16.0); Lymphocyte % 19.1 %; Mean Corpuscular HGB Conc 32 g/dL (31-36); Mean Corpuscular Hemoglobin 29 pg (27-31); Mean Corpuscular Volume 92 fL (80-97); Mean Platelet Volume 9.1 fL (7.4-10.4); Nucleated Red Blood Cells % 0.1; Platelet Count 139 10^3/uL (150-450); Red Blood Count 2.91 10^6 /uL (3.70-4.87); Red Cell Distribution Width 19 % (10-15); White Blood Count 5.1 10^3/uL (3.5-10.8)
[2019-09-30 16:59] LABS: Anion Gap 4 mmol/L (2-11); BUN/Creatinine Ratio 14.9 (8-20); Blood Urea Nitrogen 36 mg/dL (6-24); CO2 Carbon Dioxide 37 mmol/L (22-32); Calcium 8.2 mg/dL (8.6-10.3); Chloride 100 mmol/L (101-111); EGFR Non-African American 19.8 (>60); Glucose 162 mg/dL (70-100); Potassium 4.3 mmol/L (3.5-5.0); Sodium 141 mmol/L (135-145)
[2019-09-30 17:05] LABS: Troponin I 0.03 ng/mL (<0.03)
--- NOTE | 2019-09-30 18:21 | PN ---
Hospitalist Progress Note Date of Service: 09/30/19 Patient's labs finally able to be obtained in afternoon, found to have significant drop in hemoglobin. Lovenox stopped and stool occult blood ordered. Recheck in AM.
[2019-09-30] MEDS: Atorvastatin* 10 MG TAB PO SCH (21:04)
[2019-10-01 07:06] LABS: ABS Eosinophils 0.1 10^3/ul (0-0.6); ABS Lymphocytes 1.3 10^3/ul (1.0-4.8); ABS Monocytes 0.9 10^3/ul (0-0.8); ABS Neutrophils 3.6 10^3/ul (1.5-7.7); Eosinophil % 1.6 %; Hematocrit 31 % (35-47); Hemoglobin 9.6 g/dL (12.0-16.0); Lymphocyte % 22.4 %; Mean Corpuscular HGB Conc 31 g/dL (31-36); Mean Corpuscular Hemoglobin 29 pg (27-31); Mean Corpuscular Volume 93 fL (80-97); Mean Platelet Volume 8.9 fL (7.4-10.4); Platelet Count 170 10^3/uL (150-450); Red Blood Count 3.34 10^6 /uL (3.70-4.87); Red Cell Distribution Width 19 % (10-15); White Blood Count 5.9 10^3/uL (3.5-10.8)
[2019-10-01 07:16] LABS: BUN/Creatinine Ratio 16.1 (8-20); Calcium 8.6 mg/dL (8.6-10.3); EGFR African American 23.9 (>60); EGFR Non-African American 19.8 (>60); Potassium 4.4 mmol/L (3.5-5.0)
[2019-10-01] MEDS: Insulin GLARGINE(*) 1 UNITS UNIT SUBCUT SCH (09:18)
[2019-10-01] MEDS: Insulin LISPRO* 1 UNITS UNIT SUBCUT SCH ×4 (09:18→21:02)
[2019-10-01] MEDS: Montelukast Sodium TAB* 10 MG PO SCH (09:20)
[2019-10-01] MEDS: Aspirin EC TAB* 81 MG TAB.EC PO SCH (09:20)
[2019-10-01] MEDS: DULoxetine DR CAP* 30 MG CAP.DR PO SCH (09:21)
[2019-10-01] MEDS: Famotidine TAB* 20 MG PO SCH (09:21)
[2019-10-01] MEDS: Spironolactone TAB* 25 MG PO SCH (09:22)
[2019-10-01] MEDS: Potassium Chlor TAB* 10 MEQ TAB.ER PO SCH (09:22)
[2019-10-01] MEDS: Cyanocobalamin TAB* 500 MCG PO SCH (09:22)
[2019-10-01] MEDS: Furosemide IV* 10 MG/ML VIAL (40 MG) IV SLOW PU SCH ×2 (09:23→17:44)
--- NOTE | 2019-10-01 10:12 | PN ---
Subjective Date of Service: 10/01/19 Interval History: Patient reports that he breathing is much improved today, denies shortness of breath. Denies fever or chills , denies abd pain n/v/d. OOB sitting in the chair. PT notes reviewed- patient requiring 2 assist for transferring- recommended JOVANY at discharge Family History: Unchanged from Admission Social History: Unchanged from Admission Past Medical History: Unchanged from Admission Objective Active Medications: Acetaminophen (Tylenol Tab*) 650 mg PO Q6H PRN PRN Reason: MILD PAIN or TEMP > 100.4 Albuterol/Ipratropium (Duoneb (Albuterol 2.5 Mg/Ipratropium 0.5 Mg)) 1 neb INH Q6H PRN PRN Reason: SOB/WHEEZING Aspirin (Aspirin Ec Tab*) 81 mg PO DAILY [facility] Last Admin: 10/01/19 09:20 Dose: 81 mg Atorvastatin Calcium (Lipitor*) 10 mg PO BEDTIME [facility] Last Admin: 09/30/19 21:04 Dose: 10 mg Cyanocobalamin (Vitamin B12 Tab*) 1,000 mcg PO DAILY [facility] Last Admin: 10/01/19 09:22 Dose: 1,000 mcg Dextrose (D50w Syringe 50 Ml*) 12.5 gm IV PUSH .FOR FS < 60 - SS PRN PRN Reason: FS < 60 Duloxetine HCl (Cymbalta Cap*) 30 mg PO DAILY [facility] Last Admin: 10/01/19 09:21 Dose: 30 mg Famotidine (Pepcid Tab*) 40 mg PO DAILY [facility] Last Admin: 10/01/19 09:21 Dose: 40 mg Furosemide (Lasix Iv*) 60 mg IV SLOW PU 0800,1700 [facility] Last Admin: 10/01/19 09:23 Dose: 60 mg Heparin Sodium (Porcine) (Heparin Flush Picc/Ml/Cvc(*)) 0 ml FLUSH 0600,1800 [facility] Last Admin: 10/01/19 05:48 Dose: 1 ml Iron Sucrose 200 mg/ Sodium (Chloride) 110 mls @ 440 mls/hr IVPB DAILY [facility] Stop: 10/04/19 09:14 Last Admin: 09/30/19 12:33 Dose: 440 mls/hr Insulin Glargine (Lantus(*)) 24 units SUBCUT DAILY [facility] Last Admin: 10/01/19 09:18 Dose: 24 units Insulin Human Lispro (Humalog*) 0 units SUBCUT ACHS [facility]; Protocol Last Admin: 10/01/19 09:18 Dose: 3 units Montelukast Sodium (Singulair Tab*) 10 mg PO DAILY [facility] Last Admin: 10/01/19 09:20 Dose: 10 mg Morphine Sulfate (Ms Contin(*)) 15 mg PO 1100,2300 [facility] Last Admin: 09/30/19 23:14 Dose: 15 mg Ondansetron HCl (Zofran Inj*) 4 mg IV Q6H PRN PRN Reason: NAUSEA Potassium Chloride (Klor Con Er Tab*) 10 meq PO DAILY [facility] Last Admin: 10/01/19 09:22 Dose: 10 meq Spironolactone (Aldactone Tab*) 25 mg PO DAILY [facility] Last Admin: 10/01/19 09:22 Dose: 25 mg Vital Signs - 8 hr 10/01/19 10/01/19 03:17 07:15 Temperature 97.7 F Pulse Rate 83 90 Respiratory 16 20 Rate Blood Pressure 131/61 (mmHg) O2 Sat by Pulse 99 92 Oximetry Oxygen Devices in Use Now: Nasal Cannula Appearance: alert , sitting in the chair, no acute distress Eyes: No Scleral Icterus Ears/Nose/Mouth/Throat: Mucous Membranes Moist Neck: Trachea Midline Respiratory: - - diminished in the bases bilat Cardiovascular: NL Sounds; No Murmurs; No JVD Abdominal: NL Sounds; No Tenderness; No Distention, - - obese Extremities: No Clubbing, Cyanosis, - - lower ext with moderate edema bilat Neurological: Alert and Oriented x 3 Result Diagrams: 10/02/19 06:35 10/02/19 06:35 Assess/Plan/Problems-Billing Assessment: Patient is a 68yo female with super morbid obesity, HFpEF, COPD, OHS, here with shortness of breath, weight gain, and difficulty ambulating, found of be in CHF exacerbation and improving on diuretics. - Patient Problems (1) Acute hypoxemic respiratory failure Current Visit: Yes Status: Acute Code(s): J96.01 - ACUTE RESPIRATORY FAILURE WITH HYPOXIA SNOMED Code(s): 664412469 Comment: - Sat 75% when naprapath got patient per report - Likely due to CHF, - NO Right sided strain on Echo- less likely PE - Wean O2 as tolerated and aim for O2 st in low 90s due to risk for CO2 Retention. (2) Diastolic CHF, chronic Current Visit: No Status: Acute Code(s): I50.32 - CHRONIC DIASTOLIC ( CONGESTIVE) HEART FAILURE SNOMED Code(s): 744304170 Comment: - Acute on Chronic, possibly precipitated by Lyrica use - Lasix IV BID, feels better with diuresis- negative balance daily on i/o's - Daily weight and strict I/O, patient refuses fay cath - Continue Spironolactone - IV Iron to correct deficiency and help with HF outcomes. - Elevate LE - Repeat echo to assess EF and right side fo heart. (3) CKD (chronic kidney disease) Current Visit: No Status: Acute Code(s): N18.9 - CHRONIC KIDNEY DISEASE, UNSPECIFIED SNOMED Code(s): 288814085 Comment: - At baseline, monitor with diuresis (4) COPD (chronic obstructive pulmonary disease) Current Visit: No Status: Acute Code(s): J44.9 - CHRONIC OBSTRUCTIVE PULMONARY DISEASE, UNSPECIFIED SNOMED Code(s): 74618151 Comment: - No signs of exacerbation, no indication for steroids - PRN nebulizers. (5) Diabetic neuropathy associated with type 2 diabetes mellitus Current Visit: No Status: Acute Priority: Medium Code(s): E11.40 - TYPE 2 DIABETES MELLITUS WITH DIABETIC NEUROPATHY, UNSP SNOMED Code(s): 263219349614166 Comment: - Continue Duloxetine and morphine (6) Type II diabetes mellitus Current Visit: No Status: Acute Comment: - 24u Glargine and SSI - Very good control with A1c of 6.7% earlier this year, may be a candidate for Oral medications like SGLT-2 inhibitors and GLP-1 agonists given super morbid obesity, heart disease and chronic kidney disease. (7) Wound, surgical, nonhealing Current Visit: No Status: Acute Code(s): T81.89XA - OTH COMPLICATIONS OF PROCEDURES, NEC, INIT SNOMED Code(s): 855992760 Comment: - Stable, chronic wound around ventral hernia repair (8) Chronic pain Current Visit: No Status: Chronic Priority: Medium Code(s): G89.29 - OTHER CHRONIC PAIN SNOMED Code(s): 12008809 Comment: - Continue Morphine ER, was intolerant to Lyrica (9) Morbid obesity Current Visit: No Status: Acute Code(s): E66.01 - MORBID (SEVERE) OBESITY DUE TO EXCESS CALORIES SNOMED Code(s): 411646770 Comment: - Recommend weight loss, may benefit from different diabetic treatments to help with this (10) DVT prophylaxis Current Visit: No Status: Acute Code(s): UHE0932 - SNOMED Code(s): 162210622 Comment: - Janex (11) Full code status Current Visit: No Status: Acute Code(s): Z78.9 - OTHER SPECIFIED HEALTH STATUS SNOMED Code(s): 548805635 Status and Disposition: inpatient - d/c when medically stable - will likely need rehab at discharge
[2019-10-01] MEDS: Morphine TAB Extended Release (*) 15 MG TAB.ER PO SCH ×2 (11:10→23:44)
[2019-10-01] MEDS: Iron Sucrose* 200 MG in NS 0.9% 100 ML* 100 ML IVPB SCH (11:11)
[2019-10-01] MEDS: Atorvastatin* 10 MG TAB PO SCH (21:02)
[2019-10-02 06:56] LABS: Hematocrit 31 % (35-47); Hemoglobin 9.6 g/dL (12.0-16.0); Mean Corpuscular HGB Conc 31 g/dL (31-36); Mean Corpuscular Hemoglobin 29 pg (27-31); Mean Corpuscular Volume 92 fL (80-97); Platelet Count 159 10^3/uL (150-450); Red Blood Count 3.31 10^6 /uL (3.70-4.87); Red Cell Distribution Width 19 % (10-15); White Blood Count 5.2 10^3/uL (3.5-10.8)
[2019-10-02 07:54] LABS: BUN/Creatinine Ratio 17.3 (8-20); Calcium 8.5 mg/dL (8.6-10.3); EGFR African American 25.2 (>60); EGFR Non-African American 20.9 (>60); Potassium 4.2 mmol/L (3.5-5.0)
[2019-10-02] MEDS: Insulin GLARGINE(*) 1 UNITS UNIT SUBCUT SCH (09:25)
[2019-10-02] MEDS: Insulin LISPRO* 1 UNITS UNIT SUBCUT SCH ×4 (09:26→20:34)
[2019-10-02] MEDS: Potassium Chlor TAB* 10 MEQ TAB.ER PO SCH (09:28)
[2019-10-02] MEDS: Cyanocobalamin TAB* 500 MCG PO SCH (09:29)
[2019-10-02] MEDS: Montelukast Sodium TAB* 10 MG PO SCH (09:29)
[2019-10-02] MEDS: Aspirin EC TAB* 81 MG TAB.EC PO SCH (09:29)
[2019-10-02] MEDS: Spironolactone TAB* 25 MG PO SCH (09:29)
[2019-10-02] MEDS: Furosemide IV* 10 MG/ML VIAL (40 MG) IV SLOW PU SCH ×3 (09:32→18:29)
[2019-10-02] MEDS: DULoxetine DR CAP* 30 MG CAP.DR PO SCH (09:32)
[2019-10-02] MEDS: Famotidine TAB* 20 MG PO SCH (09:32)
[2019-10-02] MEDS: Iron Sucrose* 200 MG in NS 0.9% 100 ML* 100 ML IVPB SCH (10:45)
[2019-10-02] MEDS: Morphine TAB Extended Release (*) 15 MG TAB.ER PO SCH ×2 (11:50→23:02)
--- NOTE | 2019-10-02 14:30 | PN ---
Subjective Date of Service: 10/02/19 Interval History: patient oob to chair with assist. Denies chest pain or shortness of breath. Denies abd pain n/v/d. Denies fever or chills. Reports that breathing is improved today, appears short of breath with exertion. Nursing reports abd wound, Patient reports that she has had this abd wound for 12 years. reports that she does daily dressing changes and the wound has never healed. Open wound noted to mid abd, small amount of brown/ purulent drainage noted, center of the wound with white tissue, granulation tissue noted around the edges of the wound, no surrounding erythema. Family History: Unchanged from Admission Social History: Unchanged from Admission Past Medical History: Unchanged from Admission Objective Active Medications: Acetaminophen (Tylenol Tab*) 650 mg PO Q6H PRN PRN Reason: MILD PAIN or TEMP > 100.4 Albuterol/Ipratropium (Duoneb (Albuterol 2.5 Mg/Ipratropium 0.5 Mg)) 1 neb INH Q6H PRN PRN Reason: SOB/WHEEZING Aspirin (Aspirin Ec Tab*) 81 mg PO DAILY [facility] Last Admin: 10/02/19 09:29 Dose: 81 mg Atorvastatin Calcium (Lipitor*) 10 mg PO BEDTIME [facility] Last Admin: 10/01/19 21:02 Dose: 10 mg Cyanocobalamin (Vitamin B12 Tab*) 1,000 mcg PO DAILY [facility] Last Admin: 10/02/19 09:29 Dose: 1,000 mcg Dextrose (D50w Syringe 50 Ml*) 12.5 gm IV PUSH .FOR FS < 60 - SS PRN PRN Reason: FS < 60 Duloxetine HCl (Cymbalta Cap*) 30 mg PO DAILY [facility] Last Admin: 10/02/19 09:32 Dose: 30 mg Famotidine (Pepcid Tab*) 40 mg PO DAILY [facility] Last Admin: 10/02/19 09:32 Dose: 40 mg Furosemide (Lasix Iv*) 60 mg IV SLOW PU 0800,1700 [facility] Last Admin: 10/02/19 09:32 Dose: 60 mg Heparin Sodium (Porcine) (Heparin Flush Picc/Ml/Cvc(*)) 0 ml FLUSH 0600,1800 [facility] Last Admin: 10/02/19 05:47 Dose: 1 ml Iron Sucrose 200 mg/ Sodium (Chloride) 110 mls @ 440 mls/hr IVPB DAILY [facility] Stop: 10/04/19 09:14 Last Admin: 10/02/19 10:45 Dose: 440 mls/hr Insulin Glargine (Lantus(*)) 24 units SUBCUT DAILY [facility] Last Admin: 10/02/19 09:25 Dose: 24 units Insulin Human Lispro (Humalog*) 0 units SUBCUT ACHS [facility]; Protocol Last Admin: 10/02/19 11:49 Dose: 6 units Montelukast Sodium (Singulair Tab*) 10 mg PO DAILY [facility] Last Admin: 10/02/19 09:29 Dose: 10 mg Morphine Sulfate (Ms Contin(*)) 15 mg PO 1100,2300 [facility] Last Admin: 10/02/19 11:50 Dose: 15 mg Nystatin (Nystatin Top Powder*) 1 applic TOPICAL BID [facility] Ondansetron HCl (Zofran Inj*) 4 mg IV Q6H PRN PRN Reason: NAUSEA Potassium Chloride (Klor Con Er Tab*) 10 meq PO DAILY [facility] Last Admin: 10/02/19 09:28 Dose: 10 meq Spironolactone (Aldactone Tab*) 25 mg PO DAILY [facility] Last Admin: 10/02/19 09:29 Dose: 25 mg Vital Signs - 8 hr 10/02/19 10/02/19 10/02/19 07:15 08:00 11:50 Temperature 98.3 F Pulse Rate 81 Respiratory 16 18 18 Rate Blood Pressure 115/48 (mmHg) O2 Sat by Pulse 96 Oximetry 10/02/19 13:43 Temperature Pulse Rate Respiratory 16 Rate Blood Pressure (mmHg) O2 Sat by Pulse Oximetry Oxygen Devices in Use Now: Nasal Cannula Appearance: alert oriented x 3 , no acute distress Eyes: No Scleral Icterus Ears/Nose/Mouth/Throat: Clear Oropharnyx, Mucous Membranes Moist Neck: NL Appearance and Movements; NL JVP Respiratory: Symmetrical Chest Expansion and Respiratory Effort, - - diminished bilat Cardiovascular: NL Sounds; No Murmurs; No JVD Abdominal: NL Sounds; No Tenderness; No Distention Extremities: No Edema, No Clubbing, Cyanosis, - - + 3 pitting edema, improving slowly Result Diagrams: 10/02/19 06:35 10/02/19 06:35 Microbiology and Other Data: Microbiology 09/30/19 11:39 Stool Occult Blood ([place]) - Final Stool Assess/Plan/Problems-Billing Assessment: Patient is a 68yo female with super morbid obesity, HFpEF, COPD, OHS, here with shortness of breath, weight gain, and difficulty ambulating, found of be in CHF exacerbation and improving on diuretics. - Patient Problems (1) Acute hypoxemic respiratory failure Current Visit: Yes Status: Acute Code(s): J96.01 - ACUTE RESPIRATORY FAILURE WITH HYPOXIA SNOMED Code(s): 946103501 Comment: - Sat 75% when deicer kit assembler got patient per report - Likely due to CHF, - NO Right sided strain on Echo- less likely PE - O2 weaned- maintaining o2 sats of 95% on RA. (2) Diastolic CHF, chronic Current Visit: No Status: Acute Code(s): I50.32 - CHRONIC DIASTOLIC ( CONGESTIVE) HEART FAILURE SNOMED Code(s): 738252746 Comment: - Acute on Chronic, possibly precipitated by Lyrica use - Lasix IV BID, feels better with diuresis- negative balance daily on i/o's - Daily weight and strict I/O, patient refuses fay cath - Continue Spironolactone - IV Iron to correct deficiency and help with HF outcomes. - Elevate LE - Repeat echo to assess EF and right side fo heart. (3) CKD (chronic kidney disease) Current Visit: No Status: Acute Code(s): N18.9 - CHRONIC KIDNEY DISEASE, UNSPECIFIED SNOMED Code(s): 976519966 Comment: - At baseline, monitor with diuresis (4) COPD (chronic obstructive pulmonary disease) Current Visit: No Status: Acute Code(s): J44.9 - CHRONIC OBSTRUCTIVE PULMONARY DISEASE, UNSPECIFIED SNOMED Code(s): 41620101 Comment: - No signs of exacerbation, no indication for steroids - PRN nebulizers. (5) Chronic abdominal wound infection Current Visit: Yes Status: Acute Code(s): S31.109A - UNSP OPN WND ABD WALL, UNSP Q W/O PENET PERIT CAV, INIT; L08.9 - LOCAL INFECTION OF THE SKIN AND SUBCUTANEOUS TISSUE, UNSP SNOMED Code(s): 27132780 Comment: -reports wound for 12 years - does not follow with wound care - does daily dresssing changes at home - will get wound consult - will do BID dressing changes , wash wound with soap and water- observe for signs of infection - site with small amount of purulent drainage, no surrounding erythema, wound bed tissue white with ,edges noted tohave pink granulation tissue (6) Diabetic neuropathy associated with type 2 diabetes mellitus Current Visit: No Status: Acute Priority: Medium Code(s): E11.40 - TYPE 2 DIABETES MELLITUS WITH DIABETIC NEUROPATHY, UNSP SNOMED Code(s): 393048353790470 Comment: - Continue Duloxetine and morphine (7) Type II diabetes mellitus Current Visit: No Status: Acute Comment: - 24u Glargine and SSI - Very good control with A1c of 6.7% earlier this year, may be a candidate for Oral medications like SGLT-2 inhibitors and GLP-1 agonists given super morbid obesity, heart disease and chronic kidney disease. (8) Wound, surgical, nonhealing Current Visit: No Status: Acute Code(s): T81.89XA - OTH COMPLICATIONS OF PROCEDURES, NEC, INIT SNOMED Code(s): 712549117 Comment: - Stable, chronic wound around ventral hernia repair (9) Chronic pain Current Visit: No Status: Chronic Priority: Medium Code(s): G89.29 - OTHER CHRONIC PAIN SNOMED Code(s): 49035530 Comment: - Continue Morphine ER, was intolerant to Lyrica (10) Morbid obesity Current Visit: No Status: Acute Code(s): E66.01 - MORBID (SEVERE) OBESITY DUE TO EXCESS CALORIES SNOMED Code(s): 023255257 Comment: - Recommend weight loss, may benefit from different diabetic treatments to help with this (11) DVT prophylaxis Current Visit: No Status: Acute Code(s): NDQ5745 - SNOMED Code(s): 776753757 Comment: - Heparin (12) Full code status Current Visit: No Status: Acute Code(s): Z78.9 - OTHER SPECIFIED HEALTH STATUS SNOMED Code(s): 823796729 Status and Disposition: inpatient - d/c when medically stable - will likely need rehab at discharge
[2019-10-02] MEDS: Nystatin TOP POWDER* 15 GM BTL TOPICAL SCH (20:35)
[2019-10-02] MEDS: Heparin VIAL(*) 5000 UNITS/ML VIAL (FIVE THOUSAND) SUBCUT SCH (20:35)
[2019-10-02] MEDS: Atorvastatin* 10 MG TAB PO SCH (20:36)
--- NOTE | 2019-10-02 21:08 | PN ---
Hospitalist Progress Note Date of Service: 10/02/19 Called by nursing staff for swelling and pain to right arm. Patient with midline in the right arm and had blood pressure taken in the Right arm this afternoon, developed pain after blood pressure was taken. Evaluated patient , right arm noted to have hematoma below the midline IV cath, area around the midline cath site is soft, no surrounding erythema. Will get ultrasound of the right upper arm to r/o DVT. order has been place not to use midline and JEWELL Garcia is aware.
[2019-10-02] MEDS: Acetaminophen TAB* 325 MG PO PRN (21:30)
[2019-10-03] MEDS: Heparin VIAL(*) 5000 UNITS/ML VIAL (FIVE THOUSAND) SUBCUT SCH ×3 (06:11→21:11)
[2019-10-03] MEDS: Acetaminophen TAB* 325 MG PO PRN (06:15)
[2019-10-03] MEDS: Insulin LISPRO* 1 UNITS UNIT SUBCUT SCH ×4 (08:16→20:21)
[2019-10-03] MEDS: DULoxetine DR CAP* 30 MG CAP.DR PO SCH (09:48)
[2019-10-03] MEDS: Aspirin EC TAB* 81 MG TAB.EC PO SCH (09:48)
[2019-10-03] MEDS: Furosemide IV* 10 MG/ML VIAL (40 MG) IV SLOW PU SCH ×2 (09:48→16:48)
[2019-10-03] MEDS: Spironolactone TAB* 25 MG PO SCH (09:49)
[2019-10-03] MEDS: Famotidine TAB* 20 MG PO SCH (09:49)
[2019-10-03] MEDS: Cyanocobalamin TAB* 500 MCG PO SCH (09:49)
[2019-10-03] MEDS: Nystatin TOP POWDER* 15 GM BTL TOPICAL SCH ×2 (09:49→21:11)
[2019-10-03] MEDS: Montelukast Sodium TAB* 10 MG PO SCH (09:49)
[2019-10-03] MEDS: Iron Sucrose* 200 MG in NS 0.9% 100 ML* 100 ML IVPB SCH (09:49)
[2019-10-03] MEDS: Insulin GLARGINE(*) 1 UNITS UNIT SUBCUT SCH (09:49)
[2019-10-03] MEDS: Potassium Chlor TAB* 10 MEQ TAB.ER PO SCH (09:49)
--- NOTE | 2019-10-03 10:25 | PN ---
Subjective Date of Service: 10/03/19 Interval History: Patient states tat she is feeling fine. She feels motivated to walk, wants to get out of bed and more more than she has. Is not understanding of her O2 requirements, stating that she feels fine when she takes it off, despite her numbers dropping. Is no longer having right arm discomfort. Denies lightheadedness, dizziness, chest pain, palpitations, shortness of breath, abdominal pain, nausea, vomiting, issues moving her bowel or bladder. Family History: Unchanged from Admission Social History: Unchanged from Admission Past Medical History: Unchanged from Admission Objective Active Medications: Acetaminophen (Tylenol Tab*) 650 mg PO Q6H PRN PRN Reason: MILD PAIN or TEMP > 100.4 Last Admin: 10/03/19 06:15 Dose: 650 mg Albuterol/Ipratropium (Duoneb (Albuterol 2.5 Mg/Ipratropium 0.5 Mg)) 1 neb INH Q6H PRN PRN Reason: SOB/WHEEZING Aspirin (Aspirin Ec Tab*) 81 mg PO DAILY [facility] Last Admin: 10/03/19 09:48 Dose: 81 mg Atorvastatin Calcium (Lipitor*) 10 mg PO BEDTIME [facility] Last Admin: 10/02/19 20:36 Dose: 10 mg Cyanocobalamin (Vitamin B12 Tab*) 1,000 mcg PO DAILY [facility] Last Admin: 10/03/19 09:49 Dose: 1,000 mcg Dextrose (D50w Syringe 50 Ml*) 12.5 gm IV PUSH .FOR FS < 60 - SS PRN PRN Reason: FS < 60 Duloxetine HCl (Cymbalta Cap*) 30 mg PO DAILY [facility] Last Admin: 10/03/19 09:48 Dose: 30 mg Famotidine (Pepcid Tab*) 40 mg PO DAILY [facility] Last Admin: 10/03/19 09:49 Dose: 40 mg Furosemide (Lasix Iv*) 60 mg IV SLOW PU 0800,1700 [facility] Last Admin: 10/03/19 09:48 Dose: 60 mg Heparin Sodium (Porcine) (Heparin Flush Picc/Ml/Cvc(*)) 0 ml FLUSH 0600,1800 [facility] Last Admin: 10/03/19 06:07 Dose: Not Given Heparin Sodium (Porcine) (Heparin Vial(*)) 5,000 units SUBCUT Q8HR [facility] Last Admin: 10/03/19 06:11 Dose: 5,000 units Iron Sucrose 200 mg/ Sodium (Chloride) 110 mls @ 440 mls/hr IVPB DAILY [facility] Stop: 10/04/19 09:14 Last Admin: 10/03/19 09:49 Dose: 440 mls/hr Insulin Glargine (Lantus(*)) 24 units SUBCUT DAILY [facility] Last Admin: 10/03/19 09:49 Dose: 24 units Insulin Human Lispro (Humalog*) 0 units SUBCUT ACHS [facility]; Protocol Last Admin: 10/03/19 08:16 Dose: Not Given Montelukast Sodium (Singulair Tab*) 10 mg PO DAILY [facility] Last Admin: 10/03/19 09:49 Dose: 10 mg Morphine Sulfate (Ms Contin(*)) 15 mg PO 1100,2300 [facility] Last Admin: 10/02/19 23:02 Dose: 15 mg Nystatin (Nystatin Top Powder*) 1 applic TOPICAL BID [facility] Last Admin: 10/03/19 09:49 Dose: 1 applic Ondansetron HCl (Zofran Inj*) 4 mg IV Q6H PRN PRN Reason: NAUSEA Potassium Chloride (Klor Con Er Tab*) 10 meq PO DAILY [facility] Last Admin: 10/03/19 09:49 Dose: 10 meq Spironolactone (Aldactone Tab*) 25 mg PO DAILY [facility] Last Admin: 10/03/19 09:49 Dose: 25 mg Vital Signs - 8 hr 10/03/19 10/03/19 10/03/19 03:15 05:23 07:15 Temperature 97.0 F 98.5 F Pulse Rate 77 74 82 Respiratory 20 16 20 Rate Blood Pressure 95/66 106/43 (mmHg) O2 Sat by Pulse 100 94 93 Oximetry 10/03/19 08:00 Temperature Pulse Rate Respiratory 20 Rate Blood Pressure (mmHg) O2 Sat by Pulse Oximetry Oxygen Devices in Use Now: Nasal Cannula Appearance: This is a well dveloped, obese woman seen sitting up in bed, in no acute distress. Eyes: No Scleral Icterus, PERRLA - Pinguecula noted in both eyes. Ears/Nose/Mouth/Throat: NL Teeth, Lips, Gums, Clear Oropharnyx, Mucous Membranes Moist Neck: NL Appearance and Movements; NL JVP, Trachea Midline Respiratory: Symmetrical Chest Expansion and Respiratory Effort, - - Significantly diminished throughout, difficult to auscultate due to body habitus. Cardiovascular: NL Sounds; No Murmurs; No JVD, RRR Abdominal: NL Sounds; No Tenderness; No Distention Lymphatic: No Cervical Adenopathy Extremities: No Clubbing, Cyanosis, - - Bilateral lower extremities pink and scaly. +2 pitting edema. Skin: No Nodules or Sclerosis, - - Midline abdominal wound draining foul smelling brown drainage. Neurological: Alert and Oriented x 3 Lines/Tubes/Other Access: Clean, Dry and Intact Peripheral IV, Clean, Dry and Intact PICC Line - Midline to right upper extremity. Result Diagrams: 10/02/19 06:35 10/02/19 06:35 Microbiology and Other Data: Microbiology 09/30/19 11:39 Stool Occult Blood ([place]) - Final Stool Assess/Plan/Problems-Billing Assessment: Patient is a 68yo female with super morbid obesity, HFpEF, COPD, OHS, here with shortness of breath, weight gain, and difficulty ambulating, found of be in CHF exacerbation and improving on diuretics. - Patient Problems (1) Acute hypoxemic respiratory failure Current Visit: Yes Status: Acute Code(s): J96.01 - ACUTE RESPIRATORY FAILURE WITH HYPOXIA SNOMED Code(s): 912442068 Comment: - Sat 75% when retort condenser attendant got patient per report - Likely due to CHF - NO Right sided strain on Echo- less likely PE - Currently requiring 2L oxygen via nasal cannula. Has fluctuating O2 demands, like secondary to fluid overload. (2) Chronic abdominal wound infection Current Visit: Yes Status: Acute Code(s): S31.109A - UNSP OPN WND ABD WALL, UNSP Q W/O PENET PERIT CAV, INIT; L08.9 - LOCAL INFECTION OF THE SKIN AND SUBCUTANEOUS TISSUE, UNSP SNOMED Code(s): 20945103 Comment: - reports wound for 12 years - does not follow with wound care - does daily dresssing changes at home - will get wound consult - will do BID dressing changes , wash wound with soap and water- observe for signs of infection - draining moderate amount of foul smelling brown drainage. (3) CKD (chronic kidney disease) Current Visit: No Status: Acute Code(s): N18.9 - CHRONIC KIDNEY DISEASE, UNSPECIFIED SNOMED Code(s): 652592711 Comment: - At baseline, monitor with diuresis (4) COPD (chronic obstructive pulmonary disease) Current Visit: No Status: Acute Code(s): J44.9 - CHRONIC OBSTRUCTIVE PULMONARY DISEASE, UNSPECIFIED SNOMED Code(s): 10294193 Comment: - No signs of exacerbation, no indication for steroids - Only has albuterol inhaler as home medication. - Continue PRN nebulizers. (5) Depression Current Visit: No Status: Acute Code(s): F32.9 - MAJOR DEPRESSIVE DISORDER, SINGLE EPISODE, UNSPECIFIED SNOMED Code(s): 14110717 Comment: Continue cymbalta and topamax. (6) Diabetic neuropathy associated with type 2 diabetes mellitus Current Visit: No Status: Acute Priority: Medium Code(s): E11.40 - TYPE 2 DIABETES MELLITUS WITH DIABETIC NEUROPATHY, UNSP SNOMED Code(s): 082250256733388 Comment: - Continue Duloxetine and morphine (7) Diastolic CHF, chronic Current Visit: No Status: Acute Code(s): I50.32 - CHRONIC DIASTOLIC ( CONGESTIVE) HEART FAILURE SNOMED Code(s): 858159506 Comment: - Acute on Chronic, possibly precipitated by Lyrica use - Lasix IV BID, however patient has been positive on fluid balance for two days and has gained 5.5lbs this morning. Added zaroxolyn to daily regimen and ordered a dose prior to 1700 dose tonight. - Daily weight and strict I/O, patient refuses fay cath - Continue Spironolactone - IV Iron to correct deficiency and help with HF outcomes. - Jayden wrap bilateral LE. - Repeat echo to assess EF and right side fo heart. (8) Morbid obesity Current Visit: No Status: Acute Code(s): E66.01 - MORBID (SEVERE) OBESITY DUE TO EXCESS CALORIES SNOMED Code(s): 401726538 Comment: - Recommend weight loss, may benefit from different diabetic treatments to help with this - Would benefit from a referral to [facility] upon discharge. (9) Type II diabetes mellitus Current Visit: No Status: Acute Comment: - Increased glargine from 24 to 29units due to blood sugars consistently in the 200's. Continue SSI with lispro. - Very good control with A1c of 6.7% earlier this year, may be a candidate for Oral medications like SGLT-2 inhibitors and GLP-1 agonists given super morbid obesity, heart disease and chronic kidney disease. (10) Chronic pain Current Visit: No Status: Chronic Priority: Medium Code(s): G89.29 - OTHER CHRONIC PAIN SNOMED Code(s): 60369426 Comment: - Continue Morphine ER, was intolerant to Lyrica (11) DVT prophylaxis Current Visit: No Status: Acute Code(s): XDZ0485 - SNOMED Code(s): 791067302 Comment: - Heparin (12) Full code status Current Visit: No Status: Acute Code(s): Z78.9 - OTHER SPECIFIED HEALTH STATUS SNOMED Code(s): 539445558 Status and Disposition: inpatient - d/c when medically stable - will likely need rehab at discharge
[2019-10-03 12:22] LABS: BUN/Creatinine Ratio 19.6 (8-20); Calcium 8.6 mg/dL (8.6-10.3); EGFR African American 24.7 (>60); EGFR Non-African American 20.4 (>60); Magnesium 1.9 mg/dL (1.9-2.7); Potassium 4.1 mmol/L (3.5-5.0)
[2019-10-03] MEDS: Morphine TAB Extended Release (*) 15 MG TAB.ER PO SCH ×2 (12:30→23:37)
[2019-10-03] MEDS ORDERED: Metolazone TAB* 5 MG PO ONE (16:30)
[2019-10-03] MEDS: Atorvastatin* 10 MG TAB PO SCH (21:11)
[2019-10-04] MEDS: Heparin VIAL(*) 5000 UNITS/ML VIAL (FIVE THOUSAND) SUBCUT SCH ×3 (06:00→21:31)
[2019-10-04] MEDS ORDERED: Metolazone TAB* 5 MG PO SCH (07:30)
[2019-10-04] MEDS ORDERED: NS 0.9% 100 ML* 100 ML ONE (08:45)
[2019-10-04] MEDS: Potassium Chlor TAB* 10 MEQ TAB.ER PO SCH (08:52)
[2019-10-04] MEDS: DULoxetine DR CAP* 30 MG CAP.DR PO SCH (08:52)
[2019-10-04] MEDS: Aspirin EC TAB* 81 MG TAB.EC PO SCH (08:53)
[2019-10-04] MEDS: Spironolactone TAB* 25 MG PO SCH (08:53)
[2019-10-04] MEDS: Famotidine TAB* 20 MG PO SCH (08:53)
[2019-10-04] MEDS: Montelukast Sodium TAB* 10 MG PO SCH (08:53)
[2019-10-04] MEDS: Cyanocobalamin TAB* 500 MCG PO SCH (08:53)
[2019-10-04] MEDS: Furosemide IV* 10 MG/ML VIAL (40 MG) IV SLOW PU SCH ×2 (08:54→16:17)
[2019-10-04] MEDS: Insulin LISPRO* 1 UNITS UNIT SUBCUT SCH ×4 (08:54→21:46)
[2019-10-04] MEDS: Insulin GLARGINE(*) 1 UNITS UNIT SUBCUT SCH (08:54)
[2019-10-04] MEDS: Nystatin TOP POWDER* 15 GM BTL TOPICAL SCH ×2 (11:02→21:33)
[2019-10-04] MEDS: Iron Sucrose* 200 MG in NS 0.9% 100 ML* 100 ML IVPB SCH (11:02)
[2019-10-04 11:06] LABS: Calcium 8.9 mg/dL (8.6-10.3); Magnesium 1.9 mg/dL (1.9-2.7); Potassium 4.2 mmol/L (3.5-5.0)
[2019-10-04 11:11] LABS: BUN/Creatinine Ratio 19.8 (8-20); EGFR African American 26.4 (>60); EGFR Non-African American 21.8 (>60)
[2019-10-04] MEDS: Morphine TAB Extended Release (*) 15 MG TAB.ER PO SCH ×2 (11:27→22:32)
--- NOTE | 2019-10-04 14:44 | PN ---
Subjective Date of Service: 10/04/19 Interval History: Patient had just transferred from bed with wheelchair with 2 assist including PT. Had gone without oxygen for around three minutes and became lightheaded and short of breath which resolved with rest and oxygen supplementation. Denied chest pain, shortness of breath, abdominal pain, nausea, vomiting. Continues to decline fay catheter, citing concerns for UTI. Family History: Unchanged from Admission Social History: Unchanged from Admission Past Medical History: Unchanged from Admission Objective Active Medications: Acetaminophen (Tylenol Tab*) 650 mg PO Q6H PRN PRN Reason: MILD PAIN or TEMP > 100.4 Last Admin: 10/03/19 06:15 Dose: 650 mg Albuterol/Ipratropium (Duoneb (Albuterol 2.5 Mg/Ipratropium 0.5 Mg)) 1 neb INH Q6H PRN PRN Reason: SOB/WHEEZING Aspirin (Aspirin Ec Tab*) 81 mg PO DAILY [facility] Last Admin: 10/04/19 08:53 Dose: 81 mg Atorvastatin Calcium (Lipitor*) 10 mg PO BEDTIME [facility] Last Admin: 10/03/19 21:11 Dose: 10 mg Cyanocobalamin (Vitamin B12 Tab*) 1,000 mcg PO DAILY [facility] Last Admin: 10/04/19 08:53 Dose: 1,000 mcg Dextrose (D50w Syringe 50 Ml*) 12.5 gm IV PUSH .FOR FS < 60 - SS PRN PRN Reason: FS < 60 Duloxetine HCl (Cymbalta Cap*) 30 mg PO DAILY [facility] Last Admin: 10/04/19 08:52 Dose: 30 mg Famotidine (Pepcid Tab*) 40 mg PO DAILY [facility] Last Admin: 10/04/19 08:53 Dose: 40 mg Furosemide (Lasix Iv*) 60 mg IV SLOW PU 0800,1700 [facility] Last Admin: 10/04/19 08:54 Dose: 60 mg Heparin Sodium (Porcine) (Heparin Flush Picc/Ml/Cvc(*)) 0 ml FLUSH 0600,1800 [facility] Last Admin: 10/04/19 06:01 Dose: 1 ml Heparin Sodium (Porcine) (Heparin Vial(*)) 5,000 units SUBCUT Q8HR [facility] Last Admin: 10/04/19 14:10 Dose: 5,000 units Insulin Glargine (Lantus(*)) 29 units SUBCUT DAILY [facility] Last Admin: 10/04/19 08:54 Dose: 29 units Insulin Human Lispro (Humalog*) 0 units SUBCUT ACHS [facility]; Protocol Last Admin: 10/04/19 12:01 Dose: 3 units Metolazone (Zaroxolyn Tab*) 5 mg PO DAILY@0830 [facility] Metolazone (Zaroxolyn Tab*) 5 mg PO ONCE ONE Stop: 10/04/19 16:31 Montelukast Sodium (Singulair Tab*) 10 mg PO DAILY [facility] Last Admin: 10/04/19 08:53 Dose: 10 mg Morphine Sulfate (Ms Contin(*)) 15 mg PO 1100,2300 [facility] Last Admin: 10/04/19 11:27 Dose: 15 mg Nystatin (Nystatin Top Powder*) 1 applic TOPICAL BID [facility] Last Admin: 10/04/19 11:02 Dose: 1 applic Ondansetron HCl (Zofran Inj*) 4 mg IV Q6H PRN PRN Reason: NAUSEA Potassium Chloride (Klor Con Er Tab*) 10 meq PO DAILY [facility] Last Admin: 10/04/19 08:52 Dose: 10 meq Spironolactone (Aldactone Tab*) 25 mg PO DAILY [facility] Last Admin: 10/04/19 08:53 Dose: 25 mg Vital Signs - 8 hr 10/04/19 10/04/19 10/04/19 08:00 08:50 11:27 Temperature 97.6 F Pulse Rate 77 Respiratory 18 16 18 Rate Blood Pressure 126/44 (mmHg) O2 Sat by Pulse 100 Oximetry 10/04/19 10/04/19 12:23 13:43 Temperature 97.9 F Pulse Rate 87 Respiratory 20 16 Rate Blood Pressure 127/35 (mmHg) O2 Sat by Pulse 99 Oximetry Oxygen Devices in Use Now: Nasal Cannula Appearance: This is a well developed, mobidly obese woman seen sitting up in a wheelchair in mild distress. Eyes: No Scleral Icterus, PERRLA Ears/Nose/Mouth/Throat: NL Teeth, Lips, Gums, Mucous Membranes Moist Neck: NL Appearance and Movements; NL JVP, Trachea Midline Respiratory: Symmetrical Chest Expansion and Respiratory Effort, Clear to Auscultation Cardiovascular: NL Sounds; No Murmurs; No JVD, - - +2-3 bilateral LE edema, R>L Abdominal: NL Sounds; No Tenderness; No Distention Lymphatic: No Cervical Adenopathy Extremities: No Clubbing, Cyanosis, - - Discoloration to bilateral LE. Skin: No Rash or Ulcers, No Nodules or Sclerosis, - - Abdominal wound draining scant amount of brown, foul smelling drainage. Neurological: Alert and Oriented x 3 Lines/Tubes/Other Access: Clean, Dry and Intact Peripheral IV Result Diagrams: 10/02/19 06:35 10/04/19 10:45 Microbiology and Other Data: Microbiology 09/30/19 11:39 Stool Occult Blood ([place]) - Final Stool Assess/Plan/Problems-Billing Assessment: Patient is a 68yo female with super morbid obesity, HFpEF, COPD, OHS, here with shortness of breath, weight gain, and difficulty ambulating, found of be in CHF exacerbation and improving on diuretics. - Patient Problems (1) Diastolic CHF, chronic Current Visit: No Status: Acute Code(s): I50.32 - CHRONIC DIASTOLIC ( CONGESTIVE) HEART FAILURE SNOMED Code(s): 435345450 Comment: - Acute on Chronic, possibly precipitated by Lyrica use - Continue BID IV furosemide, however her dose response has been suboptimal. Added zaroxolyn to daily regimen and ordered a dose prior to 1700 dose tonight. - Daily weight and strict I/O, patient refuses fay cath - Continue Spironolactone - IV Iron to correct deficiency and help with HF outcomes. - Jayden wrap bilateral LE. (2) Acute hypoxemic respiratory failure Current Visit: Yes Status: Acute Code(s): J96.01 - ACUTE RESPIRATORY FAILURE WITH HYPOXIA SNOMED Code(s): 790280458 Comment: - Sat 75% when door liner got patient per report - Likely due to CHF - NO Right sided strain on Echo- less likely PE - Currently requiring 2L oxygen via nasal cannula. I am anticipating the strong possibility that she may need to be discharged with oxygen. (3) Chronic abdominal wound infection Current Visit: Yes Status: Acute Code(s): S31.109A - UNSP OPN WND ABD WALL, UNSP Q W/O PENET PERIT CAV, INIT; L08.9 - LOCAL INFECTION OF THE SKIN AND SUBCUTANEOUS TISSUE, UNSP SNOMED Code(s): 25979200 Comment: - reports wound for 12 years - does not follow with wound care - does daily dresssing changes at home - will get wound consult - will do BID dressing changes , wash wound with soap and water- observe for signs of infection - draining moderate amount of foul smelling brown drainage. Feel that she may have developed a fistula. She clearly stated she would not undergo surgery in this hospital. (4) CKD (chronic kidney disease) Current Visit: No Status: Acute Code(s): N18.9 - CHRONIC KIDNEY DISEASE, UNSPECIFIED SNOMED Code(s): 291594271 Comment: - Creatinine continues to improve after diuresis. (5) COPD (chronic obstructive pulmonary disease) Current Visit: No Status: Acute Code(s): J44.9 - CHRONIC OBSTRUCTIVE PULMONARY DISEASE, UNSPECIFIED SNOMED Code(s): 24791073 Comment: - No signs of exacerbation, no indication for steroids - Only has albuterol inhaler as home medication. - Continue PRN nebulizers. (6) Depression Current Visit: No Status: Acute Code(s): F32.9 - MAJOR DEPRESSIVE DISORDER, SINGLE EPISODE, UNSPECIFIED SNOMED Code(s): 66703952 Comment: - Continue duloxetine and topiramate. (7) Diabetic neuropathy associated with type 2 diabetes mellitus Current Visit: No Status: Acute Priority: Medium Code(s): E11.40 - TYPE 2 DIABETES MELLITUS WITH DIABETIC NEUROPATHY, UNSP SNOMED Code(s): 361099577722806 Comment: - Continue Duloxetine and morphine (8) Morbid obesity Current Visit: No Status: Acute Code(s): E66.01 - MORBID (SEVERE) OBESITY DUE TO EXCESS CALORIES SNOMED Code(s): 815188429 Comment: - Recommend weight loss, may benefit from different diabetic treatments to help with this - Would benefit from a referral to [facility] upon discharge. (9) Type II diabetes mellitus Current Visit: No Status: Acute Comment: - Continue glargine at 29. Continue SSI with lispro. - Very good control with A1c of 6.7% earlier this year, may be a candidate for Oral medications like SGLT-2 inhibitors and GLP-1 agonists given super morbid obesity, heart disease and chronic kidney disease. (10) Chronic pain Current Visit: No Status: Chronic Priority: Medium Code(s): G89.29 - OTHER CHRONIC PAIN SNOMED Code(s): 16995615 Comment: - Continue Morphine ER, was intolerant to Lyrica (11) DVT prophylaxis Current Visit: No Status: Acute Code(s): MVD6323 - SNOMED Code(s): 932613244 Comment: - Heparin (12) Full code status Current Visit: No Status: Acute Code(s): Z78.9 - OTHER SPECIFIED HEALTH STATUS SNOMED Code(s): 222674605 Status and Disposition: inpatient - d/c when medically stable - will likely need rehab at discharge Attending: Isael Levy
[2019-10-04] MEDS ORDERED: Metolazone TAB* 5 MG PO ONE (16:30)
[2019-10-04] MEDS: Atorvastatin* 10 MG TAB PO SCH (21:31)
[2019-10-05] MEDS: Heparin VIAL(*) 5000 UNITS/ML VIAL (FIVE THOUSAND) SUBCUT SCH ×3 (05:49→22:30)
[2019-10-05] MEDS: Potassium Chlor TAB* 10 MEQ TAB.ER PO SCH (08:46)
[2019-10-05] MEDS: Famotidine TAB* 20 MG PO SCH (08:47)
[2019-10-05] MEDS: Cyanocobalamin TAB* 500 MCG PO SCH (08:47)
[2019-10-05] MEDS: Furosemide IV* 10 MG/ML VIAL (40 MG) IV SLOW PU SCH ×2 (08:47→17:22)
[2019-10-05] MEDS: Metolazone TAB* 5 MG PO SCH (08:47)
[2019-10-05] MEDS: Montelukast Sodium TAB* 10 MG PO SCH (08:47)
[2019-10-05] MEDS: DULoxetine DR CAP* 30 MG CAP.DR PO SCH (08:47)
[2019-10-05] MEDS: Spironolactone TAB* 25 MG PO SCH (08:47)
[2019-10-05] MEDS: Insulin LISPRO* 1 UNITS UNIT SUBCUT SCH ×4 (08:47→22:28)
[2019-10-05] MEDS: Aspirin EC TAB* 81 MG TAB.EC PO SCH (08:47)
[2019-10-05] MEDS: Nystatin TOP POWDER* 15 GM BTL TOPICAL SCH ×2 (08:48→22:27)
[2019-10-05] MEDS: Insulin GLARGINE(*) 1 UNITS UNIT SUBCUT SCH (08:48)
[2019-10-05] MEDS: Morphine TAB Extended Release (*) 15 MG TAB.ER PO SCH ×2 (12:04→22:25)
--- NOTE | 2019-10-05 16:30 | PN ---
Subjective Date of Service: 10/05/19 Interval History: pt reports that she feels she is improving. Chronic wound on abdomen has been followed by physician in [place] and he will continue to follow. Pt is unable to recall physicians name. Pt reports that she feels that her the fluid collection in lower extremities is lessening. Pt denies any chest pain, SOB, or other complaints, pt requests that I leave room as she is bothered by another assessment. Family History: Unchanged from Admission Social History: Unchanged from Admission Past Medical History: Unchanged from Admission Objective Active Medications: Acetaminophen (Tylenol Tab*) 650 mg PO Q6H PRN PRN Reason: MILD PAIN or TEMP > 100.4 Last Admin: 10/03/19 06:15 Dose: 650 mg Albuterol/Ipratropium (Duoneb (Albuterol 2.5 Mg/Ipratropium 0.5 Mg)) 1 neb INH Q6H PRN PRN Reason: SOB/WHEEZING Aspirin (Aspirin Ec Tab*) 81 mg PO DAILY [facility] Last Admin: 10/05/19 08:47 Dose: 81 mg Atorvastatin Calcium (Lipitor*) 10 mg PO BEDTIME [facility] Last Admin: 10/04/19 21:31 Dose: 10 mg Cyanocobalamin (Vitamin B12 Tab*) 1,000 mcg PO DAILY [facility] Last Admin: 10/05/19 08:47 Dose: 1,000 mcg Dextrose (D50w Syringe 50 Ml*) 12.5 gm IV PUSH .FOR FS < 60 - SS PRN PRN Reason: FS < 60 Duloxetine HCl (Cymbalta Cap*) 30 mg PO DAILY [facility] Last Admin: 10/05/19 08:47 Dose: 30 mg Famotidine (Pepcid Tab*) 40 mg PO DAILY [facility] Last Admin: 10/05/19 08:47 Dose: 40 mg Furosemide (Lasix Iv*) 60 mg IV SLOW PU 0800,1700 [facility] Last Admin: 10/05/19 08:47 Dose: 60 mg Heparin Sodium (Porcine) (Heparin Flush Picc/Ml/Cvc(*)) 0 ml FLUSH 0600,1800 [facility] Last Admin: 10/05/19 05:52 Dose: 1 ml Heparin Sodium (Porcine) (Heparin Vial(*)) 5,000 units SUBCUT Q8HR [facility] Last Admin: 10/05/19 13:51 Dose: 5,000 units Insulin Glargine (Lantus(*)) 29 units SUBCUT DAILY [facility] Last Admin: 10/05/19 08:48 Dose: 29 units Insulin Human Lispro (Humalog*) 0 units SUBCUT ACHS [facility]; Protocol Last Admin: 10/05/19 12:04 Dose: 6 units Metolazone (Zaroxolyn Tab*) 5 mg PO DAILY@0830 [facility] Last Admin: 10/05/19 08:47 Dose: 5 mg Montelukast Sodium (Singulair Tab*) 10 mg PO DAILY [facility] Last Admin: 10/05/19 08:47 Dose: 10 mg Morphine Sulfate (Ms Contin(*)) 15 mg PO 1100,2300 [facility] Last Admin: 10/05/19 12:04 Dose: 15 mg Nystatin (Nystatin Top Powder*) 1 applic TOPICAL BID [facility] Last Admin: 10/05/19 08:48 Dose: 1 applic Ondansetron HCl (Zofran Inj*) 4 mg IV Q6H PRN PRN Reason: NAUSEA Potassium Chloride (Klor Con Er Tab*) 10 meq PO DAILY [facility] Last Admin: 10/05/19 08:46 Dose: 10 meq Spironolactone (Aldactone Tab*) 25 mg PO DAILY [facility] Last Admin: 10/05/19 08:47 Dose: 25 mg Vital Signs - 8 hr 10/05/19 10/05/19 10/05/19 11:15 12:04 14:06 Temperature 98.2 F Pulse Rate 87 Respiratory 16 18 16 Rate Blood Pressure 141/41 (mmHg) O2 Sat by Pulse 97 Oximetry Oxygen Devices in Use Now: Nasal Cannula Appearance: Obese elderly woman laying in bed, does not appear to be in any distress. Ears/Nose/Mouth/Throat: NL Teeth, Lips, Gums, Clear Oropharnyx, Mucous Membranes Moist Neck: NL Appearance and Movements; NL JVP, Trachea Midline, No Thyroid Enlargement, Masses Respiratory: Symmetrical Chest Expansion and Respiratory Effort, Clear to Auscultation Cardiovascular: NL Sounds; No Murmurs; No JVD, RRR, - - Bilateral lower extremity edema +3 pitting edema, bilateral lower extremities wrapped in jayden bandage CDI. Abdominal: NL Sounds; No Tenderness; No Distention, No Hepatosplenomegaly Lymphatic: No Cervical Adenopathy Skin: No Rash or Ulcers, No Nodules or Sclerosis Neurological: Alert and Oriented x 3, NL Sensation, NL Muscle Strength and Tone Nutrition: Taking PO's Result Diagrams: 10/06/19 06:15 10/06/19 06:15 Microbiology and Other Data: Microbiology 09/30/19 11:39 Stool Occult Blood ([place]) - Final Stool Assess/Plan/Problems-Billing Assessment: Patient is a 68yo female with super morbid obesity, HFpEF, COPD, OHS, here with shortness of breath, weight gain, and difficulty ambulating, found of be in CHF exacerbation and improving on diuretics. - Patient Problems (1) Acute hypoxemic respiratory failure Current Visit: Yes Comment: - Sat 75% when civil engineering drafter got patient per report - Likely due to CHF - NO Right sided strain on Echo- less likely PE - Currently requiring 2L oxygen via nasal cannula. I am anticipating the strong possibility that she may need to be discharged with oxygen. (2) Chronic abdominal wound infection Current Visit: Yes Comment: - reports wound for 12 years - does not follow with wound care - does daily dresssing changes at home - will do BID dressing changes , wash wound with soap and water- observe for signs of infection - draining moderate amount of foul smelling brown drainage. Feel that she may have developed a fistula. She clearly stated she would not undergo surgery in this hospital. -Wound consult 10/04- Wound drainage unchanged. Reports that she is followed by a physician in [place] regarding wound. (3) CKD (chronic kidney disease) Current Visit: No Comment: - Will recheck creatinine level in AM. - Continues to receive IV lasix, clear yellow urine in suction container on wall. Pure wick remians intact. (4) COPD (chronic obstructive pulmonary disease) Current Visit: No Comment: - No signs of exacerbation, no indication for steroids - Only has albuterol inhaler as home medication. - Continue PRN nebulizers and singulair (5) Depression Current Visit: No Comment: - Continue duloxetine and topiramate. (6) Diabetic neuropathy associated with type 2 diabetes mellitus Current Visit: No Comment: - Continue Duloxetine and morphine (7) Diastolic CHF, chronic Current Visit: No Status: Acute Code(s): I50.32 - CHRONIC DIASTOLIC ( CONGESTIVE) HEART FAILURE SNOMED Code(s): 366183062 Comment: - Acute on Chronic, possibly precipitated by Lyrica use - Continue BID IV furosemide, however her dose response has been suboptimal. Added zaroxolyn to daily regimen and ordered a dose prior to 1700 dose tonight. - Daily weight and strict I/O, patient refuses fay cath - Continue Spironolactone - IV Iron to correct deficiency and help with HF outcomes. - Jayden wrap bilateral LE. (8) Morbid obesity Current Visit: Yes Comment: - Recommend weight loss, may benefit from different diabetic treatments to help with this - Would benefit from a referral to [facility] upon discharge. (9) Insulin dependent diabetes mellitus with complications Current Visit: Yes Priority: Medium Comment: -Continue Lantus and Lispro (10) DVT prophylaxis Current Visit: No Comment: - Heparin (11) Full code status Current Visit: Yes Status and Disposition: inpatient - d/c when medically stable - will likely need rehab at discharge
[2019-10-05] MEDS: Acetaminophen TAB* 325 MG PO PRN (22:25)
[2019-10-05] MEDS: Atorvastatin* 10 MG TAB PO SCH (22:25)
[2019-10-06] MEDS: Heparin VIAL(*) 5000 UNITS/ML VIAL (FIVE THOUSAND) SUBCUT SCH ×3 (06:09→22:08)
[2019-10-06 06:27] LABS: ABS Eosinophils 0.1 10^3/ul (0-0.6); ABS Lymphocytes 1.3 10^3/ul (1.0-4.8); ABS Monocytes 0.8 10^3/ul (0-0.8); ABS Neutrophils 2.7 10^3/ul (1.5-7.7); Eosinophil % 2.1 %; Hematocrit 28 % (35-47); Hemoglobin 8.9 g/dL (12.0-16.0); Mean Corpuscular HGB Conc 32 g/dL (31-36); Mean Corpuscular Hemoglobin 29 pg (27-31); Mean Corpuscular Volume 90 fL (80-97); Mean Platelet Volume 8.6 fL (7.4-10.4); Platelet Count 141 10^3/uL (150-450); Red Blood Count 3.07 10^6 /uL (3.70-4.87); Red Cell Distribution Width 20 % (10-15)
[2019-10-06 06:46] LABS: Calcium 9.1 mg/dL (8.6-10.3); EGFR Non-African American 22.3 (>60); Potassium 4.1 mmol/L (3.5-5.0)
[2019-10-06] MEDS ORDERED: Albuterol/Ipratropium NEB.SOL* (2.5/0.5 MG) 3 ML NEB.SOLN INH PRN (08:03)
[2019-10-06] MEDS: Insulin GLARGINE(*) 1 UNITS UNIT SUBCUT SCH (08:32)
[2019-10-06] MEDS: Insulin LISPRO* 1 UNITS UNIT SUBCUT SCH ×4 (08:33→22:08)
[2019-10-06] MEDS: Potassium Chlor TAB* 10 MEQ TAB.ER PO SCH (08:34)
[2019-10-06] MEDS: Spironolactone TAB* 25 MG PO SCH (08:34)
[2019-10-06] MEDS: Famotidine TAB* 20 MG PO SCH (08:34)
[2019-10-06] MEDS: Metolazone TAB* 5 MG PO SCH (08:34)
[2019-10-06] MEDS: Aspirin EC TAB* 81 MG TAB.EC PO SCH (08:34)
[2019-10-06] MEDS: Montelukast Sodium TAB* 10 MG PO SCH (08:34)
[2019-10-06] MEDS: DULoxetine DR CAP* 30 MG CAP.DR PO SCH (08:34)
[2019-10-06] MEDS: Nystatin TOP POWDER* 15 GM BTL TOPICAL SCH ×2 (08:35→22:10)
[2019-10-06] MEDS: Cyanocobalamin TAB* 500 MCG PO SCH (08:35)
[2019-10-06] MEDS: Furosemide IV* 10 MG/ML VIAL (40 MG) IV SLOW PU SCH ×2 (08:52→10:59)
--- NOTE | 2019-10-06 09:03 | PN ---
Subjective Date of Service: 10/06/19 Interval History: Pt reports that she is feeling fine still and has felt fine since admission other than the first day or two. Pt denies any chest pain, SOB, Dizziness, or abdominal pain. Pt states that she does not want her abdominal dressing touched today. Denies any discomfort. Family History: Unchanged from Admission Social History: Unchanged from Admission Past Medical History: Unchanged from Admission Objective Active Medications: Acetaminophen (Tylenol Tab*) 650 mg PO Q6H PRN PRN Reason: MILD PAIN or TEMP > 100.4 Last Admin: 10/05/19 22:25 Dose: 650 mg Albuterol/Ipratropium (Duoneb (Albuterol 2.5 Mg/Ipratropium 0.5 Mg)) 3 ml INH Q6H PRN PRN Reason: SOB/WHEEZING Aspirin (Aspirin Ec Tab*) 81 mg PO DAILY [facility] Last Admin: 10/05/19 08:47 Dose: 81 mg Atorvastatin Calcium (Lipitor*) 10 mg PO BEDTIME [facility] Last Admin: 10/05/19 22:25 Dose: 10 mg Cyanocobalamin (Vitamin B12 Tab*) 1,000 mcg PO DAILY [facility] Last Admin: 10/05/19 08:47 Dose: 1,000 mcg Dextrose (D50w Syringe 50 Ml*) 12.5 gm IV PUSH .FOR FS < 60 - SS PRN PRN Reason: FS < 60 Duloxetine HCl (Cymbalta Cap*) 30 mg PO DAILY [facility] Last Admin: 10/05/19 08:47 Dose: 30 mg Famotidine (Pepcid Tab*) 40 mg PO DAILY [facility] Last Admin: 10/05/19 08:47 Dose: 40 mg Furosemide (Lasix Iv*) 60 mg IV SLOW PU 0800,1700 [facility] Last Admin: 10/05/19 17:22 Dose: 60 mg Heparin Sodium (Porcine) (Heparin Flush Picc/Ml/Cvc(*)) 0 ml FLUSH 0600,1800 [facility] Last Admin: 10/06/19 06:09 Dose: 1 ml Heparin Sodium (Porcine) (Heparin Vial(*)) 5,000 units SUBCUT Q8HR [facility] Last Admin: 10/06/19 06:09 Dose: 5,000 units Insulin Glargine (Lantus(*)) 29 units SUBCUT DAILY [facility] Last Admin: 10/05/19 08:48 Dose: 29 units Insulin Human Lispro (Humalog*) 0 units SUBCUT ACHS [facility]; Protocol Last Admin: 10/05/19 22:28 Dose: 3 units Metolazone (Zaroxolyn Tab*) 5 mg PO DAILY@0830 [facility] Last Admin: 10/05/19 08:47 Dose: 5 mg Montelukast Sodium (Singulair Tab*) 10 mg PO DAILY [facility] Last Admin: 10/05/19 08:47 Dose: 10 mg Morphine Sulfate (Ms Contin(*)) 15 mg PO 1100,2300 [facility] Last Admin: 10/05/19 22:25 Dose: 15 mg Nystatin (Nystatin Top Powder*) 1 applic TOPICAL BID [facility] Last Admin: 10/05/19 22:27 Dose: 1 applic Ondansetron HCl (Zofran Inj*) 4 mg IV Q6H PRN PRN Reason: NAUSEA Potassium Chloride (Klor Con Er Tab*) 10 meq PO DAILY [facility] Last Admin: 10/05/19 08:46 Dose: 10 meq Spironolactone (Aldactone Tab*) 25 mg PO DAILY [facility] Last Admin: 10/05/19 08:47 Dose: 25 mg Vital Signs - 8 hr 10/06/19 10/06/19 10/06/19 01:03 02:53 03:15 Temperature 98.3 F Pulse Rate 80 82 Respiratory 12 16 18 Rate Blood Pressure 121/56 (mmHg) O2 Sat by Pulse 98 92 Oximetry Oxygen Devices in Use Now: Nasal Cannula Appearance: Obese elderly woman appears stated age sitting up in bed eating breakfast and watching TV. Does not appear to be in any distress. Ears/Nose/Mouth/Throat: NL Teeth, Lips, Gums, Clear Oropharnyx, Mucous Membranes Moist Neck: NL Appearance and Movements; NL JVP, Trachea Midline, No Thyroid Enlargement, Masses Respiratory: Symmetrical Chest Expansion and Respiratory Effort, - - Limited ausculatation ability due to body habitus and limited mobility while in bed. Upper lung sounds clear bilaterally lower lung sounds unable to auscultate with confidence. Abdominal: NL Sounds; No Tenderness; No Distention, No Hepatosplenomegaly Lymphatic: No Cervical Adenopathy Extremities: No Clubbing, Cyanosis Skin: No Rash or Ulcers, No Nodules or Sclerosis, - - Abdominal dressing CDI Pt refused to allow dressing to be removed. Neurological: Alert and Oriented x 3, NL Sensation, NL Muscle Strength and Tone Lines/Tubes/Other Access: Clean, Dry and Intact Other Access - PureWick intact draining dark yellow urine. Nutrition: Taking PO's Result Diagrams: 10/06/19 06:15 10/06/19 06:15 Microbiology and Other Data: Microbiology 09/30/19 11:39 Stool Occult Blood ([place]) - Final Stool Assess/Plan/Problems-Billing Assessment: Patient is a 68yo female with super morbid obesity, HFpEF, COPD, OHS, here with shortness of breath, weight gain, and difficulty ambulating, found of be in CHF exacerbation and improving on diuretics. - Patient Problems (1) Acute hypoxemic respiratory failure Current Visit: Yes Comment: - Sat 75% when building analyst/supervisor got patient per report - Likely due to CHF - NO Right sided strain on Echo- less likely PE - Currently requiring 2L oxygen via nasal cannula. I am anticipating the strong possibility that she may need to be discharged with oxygen. - Will obtain RA oximetry today (2) Chronic abdominal wound infection Current Visit: Yes Comment: - reports wound for 12 years - does not follow with wound care - does daily dresssing changes at home - will do BID dressing changes , wash wound with soap and water- observe for signs of infection - draining moderate amount of foul smelling brown drainage. Feel that she may have developed a fistula. She clearly stated she would not undergo surgery in this hospital. -Wound consult 10/04- Wound drainage unchanged. Reports that she is followed by a physician in [place] regarding wound. -Pt very resistant to having wound dressing removed to evaluate wound appearance. Dressing is CDI. (3) CKD (chronic kidney disease) Current Visit: No Comment: - Cr 2.18 today slowly improving however, BUN is elevated today at 48 and CO2 is 44. I am concerned that patient is being over diuresed with 60mg IV Lasix BID. Pt does maintain negative fluid balance however I will be cutting lasix dose to 60mg IV daily. I am hopeful that Cr, BUN, and CO2 levels will improve on lower dose of lasix. To account for decreasing lasix dose I am restricting fluid to 2L daily. Will recheck BMP in AM. -Continue spironolactone dosing (4) COPD (chronic obstructive pulmonary disease) Current Visit: No Comment: - No signs of exacerbation, no indication for steroids - Only has albuterol inhaler as home medication. - Continue PRN nebulizers and singulair - Room air oximetry ordered for today (5) Depression Current Visit: No Comment: - Continue duloxetine and topiramate. (6) Diabetic neuropathy associated with type 2 diabetes mellitus Current Visit: No Comment: - Continue Duloxetine and morphine (7) Diastolic CHF, chronic Current Visit: No Status: Acute Code(s): I50.32 - CHRONIC DIASTOLIC ( CONGESTIVE) HEART FAILURE SNOMED Code(s): 725257623 Comment: - Acute on Chronic, possibly precipitated by Lyrica use - Started once daily IV furosemide today. Continue zaroxolyn and spironolactone. - Daily weight and strict I/O, patient refuses fay cath, fluid restriction to 2L Daily - Jayden wrap bilateral LE. - Edema in lower extremities improving LLE +3 RLE+1 (8) Morbid obesity Current Visit: Yes Comment: - Recommend weight loss, may benefit from different diabetic treatments to help with this - Would benefit from a referral to [facility] upon discharge. (9) Insulin dependent diabetes mellitus with complications Current Visit: Yes Priority: Medium Comment: -Continue Lantus and Lispro (10) DVT prophylaxis Current Visit: No Comment: - Heparin (11) Full code status Current Visit: Yes Status and Disposition: inpatient - d/c when medically stable - will likely need rehab at discharge
[2019-10-06] MEDS: Morphine TAB Extended Release (*) 15 MG TAB.ER PO SCH ×2 (10:59→22:09)
[2019-10-06 19:50] LABS: Albumin 3.1 g/dL (3.2-5.2); Albumin/Globulin Ratio 0.9 (1-3); BUN/Creatinine Ratio 22.8 (8-20); Calcium 8.9 mg/dL (8.6-10.3); EGFR African American 26.8 (>60); EGFR Non-African American 22.2 (>60); Globulin 3.4 g/dL (2-4); Potassium 4.1 mmol/L (3.5-5.0); Total Bilirubin 1.9 mg/dL (0.2-1.0); Total Protein 6.5 g/dL (6.4-8.9)
[2019-10-06 21:16] LABS: Urine Appearance Cloudy; Urine Bilirubin Negative (Negative); Urine Blood 3+ (Negative); Urine Color Yellow; Urine Glucose Negative (Negative); Urine Ketones Negative (Negative); Urine Nitrite Negative (Negative); Urine Protein Negative (Negative); Urine Specific Gravity 1.008 (1.010-1.030); Urine Urobilinogen Negative (Negative)
[2019-10-06 21:23] LABS: Urine Bacteria 3+ (Absent); Urine Red Blood Cell 2+(6-10/hpf) (Absent); Urine Squamous Epithelial Cell Present (Absent); Urine White Blood Cell 3+(>20/hpf) (Absent)
[2019-10-06 21:27] LABS: UR Microalbumin (mg/L) 57.4 mg/L; Urine Creatinine 24.86 mg/dL; Urine Creatinine Concentration 24.86 mg/dL; Urine Microalbumin/Creatinine 230.8 (<31); Urine Potassium Concentration 25.2 mmol/L
[2019-10-06] MEDS: Atorvastatin* 10 MG TAB PO SCH (22:10)
[2019-10-07] MEDS: Heparin VIAL(*) 5000 UNITS/ML VIAL (FIVE THOUSAND) SUBCUT SCH ×3 (05:02→21:14)
[2019-10-07] MEDS: Insulin LISPRO* 1 UNITS UNIT SUBCUT SCH ×4 (07:31→21:33)
[2019-10-07] MEDS: Cyanocobalamin TAB* 500 MCG PO SCH (09:06)
[2019-10-07] MEDS: Montelukast Sodium TAB* 10 MG PO SCH (09:07)
[2019-10-07] MEDS: Potassium Chlor TAB* 10 MEQ TAB.ER PO SCH (09:07)
[2019-10-07] MEDS: Famotidine TAB* 20 MG PO SCH (09:07)
[2019-10-07] MEDS: Aspirin EC TAB* 81 MG TAB.EC PO SCH (09:07)
[2019-10-07] MEDS: DULoxetine DR CAP* 30 MG CAP.DR PO SCH (09:08)
[2019-10-07] MEDS: Insulin GLARGINE(*) 1 UNITS UNIT SUBCUT SCH (09:08)
[2019-10-07] MEDS: Spironolactone TAB* 25 MG PO SCH (09:08)
[2019-10-07] MEDS: Metolazone TAB* 5 MG PO SCH (09:08)
[2019-10-07] MEDS: Furosemide IV* 10 MG/ML VIAL (40 MG) IV SLOW PU SCH (09:09)
[2019-10-07] MEDS: Nystatin TOP POWDER* 15 GM BTL TOPICAL SCH ×2 (09:25→21:32)
--- NOTE | 2019-10-07 16:18 | PN ---
Subjective Date of Service: 10/07/19 Interval History: Pt is alert and oriented x 3. Pt is currently without any physical complaints. pt denies any headaches, dizzness, LOC, chest pain, SOB, abdominal pain. Pt reports that she ambulated to the restroom today with walker without difficulty. Pt denied any dizziness while walking. Pt reports that she would like to go to [facility] as long as they don't have any COVID 19 detected. Pt reports that if they do she will refuse to go there. Pt reports that she has a walker and wheelchair at home and someone could just as easily come to her home to help her. Family History: Unchanged from Admission Social History: Unchanged from Admission Past Medical History: Unchanged from Admission Objective Active Medications: Acetaminophen (Tylenol Tab*) 650 mg PO Q6H PRN PRN Reason: MILD PAIN or TEMP > 100.4 Last Admin: 10/05/19 22:25 Dose: 650 mg Albuterol/Ipratropium (Duoneb (Albuterol 2.5 Mg/Ipratropium 0.5 Mg)) 3 ml INH Q6H PRN PRN Reason: SOB/WHEEZING Aspirin (Aspirin Ec Tab*) 81 mg PO DAILY COUNTS INCLUDE 234 BEDS AT THE [facility] Last Admin: 10/07/19 09:07 Dose: 81 mg Atorvastatin Calcium (Lipitor*) 10 mg PO BEDTIME COUNTS INCLUDE 234 BEDS AT THE [facility] Last Admin: 10/06/19 22:10 Dose: 10 mg Cyanocobalamin (Vitamin B12 Tab*) 1,000 mcg PO DAILY COUNTS INCLUDE 234 BEDS AT THE [facility] Last Admin: 10/07/19 09:06 Dose: 1,000 mcg Dextrose (D50w Syringe 50 Ml*) 12.5 gm IV PUSH .FOR FS < 60 - SS PRN PRN Reason: FS < 60 Duloxetine HCl (Cymbalta Cap*) 30 mg PO DAILY COUNTS INCLUDE 234 BEDS AT THE [facility] Last Admin: 10/07/19 09:08 Dose: 30 mg Famotidine (Pepcid Tab*) 40 mg PO DAILY COUNTS INCLUDE 234 BEDS AT THE [facility] Last Admin: 10/07/19 09:07 Dose: 40 mg Furosemide (Lasix Iv*) 60 mg IV SLOW PU DAILY COUNTS INCLUDE 234 BEDS AT THE [facility] Last Admin: 10/07/19 09:09 Dose: 60 mg Heparin Sodium (Porcine) (Heparin Flush Picc/Ml/Cvc(*)) 0 ml FLUSH 0600,1800 COUNTS INCLUDE 234 BEDS AT THE [facility] Last Admin: 10/07/19 05:03 Dose: 1 ml Heparin Sodium (Porcine) (Heparin Vial(*)) 5,000 units SUBCUT Q8HR COUNTS INCLUDE 234 BEDS AT THE [facility] Last Admin: 10/07/19 13:46 Dose: 5,000 units Insulin Glargine (Lantus(*)) 29 units SUBCUT DAILY COUNTS INCLUDE 234 BEDS AT THE [facility] Last Admin: 10/07/19 09:08 Dose: 29 units Insulin Human Lispro (Humalog*) 0 units SUBCUT ACHS COUNTS INCLUDE 234 BEDS AT THE [facility]; Protocol Last Admin: 10/07/19 11:58 Dose: 3 units Metolazone (Zaroxolyn Tab*) 5 mg PO DAILY@0830 COUNTS INCLUDE 234 BEDS AT THE [facility] Last Admin: 10/07/19 09:08 Dose: 5 mg Montelukast Sodium (Singulair Tab*) 10 mg PO DAILY COUNTS INCLUDE 234 BEDS AT THE [facility] Last Admin: 10/07/19 09:07 Dose: 10 mg Nystatin (Nystatin Top Powder*) 1 applic TOPICAL BID COUNTS INCLUDE 234 BEDS AT THE [facility] Last Admin: 10/07/19 09:25 Dose: 1 applic Ondansetron HCl (Zofran Inj*) 4 mg IV Q6H PRN PRN Reason: NAUSEA Potassium Chloride (Klor Con Er Tab*) 10 meq PO DAILY COUNTS INCLUDE 234 BEDS AT THE [facility] Last Admin: 10/07/19 09:07 Dose: 10 meq Spironolactone (Aldactone Tab*) 25 mg PO DAILY COUNTS INCLUDE 234 BEDS AT THE [facility] Last Admin: 10/07/19 09:08 Dose: 25 mg Vital Signs - 8 hr 10/07/19 10/07/19 08:14 11:51 Temperature 98.2 F 98.4 F Pulse Rate 90 81 Respiratory 16 16 Rate Blood Pressure 125/47 136/40 (mmHg) O2 Sat by Pulse 97 99 Oximetry Oxygen Devices in Use Now: Nasal Cannula Appearance: Obese elderly woman appearing stated age. Pt laying in bed watching TV. No distress noted. Eyes: No Scleral Icterus, PERRLA Ears/Nose/Mouth/Throat: NL Teeth, Lips, Gums, Clear Oropharnyx, Mucous Membranes Moist Neck: NL Appearance and Movements; NL JVP, Trachea Midline, No Thyroid Enlargement, Masses Respiratory: Symmetrical Chest Expansion and Respiratory Effort, Clear to Auscultation Cardiovascular: NL Sounds; No Murmurs; No JVD, RRR, - - Bilateral +2 pedal edema. +2 pedal pulses bilaterally Abdominal: NL Sounds; No Tenderness; No Distention, No Hepatosplenomegaly Skin: No Rash or Ulcers, No Nodules or Sclerosis, - - JAYDEN bandages removed from bilateral lower extremities, replaced after skin assessed, no breakdown noted. No areas of skin breakdown however pt does have diffuse ecchymosis on bilateral arms. No areas of concern Neurological: Alert and Oriented x 3, NL Sensation, NL Muscle Strength and Tone Result Diagrams: 10/06/19 06:15 10/07/19 17:20 Microbiology and Other Data: Microbiology 09/30/19 11:39 Stool Occult Blood ([place]) - Final Stool Assess/Plan/Problems-Billing Assessment: Patient is a 68yo female with super morbid obesity, HFpEF, COPD, OHS, here with shortness of breath, weight gain, and difficulty ambulating, found of be in CHF exacerbation and improving on diuretics. - Patient Problems (1) Acute hypoxemic respiratory failure Current Visit: Yes Comment: - Sat 75% when airline stewardess got patient per report - Likely due to CHF - NO Right sided strain on Echo- less likely PE - Currently requiring 2L oxygen via nasal cannula. - Pt does drop to 90% while on room air. RT consult for home O2 ordered -CO2 is 47 today, likely pt has been overdiuresed. Pt may be chronic CO2 retainer, due to ineffective respirations related to body habitus. Will order ABG for AM (2) Chronic abdominal wound infection Current Visit: Yes Comment: - reports wound for 12 years - does not follow with wound care - does daily dresssing changes at home - will do BID dressing changes , wash wound with soap and water- observe for signs of infection - draining moderate amount of foul smelling brown drainage. Feel that she may have developed a fistula. She clearly stated she would not undergo surgery in this hospital. -Wound consult 10/04- Wound drainage unchanged. Reports that she is followed by a physician in [place] regarding wound. -Pt reports that she will care for wound. Remains very resistant to having wound dressing removed to evaluate wound appearance. Dressing is CDI. (3) CKD (chronic kidney disease) Current Visit: No Comment: -Pt does have stage III CKD with chronic elevated CR and BUN. Pt is currently at her baseline. - Cr 2.12 today slowly improving however, BUN is elevated today at 53 and CO2 is 47. I am concerned that patient is being over diuresed with elevated CO2. Pt does maintain negative fluid balance however I will be cutting lasix dose to 60mg IV daily from 60mg BID. To account for decreasing lasix dose I am restricting fluid to 2L daily. -Continue spironolactone dosing -24Hr Urine Cr has come back at normal level there is no concern nephrotic syndrome. (4) COPD (chronic obstructive pulmonary disease) Current Visit: No Comment: - No signs of exacerbation, no indication for steroids - Only has albuterol inhaler as home medication. - Continue PRN nebulizers and singulair - Room air oximetry pt desaturates to 90% off oxygen. Will have further evaluation with RT. Pt likely needs supplemental home O2. -ABG ordered for AM 09/06 (5) Depression Current Visit: No Comment: - Continue duloxetine and topiramate. (6) Diabetic neuropathy associated with type 2 diabetes mellitus Current Visit: No Comment: - Continue Duloxetine and morphine (7) Diastolic CHF, chronic Current Visit: No Status: Acute Code(s): I50.32 - CHRONIC DIASTOLIC ( CONGESTIVE) HEART FAILURE SNOMED Code(s): 964998977 Comment: - Acute on Chronic, possibly precipitated by Lyrica use - Started once daily IV furosemide today. Continue zaroxolyn and spironolactone. - Daily weight and strict I/O, patient refuses fay cath, fluid restriction to 2L Daily - Jayden wrap bilateral LE. - Edema in lower extremities improving LLE +1 RLE+1 Pedal pulses +2 Bilaterally (8) Morbid obesity Current Visit: Yes Comment: - Recommend weight loss, may benefit from different diabetic treatments to help with this - Would benefit from a referral to [facility] upon discharge. (9) Insulin dependent diabetes mellitus with complications Current Visit: Yes Priority: Medium Comment: -Continue Lantus and Lispro (10) DVT prophylaxis Current Visit: No Comment: - Heparin (11) Full code status Current Visit: Yes Status and Disposition: inpatient - d/c when medically stable - will likely need rehab at discharge
[2019-10-07 17:56] LABS: Blood Urea Nitrogen 53 mg/dL (6-24); Chloride 90 mmol/L (101-111); EGFR African American 27.9 (>60); Glucose 153 mg/dL (70-100); Sodium 140 mmol/L (135-145)
[2019-10-07 18:29] LABS: Urine Creatinine Concentration 24.16 mg/dL
[2019-10-07 18:44] LABS: CO2 Carbon Dioxide 47 mmol/L (22-32)
[2019-10-07] MEDS: Atorvastatin* 10 MG TAB PO SCH (21:13)
[2019-10-08] MEDS: Heparin VIAL(*) 5000 UNITS/ML VIAL (FIVE THOUSAND) SUBCUT SCH ×3 (06:27→23:11)
[2019-10-08] MEDS: Insulin LISPRO* 1 UNITS UNIT SUBCUT SCH ×4 (08:09→23:11)
[2019-10-08] MEDS: Montelukast Sodium TAB* 10 MG PO SCH (08:17)
[2019-10-08] MEDS: Famotidine TAB* 20 MG PO SCH (08:17)
[2019-10-08] MEDS: DULoxetine DR CAP* 30 MG CAP.DR PO SCH (08:17)
[2019-10-08] MEDS: Potassium Chlor TAB* 10 MEQ TAB.ER PO SCH (08:18)
[2019-10-08] MEDS: Cyanocobalamin TAB* 500 MCG PO SCH (08:18)
[2019-10-08] MEDS: Metolazone TAB* 5 MG PO SCH (08:18)
[2019-10-08] MEDS: Spironolactone TAB* 25 MG PO SCH (08:19)
[2019-10-08] MEDS: Aspirin EC TAB* 81 MG TAB.EC PO SCH (08:19)
[2019-10-08] MEDS: Furosemide IV* 10 MG/ML VIAL (40 MG) IV SLOW PU SCH (08:20)
[2019-10-08] MEDS ORDERED: Piperacillin/Tazobac ADVAN(*) 3.375 GM in NS 0.9% 100 ML* 100 ML IVPB ONE (09:26)
[2019-10-08] MEDS: Insulin GLARGINE(*) 1 UNITS UNIT SUBCUT SCH (09:32)
[2019-10-08] MEDS ORDERED: Zosyn per Pharmacy* NOTE FOLLOW UP SCH (10:00)
[2019-10-08] MEDS: Nystatin TOP POWDER* 15 GM BTL TOPICAL SCH ×2 (10:10→23:00)
[2019-10-08 12:45] LABS: BUN/Creatinine Ratio 25.5 (8-20); Blood Urea Nitrogen 55 mg/dL (6-24); Calcium 9.7 mg/dL (8.6-10.3); Chloride 87 mmol/L (101-111); EGFR African American 27.3 (>60); EGFR Non-African American 22.5 (>60); Glucose 170 mg/dL (70-100); Potassium 4.1 mmol/L (3.5-5.0); Sodium 139 mmol/L (135-145)
[2019-10-08 13:04] LABS: CO2 Carbon Dioxide 46 mmol/L (22-32)
[2019-10-08] MEDS: ZOSYN 3.375 GM Q12H per EXTENDED INFUSION IVPB SCH ×2 (15:59)
--- NOTE | 2019-10-08 19:33 | PN ---
Subjective Date of Service: 10/08/19 Interval History: Pt denies CP, difficulty breathing, abdominal discomfort, unusual numbness/ tingling. Continued talking about how mad she was becoming about staying in the hospital. Spoke to her about the need for O2 and ABGs that appear compensated and that it would reasonable to watch her for another night. She continued to express being upset and stated "I will not be here past Friday, You can't keep me here". I did have a very calm conversation with her letting her know that although I do not believe she is ready for discharge at this time we will reassess tomorrow and that she is correct about being able to make her own decisions about whether she stays per medical advice or leaves against medical advice. Family History: Unchanged from Admission Social History: Unchanged from Admission Past Medical History: Unchanged from Admission Objective Active Medications: Acetaminophen (Tylenol Tab*) 650 mg PO Q6H PRN PRN Reason: MILD PAIN or TEMP > 100.4 Last Admin: 10/05/19 22:25 Dose: 650 mg Albuterol/Ipratropium (Duoneb (Albuterol 2.5 Mg/Ipratropium 0.5 Mg)) 3 ml INH Q6H PRN PRN Reason: SOB/WHEEZING Aspirin (Aspirin Ec Tab*) 81 mg PO DAILY [facility] Last Admin: 10/08/19 08:19 Dose: 81 mg Atorvastatin Calcium (Lipitor*) 10 mg PO BEDTIME [facility] Last Admin: 10/07/19 21:13 Dose: 10 mg Cyanocobalamin (Vitamin B12 Tab*) 1,000 mcg PO DAILY [facility] Last Admin: 10/08/19 08:18 Dose: 1,000 mcg Dextrose (D50w Syringe 50 Ml*) 12.5 gm IV PUSH .FOR FS < 60 - SS PRN PRN Reason: FS < 60 Duloxetine HCl (Cymbalta Cap*) 30 mg PO DAILY [facility] Last Admin: 10/08/19 08:17 Dose: 30 mg Famotidine (Pepcid Tab*) 40 mg PO DAILY [facility] Last Admin: 10/08/19 08:17 Dose: 40 mg Furosemide (Lasix Iv*) 60 mg IV SLOW PU DAILY [facility] Last Admin: 10/08/19 08:20 Dose: 60 mg Heparin Sodium (Porcine) (Heparin Flush Picc/Ml/Cvc(*)) 0 ml FLUSH 0600,1800 [facility] Last Admin: 10/08/19 17:34 Dose: Not Given Heparin Sodium (Porcine) (Heparin Vial(*)) 5,000 units SUBCUT Q8HR [facility] Last Admin: 10/08/19 13:24 Dose: 5,000 units Piperacillin Sod/Tazobactam (Sod 3.375 gm/ Sodium Chloride) 100 mls @ 25 mls/ hr IVPB Q12H [facility] Last Admin: 10/08/19 15:59 Dose: 25 mls/hr Insulin Glargine (Lantus(*)) 29 units SUBCUT DAILY [facility] Last Admin: 10/08/19 09:32 Dose: 29 units Insulin Human Lispro (Humalog*) 0 units SUBCUT ACHS [facility]; Protocol Last Admin: 10/08/19 17:31 Dose: 6 units Metolazone (Zaroxolyn Tab*) 5 mg PO DAILY@0830 [facility] Last Admin: 10/08/19 08:18 Dose: 5 mg Montelukast Sodium (Singulair Tab*) 10 mg PO DAILY [facility] Last Admin: 10/08/19 08:17 Dose: 10 mg Nystatin (Nystatin Top Powder*) 1 applic TOPICAL BID [facility] Last Admin: 10/08/19 10:10 Dose: 1 applic Ondansetron HCl (Zofran Inj*) 4 mg IV Q6H PRN PRN Reason: NAUSEA Pharmacy Consult (Zosyn Per Pharmacy*) 1 note FOLLOW UP .ZOSYN PER PHARMACY [facility] Potassium Chloride (Klor Con Er Tab*) 10 meq PO DAILY [facility] Last Admin: 10/08/19 08:18 Dose: 10 meq Spironolactone (Aldactone Tab*) 25 mg PO DAILY [facility] Last Admin: 10/08/19 08:19 Dose: 25 mg Vital Signs - 8 hr 10/08/19 15:15 Temperature 98.2 F Pulse Rate 89 Respiratory 20 Rate Blood Pressure 129/58 (mmHg) O2 Sat by Pulse 99 Oximetry Oxygen Devices in Use Now: Nasal Cannula Appearance: sitting up in chair, very large body habitus, NAD Eyes: No Scleral Icterus Respiratory: Symmetrical Chest Expansion and Respiratory Effort, - - very difficult to assess airflow d/t body habitus, diminished all over with no adventitious sounds heard Cardiovascular: RRR Abdominal: - - quiet hypoactive BS throughout, abdomen very large, soft Extremities: - - 2+ edema BLE, mild pitting effect, 1+ PPP bilaterally Skin: - - dry to BLE, intact Neurological: Alert and Oriented x 3 Nutrition: Taking PO's Result Diagrams: 10/09/19 06:00 10/09/19 06:00 Additional Lab and Data: Abnormal Lab Results 10/07/19 10/08/19 10/08/19 21:17 07:32 07:45 ABG pH 7.41 ABG pCO2 73 H* ABG pO2 50 L* ABG HCO3 38.2 H ABG O2 Saturation 86.2 L ABG Base Excess 17.6 H VBG pH VBG pCO2 VBG pO2 VBG HCO3 VBG O2 Saturation VBG Base Excess Sodium Potassium Chloride Carbon Dioxide Anion Gap BUN Creatinine Est GFR ( Amer) Est GFR (Non-Af Amer) BUN/Creatinine Ratio Glucose POC Glucose (mg/dL) 195 H 150 H Calcium 10/08/19 10/08/19 10/08/19 12:00 12:00 12:03 ABG pH ABG pCO2 ABG pO2 ABG HCO3 ABG O2 Saturation ABG Base Excess VBG pH 7.37 VBG pCO2 65 H VBG pO2 50.0 H VBG HCO3 32.1 H VBG O2 Saturation 85.0 H VBG Base Excess 9.7 H Sodium 139 Potassium 4.1 Chloride 87 L Carbon Dioxide 46 H* Anion Gap Not Reportable BUN 55 H Creatinine 2.16 H Est GFR ( Amer) 27.3 Est GFR (Non-Af Amer) 22.5 BUN/Creatinine Ratio 25.5 H Glucose 170 H POC Glucose (mg/dL) 190 H Calcium 9.7 10/08/19 16:27 ABG pH ABG pCO2 ABG pO2 ABG HCO3 ABG O2 Saturation ABG Base Excess VBG pH VBG pCO2 VBG pO2 VBG HCO3 VBG O2 Saturation VBG Base Excess Sodium Potassium Chloride Carbon Dioxide Anion Gap BUN Creatinine Est GFR ( Amer) Est GFR (Non-Af Amer) BUN/Creatinine Ratio Glucose POC Glucose (mg/dL) 206 H Calcium Microbiology and Other Data: Microbiology 09/30/19 11:39 Stool Occult Blood ([place]) - Final Stool Assess/Plan/Problems-Billing Assessment: Patient is a 68yo female with super morbid obesity, HFpEF, COPD, OHS, here with shortness of breath, weight gain, and difficulty ambulating, found of be in CHF exacerbation and improving on diuretics. - Patient Problems (1) Acute hypoxemic respiratory failure Current Visit: Yes Status: Acute Code(s): J96.01 - ACUTE RESPIRATORY FAILURE WITH HYPOXIA SNOMED Code(s): 555696698 Comment: - Sat 75% when inspector [place] [employer] got patient per report - Likely due to CHF - NO Right sided strain on Echo- less likely PE - Currently requiring 2L oxygen via nasal cannula. - RT consult for home O2 ordered -ABGs this morning pH 7.41 pCO2 73 pO2 50 HCO3 38.2 O2 SAT 86.2 Base ex 17.6 *Per nursing RT thought may have had venous contamination of sample, VBG ordered - VBGs pH 7.37 pCO2 65 pO2 50 HCO3 32.1 O2 SAT 85 Base ex 9.7, in context of ABG vs VBG improved. Did not have prior ABG/VBG drawn. Assuming respiratory failure on admission, labs appear to exhibit fully compensated respiratory acidosis. - Continue O2 as needed - Titrate for low 90s, order entered (2) Diastolic CHF, chronic Current Visit: No Status: Acute Code(s): I50.32 - CHRONIC DIASTOLIC ( CONGESTIVE) HEART FAILURE SNOMED Code(s): 392150372 Comment: - Acute on Chronic, possibly precipitated by Lyrica use - Denies feeling SOB - Started once daily IV furosemide today. Continue zaroxolyn and spironolactone. - Daily weight and strict I/O, patient refuses fay cath, fluid restriction to 2L Daily - Jayden wrap bilateral LE. - Edema in lower extremities improving per pt (3) Insulin dependent diabetes mellitus with complications Current Visit: Yes Status: Chronic Priority: Medium Code(s): E11.8 - TYPE 2 DIABETES MELLITUS WITH UNSPECIFIED COMPLICATIONS SNOMED Code(s): 59459431 Comment: -Continue Lantus and Lispro - FS ACHS (4) Morbid obesity Current Visit: Yes Status: Acute Code(s): E66.01 - MORBID (SEVERE) OBESITY DUE TO EXCESS CALORIES SNOMED Code(s): 991073269 Comment: - Recommend weight loss, lifestyle changes - Would benefit from a referral to [facility] upon discharge. (5) CKD (chronic kidney disease) Current Visit: No Status: Acute Code(s): N18.9 - CHRONIC KIDNEY DISEASE, UNSPECIFIED SNOMED Code(s): 199255354 Comment: -Pt does have stage III CKD with chronic elevated CR and BUN. Pt is currently at her baseline. - Cr 2.16 today slowly improving however, BUN is elevated today at 55 BUN/Cr ratio increasing. I am concerned that patient is being over diuresed with elevated CO2. -24Hr Urine Cr has come back at normal level there is no concern nephrotic syndrome. - Maintained same weight last 2 days - Continue with once daily dosing furosemide -Continue spironolactone dosing (6) COPD (chronic obstructive pulmonary disease) Current Visit: No Status: Acute Code(s): J44.9 - CHRONIC OBSTRUCTIVE PULMONARY DISEASE, UNSPECIFIED SNOMED Code(s): 20470590 Comment: - No signs of exacerbation, no indication for steroids - Only has albuterol inhaler as home medication. - Continue PRN nebulizers and singulair - RA SATs while resting and walking ordered (7) Chronic abdominal wound infection Current Visit: Yes Status: Acute Code(s): S31.109A - UNSP OPN WND ABD WALL, UNSP Q W/O PENET PERIT CAV, INIT; L08.9 - LOCAL INFECTION OF THE SKIN AND SUBCUTANEOUS TISSUE, UNSP SNOMED Code(s): 33143168 Comment: - reports wound for 12 years - does not follow with wound care - does daily dresssing changes at home - will do BID dressing changes , wash wound with soap and water- observe for signs of infection - draining moderate amount of foul smelling brown drainage. Feel that she may have developed a fistula. She clearly stated she would not undergo surgery in this hospital. -Wound consult 10/04- Wound drainage unchanged. Reports that she is followed by a physician in [place] regarding wound. - States that she already has a follow-up with her surgeon in [place]. - Allowed me to look at her wound but did not want me to further examine it. Again noted with what appears to be stool-like drainage, smells of stool. She states this is what it usually looks like. - Continue to monitor for s/s of infection (8) Depression Current Visit: No Status: Acute Code(s): F32.9 - MAJOR DEPRESSIVE DISORDER, SINGLE EPISODE, UNSPECIFIED SNOMED Code(s): 02789751 Comment: - Continue duloxetine (9) Full code status Current Visit: Yes Status: Acute Code(s): Z78.9 - OTHER SPECIFIED HEALTH STATUS SNOMED Code(s): 092135313 (10) DVT prophylaxis Current Visit: No Status: Acute Code(s): UHZ3962 - SNOMED Code(s): 568558023 Comment: - Heparin Status and Disposition: inpatient - d/c when medically stable - will likely need rehab at discharge Attending: Margaret Barry
[2019-10-08 20:06] LABS: Kappa Free Light Chain 15.5 mg/dL; Lambda Free Light Chain 7.96 mg/dL
[2019-10-08] MEDS: Atorvastatin* 10 MG TAB PO SCH (23:10)
[2019-10-09 00:35] LABS: Albumin 2.8 g/dL (3.4-4.7); Albumin/Globulin Ratio 0.75; Gamma Globulin 1.6 g/dL (0.6-1.6); Total Protein(PEP) 6.6 g/dL (6.3 - 7.9)
[2019-10-09] MEDS: ZOSYN 3.375 GM Q12H per EXTENDED INFUSION IVPB SCH ×4 (04:00→14:13)
[2019-10-09] MEDS: Heparin VIAL(*) 5000 UNITS/ML VIAL (FIVE THOUSAND) SUBCUT SCH ×3 (06:11→21:38)
[2019-10-09 06:41] LABS: ABS Eosinophils 0.1 10^3/ul (0-0.6); ABS Lymphocytes 1.1 10^3/ul (1.0-4.8); ABS Monocytes 0.9 10^3/ul (0-0.8); Hematocrit 26 % (35-47); Hemoglobin 8.7 g/dL (12.0-16.0); Lymphocyte % 17.8 %; Mean Corpuscular HGB Conc 33 g/dL (31-36); Mean Corpuscular Hemoglobin 30 pg (27-31); Mean Corpuscular Volume 90 fL (80-97); Mean Platelet Volume 9.5 fL (7.4-10.4); Platelet Count 128 10^3/uL (150-450); Red Blood Count 2.94 10^6 /uL (3.70-4.87); Red Cell Distribution Width 20 % (10-15); White Blood Count 6.1 10^3/uL (3.5-10.8)
[2019-10-09 06:51] LABS: BUN/Creatinine Ratio 24.8 (8-20); Blood Urea Nitrogen 58 mg/dL (6-24); Chloride 89 mmol/L (101-111); EGFR African American 24.9 (>60); EGFR Non-African American 20.6 (>60); Glucose 127 mg/dL (70-100); Potassium 3.9 mmol/L (3.5-5.0); Sodium 140 mmol/L (135-145)
[2019-10-09 07:10] LABS: CO2 Carbon Dioxide 46 mmol/L (22-32)
[2019-10-09] MEDS: Insulin LISPRO* 1 UNITS UNIT SUBCUT SCH ×4 (08:09→21:38)
[2019-10-09] MEDS: Insulin GLARGINE(*) 1 UNITS UNIT SUBCUT SCH (10:17)
[2019-10-09] MEDS: Furosemide IV* 10 MG/ML VIAL (40 MG) IV SLOW PU SCH (10:18)
[2019-10-09] MEDS: Metolazone TAB* 5 MG PO SCH (10:19)
[2019-10-09] MEDS: Potassium Chlor TAB* 10 MEQ TAB.ER PO SCH (10:19)
[2019-10-09] MEDS: Montelukast Sodium TAB* 10 MG PO SCH (10:19)
[2019-10-09] MEDS: Spironolactone TAB* 25 MG PO SCH (10:19)
[2019-10-09] MEDS: DULoxetine DR CAP* 30 MG CAP.DR PO SCH (10:19)
[2019-10-09] MEDS: Cyanocobalamin TAB* 500 MCG PO SCH (10:20)
[2019-10-09] MEDS: Aspirin EC TAB* 81 MG TAB.EC PO SCH (10:20)
[2019-10-09] MEDS: Famotidine TAB* 20 MG PO SCH (10:20)
[2019-10-09] MEDS: Nystatin TOP POWDER* 15 GM BTL TOPICAL SCH ×2 (10:23→21:39)
--- NOTE | 2019-10-09 18:04 | PN ---
Subjective Date of Service: 10/09/19 Interval History: Today pt is very amenable to being accepted to [facility] and not being able to leave until Friday if all is well. She denies any SOB, cough, fevers, CP, abdominal pain, unusual numbness/tingling. Family History: Unchanged from Admission Social History: Unchanged from Admission Past Medical History: Unchanged from Admission Objective Active Medications: Acetaminophen (Tylenol Tab*) 650 mg PO Q6H PRN PRN Reason: MILD PAIN or TEMP > 100.4 Last Admin: 10/05/19 22:25 Dose: 650 mg Albuterol/Ipratropium (Duoneb (Albuterol 2.5 Mg/Ipratropium 0.5 Mg)) 3 ml INH Q6H PRN PRN Reason: SOB/WHEEZING Aspirin (Aspirin Ec Tab*) 81 mg PO DAILY [facility] Last Admin: 10/09/19 10:20 Dose: 81 mg Atorvastatin Calcium (Lipitor*) 10 mg PO BEDTIME [facility] Last Admin: 10/08/19 23:10 Dose: 10 mg Cyanocobalamin (Vitamin B12 Tab*) 1,000 mcg PO DAILY [facility] Last Admin: 10/09/19 10:20 Dose: 1,000 mcg Dextrose (D50w Syringe 50 Ml*) 12.5 gm IV PUSH .FOR FS < 60 - SS PRN PRN Reason: FS < 60 Duloxetine HCl (Cymbalta Cap*) 30 mg PO DAILY [facility] Last Admin: 10/09/19 10:19 Dose: 30 mg Famotidine (Pepcid Tab*) 40 mg PO DAILY [facility] Last Admin: 10/09/19 10:20 Dose: 40 mg Furosemide (Lasix Iv*) 60 mg IV SLOW PU DAILY [facility] Last Admin: 10/09/19 10:18 Dose: 60 mg Heparin Sodium (Porcine) (Heparin Flush Picc/Ml/Cvc(*)) 0 ml FLUSH 0600,1800 [facility] Last Admin: 10/09/19 17:30 Dose: Not Given Heparin Sodium (Porcine) (Heparin Vial(*)) 5,000 units SUBCUT Q8HR [facility] Last Admin: 10/09/19 14:08 Dose: 5,000 units Piperacillin Sod/Tazobactam (Sod 3.375 gm/ Sodium Chloride) 100 mls @ 25 mls/ hr IVPB Q12H [facility] Last Admin: 10/09/19 14:13 Dose: 25 mls/hr Insulin Glargine (Lantus(*)) 29 units SUBCUT DAILY [facility] Last Admin: 10/09/19 10:17 Dose: 29 units Insulin Human Lispro (Humalog*) 0 units SUBCUT ACHS [facility]; Protocol Last Admin: 10/09/19 17:28 Dose: 6 units Metolazone (Zaroxolyn Tab*) 5 mg PO DAILY@0830 [facility] Last Admin: 10/09/19 10:19 Dose: 5 mg Montelukast Sodium (Singulair Tab*) 10 mg PO DAILY [facility] Last Admin: 10/09/19 10:19 Dose: 10 mg Nystatin (Nystatin Top Powder*) 1 applic TOPICAL BID [facility] Last Admin: 10/09/19 10:23 Dose: 1 applic Ondansetron HCl (Zofran Inj*) 4 mg IV Q6H PRN PRN Reason: NAUSEA Pharmacy Consult (Zosyn Per Pharmacy*) 1 note FOLLOW UP .ZOSYN PER PHARMACY [facility] Potassium Chloride (Klor Con Er Tab*) 10 meq PO DAILY [facility] Last Admin: 10/09/19 10:19 Dose: 10 meq Spironolactone (Aldactone Tab*) 25 mg PO DAILY [facility] Last Admin: 10/09/19 10:19 Dose: 25 mg Vital Signs - 8 hr 10/09/19 11:30 Temperature 97.6 F Pulse Rate 84 Respiratory 20 Rate Blood Pressure 126/52 (mmHg) O2 Sat by Pulse 100 Oximetry Oxygen Devices in Use Now: Nasal Cannula Appearance: sitting up in bed, NAD Eyes: No Scleral Icterus Ears/Nose/Mouth/Throat: Clear Oropharnyx Respiratory: Symmetrical Chest Expansion and Respiratory Effort, Clear to Auscultation Cardiovascular: RRR Abdominal: - - Hypoactive BS, abdomen very large, soft. Open wound to mid abdomen, draining stool-like drainage with smell of stool, no surrounding erythema or edema Extremities: - - Mild edema with trace pitting effect to BLE, PPP 2+ Skin: - - See abdomen Neurological: Alert and Oriented x 3 Nutrition: Taking PO's - with 2L fluid restriction Result Diagrams: 10/09/19 06:00 10/09/19 06:00 Additional Lab and Data: Abnormal Lab Results 10/07/19 10/08/19 10/08/19 21:17 07:32 07:45 ABG pH 7.41 ABG pCO2 73 H* ABG pO2 50 L* ABG HCO3 38.2 H ABG O2 Saturation 86.2 L ABG Base Excess 17.6 H VBG pH VBG pCO2 VBG pO2 VBG HCO3 VBG O2 Saturation VBG Base Excess Sodium Potassium Chloride Carbon Dioxide Anion Gap BUN Creatinine Est GFR ( Amer) Est GFR (Non-Af Amer) BUN/Creatinine Ratio Glucose POC Glucose (mg/dL) 195 H 150 H Calcium 10/08/19 10/08/19 10/08/19 12:00 12:00 12:03 ABG pH ABG pCO2 ABG pO2 ABG HCO3 ABG O2 Saturation ABG Base Excess VBG pH 7.37 VBG pCO2 65 H VBG pO2 50.0 H VBG HCO3 32.1 H VBG O2 Saturation 85.0 H VBG Base Excess 9.7 H Sodium 139 Potassium 4.1 Chloride 87 L Carbon Dioxide 46 H* Anion Gap Not Reportable BUN 55 H Creatinine 2.16 H Est GFR ( Amer) 27.3 Est GFR (Non-Af Amer) 22.5 BUN/Creatinine Ratio 25.5 H Glucose 170 H POC Glucose (mg/dL) 190 H Calcium 9.7 10/08/19 16:27 ABG pH ABG pCO2 ABG pO2 ABG HCO3 ABG O2 Saturation ABG Base Excess VBG pH VBG pCO2 VBG pO2 VBG HCO3 VBG O2 Saturation VBG Base Excess Sodium Potassium Chloride Carbon Dioxide Anion Gap BUN Creatinine Est GFR ( Amer) Est GFR (Non-Af Amer) BUN/Creatinine Ratio Glucose POC Glucose (mg/dL) 206 H Calcium Microbiology and Other Data: Microbiology 09/30/19 11:39 Stool Occult Blood ([place]) - Final Stool Assess/Plan/Problems-Billing Assessment: Patient is a 68yo female with super morbid obesity, HFpEF, COPD, OHS, here with shortness of breath, weight gain, and difficulty ambulating, found of be in CHF exacerbation and improving on diuretics. - Patient Problems (1) Acute hypoxemic respiratory failure Current Visit: Yes Status: Acute Code(s): J96.01 - ACUTE RESPIRATORY FAILURE WITH HYPOXIA SNOMED Code(s): 613397741 Comment: - Sat 75% when sales contract administrator got patient per report - Likely due to CHF - NO Right sided strain on Echo- less likely PE - Currently requiring 2L oxygen via nasal cannula. - RT consult for home O2 ordered -ABGs 10/07 pH 7.41 pCO2 73 pO2 50 HCO3 38.2 O2 SAT 86.2 Base ex 17.6 *Per nursing RT thought may have had venous contamination of sample, VBG ordered - VBGs pH 7.37 pCO2 65 pO2 50 HCO3 32.1 O2 SAT 85 Base ex 9.7, in context of ABG vs VBG improved. Did not have prior ABG/VBG drawn. Assuming respiratory failure on admission, labs appear to exhibit fully compensated respiratory acidosis. - Denies any SOB, has been on O2 - Continue O2 as needed - Titrate for low 90s, order entered (2) Diastolic CHF, chronic Current Visit: No Status: Acute Code(s): I50.32 - CHRONIC DIASTOLIC ( CONGESTIVE) HEART FAILURE SNOMED Code(s): 407425289 Comment: - Acute on Chronic, possibly precipitated by Lyrica use - Denies feeling SOB - Restart home dosing lasix. Continue zaroxolyn and spironolactone. - Daily weight and strict I/O, patient refuses fay cath, fluid restriction to 2L Daily - Jayden wrap bilateral LE. - Edema in lower extremities improving per pt (3) Insulin dependent diabetes mellitus with complications Current Visit: Yes Status: Chronic Priority: Medium Code(s): E11.8 - TYPE 2 DIABETES MELLITUS WITH UNSPECIFIED COMPLICATIONS SNOMED Code(s): 04170775 Comment: -Continue Lantus and Lispro - FS ACHS (4) Morbid obesity Current Visit: Yes Status: Acute Code(s): E66.01 - MORBID (SEVERE) OBESITY DUE TO EXCESS CALORIES SNOMED Code(s): 986175849 Comment: - Recommend weight loss, lifestyle changes - Would benefit from a referral to [facility] upon discharge. (5) CKD (chronic kidney disease) Current Visit: No Status: Acute Code(s): N18.9 - CHRONIC KIDNEY DISEASE, UNSPECIFIED SNOMED Code(s): 219690448 Comment: -Pt does have stage III CKD with chronic elevated CR and BUN. Pt is currently at her baseline. - Cr and BUN continue to be high -24Hr Urine Cr has come back at normal level there is no concern nephrotic syndrome. - Maintained same weight last couple days with an apparant 14lb weight loss since yesterday, I doubt this is accurate - Continue with furosemide -Continue spironolactone dosing (6) COPD (chronic obstructive pulmonary disease) Current Visit: No Status: Acute Code(s): J44.9 - CHRONIC OBSTRUCTIVE PULMONARY DISEASE, UNSPECIFIED SNOMED Code(s): 74819869 Comment: - No signs of exacerbation, no indication for steroids - Only has albuterol inhaler as home medication. - Continue PRN nebulizers and singulair - RA SATs while resting and walking ordered (7) Chronic abdominal wound infection Current Visit: Yes Status: Acute Code(s): S31.109A - UNSP OPN WND ABD WALL, UNSP Q W/O PENET PERIT CAV, INIT; L08.9 - LOCAL INFECTION OF THE SKIN AND SUBCUTANEOUS TISSUE, UNSP SNOMED Code(s): 70014396 Comment: - reports wound for 12 years - does not follow with wound care - does daily dresssing changes at home - will do BID dressing changes , wash wound with soap and water- observe for signs of infection - draining moderate amount of foul smelling brown drainage. Feel that she may have developed a fistula. She clearly stated she would not undergo surgery in this hospital. -Wound consult 10/04- Wound drainage unchanged. Reports that she is followed by a physician in [place] regarding wound. - States that she already has a follow-up with her surgeon in [place]. - Allowed me to look at her wound but did not want me to further examine it. Again noted with what appears to be stool-like drainage, smells of stool. She states this is what it usually looks like. - Continue to monitor for s/s of infection (8) Depression Current Visit: No Status: Acute Code(s): F32.9 - MAJOR DEPRESSIVE DISORDER, SINGLE EPISODE, UNSPECIFIED SNOMED Code(s): 59402458 Comment: - Continue duloxetine (9) Full code status Current Visit: Yes Status: Acute Code(s): Z78.9 - OTHER SPECIFIED HEALTH STATUS SNOMED Code(s): 793326597 (10) DVT prophylaxis Current Visit: No Status: Acute Code(s): DFO7440 - SNOMED Code(s): 275932535 Comment: - Heparin sq Status and Disposition: inpatient - d/c when medically stable - will likely need rehab at discharge Attending: Margaret Barry
[2019-10-09] MEDS: Atorvastatin* 10 MG TAB PO SCH (21:39)
[2019-10-09] MEDS: Furosemide TAB* 40 MG PO SCH (21:39)
[2019-10-10] MEDS: ZOSYN 3.375 GM Q12H per EXTENDED INFUSION IVPB SCH ×4 (02:46→16:08)
[2019-10-10] MEDS: Heparin VIAL(*) 5000 UNITS/ML VIAL (FIVE THOUSAND) SUBCUT SCH ×3 (04:22→21:15)
[2019-10-10 06:18] LABS: BUN/Creatinine Ratio 24.6 (8-20); Blood Urea Nitrogen 58 mg/dL (6-24); Calcium 9.1 mg/dL (8.6-10.3); Chloride 88 mmol/L (101-111); EGFR African American 24.6 (>60); EGFR Non-African American 20.3 (>60); Glucose 147 mg/dL (70-100); Potassium 3.7 mmol/L (3.5-5.0); Sodium 140 mmol/L (135-145)
[2019-10-10 06:43] LABS: CO2 Carbon Dioxide 46 mmol/L (22-32)
[2019-10-10] MEDS: Metolazone TAB* 5 MG PO SCH (08:20)
[2019-10-10] MEDS: DULoxetine DR CAP* 30 MG CAP.DR PO SCH (08:20)
[2019-10-10] MEDS: Aspirin EC TAB* 81 MG TAB.EC PO SCH (08:20)
[2019-10-10] MEDS: Famotidine TAB* 20 MG PO SCH (08:20)
[2019-10-10] MEDS: Montelukast Sodium TAB* 10 MG PO SCH (08:20)
[2019-10-10] MEDS: Spironolactone TAB* 25 MG PO SCH (08:21)
[2019-10-10] MEDS: Furosemide TAB* 40 MG PO SCH ×2 (08:21→21:15)
[2019-10-10] MEDS: Potassium Chlor TAB* 10 MEQ TAB.ER PO SCH (08:21)
[2019-10-10] MEDS: Cyanocobalamin TAB* 500 MCG PO SCH (08:21)
[2019-10-10] MEDS: Insulin LISPRO* 1 UNITS UNIT SUBCUT SCH ×4 (08:23→21:15)
[2019-10-10] MEDS: Insulin GLARGINE(*) 1 UNITS UNIT SUBCUT SCH (10:00)
[2019-10-10] MEDS: Morphine TAB Extended Release (*) 15 MG TAB.ER PO SCH ×2 (10:24→21:14)
[2019-10-10] MEDS: Nystatin TOP POWDER* 15 GM BTL TOPICAL SCH ×2 (10:25→21:26)
[2019-10-10] MEDS: Acetaminophen TAB* 325 MG PO PRN (13:48)
[2019-10-10] MEDS ORDERED: Morphine INJ* 2 MG/ML 1 ML SYRINGE (TWO MG - NEW SYRINGE VERSION) IV ONE (15:08)
[2019-10-10] MEDS ORDERED: Magnesium Hydroxide LIQ* 30 ML UDC PO ONE (16:38)
--- NOTE | 2019-10-10 18:20 | PN ---
Subjective Date of Service: 10/10/19 Interval History: Denies any CP, PATIÑO, SOB, palpitations. Believes swelling to legs continues to improve. Did have an episode of abdominal pain this afternoon, takes morphine ER at home , this was restarted. Pt had continued pain while in the chair, a PRN dose of morphine IV was given. Little relief. I went back up to check on her, by that time she was in the bed and stated that her pain had resolved. Family History: Unchanged from Admission Social History: Unchanged from Admission Past Medical History: Unchanged from Admission Objective Active Medications: Acetaminophen (Tylenol Tab*) 650 mg PO Q6H PRN PRN Reason: MILD PAIN or TEMP > 100.4 Last Admin: 10/10/19 13:48 Dose: 650 mg Albuterol/Ipratropium (Duoneb (Albuterol 2.5 Mg/Ipratropium 0.5 Mg)) 3 ml INH Q6H PRN PRN Reason: SOB/WHEEZING Aspirin (Aspirin Ec Tab*) 81 mg PO DAILY [facility] Last Admin: 10/10/19 08:20 Dose: 81 mg Atorvastatin Calcium (Lipitor*) 10 mg PO BEDTIME [facility] Last Admin: 10/09/19 21:39 Dose: 10 mg Cyanocobalamin (Vitamin B12 Tab*) 1,000 mcg PO DAILY [facility] Last Admin: 10/10/19 08:21 Dose: 1,000 mcg Dextrose (D50w Syringe 50 Ml*) 12.5 gm IV PUSH .FOR FS < 60 - SS PRN PRN Reason: FS < 60 Duloxetine HCl (Cymbalta Cap*) 30 mg PO DAILY [facility] Last Admin: 10/10/19 08:20 Dose: 30 mg Famotidine (Pepcid Tab*) 40 mg PO DAILY [facility] Last Admin: 10/10/19 08:20 Dose: 40 mg Furosemide (Lasix Tab*) 40 mg PO BEDTIME [facility] Last Admin: 10/09/19 21:39 Dose: 40 mg Furosemide (Lasix Tab*) 80 mg PO DAILY [facility] Last Admin: 10/10/19 08:21 Dose: 80 mg Heparin Sodium (Porcine) (Heparin Flush Picc/Ml/Cvc(*)) 0 ml FLUSH 0600,1800 [facility] Last Admin: 10/10/19 17:00 Dose: 1 ml Heparin Sodium (Porcine) (Heparin Vial(*)) 5,000 units SUBCUT Q8HR [facility] Last Admin: 10/10/19 13:53 Dose: 5,000 units Piperacillin Sod/Tazobactam (Sod 3.375 gm/ Sodium Chloride) 100 mls @ 25 mls/ hr IVPB Q12H [facility] Last Admin: 10/10/19 16:08 Dose: 25 mls/hr Insulin Glargine (Lantus(*)) 29 units SUBCUT DAILY [facility] Last Admin: 10/10/19 10:00 Dose: 29 units Insulin Human Lispro (Humalog*) 0 units SUBCUT ACHS [facility]; Protocol Last Admin: 10/10/19 12:06 Dose: 9 units Metolazone (Zaroxolyn Tab*) 5 mg PO DAILY@0830 [facility] Last Admin: 10/10/19 08:20 Dose: 5 mg Montelukast Sodium (Singulair Tab*) 10 mg PO DAILY [facility] Last Admin: 10/10/19 08:20 Dose: 10 mg Morphine Sulfate (Ms Contin(*)) 15 mg PO BID [facility] Last Admin: 10/10/19 10:24 Dose: 15 mg Nystatin (Nystatin Top Powder*) 1 applic TOPICAL BID [facility] Last Admin: 10/10/19 10:25 Dose: 1 applic Ondansetron HCl (Zofran Inj*) 4 mg IV Q6H PRN PRN Reason: NAUSEA Pharmacy Consult (Zosyn Per Pharmacy*) 1 note FOLLOW UP .ZOSYN PER PHARMACY [facility] Potassium Chloride (Klor Con Er Tab*) 10 meq PO DAILY [facility] Last Admin: 10/10/19 08:21 Dose: 10 meq Spironolactone (Aldactone Tab*) 25 mg PO DAILY [facility] Last Admin: 10/10/19 08:21 Dose: 25 mg Vital Signs - 8 hr 10/10/19 10/10/19 10/10/19 10:24 13:36 16:07 Respiratory 18 18 18 Rate Oxygen Devices in Use Now: Nasal Cannula Appearance: laying in bed, NAD Eyes: No Scleral Icterus Ears/Nose/Mouth/Throat: Clear Oropharnyx Respiratory: Symmetrical Chest Expansion and Respiratory Effort, Clear to Auscultation Cardiovascular: RRR Abdominal: - - Normoactive BS throughout. Abdomen large, soft. Wound to mid abdomen, small open wound bed, scant amount yellow purulence today, no other drainage noted. Non-tender to deep palpation. Some darkening of skin, light purple/pink to lower abdominal fold, states this is normal Extremities: - - Mild non-pitting edema Neurological: Alert and Oriented x 3 Nutrition: Taking PO's Result Diagrams: 10/09/19 06:00 10/10/19 05:50 Additional Lab and Data: Abnormal Lab Results 10/07/19 10/08/19 10/08/19 21:17 07:32 07:45 ABG pH 7.41 ABG pCO2 73 H* ABG pO2 50 L* ABG HCO3 38.2 H ABG O2 Saturation 86.2 L ABG Base Excess 17.6 H VBG pH VBG pCO2 VBG pO2 VBG HCO3 VBG O2 Saturation VBG Base Excess Sodium Potassium Chloride Carbon Dioxide Anion Gap BUN Creatinine Est GFR ( Amer) Est GFR (Non-Af Amer) BUN/Creatinine Ratio Glucose POC Glucose (mg/dL) 195 H 150 H Calcium 10/08/19 10/08/19 10/08/19 12:00 12:00 12:03 ABG pH ABG pCO2 ABG pO2 ABG HCO3 ABG O2 Saturation ABG Base Excess VBG pH 7.37 VBG pCO2 65 H VBG pO2 50.0 H VBG HCO3 32.1 H VBG O2 Saturation 85.0 H VBG Base Excess 9.7 H Sodium 139 Potassium 4.1 Chloride 87 L Carbon Dioxide 46 H* Anion Gap Not Reportable BUN 55 H Creatinine 2.16 H Est GFR ( Amer) 27.3 Est GFR (Non-Af Amer) 22.5 BUN/Creatinine Ratio 25.5 H Glucose 170 H POC Glucose (mg/dL) 190 H Calcium 9.7 10/08/19 16:27 ABG pH ABG pCO2 ABG pO2 ABG HCO3 ABG O2 Saturation ABG Base Excess VBG pH VBG pCO2 VBG pO2 VBG HCO3 VBG O2 Saturation VBG Base Excess Sodium Potassium Chloride Carbon Dioxide Anion Gap BUN Creatinine Est GFR ( Amer) Est GFR (Non-Af Amer) BUN/Creatinine Ratio Glucose POC Glucose (mg/dL) 206 H Calcium Microbiology and Other Data: Microbiology 09/30/19 11:39 Stool Occult Blood ([place]) - Final Stool Assess/Plan/Problems-Billing Assessment: Patient is a 68yo female with super morbid obesity, HFpEF, COPD, OHS, here with shortness of breath, weight gain, and difficulty ambulating, found of be in CHF exacerbation and improving on diuretics. - Patient Problems (1) Acute hypoxemic respiratory failure Current Visit: Yes Status: Acute Code(s): J96.01 - ACUTE RESPIRATORY FAILURE WITH HYPOXIA SNOMED Code(s): 760646673 Comment: - Sat 75% when sharepoint trainer got patient per report - Likely due to CHF - NO Right sided strain on Echo- less likely PE - Currently requiring 2L oxygen via nasal cannula. - RT consult for home O2 ordered -ABGs 10/07 pH 7.41 pCO2 73 pO2 50 HCO3 38.2 O2 SAT 86.2 Base ex 17.6 *Per nursing RT thought may have had venous contamination of sample, VBG ordered - VBGs pH 7.37 pCO2 65 pO2 50 HCO3 32.1 O2 SAT 85 Base ex 9.7, in context of ABG vs VBG improved. Did not have prior ABG/VBG drawn. Assuming respiratory failure on admission, labs appear to exhibit fully compensated respiratory acidosis. - Denies any SOB, has been on O2 - Continue O2 as needed - Titrate for low 90s, order entered (2) Diastolic CHF, chronic Current Visit: No Status: Acute Code(s): I50.32 - CHRONIC DIASTOLIC ( CONGESTIVE) HEART FAILURE SNOMED Code(s): 506466275 Comment: - Acute on Chronic, possibly precipitated by Lyrica use - Denies feeling SOB - Restart home dosing lasix. Continue zaroxolyn and spironolactone. - Daily weight and strict I/O, patient refuses fay cath, fluid restriction to 2L Daily - Jayden wrap bilateral LE. - Edema in lower extremities improving per pt, seems slightly less tight to me today (3) Insulin dependent diabetes mellitus with complications Current Visit: Yes Status: Chronic Priority: Medium Code(s): E11.8 - TYPE 2 DIABETES MELLITUS WITH UNSPECIFIED COMPLICATIONS SNOMED Code(s): 36306571 Comment: -Continue Lantus and Lispro - FS ACHS (4) Morbid obesity Current Visit: Yes Status: Acute Code(s): E66.01 - MORBID (SEVERE) OBESITY DUE TO EXCESS CALORIES SNOMED Code(s): 894742157 Comment: - Recommend weight loss, lifestyle changes - Would benefit from a referral to [facility] upon discharge. (5) CKD (chronic kidney disease) Current Visit: No Status: Acute Code(s): N18.9 - CHRONIC KIDNEY DISEASE, UNSPECIFIED SNOMED Code(s): 017616835 Comment: -Pt does have stage III CKD with chronic elevated CR and BUN. Pt is currently at her baseline. - Cr and BUN continue to be high -24Hr Urine Cr has come back at normal level there is no concern nephrotic syndrome. - Maintained same weight last couple days with an apparant 14lb weight loss from 10/07-10/08, I doubt this is accurate - Continue with furosemide -Continue spironolactone dosing - F/u with nephrology at d/c (6) COPD (chronic obstructive pulmonary disease) Current Visit: No Status: Acute Code(s): J44.9 - CHRONIC OBSTRUCTIVE PULMONARY DISEASE, UNSPECIFIED SNOMED Code(s): 94826503 Comment: - No signs of exacerbation, no indication for steroids - Only has albuterol inhaler as home medication. - Continue PRN nebulizers and singulair - RA SATs while resting and walking ordered (7) Chronic abdominal wound infection Current Visit: Yes Status: Acute Code(s): S31.109A - UNSP OPN WND ABD WALL, UNSP Q W/O PENET PERIT CAV, INIT; L08.9 - LOCAL INFECTION OF THE SKIN AND SUBCUTANEOUS TISSUE, UNSP SNOMED Code(s): 21389855 Comment: - reports wound for 12 years - does not follow with wound care - does daily dresssing changes at home - will do BID dressing changes , wash wound with soap and water- observe for signs of infection - Today only with scant yellow purulence, no adundant odor, pt has experienced some abdominal pain, restarted on usual pain medications, states she will experience pain at home if she doesn't take her meds. Positioning changed and pt states pain was relieved eventually. Likely already has fistula given hx of stool-like drainage at times. abcess vs fluid collection? - May consult surgery depending on read, pt stated "I'm not going to let anyone here touch me" - CT abd/pel ordered, awaiting read - Continue to monitor for s/s of infection (8) Depression Current Visit: No Status: Acute Code(s): F32.9 - MAJOR DEPRESSIVE DISORDER, SINGLE EPISODE, UNSPECIFIED SNOMED Code(s): 47420918 Comment: - Continue duloxetine (9) UTI (urinary tract infection) Current Visit: No Status: Acute Comment: Zosyn started 10/07. Awaiting sensitivities for best PO abx (10) [place] renal calculus Current Visit: Yes Status: Acute Code(s): N20.0 - CALCULUS OF KIDNEY SNOMED Code(s): 240430878 Comment: No hydronephrosis per imaging. Should f/u with urologist as outpatient (11) Full code status Current Visit: Yes Status: Acute Code(s): Z78.9 - OTHER SPECIFIED HEALTH STATUS SNOMED Code(s): 929218496 (12) DVT prophylaxis Current Visit: No Status: Acute Code(s): OUQ2651 - SNOMED Code(s): 454995514 Comment: - Heparin sq Status and Disposition: inpatient - d/c when medically stable - will likely need rehab at discharge Attending: Margaret Barry
[2019-10-10] MEDS: Atorvastatin* 10 MG TAB PO SCH (21:15)
[2019-10-10] MEDS ORDERED: LORazepam TAB(*) 0.5 MG PO ONE (22:56)
[2019-10-11] MEDS ORDERED: LORazepam INJ* 2 MG/ML 1 ML VIAL IV PUSH ONE (02:04)
[2019-10-11] MEDS: ZOSYN 3.375 GM Q12H per EXTENDED INFUSION IVPB SCH ×2 (02:35)
[2019-10-11] MEDS: Heparin VIAL(*) 5000 UNITS/ML VIAL (FIVE THOUSAND) SUBCUT SCH ×2 (05:58→12:55)
[2019-10-11 06:49] LABS: ABS Eosinophils 0.1 10^3/ul (0-0.6); ABS Lymphocytes 1.3 10^3/ul (1.0-4.8); ABS Monocytes 0.9 10^3/ul (0-0.8); ABS Neutrophils 4.4 10^3/ul (1.5-7.7); Hematocrit 30 % (35-47); Hemoglobin 9.8 g/dL (12.0-16.0); Lymphocyte % 18.6 %; Mean Corpuscular HGB Conc 32 g/dL (31-36); Mean Corpuscular Hemoglobin 29 pg (27-31); Mean Corpuscular Volume 90 fL (80-97); Mean Platelet Volume 9.7 fL (7.4-10.4); Platelet Count 142 10^3/uL (150-450); Red Blood Count 3.36 10^6 /uL (3.70-4.87); Red Cell Distribution Width 21 % (10-15); White Blood Count 6.8 10^3/uL (3.5-10.8)
[2019-10-11] MEDS: Insulin LISPRO* 1 UNITS UNIT SUBCUT SCH ×2 (08:58→11:43)
[2019-10-11] MEDS: Insulin GLARGINE(*) 1 UNITS UNIT SUBCUT SCH (08:59)
[2019-10-11] MEDS ORDERED: Amoxicillin/Clavulanate TAB* 500 MG PO SCH (09:00)
[2019-10-11] MEDS: Montelukast Sodium TAB* 10 MG PO SCH (09:02)
[2019-10-11] MEDS: Aspirin EC TAB* 81 MG TAB.EC PO SCH (09:03)
[2019-10-11] MEDS: Famotidine TAB* 20 MG PO SCH (09:03)
[2019-10-11] MEDS: Cyanocobalamin TAB* 500 MCG PO SCH (09:05)
[2019-10-11] MEDS: Potassium Chlor TAB* 10 MEQ TAB.ER PO SCH (09:06)
[2019-10-11] MEDS: DULoxetine DR CAP* 30 MG CAP.DR PO SCH (09:06)
[2019-10-11] MEDS: Furosemide TAB* 40 MG PO SCH (09:07)
[2019-10-11] MEDS: Metolazone TAB* 5 MG PO SCH (09:07)
[2019-10-11] MEDS: Morphine TAB Extended Release (*) 15 MG TAB.ER PO SCH (09:09)
[2019-10-11] MEDS: Nystatin TOP POWDER* 15 GM BTL TOPICAL SCH (09:09)
--- NOTE | 2019-10-11 09:41 | DS ---
CC: Og Arce NP* DISCHARGE SUMMARY: DATE OF ADMISSION: 09/29/19 ANTICIPATED DATE OF DISCHARGE: 10/11/19 ATTENDING PHYSICIAN: Dr. Barry* (dictated by Michael Guadalupe NP). PRIMARY CARE PHYSICIAN: Og Arce NP PRIMARY DIAGNOSIS: Acute hypoxemic respiratory failure secondary to congestive heart failure exacerbation. SECONDARY DIAGNOSES: 1. Chronic obstructive pulmonary disease 2. Urinary tract infection. 3. Diabetes mellitus. 4. Super obesity. 5. Chronic kidney disease. 6. Chronic abdominal wound. 7. Depression. 8. Staghorn renal calculus. HISTORY OF PRESENT ILLNESS AND HOSPITAL COURSE: Ms. Frankel is a 69-year-old female with a past medical history significant for heart failure with preserved ejection fraction, COPD, diabetes mellitus, super obesity, chronic abdominal wound and chronic kidney disease. She presented to the emergency department on 09/29/19 with complaints of generalized weakness and difficulty with ambulation , found to be hypoxic at 78% on room air. Chest x-ray with pulmonary edema. BNP 178. D-dimer 371. Trop 0.04 and 0.03. EKG showed sinus rhythm. Transthoracic echocardiogram showed EF of 60% to 65%, however, LV diastolic function was indeterminate. Right ventricle showed mildly reduced systolic function. Doppler ruled out DVT of the right lower extremity. Per admission history, the patient believes what precipitated her illness was starting Lyrica about 2 months ago. Her edema increased significantly. She stopped the Lyrica. Her Lasix was then increased, but she does not feel like it helped and for 1 month she has had increased pain in her legs, especially the right one. Also started new redness, numbness, burning, tingling, also reported an approximate 60 pound weight gain over seemingly short period of time. On admission, there was concern for heart failure exacerbation and possibly obesity hypoventilation syndrome. The patient was diuresed. She lost approximately 40 pounds during her hospital stay. Chest x-ray on 10/04/19 showing pulmonary vascular congestion. It was noted that her bicarb was continuing to climb. Had the ABGs drawn on 10/08/19 a.m., although no previous ABGs drawn, it is reasonable to assume fully compensated respiratory acidosis was evident. PH stable. Has continued with consistently high bicarbs since with no complaints of shortness of breath, lightheadedness, chest pain, or any other new findings. She was experiencing some abdominal pain on . CT abdomen and pelvis without contrast did not reveal any acute process. She otherwise seemed to recovered well given her general health status, however , she has been continuing to use oxygen while she has been here in the hospital. It was noted on admission that the patient could not have a CTA based on her GFR. She did have the lower extremity Doppler to rule out DVT and transthoracic echocardiogram not showing any significant right-sided strain per echo indicating that PE is less likely per other provider reports. Plan is to discharge to [facility]. DIAGNOSTIC STUDIES: Chest x-ray, impression states the constellation of finding favors mild pulmonary vascular congestion and interstitial edema. Cardiomegaly was noted as well as potential trace pleural effusion. EKGs while here from 09/29/19, she had an EKG showing normal sinus rhythm with a rate of 82 beats per minute, appears low voltage probably in relation to body habitus. No notable ST elevations or depressions. EKG from 09/30/19 similar findings with a rate of 81 beats per minute, no ischemic changes noted. Transthoracic echocardiogram conclusion states the left ventricle, the cavity size is normal. Wall thickness is mildly increased. Systolic function is normal. The estimated EF is 60% to 65%, although no diagnostic regional wall motion abnormalities identified. This possibility cannot be completely excluded on the basis of the study. Right ventricle, the cavity size is mildly dilated. Systolic function is mildly reduced. Systolic pressure is within the normal range. Left atrium, the atrium is mildly dilated. No functionally significant valvular abnormalities noted. Compared to an echo from 2017, LVEF was previously hyperdynamic. It does note in the findings that left ventricular diastolic function parameters are indeterminate. Venous Doppler from 09/29/19, impression states no DVT of the right lower extremity veins. Venous Doppler from 10/03/19, impression states no evidence for right upper extremity DVT. Chest x-ray from 10/04/19, impression low lung volumes. Pulmonary vascular congestion. This EKG states that the cardiomediastinal silhouette is normal. CT abdomen and pelvis from 10/10/19, impression states large staghorn calculi within the left renal pelvis and left renal calyces. No hydronephrosis. Chronic mild dilatation of left mid small bowel loop with areas of small bowel anastomosis. Other chronic findings as above. Chronic findings appear to include small calcified granulomas in the right hepatic lobe. She does not have a gallbladder. Chronic mild atrophy of the pancreas. Severe chronic atrophy of the left kidney. Moderate right renal atrophy. Scattered colonic diverticulosis. Atherosclerotic calcifications of the aorta and major branches. Multilevel degenerative changes of the visualized spine. Grade 1 anterolisthesis of L5 on S1. No acute osseous lesion or fracture. Diastasis of the abdominis rectus muscles. LABORATORY DATA: Labs from 09/29/19, WBC 6.3, RBC 3.42, hemoglobin 9.9, hematocrit 31, MCV 91, MCH 29, MCHC 32, RDW 20, platelet count 161, MPV 9.3, absolute neutrophils 4.1, absolute lymphocytes 1.2, absolute monocytes 0.9, absolute eosinophil 0.1, absolute basophils 0.0, absolute nucleated RBC 0.0. INR 1.10. D- dimer 371. Sodium 140, potassium 4.0, chloride 98, carbon dioxide 36, anion gap 6, BUN 38, creatinine 2.46, estimated GFR 19.5. BUN and creatine ratio of 5.4, glucose 173, calcium 8.8. Iron 28, TIBC 402, percent saturation 7, unsaturated iron binding less than 387, transferrin 287, ferritin 21.8. Total bilirubin 2.10, AST 7, ALT 8, alkaline phosphatase 106. Troponin 0.04 and 0.03. BNP 178. Total protein 68, albumin 3.3, globulin 3.5, albumin globulin ratio 0.9. Vitamin B12 was 1215, folate 18.39. Blood gases from 10/08/19, ABGs, pH 7.41, PCO2 73, PO2 50, HCO3 38.2, O2 saturation 86.2, base access 17.6. There was a question of venous contamination with the specimen. VBGs, pH of 7.37, PCO2 of 65, PO2 of 50, HCO3 32.1, O2 saturation 85, base access 9.7. UA specific gravity of 1.008, 3+ blood , 3+ leukocyte esterase, 3+ wbc's, 2+ rbc's, present squamous epithelial cells, 3+ bacteria, negative for nitrites. On 10/06/19, kappa light chain 15.5, lambda light chain 7.96, kappa lambda ratio 1.95. She did have further workup related to kidney function. Urine random microalbumin 57.4. A 24-hour urine collection total urine 2650, urine creatinine 24.86, 24-hour creatinine 640.24, creatinine concentration 24.16, total protein concentration 23, total protein 24 -hours 609. CBCs essentially remains stable. Hemoglobin between 8.4 and 9.9 continued to wax and wane throughout the stay and platelet count 128. She was noted to start with high bicarb 36, which continued with high values for the next few days and then critically high values starting on 10/06/19 remains stable at 46. Initial creatinine 2.46, started to trend downward and then started to come back up ending at 2.36. Her glucose levels have been somewhat controlled in the mid 100s with a few levels in the mid to high 200s. DISCHARGE PLAN: 1. Ms. Frankel can continue with a consistent carb diet, preferably low in unhealthy fats and sugars. 2. No equipment necessary for discharge. 3. Return precautions. She should return to the emergency department with chest pain, unusual shortness of breath, significant weight gain, or any other symptoms that appear concerning needing emergent attention. She should continue to increase her activity level as tolerated per PT at [facility]. 4. Acute hypoxemic respiratory failure as well as COPD. I think it would be ceballos for the patient to follow up with gre instructor within the next 1 to 2 weeks. There is concern for obesity related hypoventilation syndrome. She could follow up with a BMP in one week. She can continue her usual medication regimen in relation to her COPD. 5. Heart failure with preserved ejection fraction with exacerbations. I think it would be ceballos for patient to follow up with Cardiology about this for better assessment and further workup of her heart failure. She can continue her diuretics as usual. 6. UTI. She believes that the prescription for Augmentin to complete a total of 7 day course of antibiotics, she will need this for 4 more days. She should follow up with her primary care provider about this condition. 7. Diabetes mellitus. The patient has been on 29 units of glargine daily here including a lispro sliding scale at home. She usually takes glargine 15 units subcu b.i.d. She can continue with this regimen as she was on 29 units once a day here. Also she can continue with her insulin aspart at her usual regimen. She should follow up with her primary care provider about this condition and discuss whether there is a need to see an bonding supervisor. 8. Super obesity. Encouraged lifestyle modification. I would like to refer her to [facility] given her other significant comorbidities as they may be able to help her find approachable solution to improve this condition. 9. Chronic kidney disease. The patient should follow up with a sales advisor. She did have light chain labs drawn while she was here, kappa light chain, lambda light chain both were high, ratio as well was high. She also had some other urine studies done. I think she should follow up with a sales advisor within the next week or so. 10. Chronic abdominal wound. Per the patient, she often leaks what appears to be stool out of this wound. Some days she will have large amounts of drainage come out of it. Some days she has essentially no drainage come out. She states that the wound looks as it usually does. She stated to me that she would not have any type of surgery here and that she wants to follow up with her surgeon out [facility] about this condition. She should follow up with this surgeon within the next couple of weeks. She did experience some abdominal pain while she was here. I did order a CT of her abdomen and pelvis without contrast in relation to the kidney function. It did not show any acute process. She also does take morphine extended release at home, which she states helps control her abdominal pain and when she does not take her pain medication, she will often have abdominal pain. Her last prescription for morphine was morphine ER 15 mg 1 tablet by mouth twice daily. This was sent on 09/13/19 with a 30-day supply. She can continue with this medication. 11. Depression. She can continue with her Cymbalta. She will follow up with PCP about this condition. 12. Staghorn renal calculus. This was an incidental finding on imaging. She should follow up with an urologist about this. She can do this within the next few weeks. There was no hydronephrosis on imaging. She does have a UTI, but she otherwise was not having any urinary symptoms. STATUS: Stable. DISPOSITION: Planned for [facility]. TIME SPENT: Approximately 45 minutes was spent on this discharge summary. This plan has been discussed previously with my attending physician, Dr. Barry, and she agrees with this plan. ADDENDUM TO DISCHARGE SUMMARY: REVIEW OF SYSTEMS: A 10-point review of systems was completed with this patient. She denies any chest pain, cough, shortness of breath. Denies any increased swelling to bilateral lower extremities. PHYSICAL EXAM: Constitutional: The patient is sitting up in bed, in no acute distress. Last vital signs, temp 97.8, heart rate 91, respiratory rate 20, O2 saturation 97% on O2. Blood pressure 146/63. HEENT: No scleral icterus noted. Oropharynx clear. Cardiovascular: Heart rate regular, fast. S1, S2 present. No murmurs, rubs, or gallops noted. Respiratory: Lung sounds clear throughout bilaterally, diminished to bases. Abdomen: Hyperactive bowel sounds. Abdomen: Large, soft, no tenderness to deep palpation. Musculoskeletal : Normal range of motion to bilateral upper extremities. Strength equal to bilateral lower extremities. Pedal pulses present 2+ bilaterally. Mild pitting edema to bilateral lower extremities. Skin: The patient does have a wound to the abdominal area. There is a wound bed with granulation tissue noted. Some mild surrounding erythema. Scant purulent drainage noted. Skin appears intact without drainage or erythema to bilateral abdominal folds at this time. Neuro: Alert and oriented x3. MEDICATIONS AT DISCHARGE: 1. Aspirin 81 mg p.o. daily. 2. Cyanocobalamin 1000 mcg p.o. daily. 3. Duloxetine DR 30 mg p.o. daily. 4. Famotidine 40 mg p.o. daily. 5. Furosemide 40 mg p.o. at bedtime. 6. Furosemide 80 mg p.o. q.a.m. 7. Insulin glargine 15 units subcu b.i.d. 8. Montelukast sodium 10 mg p.o. daily. 9. Potassium chloride tab 10 mEq p.o. daily. 10. Simvastatin 20 mg p.o. at bedtime. 11. Spironolactone 25 mg p.o. daily. 12. Acetaminophen 650 mg p.o. q.6 hours p.r.n. 13. Albuterol MDI 2 puffs inhaled q.4 hours p.r.n. 14. Augmentin 500 mg p.o. b.i.d., started on 10/11/19, continue for 4 days total for a total of 7 days of antibiotics for UTI. 15. Cholecalciferol 5000 units p.o. q.7 days. 16. Ferrous sulfate 325 mg p.o. daily. 17. Insulin aspart 0 to 50 units subcu t.i.d. a.c. The patient may continue with usual regimen. 18. Morphine tab extended release 15 mg p.o. b.i.d. 19. Nystatin powder 1 application topically b.i.d. to abdominal folds. MICHAEL GUADALUPE NP [id number]/[facility] #: [id number]/[facility] #: [id number] ALFIE
--- NOTE | 2019-10-11 10:39 | DS ---
DISCHARGE SUMMARY: ADDENDUM: REVIEW OF SYSTEMS: A 10-point review of systems was completed with this patient. She denies any ches t pain, cough, shortness of breath. Denies any increased swelling to bilateral lower extremities. PHYSICAL EXAM: Constitutional: The patient is sitting up in bed, in no acute distress. Last vital signs, temp 97.8, heart rate 91, respiratory rate 20, O2 saturation 97% on O2. Blood pressure 146/63 . HEENT: No scleral icterus noted. Oropharynx clear. Cardiovascular: Heart rate regular, fast. S 1, S2 present. No murmurs, rubs, or gallops noted. Respiratory: Lung sounds clear throughout bilat erally, diminished to bases. Abdomen: Hyperactive bowel sounds. Abdomen: Large, soft, no tendernes s to deep palpation. Musculoskeletal: Normal range of motion to bilateral upper extremities. Stren gth equal to bilateral lower extremities. Pedal pulses present 2+ bilaterally. Mild pitting edema t o bilateral lower extremities. Skin: The patient does have a wound to the abdominal area. There is a wound bed with granulation tissue noted. Some mild surrounding erythema. Scant purulent drainage noted. Skin appears intact without drainage or erythema to bilateral abdominal folds at this time. Neuro: Alert and oriented x3. MEDICATIONS AT DISCHARGE: 1. Aspirin 81 mg p.o. daily. 2. Cyanocobalamin 1000 mcg p.o. daily. 3. Duloxetine DR 30 mg p.o. daily. 4. Famotidine 40 mg p.o. daily. 5. Furosemide 40 mg p.o. at bedtime. 6. Furosemide 80 mg p.o. q.a.m. 7. Insulin glargine 15 units subcu b.i.d. 8. Montelukast sodium 10 mg p.o. daily. 9. Potassium chloride tab 10 mEq p.o. daily. 10. Simvastatin 20 mg p.o. at bedtime. 11. Spironolactone 25 mg p.o. daily. 12. Acetaminophen 650 mg p.o. q.6 hours p.r.n. 13. Albuterol MDI 2 puffs inhaled q.4 hours p.r.n. 14. Augmentin 500 mg p.o. b.i.d., started on 10/11/19, continue for 4 days total for a total of 7 da ys of antibiotics for UTI. 15. Cholecalciferol 5000 units p.o. q.7 days. 16. Ferrous sulfate 325 mg p.o. daily. 17. Insulin aspart 0 to 50 units subcu t.i.d. a.c. The patient may continue with usual regimen. 18. Morphine tab extended release 15 mg p.o. b.i.d. 19. Nystatin powder 1 application topically b.i.d. to abdominal folds. MICHAEL GAUDALUPE NP [id number]/[facility] #: [id number]
[2019-10-11] MEDS: Spironolactone TAB* 25 MG PO SCH (10:45)
[2019-10-11 13:28] VITALS: BP 136/61
[2019-10-13 00:21] LABS: Albumin 35 %; Albumin/Globulin Ratio 0.53 %; Gamma Globulin 17 %; Total Protein(PEP) Urine 19 mg/dL
== END 2019-10-11 13:15 | DRG 291 ==
LOC: ED 15:01 → MEDTELE 18:24
PROVIDERS: ADMIT Internal Medicine; ATTEND Internal Medicine
PROC: 05HM33Z Insertion of Infusion Device into Right Internal Jugular Vein, Percutaneous Approach (ICD-10-PCS; principal; 2019-09-30)
DX: I50.33 Acute on chronic diastolic (congestive) heart failure (principal); J96.01 Acute respiratory failure with hypoxia; E66.2 Morbid (severe) obesity with alveolar hypoventilation; N18.4 Chronic kidney disease, stage 4 (severe); N39.0 Urinary tract infection, site not specified; E87.2 Acidosis; K63.2 Fistula of intestine; T81.89XA Other complications of procedures, not elsewhere classified, initial encounter; E11.22 Type 2 diabetes mellitus with diabetic chronic kidney disease; R53.1 Weakness; J44.9 Chronic obstructive pulmonary disease, unspecified; F32.9 Major depressive disorder, single episode, unspecified; E11.42 Type 2 diabetes mellitus with diabetic polyneuropathy; G89.29 Other chronic pain; S31.109A Unspecified open wound of abdominal wall, unspecified quadrant without penetration into peritoneal cavity, initial encounter; S50.11XA Contusion of right forearm, initial encounter; X58.XXXA Exposure to other specified factors, initial encounter; D64.9 Anemia, unspecified; B96.20 Unspecified Escherichia coli [E. coli] as the cause of diseases classified elsewhere; E11.21 Type 2 diabetes mellitus with diabetic nephropathy; N20.0 Calculus of kidney; Y92.230 Patient room in hospital as the place of occurrence of the external cause; Z79.82 Long term (current) use of aspirin; Z79.4 Long term (current) use of insulin; Z79.899 Other long term (current) drug therapy; Z88.8 Allergy status to other drugs, medicaments and biological substances; Z83.3 Family history of diabetes mellitus; Z82.49 Family history of ischemic heart disease and other diseases of the circulatory system; Z82.5 Family history of asthma and other chronic lower respiratory diseases; Z81.8 Family history of other mental and behavioral disorders; Z80.0 Family history of malignant neoplasm of digestive organs; Z87.891 Personal history of nicotine dependence
CPT/HCPCS: 36415; 36600; 71045; 71046; 74176; 80048; 80053; 81003; 81015; 82043; 82272; 82436; 82570; 82607; 82728; 82746; 82803; 83540; 83550; 83735; 83880; 83883; 84133; 84155; 84156; 84165; 84166; 84300; 84484; 85025; 85027; 85379; 85610; 87077; 87086; 87184; 87186; 93005; 93306; 99283; A9270-GY; C1751; C8929; J1644; J1650; J1756; J1940; J2060; J2270; J2405; J2543

== ENCOUNTER 2020-11-17 07:01 | Observation (INO) ==
[2020-11-17] MEDS ORDERED: NS 0.9% 1000 ml BAG 1,000 ML IV ONE (07:14)
[2020-11-17 07:57] LABS: Hematocrit 25 % (35-47); Hemoglobin 8.5 g/dL (12.0-16.0); Mean Corpuscular HGB Conc 34 g/dL (31-36); Mean Corpuscular Hemoglobin 34 pg (27-31); Mean Corpuscular Volume 101 fL (80-97); Red Blood Count 2.51 10^6 /uL (3.70-4.87); Red Cell Distribution Width 14 % (10-15); White Blood Count 14.6 10^3/uL (3.5-10.8)
[2020-11-17 08:24] LABS: ABS Basophils 0.1 10^3/ul (0-0.2); ABS Eosinophils 0.2 10^3/ul (0-0.6); ABS Lymphocytes 1.9 10^3/ul (1.0-4.8); ABS Monocytes 1.9 10^3/ul (0-0.8); ABS Neutrophils 10.5 10^3/ul (1.5-7.7); Eosinophil % 1.3 %; Lymphocyte % 12.9 %; Mean Platelet Volume 11.2 fL (7.4-10.4); Platelet Count 79 10^3/uL (150-450)
[2020-11-17 08:35] LABS: Albumin 3.2 g/dL (3.2-5.2); CO2 Carbon Dioxide 19 mmol/L (22-32); Calcium 7.8 mg/dL (8.6-10.3); Chloride 96 mmol/L (101-111); Magnesium 1.7 mg/dL (1.9-2.7); Sodium 130 mmol/L (135-145)
[2020-11-17 08:41] LABS: ALT 25 U/L (7-52); Albumin/Globulin Ratio 0.9 (1-3); Alkaline Phosphatase 126 U/L (35-149); Blood Urea Nitrogen 57 mg/dL (6-24); EGFR African American 14.2 (>60); EGFR Non-African American 11.7 (>60); Globulin 3.5 g/dL (2-4); Glucose 297 mg/dL (70-100); Phosphorus 6.2 mg/dL (2.5-5.0); Total Protein 6.7 g/dL (6.4-8.9)
[2020-11-17 08:42] LABS: Anion Gap 15 mmol/L (2-11)
[2020-11-17 08:45] LABS: TSH Ultra Thyroid Stim Horm 6.28 mcIU/mL (0.34-5.60)
[2020-11-17 08:55] LABS: Troponin I 0.01 ng/mL (<0.03)
[2020-11-17 08:58] LABS: Potassium Redraw 4.4 mmol/L (3.5-5.0)
[2020-11-17] MEDS ORDERED: Perflutren Lipid Microsphere 3 ML VIAL ONE (14:04)
[2020-11-17] MEDS: Heparin 5000 UNITS/ML 1 mL VIAL SUBCUT SCH ×2 (16:19→23:22)
[2020-11-17] MEDS ORDERED: Dextrose 50% Syringe 50 ml 25 GM/50 ML SYRINGE IV PUSH PRN (19:04)
[2020-11-17] MEDS ORDERED: Albuterol HFA INHALER 8 gm MDI INH PRN (19:08)
[2020-11-17] MEDS ORDERED: Lidocaine 4% GEL 10 GM TUBE TOPICAL PRN (19:20)
[2020-11-17 22:24] LABS: Glucose Confirmatory 445 mg/dL (70-100)
[2020-11-17] MEDS: Nystatin TOP POWDER 15 GM BTL TOPICAL SCH (23:14)
[2020-11-17] MEDS: Sodium Bicarb 650 mg (ANTACID) TAB PO SCH (23:17)
[2020-11-17] MEDS: Morphine ER 15 mg TAB ** extended release PO SCH (23:19)
[2020-11-18] MEDS ORDERED: Dextrose 50% Syringe 50 ml 25 GM/50 ML SYRINGE IV PUSH PRN (02:24)
[2020-11-18 06:29] LABS: Hematocrit 23 % (35-47); Hemoglobin 7.6 g/dL (12.0-16.0); Mean Corpuscular HGB Conc 33 g/dL (31-36); Mean Corpuscular Hemoglobin 34 pg (27-31); Mean Corpuscular Volume 102 fL (80-97); Mean Platelet Volume 11.2 fL (7.4-10.4); Platelet Count 104 10^3/uL (150-450); Red Blood Count 2.25 10^6 /uL (3.70-4.87); Red Cell Distribution Width 15 % (10-15); White Blood Count 11.5 10^3/uL (3.5-10.8)
[2020-11-18 06:31] LABS: ABS Basophils 0.1 10^3/ul (0-0.2); ABS Eosinophils 0.2 10^3/ul (0-0.6); ABS Lymphocytes 2.8 10^3/ul (1.0-4.8); ABS Monocytes 1.4 10^3/ul (0-0.8); Lymphocyte % 24.7 %; Nucleated Red Blood Cells % 0.1
[2020-11-18] MEDS: Heparin 5000 UNITS/ML 1 mL VIAL SUBCUT SCH (06:31)
[2020-11-18 06:42] LABS: Albumin 3.1 g/dL (3.2-5.2); Calcium 7.9 mg/dL (8.6-10.3); Potassium 4.5 mmol/L (3.5-5.0); Total Bilirubin 0.9 mg/dL (0.2-1.0)
[2020-11-18 06:48] LABS: Albumin/Globulin Ratio 0.9 (1-3); EGFR Non-African American 11.5 (>60); Globulin 3.4 g/dL (2-4); Total Protein 6.5 g/dL (6.4-8.9)
[2020-11-18 07:54] LABS: Free T4 0.83 ng/dL (0.61-1.12)
[2020-11-18] MEDS ORDERED: Aspirin EC 81 mg TAB.EC (enteric coated) PO SCH (09:00)
[2020-11-18] MEDS ORDERED: Insulin GLARGINE 100 un/ml 10 ml VIAL SUBCUT SCH (09:00)
[2020-11-18] MEDS ORDERED: Cholecalciferol (VIT D3) 1,000 unit TAB PO SCH (09:00)
[2020-11-18] MEDS ORDERED: DULoxetine DR 60 mg CAP PO SCH (09:00)
[2020-11-18] MEDS: Sodium Bicarb 650 mg (ANTACID) TAB PO SCH (09:38)
[2020-11-18] MEDS: Morphine ER 15 mg TAB ** extended release PO SCH (09:39)
[2020-11-18] MEDS: Nystatin TOP POWDER 15 GM BTL TOPICAL SCH (09:40)
[2020-11-18 11:33] VITALS: BP 81/51
== END 2020-11-18 11:30 | disposition home or self-care (01) ==
LOC: MEDTELE 07:01 → ED 07:01 → MEDTELE 14:42
PROVIDERS: ADMIT Internal Medicine; ATTEND Internal Medicine